=== PATIENT | male | born 1940 | race Caucasian/White ===

== ENCOUNTER → 2016-05-01 | Outpatient (CLI) | payer MEDICARE, OTHER ==
[~2016-05-01] MED LIST: AMIO200T33 PO; DORZ2SOL15 EACHEYE; FURO40TA4 PO; LATA0.0015 EACHEYE; MAGN400T23 PO; POTA12PO2 PO
== END | disposition home or self-care (01) ==
LOC: Rad HDHVI 09:07
PROVIDERS: ATTEND Internal Medicine Cardiovascular Disease
DX: M79.89 Other specified soft tissue disorders (principal)
CPT/HCPCS: 93971

== ENCOUNTER → 2016-06-14 | Outpatient (CLI) | payer MEDICARE, OTHER ==
[2016-06-14 12:12] LABS: Basophils # (auto) 0 uL; Basophils % (auto) 0.7 % (0.0-2.0); Eosinophils # (auto) 0.2 uL; Eosinophils % (auto) 3.7 % (0.0-7.0); Hematocrit 32.2 % (41.0-53.0); Hemoglobin 10.2 g/dL (13.5-17.5); Lymphocytes % (auto) 17.5 % (10.0-50.0); Mean Corpuscular Hemoglobin 27.1 pg (28.0-32.0); Mean Corpuscular Hgb Conc. 31.6 g/dL (32.0-36.0); Mean Platelet Volume 9.2 fL (7.4-10.4); Monocytes # (auto) 0.6 uL; Monocytes % (auto) 10.7 % (0.0-12.0); Neutrophils % (auto) 67.4 % (37.0-80.0); Platelet Count (auto) 371 10^3/uL (140-450); Red Cell Distribution Width 16.6 % (11.6-16.0); White Blood Cell 5.9 10^3/uL (4.4-10.8)
[2016-06-14 12:45] LABS: Urine Bilirubin Negative (Negative); Urine Blood Negative /uL (Negative); Urine Color Yellow (Yellow); Urine Glucose Normal (Normal); Urine Ketone Negative (Negative); Urine Nitrite Negative (Negative); Urine Urobilinogen Normal (Negative)
[2016-06-14 13:08] LABS: Albumin 3.9 g/dL (3.4-5.0); BUN/Creatinine Ratio 19.8; Bilirubin, Direct 0.1 mg/dL (0-0.2); Bilirubin, Total 0.4 mg/dL (0.2-1.0); Calcium 9.3 mg/dL (8.5-10.1); Magnesium 2.8 mg/dL (1.6-2.6); Potassium 3.9 mmol/L (3.5-5.1); Total Protein 7.8 g/dL (6.4-8.2)
== END | disposition home or self-care (01) ==
LOC: LAB 08:28
PROVIDERS: ATTEND Internal Medicine Cardiovascular Disease
DX: I10 Essential (primary) hypertension (principal); E61.1 Iron deficiency; E78.00 Pure hypercholesterolemia, unspecified; E03.9 Hypothyroidism, unspecified; E11.9 Type 2 diabetes mellitus without complications; E55.9 Vitamin D deficiency, unspecified; D64.9 Anemia, unspecified; K74.1 Hepatic sclerosis; N39.0 Urinary tract infection, site not specified; R53.81 Other malaise; R97.20 Elevated prostate specific antigen [PSA]
CPT/HCPCS: 36415; 80048; 80061; 80076; 81003; 82306; 82728; 83540; 83735; 84439; 84443; 85025

== ENCOUNTER 2016-10-13 20:35 | Inpatient (IN) | payer MEDICARE, OTHER ==
[~2016-10-13] VITALS: Ht 180.3 cm; Wt 95.7 kg
[2016-10-13] MEDS ORDERED: SODIUM CHLORIDE 0.9% 1,000 ML IVB ONE (21:02)
[2016-10-13 21:27] LABS: Basophils # (auto) 0 uL; CONDITION Y; DEFINITIVE SEE PRINTOUT; Eosinophils # (auto) 0 uL; Hematocrit 12.4 % (41.0-53.0); Lymphocytes # (auto) 1.1 uL; Lymphocytes % (auto) 5.7 % (10.0-50.0); Mean Corpuscular Hemoglobin 32.1 pg (28.0-32.0); Mean Corpuscular Hgb Conc. 34.7 g/dL (32.0-36.0); Mean Corpuscular Volume 92.5 fL (80.0-100.0); Monocytes # (auto) 1.1 uL; Monocytes % (auto) 5.8 % (0.0-12.0); Neutrophils # (auto) 17.2 uL; Neutrophils % (auto) 88.5 % (37.0-80.0); Platelet Count (auto) 176 10^3/uL (140-450); SUSPECT SEE PRINTOUT; White Blood Cell 19.5 10^3/uL (4.4-10.8)
[2016-10-13 21:35] LABS: Red Cell Distribution Width 23.9 % (11.6-16.0)
[2016-10-13 21:37] LABS: Hemoglobin 4.3 g/dL (13.5-17.5)
[2016-10-13 21:43] LABS: INR 1.19 (0.9-1.15); Partial Thromboplastin Time 28.2 sec (22.64-33.71)
[2016-10-13 21:57] LABS: Albumin 2.3 g/dL (3.4-5.0); Alkaline Phosphatase 31 U/L (45-117); Anion Gap 13 (5-15); Aspartate Aminotransferase 11 U/L (15-37); BUN/Creatinine Ratio 38.3; Bilirubin, Total 0.4 mg/dL (0.2-1.0); Blood Urea Nitrogen 59 mg/dL (7-18); Carbon Dioxide 13 mmol/L (21-32); Chloride 110 mmol/L (98-107); GFR African American 57 mL/min; GFR Non-African American 47 mL/min; Glucose 221 mg/dL (74-106); Magnesium 2.4 mg/dL (1.6-2.6); Potassium 3.6 mmol/L (3.5-5.1); Sodium 136 mmol/L (136-145); Total Protein 4.7 g/dL (6.4-8.2)
[2016-10-13 22:00] LABS: Burr Cells FEW; Ovalocytes FEW
[2016-10-13 22:01] LABS: Polychromasia Slight
[2016-10-13 22:02] LABS: Anisocytosis Moderate; Platelet Estimate Adequate
[2016-10-13 22:50] LABS: Temperature: 21.8 C (20.0-25.0)
[2016-10-13] MEDS ORDERED: PANTOPRAZOLE 40 MG/10 ML VIAL IV ONE (23:30)
[2016-10-13] MEDS ORDERED: PANTOPRAZOLE 80 MG in SODIUM CHL 0.9% 60 ML IV ONE (23:30)
[2016-10-13] MEDS ORDERED: ONDANSETRON HCL 4 MG/2 ML VIAL IV ONE (23:30)
[2016-10-14] VITALS (61 sets, daily range): BP systolic 92–148; BP diastolic 46–99
[2016-10-14 00:29] LABS: Urine Bilirubin Negative (Negative); Urine Blood Negative /uL (Negative); Urine Color Yellow (Yellow); Urine Glucose 1+ mg/dL (Normal); Urine Hyaline Cast MOD /lpf (0 - 2); Urine Ketone Negative (Negative); Urine Mucus FEW (None Seen); Urine Nitrite Negative (Negative); Urine RBC <1 /hpf (0 - 3); Urine Urobilinogen Normal (Negative)
[2016-10-14] MEDS ORDERED: PANTOPRAZOLE 40 MG/10 ML VIAL IV ONE (00:33)
[2016-10-14] MEDS ORDERED: LORazepam 2MG/ML-1ML VIAL ONE (01:39)
[2016-10-14] MEDS ORDERED: LORazepam 2MG/ML-1ML VIAL IV ONE (01:45)
[2016-10-14] MEDS ORDERED: OCTREOTIDE ACETATE 100 MCG in SODIUM CHL 0.9% 50 ML IV ONE (04:45)
[2016-10-14] MEDS ORDERED: NITROGLYCERIN 0.4 MG SL TAB SL PRN (04:45)
[2016-10-14] MEDS ORDERED: OCTREOTIDE ACETATE 500 MCG in SODIUM CHL 0.9% 99 ML IV SCH (04:45)
[2016-10-14] MEDS ORDERED: MORPHINE SULF INJ 2 MG/ML SYRINGE 1ML IV PRN ×2 (04:45→05:30)
[2016-10-14] MEDS ORDERED: ONDANSETRON HCL 4 MG/2 ML VIAL IV PRN (05:30)
[2016-10-14] MEDS ORDERED: ACETAMINOPHEN 500 MG TAB PO PRN (05:30)
[2016-10-14] MEDS ORDERED: HYDROcodone-ACET 5/325MG TAB PO PRN (05:30)
[2016-10-14] MEDS ORDERED: LEV50T PO (05:41)
[2016-10-14] MEDS ORDERED: APIX5TAB PO (05:41)
[2016-10-14] MEDS ORDERED: FERR325T PO (05:41)
[2016-10-14] MEDS ORDERED: MEGE40TA15 PO (05:41)
[2016-10-14] MEDS: LEVOTHYROXINE SODIUM 88 MCG TAB PO SCH ×2 (09:35→12:03)
[2016-10-14] MEDS: AMIODARONE HCL 200 MG TAB PO SCH ×2 (09:35→12:04)
[2016-10-14] MEDS ORDERED: PANTOPRAZOLE 40 MG/10 ML VIAL IV SCH (12:30)
[2016-10-14] MEDS ORDERED: GOLYTELY 4L KIT PO ONE (13:00)
[2016-10-14 16:23] LABS: Basophils # (auto) 0 uL; CONDITION Y; DEFINITIVE SEE PRINTOUT; Eosinophils # (auto) 0 uL; Eosinophils % (auto) 0.1 % (0.0-7.0); Hematocrit 27.5 % (41.0-53.0); Hemoglobin 9.3 g/dL (13.5-17.5); Lymphocytes # (auto) 1.3 uL; Lymphocytes % (auto) 7.3 % (10.0-50.0); Mean Corpuscular Hemoglobin 30.9 pg (28.0-32.0); Mean Corpuscular Hgb Conc. 33.8 g/dL (32.0-36.0); Mean Corpuscular Volume 91.4 fL (80.0-100.0); Monocytes # (auto) 1.8 uL; Monocytes % (auto) 9.6 % (0.0-12.0); Neutrophils # (auto) 15.2 uL; Platelet Count (auto) 160 10^3/uL (140-450); Red Cell Distribution Width 16.2 % (11.6-16.0); White Blood Cell 18.3 10^3/uL (4.4-10.8)
[2016-10-14 16:39] LABS: Albumin 2.6 g/dL (3.4-5.0); BUN/Creatinine Ratio 38.2; Calcium 7.1 mg/dL (8.5-10.1)
[2016-10-14 16:42] LABS: Bilirubin, Total 0.8 mg/dL (0.2-1.0); Total Protein 5.1 g/dL (6.4-8.2)
[2016-10-14 16:43] LABS: Lactic Acid w/Reflex 2.5 mmol/L (0.4-2.0)
[2016-10-14 17:08] LABS: REFLEX LACTIC ACID YES OR NO NO
[2016-10-14] MEDS: SODIUM CHLORIDE 0.9% 1,000 ML IV SCH (18:59)
[2016-10-15] VITALS (34 sets, daily range): BP systolic 85–137; BP diastolic 50–82
[2016-10-15 03:17] LABS: Basophils # (auto) 0 uL; Basophils % (auto) 0.1 % (0.0-2.0); CONDITION Y; Eosinophils # (auto) 0 uL; Eosinophils % (auto) 0.2 % (0.0-7.0); Hematocrit 25.7 % (41.0-53.0); Hemoglobin 8.7 g/dL (13.5-17.5); Lymphocytes # (auto) 1.2 uL; Lymphocytes % (auto) 7.8 % (10.0-50.0); Mean Corpuscular Hemoglobin 30.9 pg (28.0-32.0); Mean Corpuscular Hgb Conc. 33.7 g/dL (32.0-36.0); Mean Corpuscular Volume 91.5 fL (80.0-100.0); Mean Platelet Volume 8.9 fL (7.4-10.4); Monocytes # (auto) 1.5 uL; Monocytes % (auto) 9.6 % (0.0-12.0); Neutrophils # (auto) 12.6 uL; Neutrophils % (auto) 82.3 % (37.0-80.0); Platelet Count (auto) 155 10^3/uL (140-450); Red Cell Distribution Width 16.3 % (11.6-16.0); White Blood Cell 15.3 10^3/uL (4.4-10.8)
[2016-10-15 04:26] LABS: Potassium 2.9 mmol/L (3.5-5.1)
[2016-10-15] MEDS: LEVOTHYROXINE SODIUM 88 MCG TAB PO SCH (08:00)
[2016-10-15] MEDS ORDERED: SODIUM CHLORIDE LOCK 10 ML ONE (08:24)
[2016-10-15] MEDS ORDERED: BENZOCAINE (DENTAL) 20 % SPRAY 60ML MT ONE (08:24)
[2016-10-15] MEDS ORDERED: diphenhdrAMINE HCL 50 MG/1 ML VL ONE (08:26)
[2016-10-15] MEDS ORDERED: LIDOCAINE VISCOUS 2% 15ML UD ONE (08:26)
[2016-10-15] MEDS ORDERED: MIDAZOLAM HCL 5 MG/ML-1ML VIAL ONE (08:26)
[2016-10-15] MEDS ORDERED: EPINEPHrine HCL 1 MG/10 ML SYRG ONE (08:27)
[2016-10-15] MEDS ORDERED: fentaNYL CITRATE 100 MCG/2 ML VL ONE (08:27)
[2016-10-15] MEDS: POTASSIUM CHL 20MEQ/100ML 100 ML IV SCH ×2 (08:31→09:45)
[2016-10-15] MEDS: SODIUM CHLORIDE 0.9% 1,000 ML IV SCH (09:45)
[2016-10-15] MEDS: POTASSIUM CHLORIDE 20 MEQ, LIDOCAINE 1% (LOCAL ANESTH.) 2 ML in SODIUM CHL 0.9% 100 ML IV SCH ×3 (10:30→15:30)
[2016-10-15 12:31] LABS: Basophils # (auto) 0 uL; Basophils % (auto) 0.1 % (0.0-2.0); CONDITION Y; DEFINITIVE SEE PRINTOUT; Eosinophils # (auto) 0 uL; Eosinophils % (auto) 0.3 % (0.0-7.0); Hematocrit 23.8 % (41.0-53.0); Hemoglobin 8.3 g/dL (13.5-17.5); Lymphocytes # (auto) 0.9 uL; Lymphocytes % (auto) 7.9 % (10.0-50.0); Mean Corpuscular Hemoglobin 31.5 pg (28.0-32.0); Mean Corpuscular Hgb Conc. 34.8 g/dL (32.0-36.0); Mean Corpuscular Volume 90.4 fL (80.0-100.0); Mean Platelet Volume 8.6 fL (7.4-10.4); Monocytes # (auto) 1.1 uL; Monocytes % (auto) 10.2 % (0.0-12.0); Neutrophils % (auto) 81.5 % (37.0-80.0); Platelet Count (auto) 145 10^3/uL (140-450); Red Cell Distribution Width 16.6 % (11.6-16.0); White Blood Cell 11.1 10^3/uL (4.4-10.8)
[2016-10-15 12:56] LABS: INR 1.1 (0.9-1.15); Partial Thromboplastin Time 27.3 sec (22.64-33.71)
[2016-10-15 18:19] LABS: Albumin 2.4 g/dL (3.4-5.0); BUN/Creatinine Ratio 30.7; Potassium 3.6 mmol/L (3.5-5.1)
[2016-10-15 18:21] LABS: Bilirubin, Total 0.9 mg/dL (0.2-1.0); Total Protein 4.8 g/dL (6.4-8.2)
[2016-10-16] VITALS (54 sets, daily range): BP systolic 84–138; BP diastolic 47–90
[2016-10-16 03:43] LABS: Basophils # (auto) 0 uL; Basophils % (auto) 0.2 % (0.0-2.0); CONDITION Y; DEFINITIVE SEE PRINTOUT; Eosinophils # (auto) 0.1 uL; Eosinophils % (auto) 1.5 % (0.0-7.0); Hematocrit 20.5 % (41.0-53.0); Lymphocytes % (auto) 13.1 % (10.0-50.0); Mean Corpuscular Hemoglobin 31.1 pg (28.0-32.0); Mean Corpuscular Hgb Conc. 33.8 g/dL (32.0-36.0); Mean Corpuscular Volume 91.9 fL (80.0-100.0); Mean Platelet Volume 8.8 fL (7.4-10.4); Monocytes # (auto) 0.9 uL; Monocytes % (auto) 11.3 % (0.0-12.0); Neutrophils # (auto) 5.7 uL; Neutrophils % (auto) 73.9 % (37.0-80.0); Platelet Count (auto) 127 10^3/uL (140-450); White Blood Cell 7.7 10^3/uL (4.4-10.8)
[2016-10-16 04:09] LABS: Potassium 3.5 mmol/L (3.5-5.1)
[2016-10-16 04:12] LABS: Hemoglobin 6.9 g/dL (13.5-17.5)
[2016-10-16 04:13] LABS: BUN/Creatinine Ratio 27.6; Calcium 6.5 mg/dL (8.5-10.1)
[2016-10-16 04:16] LABS: Bilirubin, Total 0.5 mg/dL (0.2-1.0); Total Protein 4.1 g/dL (6.4-8.2)
[2016-10-16] MEDS: LEVOTHYROXINE SODIUM 88 MCG TAB PO SCH (06:34)
[2016-10-16] MEDS: AMIODARONE HCL 200 MG TAB PO SCH (10:05)
[2016-10-16] MEDS: PANTOPRAZOLE 40 MG TAB PO SCH (10:05)
[2016-10-16] MEDS: SODIUM CHLORIDE 0.9% 1,000 ML IV SCH (11:00)
[2016-10-16] MEDS ORDERED: POTASSIUM CHLORIDE 40 MEQ, LIDOCAINE 1% (LOCAL ANESTH.) 4 ML in SODIUM CHL 0.9% 250 ML IV ONE (11:45)
[2016-10-16] MEDS ORDERED: FUROSEMIDE 20 MG/2 ML VIAL IV ONE (11:45)
[2016-10-16] MEDS ORDERED: POTASSIUM CHL 20 Meq TABLET PO ONE (11:45)
[2016-10-16] MEDS ORDERED: FUROSEMIDE 20 MG/2 ML VIAL ONE ×2 (12:18→12:19)
[2016-10-16 13:04] LABS: Albumin 2.4 g/dL (3.4-5.0); BUN/Creatinine Ratio 23.2; Calcium 7.1 mg/dL (8.5-10.1)
[2016-10-16 16:51] LABS: Hematocrit 30.2 % (41.0-53.0); Hemoglobin 10.1 g/dL (13.5-17.5)
[2016-10-16 17:08] LABS: Calcium 7.3 mg/dL (8.5-10.1); Potassium 3.9 mmol/L (3.5-5.1)
[2016-10-16] MEDS: POTASSIUM CHL 20 Meq TABLET PO SCH (22:26)
[2016-10-17] VITALS (24 sets, daily range): BP systolic 103–145; BP diastolic 52–89
[2016-10-17 03:47] LABS: Hematocrit 31.4 % (41.0-53.0); Hemoglobin 10.5 g/dL (13.5-17.5)
[2016-10-17] MEDS: LEVOTHYROXINE SODIUM 88 MCG TAB PO SCH (06:49)
[2016-10-17 08:34] LABS: Basophils # (auto) 0 uL; Basophils % (auto) 0.1 % (0.0-2.0); CONDITION Y; Eosinophils # (auto) 0.2 uL; Eosinophils % (auto) 1.9 % (0.0-7.0); Hematocrit 31.4 % (41.0-53.0); Hemoglobin 10.7 g/dL (13.5-17.5); Lymphocytes # (auto) 0.8 uL; Lymphocytes % (auto) 7.6 % (10.0-50.0); Mean Corpuscular Hemoglobin 30.8 pg (28.0-32.0); Mean Corpuscular Volume 90.6 fL (80.0-100.0); Mean Platelet Volume 9.1 fL (7.4-10.4); Monocytes # (auto) 0.9 uL; Monocytes % (auto) 8.4 % (0.0-12.0); Neutrophils # (auto) 8.3 uL; Platelet Count (auto) 125 10^3/uL (140-450); Red Cell Distribution Width 15.9 % (11.6-16.0); SUSPECT SEE PRINTOUT; White Blood Cell 10.2 10^3/uL (4.4-10.8)
[2016-10-17] MEDS: POTASSIUM CHL 20 Meq TABLET PO SCH ×2 (10:00→21:48)
[2016-10-17 12:07] LABS: Hemoglobin 11.8 g/dL (13.5-17.5)
[2016-10-17] MEDS: SODIUM CHLORIDE 0.9% 1,000 ML IV SCH (14:42)
[2016-10-17] MEDS: PANTOPRAZOLE 40 MG TAB PO SCH (15:25)
[2016-10-17 15:56] LABS: Hematocrit 32.1 % (41.0-53.0); Hemoglobin 10.7 g/dL (13.5-17.5)
[2016-10-17 22:29] LABS: Hematocrit 31.4 % (41.0-53.0); Hemoglobin 10.3 g/dL (13.5-17.5)
[2016-10-18] MEDS: SODIUM CHLORIDE 0.9% 1,000 ML IV SCH (03:54)
[2016-10-18 05:36] VITALS: BP 115/77
[2016-10-18] MEDS: LEVOTHYROXINE SODIUM 88 MCG TAB PO SCH (06:14)
[2016-10-18 06:43] LABS: Basophils # (auto) 0 uL; CONDITION Y; SUSPECT SEE PRINTOUT
[2016-10-18 06:52] LABS: Basophils % (auto) 0.2 % (0.0-2.0); Eosinophils # (auto) 0.2 uL; Eosinophils % (auto) 2.3 % (0.0-7.0); Hematocrit 32.5 % (41.0-53.0); Hemoglobin 10.9 g/dL (13.5-17.5); Lymphocytes % (auto) 9.3 % (10.0-50.0); Mean Corpuscular Hemoglobin 30.5 pg (28.0-32.0); Mean Corpuscular Hgb Conc. 33.6 g/dL (32.0-36.0); Mean Corpuscular Volume 90.9 fL (80.0-100.0); Mean Platelet Volume 9.4 fL (7.4-10.4); Monocytes # (auto) 1.2 uL; Neutrophils # (auto) 7.9 uL; Neutrophils % (auto) 76.2 % (37.0-80.0); Platelet Count (auto) 130 10^3/uL (140-450); Red Cell Distribution Width 16.1 % (11.6-16.0); White Blood Cell 10.3 10^3/uL (4.4-10.8)
[2016-10-18 06:58] LABS: Calcium 7.4 mg/dL (8.5-10.1); Potassium 4.7 mmol/L (3.5-5.1)
[2016-10-18 07:01] LABS: Albumin 2.2 g/dL (3.4-5.0); Total Protein 4.8 g/dL (6.4-8.2)
[2016-10-18 09:49] VITALS: BP 133/76
[2016-10-18] MEDS: PANTOPRAZOLE 40 MG TAB PO SCH (10:17)
[2016-10-18] MEDS: POTASSIUM CHL 20 Meq TABLET PO SCH (10:18)
[2016-10-18] MEDS: AMIODARONE HCL 200 MG TAB PO SCH (10:18)
[2016-10-18 13:00] VITALS: BP 105/73
[2016-10-18 15:20] VITALS: BP 108/66
[2016-10-18 15:28] VITALS: BP_SYST 124; BP_SYST 132; BP_DIAS 66; BP_DIAS 70
[2016-10-18 15:35] VITALS: BP 124/66
== END 2016-10-18 16:15 | disposition home or self-care (01) | DRG 377 ==
LOC: ER 20:35 → EDUNIT# 20:35 → EDBD 20:35 → TELE 20:36 → ICU WEST 10-14 06:30 → TELE-CENTR 10-17 22:57
PROVIDERS: ADMIT Nurse Practitioner Family; ATTEND Internal Medicine Cardiovascular Disease
PROC: 30233N1 Transfusion of Nonautologous Red Blood Cells into Peripheral Vein, Percutaneous Approach (ICD-10-PCS; 2016-10-14)
PROC: 0DJD8ZZ Inspection of Lower Intestinal Tract, Via Natural or Artificial Opening Endoscopic (ICD-10-PCS; principal; 2016-10-15 14:30)
PROC: 0DJ08ZZ Inspection of Upper Intestinal Tract, Via Natural or Artificial Opening Endoscopic (ICD-10-PCS; 2016-10-15 14:30)
DX: K29.71 Gastritis, unspecified, with bleeding (principal); N17.0 Acute kidney failure with tubular necrosis; E44.0 Moderate protein-calorie malnutrition; I48.91 Unspecified atrial fibrillation; I50.9 Heart failure, unspecified; I11.0 Hypertensive heart disease with heart failure; J44.9 Chronic obstructive pulmonary disease, unspecified; E03.9 Hypothyroidism, unspecified; E29.1 Testicular hypofunction; E87.6 Hypokalemia; D64.9 Anemia, unspecified; D72.829 Elevated white blood cell count, unspecified; K64.4 Residual hemorrhoidal skin tags; K64.8 Other hemorrhoids; T45.515A Adverse effect of anticoagulants, initial encounter; Y92.89 Other specified places as the place of occurrence of the external cause; Z79.01 Long term (current) use of anticoagulants; Z86.718 Personal history of other venous thrombosis and embolism; Z86.73 Personal history of transient ischemic attack (TIA), and cerebral infarction without residual deficits; Z95.0 Presence of cardiac pacemaker; Z95.828 Presence of other vascular implants and grafts; Z88.0 Allergy status to penicillin; Z87.11 Personal history of peptic ulcer disease; Z68.29 Body mass index [BMI] 29.0-29.9, adult
CPT/HCPCS: 36415; 36430; 43235; 45378; 70450; 71010; 74176; 78278; 80048; 80053; 80307; 80320; 81001; 82962; 83605; 83735; 83880; 84443; 84484; 85014; 85018; 85025; 85610; 85730; 86850; 86900; 86901; 86920; 87040; 87081; 93005; 96361; 96365; 96375; 99291; A9560; C9113; J2001; J2250; J2405; J3480

== ENCOUNTER → 2016-10-30 | Outpatient (CLI) | payer MEDICARE, OTHER ==
[~2016-10-30] MED LIST changes: +APIX5TAB PO; +FERR325T PO; +LEV50T PO; +MEGE40TA15 PO
[2016-10-30 12:39] LABS: Urine Bilirubin Negative (Negative); Urine Blood Negative /uL (Negative); Urine Color Yellow (Yellow); Urine Glucose Normal (Normal); Urine Ketone Negative (Negative); Urine Nitrite Negative (Negative); Urine Urobilinogen Normal (Negative); Urine pH 5.5 (5.0-8.0)
[2016-10-30 12:54] LABS: Albumin 3.4 g/dL (3.4-5.0); BUN/Creatinine Ratio 17.7; Bilirubin, Direct 0.3 mg/dL (0-0.2); Bilirubin, Total 0.8 mg/dL (0.2-1.0); Calcium 9.1 mg/dL (8.5-10.1); Total Protein 7.5 g/dL (6.4-8.2)
[2016-10-30 13:16] LABS: Basophils # (auto) 0 uL; Basophils % (auto) 0.2 % (0.0-2.0); CONDITION Y; Eosinophils # (auto) 0.1 uL; Eosinophils % (auto) 0.7 % (0.0-7.0); Hematocrit 36.1 % (41.0-53.0); Hemoglobin 11.6 g/dL (13.5-17.5); Lymphocytes # (auto) 0.6 uL; Lymphocytes % (auto) 6.1 % (10.0-50.0); Mean Corpuscular Hemoglobin 30.1 pg (28.0-32.0); Mean Corpuscular Hgb Conc. 32.3 g/dL (32.0-36.0); Mean Corpuscular Volume 93.3 fL (80.0-100.0); Monocytes # (auto) 0.9 uL; Monocytes % (auto) 9.9 % (0.0-12.0); Neutrophils % (auto) 83.1 % (37.0-80.0); Platelet Count (auto) 252 10^3/uL (140-450); Red Cell Distribution Width 17.3 % (11.6-16.0); SUSPECT SEE PRINTOUT; White Blood Cell 9.6 10^3/uL (4.4-10.8)
[2016-10-30 13:25] LABS: Reticulocyte Count 2.46 % (0.5-1.5)
== END | disposition home or self-care (01) ==
LOC: Rad HDHVI 08:05
PROVIDERS: ATTEND Internal Medicine Cardiovascular Disease
DX: I82.509 Chronic embolism and thrombosis of unspecified deep veins of unspecified lower extremity (principal); D64.9 Anemia, unspecified; I10 Essential (primary) hypertension; E78.00 Pure hypercholesterolemia, unspecified; E03.9 Hypothyroidism, unspecified; E55.9 Vitamin D deficiency, unspecified; R53.81 Other malaise; R97.20 Elevated prostate specific antigen [PSA]; K74.1 Hepatic sclerosis; E11.9 Type 2 diabetes mellitus without complications; N39.0 Urinary tract infection, site not specified
CPT/HCPCS: 36415; 80048; 80061; 80076; 81003; 82306; 83036; 84153; 84403; 84443; 85025; 85045; 93970

== ENCOUNTER → 2016-11-04 | Outpatient (CLI) | payer MEDICARE, OTHER ==
[2016-11-04 16:27] LABS: Basophils # (auto) 0 uL; Basophils % (auto) 0.4 % (0.0-2.0); CONDITION Y; Eosinophils # (auto) 0.2 uL; Eosinophils % (auto) 2.4 % (0.0-7.0); Hemoglobin 11.2 g/dL (13.5-17.5); Lymphocytes % (auto) 13.3 % (10.0-50.0); Mean Corpuscular Hemoglobin 30.3 pg (28.0-32.0); Mean Corpuscular Volume 91.9 fL (80.0-100.0); Mean Platelet Volume 8.6 fL (7.4-10.4); Neutrophils # (auto) 5.5 uL; Neutrophils % (auto) 70.9 % (37.0-80.0); Platelet Count (auto) 442 10^3/uL (140-450); Red Cell Distribution Width 17.3 % (11.6-16.0); White Blood Cell 7.8 10^3/uL (4.4-10.8)
== END | disposition home or self-care (01) ==
LOC: LAB 14:54
PROVIDERS: ATTEND Internal Medicine Cardiovascular Disease
DX: D64.9 Anemia, unspecified (principal)
CPT/HCPCS: 36415; 85025

== ENCOUNTER → 2017-01-08 | Outpatient (CLI) | payer MEDICARE, OTHER ==
[~2017-01-08] MED LIST changes: -DORZ2SOL15 EACHEYE; +DORZ2SOL22 EACHEYE
[2017-01-08 12:58] LABS: Basophils # (auto) 0 uL; Basophils % (auto) 0.5 % (0.0-2.0); Eosinophils # (auto) 0.1 uL; Eosinophils % (auto) 1.9 % (0.0-7.0); Hematocrit 42.2 % (41.0-53.0); Hemoglobin 14.3 g/dL (13.5-17.5); Lymphocytes # (auto) 0.8 uL; Lymphocytes % (auto) 10.7 % (10.0-50.0); Mean Corpuscular Hemoglobin 32.5 pg (28.0-32.0); Mean Corpuscular Hgb Conc. 33.9 g/dL (32.0-36.0); Mean Corpuscular Volume 95.8 fL (80.0-100.0); Mean Platelet Volume 9.4 fL (6.9-10.8); Monocytes # (auto) 0.6 uL; Monocytes % (auto) 8.5 % (0.0-12.0); Neutrophils # (auto) 5.7 uL; Neutrophils % (auto) 78.4 % (37.0-80.0); Nucleated Red Blood Cells % 0.1 %; Platelet Count (auto) 218 10^3/uL (140-450); Red Cell Distribution Width 16.7 % (11.8-14.3); White Blood Cell 7.3 10^3/uL (4.4-10.8)
== END | disposition home or self-care (01) ==
LOC: LAB 10:54
PROVIDERS: ATTEND Internal Medicine Cardiovascular Disease
DX: D64.9 Anemia, unspecified (principal); J44.9 Chronic obstructive pulmonary disease, unspecified
CPT/HCPCS: 36415; 85025

== ENCOUNTER → 2017-02-26 | Outpatient (CLI) | payer MEDICARE, OTHER ==
[~2017-02-26] MED LIST changes: +APIX2.5T PO; +FERR-20 PO; -FERR325T PO; +FURO40TA PO; +IOHEXOL 350 MG/ML 100ML IJ ONE; +LEVO88TA36 PO; +MESA1.2T PO; +POTA20TA53 PO; +SOTA80TA PO
[2017-02-26 09:00] VITALS: BP 116/84
[2017-02-26 10:11] VITALS: BP 123/89
[2017-02-26 11:58] LABS: Basophils # (auto) 0 uL; Basophils % (auto) 0.7 % (0.0-2.0); Eosinophils # (auto) 0.2 uL; Hematocrit 43.4 % (41.0-53.0); Hemoglobin 14.8 g/dL (13.5-17.5); Lymphocytes # (auto) 1.1 uL; Lymphocytes % (auto) 17.2 % (10.0-50.0); Mean Corpuscular Hemoglobin 31.9 pg (28.0-32.0); Mean Corpuscular Volume 93.7 fL (80.0-100.0); Monocytes # (auto) 0.9 uL; Neutrophils # (auto) 3.9 uL; Neutrophils % (auto) 64.1 % (37.0-80.0); Nucleated Red Blood Cells % 0.1 %; Platelet Count (auto) 264 10^3/uL (140-450); Red Blood Cells 4.63 10^6/uL (4.5-5.90); Red Cell Distribution Width 14.4 % (11.8-14.3); White Blood Cell 6.2 10^3/uL (4.4-10.8)
[2017-02-26 12:08] LABS: Free T4 (Free Thyroxine) 2.28 ng/dL (0.89-1.76)
[2017-02-26 12:09] LABS: Folate (Folic Acid) 21.5 ng/mL (5.38-24)
== END | disposition home or self-care (01) ==
LOC: Rad HDHVI 08:54
PROVIDERS: ATTEND Internal Medicine Cardiovascular Disease
DX: I51.7 Cardiomegaly (principal); J81.1 Chronic pulmonary edema; K21.9 Gastro-esophageal reflux disease without esophagitis; I50.810 Right heart failure, unspecified; I48.0 Paroxysmal atrial fibrillation; I10 Essential (primary) hypertension; E78.00 Pure hypercholesterolemia, unspecified; I26.99 Other pulmonary embolism without acute cor pulmonale; I82.509 Chronic embolism and thrombosis of unspecified deep veins of unspecified lower extremity; D62 Acute posthemorrhagic anemia; K51.20 Ulcerative (chronic) proctitis without complications; R63.4 Abnormal weight loss; D64.9 Anemia, unspecified
CPT/HCPCS: 36415; 71275; 82565; 82607; 82746; 84439; 84443; 85025; 93005; 96374; G0463; Q9967

== ENCOUNTER → 2017-05-05 | Outpatient (CLI) | payer MEDICARE, OTHER ==
[2017-05-05 08:40] VITALS: BP 123/91
[2017-05-05 09:15] VITALS: BP 123/82
[2017-05-05 12:29] LABS: Basophils # (auto) 0 uL; Basophils % (auto) 0.7 % (0.0-2.0); Eosinophils # (auto) 0.4 uL; Eosinophils % (auto) 5.8 % (0.0-7.0); Hematocrit 38.7 % (41.0-53.0); Hemoglobin 12.5 g/dL (13.5-17.5); Lymphocytes # (auto) 1.1 uL; Lymphocytes % (auto) 17.4 % (10.0-50.0); Mean Corpuscular Hemoglobin 30.9 pg (28.0-32.0); Mean Corpuscular Hgb Conc. 32.3 g/dL (32.0-36.0); Mean Corpuscular Volume 95.6 fL (80.0-100.0); Monocytes # (auto) 0.8 uL; Monocytes % (auto) 12.9 % (0.0-12.0); Neutrophils # (auto) 4.1 uL; Neutrophils % (auto) 63.2 % (37.0-80.0); Nucleated Red Blood Cells % 0.2 %; Platelet Count (auto) 206 10^3/uL (140-450); Red Blood Cells 4.05 10^6/uL (4.5-5.90); Red Cell Distribution Width 15.5 % (11.8-14.3); White Blood Cell 6.6 10^3/uL (4.4-10.8)
== END | disposition home or self-care (01) ==
LOC: Rad HDHVI 08:04
PROVIDERS: ATTEND Internal Medicine Cardiovascular Disease
DX: I51.7 Cardiomegaly (principal); R07.9 Chest pain, unspecified; D64.9 Anemia, unspecified; I25.10 Atherosclerotic heart disease of native coronary artery without angina pectoris; J81.1 Chronic pulmonary edema
CPT/HCPCS: 36415; 71275; 82565; 85025; 93306; 96374; G0463; Q9967

== ENCOUNTER → 2017-05-12 | Outpatient (CLI) | payer MEDICARE, OTHER ==
[~2017-05-12] MED LIST changes: -IOHEXOL 350 MG/ML 100ML IJ ONE
[2017-05-12 11:30] VITALS: BP 122/79
[2017-05-12 12:00] VITALS: BP 102/71
[2017-05-12 16:17] LABS: Basophils # (auto) 0.1 uL; Eosinophils # (auto) 0.1 uL; Eosinophils % (auto) 2.2 % (0.0-7.0); Hematocrit 44.6 % (41.0-53.0); Hemoglobin 14.8 g/dL (13.5-17.5); Lymphocytes # (auto) 0.9 uL; Lymphocytes % (auto) 13.4 % (10.0-50.0); Mean Corpuscular Hemoglobin 31.4 pg (28.0-32.0); Mean Corpuscular Hgb Conc. 33.1 g/dL (32.0-36.0); Mean Corpuscular Volume 94.8 fL (80.0-100.0); Monocytes # (auto) 0.8 uL; Monocytes % (auto) 11.8 % (0.0-12.0); Neutrophils # (auto) 4.9 uL; Neutrophils % (auto) 71.6 % (37.0-80.0); Nucleated Red Blood Cells % 0.4 %; Platelet Count (auto) 227 10^3/uL (140-450); Red Cell Distribution Width 15.6 % (11.8-14.3); White Blood Cell 6.8 10^3/uL (4.4-10.8)
[2017-05-12 16:35] LABS: BUN/Creatinine Ratio 18.5; Calcium 8.8 mg/dL (8.5-10.1); Potassium 3.9 mmol/L (3.5-5.1)
[2017-05-12 16:41] LABS: INR 1.11 (0.9-1.15); Partial Thromboplastin Time 27.8 sec (22.64-33.71); Prothrombin Time 12.1 sec (9.37-12.3)
== END | disposition home or self-care (01) ==
LOC: CHF HDHVI 11:17
PROVIDERS: ATTEND Internal Medicine Cardiovascular Disease
DX: Z01.818 Encounter for other preprocedural examination (principal); I51.7 Cardiomegaly; I70.0 Atherosclerosis of aorta; I10 Essential (primary) hypertension; D64.9 Anemia, unspecified; R79.1 Abnormal coagulation profile
CPT/HCPCS: 36415; 71046; 80048; 85025; 85610; 85730; 93005; G0463

== ENCOUNTER 2017-05-15 08:20 | Day surgery (SDC) | payer MEDICARE, OTHER ==
[~2017-05-15] VITALS: Ht 180.3 cm; Wt 71.3 kg
[~2017-05-15 08:20] MED LIST changes: -AMIO200T33 PO; -APIX5TAB PO; -FERR-20 PO; -FURO40TA4 PO; -LEV50T PO; -POTA12PO2 PO
[2017-05-15] MEDS ORDERED: MIDAZOLAM HCL 1MG/1ML-2 ML VIAL ONE (09:05)
[2017-05-15] MEDS ORDERED: fentaNYL CITRATE 100 MCG/2 ML VL ONE (09:05)
[2017-05-15] MEDS ORDERED: ANGIOMAX 250 MG VIAL IV ONE (09:05)
[2017-05-15] MEDS ORDERED: SODIUM CHL 0.9% 0 ML ONE (09:06)
[2017-05-15] MEDS ORDERED: LIDOCAINE HCL 2 %PF INJ 10ML AMP IJ ONE ×2 (09:11→11:05)
[2017-05-15] MEDS ORDERED: IODIXANOL 320MG/ML 100ML BTL IV ONE (09:11)
== END 2017-05-15 13:45 | disposition home or self-care (01) ==
LOC: CATH 08:20
PROVIDERS: ATTEND Internal Medicine Cardiovascular Disease
DX: I48.91 Unspecified atrial fibrillation (principal); I34.0 Nonrheumatic mitral (valve) insufficiency; I82.409 Acute embolism and thrombosis of unspecified deep veins of unspecified lower extremity; I26.99 Other pulmonary embolism without acute cor pulmonale; I49.5 Sick sinus syndrome; I10 Essential (primary) hypertension; E78.5 Hyperlipidemia, unspecified; Z88.0 Allergy status to penicillin; E66.9 Obesity, unspecified; J44.9 Chronic obstructive pulmonary disease, unspecified; Z87.891 Personal history of nicotine dependence; G45.9 Transient cerebral ischemic attack, unspecified
CPT/HCPCS: 93460; C1894; J1644; J2250; J3010; Q9967; 99152

== ENCOUNTER 2017-05-23 18:35 | Emergency (ER) | payer MEDICARE, OTHER ==
[~2017-05-23] VITALS: Ht 180.3 cm; Wt 71.2 kg
[2017-05-23 18:50] VITALS: BP 112/82
[2017-05-23] MEDS ORDERED: ALUM & MAG HYDROX-SIMETH LIQ(MAALOX) 30 ML PO ONE (22:15)
[2017-05-23] MEDS ORDERED: LIDOCAINE VISCOUS 2% 15ML UD PO ONE (22:15)
== END 2017-05-23 22:57 | disposition home or self-care (01) ==
LOC: ER 18:36
DX: T18.108A Unspecified foreign body in esophagus causing other injury, initial encounter (principal); I48.91 Unspecified atrial fibrillation; J44.9 Chronic obstructive pulmonary disease, unspecified; Z86.73 Personal history of transient ischemic attack (TIA), and cerebral infarction without residual deficits; Z88.0 Allergy status to penicillin; Z95.0 Presence of cardiac pacemaker; X58.XXXA Exposure to other specified factors, initial encounter; Y93.89 Activity, other specified; Y92.89 Other specified places as the place of occurrence of the external cause; Y99.8 Other external cause status
CPT/HCPCS: 70360

== ENCOUNTER → 2017-07-07 | Outpatient (CLI) | payer MEDICARE, OTHER ==
[2017-07-07 16:09] LABS: Albumin 3.6 g/dL (3.4-5.0); BUN/Creatinine Ratio 19.4; Calcium 8.7 mg/dL (8.5-10.1); Potassium 4.3 mmol/L (3.5-5.1)
[2017-07-07 16:12] LABS: Bilirubin, Total 0.7 mg/dL (0.2-1.0); Total Protein 7.8 g/dL (6.4-8.2)
[2017-07-07 16:29] LABS: Basophils # (auto) 0 uL; Basophils % (auto) 0.6 % (0.0-2.0); Eosinophils # (auto) 0.1 uL; Eosinophils % (auto) 2.5 % (0.0-7.0); Hematocrit 41.7 % (41.0-53.0); Hemoglobin 13.7 g/dL (13.5-17.5); Lymphocytes # (auto) 1.2 uL; Lymphocytes % (auto) 21.5 % (10.0-50.0); Mean Corpuscular Hemoglobin 29.9 pg (28.0-32.0); Mean Corpuscular Hgb Conc. 32.7 g/dL (32.0-36.0); Mean Corpuscular Volume 91.3 fL (80.0-100.0); Monocytes # (auto) 0.9 uL; Monocytes % (auto) 15.6 % (0.0-12.0); Neutrophils # (auto) 3.4 uL; Neutrophils % (auto) 59.8 % (37.0-80.0); Nucleated Red Blood Cells % 0.1 %; Platelet Count (auto) 216 10^3/uL (140-450); Red Blood Cells 4.57 10^6/uL (4.5-5.90); Red Cell Distribution Width 14.9 % (11.8-14.3); White Blood Cell 5.8 10^3/uL (4.4-10.8)
== END | disposition home or self-care (01) ==
LOC: LAB 15:17
PROVIDERS: ATTEND Internal Medicine Cardiovascular Disease
DX: D64.9 Anemia, unspecified (principal); I10 Essential (primary) hypertension; E78.5 Hyperlipidemia, unspecified; J44.9 Chronic obstructive pulmonary disease, unspecified; K21.9 Gastro-esophageal reflux disease without esophagitis; E78.00 Pure hypercholesterolemia, unspecified; Z95.0 Presence of cardiac pacemaker; Z87.891 Personal history of nicotine dependence
CPT/HCPCS: 36415; 80053; 85025

== ENCOUNTER → 2017-07-15 | Outpatient (CLI) | payer MEDICARE, OTHER ==
[2017-07-15 09:30] VITALS: BP 110/69
[2017-07-15 10:02] VITALS: BP_SYST 110; BP_SYST 115; BP_DIAS 69; BP_DIAS 82
[2017-07-15 10:30] VITALS: BP 115/82
== END | disposition home or self-care (01) ==
LOC: CHF HDHVI 08:43
PROVIDERS: ATTEND Internal Medicine Cardiovascular Disease
DX: I25.118 Atherosclerotic heart disease of native coronary artery with other forms of angina pectoris (principal); I50.43 Acute on chronic combined systolic (congestive) and diastolic (congestive) heart failure; I63.9 Cerebral infarction, unspecified; I73.9 Peripheral vascular disease, unspecified; Z98.61 Coronary angioplasty status
CPT/HCPCS: 93005; G0166; G0463

== ENCOUNTER → 2017-07-16 | Outpatient (CLI) | payer MEDICARE, OTHER ==
[2017-07-16 09:07] VITALS: BP_SYST 110; BP_SYST 127; BP_DIAS 69; BP_DIAS 74
== END | disposition home or self-care (01) ==
LOC: CHF HDHVI 08:49
PROVIDERS: ATTEND Internal Medicine Cardiovascular Disease
DX: I25.118 Atherosclerotic heart disease of native coronary artery with other forms of angina pectoris (principal); I50.43 Acute on chronic combined systolic (congestive) and diastolic (congestive) heart failure; I63.9 Cerebral infarction, unspecified; I73.9 Peripheral vascular disease, unspecified; R06.02 Shortness of breath; Z98.61 Coronary angioplasty status
CPT/HCPCS: G0166

== ENCOUNTER → 2017-07-17 | Outpatient (CLI) | payer MEDICARE, OTHER ==
[2017-07-17 09:02] VITALS: BP_SYST 107; BP_SYST 114; BP_DIAS 67; BP_DIAS 77
== END | disposition home or self-care (01) ==
LOC: CHF HDHVI 08:43
PROVIDERS: ATTEND Internal Medicine Cardiovascular Disease
DX: I25.118 Atherosclerotic heart disease of native coronary artery with other forms of angina pectoris (principal); I11.0 Hypertensive heart disease with heart failure; I50.43 Acute on chronic combined systolic (congestive) and diastolic (congestive) heart failure; I63.9 Cerebral infarction, unspecified; I73.9 Peripheral vascular disease, unspecified; J44.9 Chronic obstructive pulmonary disease, unspecified; K21.9 Gastro-esophageal reflux disease without esophagitis; E78.5 Hyperlipidemia, unspecified; E78.00 Pure hypercholesterolemia, unspecified; Z98.61 Coronary angioplasty status; Z87.891 Personal history of nicotine dependence
CPT/HCPCS: G0166

== ENCOUNTER → 2017-07-18 | Outpatient (CLI) | payer MEDICARE, OTHER ==
[2017-07-18 09:19] VITALS: BP_SYST 119; BP_DIAS 85; BP_DIAS 88
== END | disposition home or self-care (01) ==
LOC: CHF HDHVI 08:42
PROVIDERS: ATTEND Internal Medicine Cardiovascular Disease
DX: I25.118 Atherosclerotic heart disease of native coronary artery with other forms of angina pectoris (principal); I11.0 Hypertensive heart disease with heart failure; I50.43 Acute on chronic combined systolic (congestive) and diastolic (congestive) heart failure; I63.9 Cerebral infarction, unspecified; I73.9 Peripheral vascular disease, unspecified; K21.9 Gastro-esophageal reflux disease without esophagitis; J44.9 Chronic obstructive pulmonary disease, unspecified; Z98.61 Coronary angioplasty status; Z87.891 Personal history of nicotine dependence
CPT/HCPCS: G0166

== ENCOUNTER → 2017-07-22 | Outpatient (CLI) | payer MEDICARE, OTHER ==
[2017-07-22 10:19] VITALS: BP_SYST 106; BP_SYST 114; BP_DIAS 72; BP_DIAS 74
== END | disposition home or self-care (01) ==
LOC: CHF HDHVI 09:43
PROVIDERS: ATTEND Internal Medicine Cardiovascular Disease
DX: I25.118 Atherosclerotic heart disease of native coronary artery with other forms of angina pectoris (principal); I50.43 Acute on chronic combined systolic (congestive) and diastolic (congestive) heart failure; R06.02 Shortness of breath; I63.9 Cerebral infarction, unspecified; I73.9 Peripheral vascular disease, unspecified
CPT/HCPCS: G0166

== ENCOUNTER → 2017-07-23 | Outpatient (CLI) | payer MEDICARE, OTHER ==
[2017-07-23 09:09] VITALS: BP_SYST 104; BP_SYST 117; BP_DIAS 75; BP_DIAS 84
== END | disposition home or self-care (01) ==
LOC: CHF HDHVI 08:50
PROVIDERS: ATTEND Internal Medicine Cardiovascular Disease
DX: I25.118 Atherosclerotic heart disease of native coronary artery with other forms of angina pectoris (principal); I11.0 Hypertensive heart disease with heart failure; I50.43 Acute on chronic combined systolic (congestive) and diastolic (congestive) heart failure; I63.9 Cerebral infarction, unspecified; I73.9 Peripheral vascular disease, unspecified; K21.9 Gastro-esophageal reflux disease without esophagitis; E78.5 Hyperlipidemia, unspecified; E78.00 Pure hypercholesterolemia, unspecified; J44.9 Chronic obstructive pulmonary disease, unspecified; Z98.61 Coronary angioplasty status
CPT/HCPCS: G0166

== ENCOUNTER → 2017-07-24 | Outpatient (CLI) | payer MEDICARE, OTHER ==
[2017-07-24 09:21] VITALS: BP_SYST 112; BP_SYST 121; BP_DIAS 70; BP_DIAS 84
== END | disposition home or self-care (01) ==
LOC: CHF HDHVI 09:05
PROVIDERS: ATTEND Internal Medicine Cardiovascular Disease
DX: I25.118 Atherosclerotic heart disease of native coronary artery with other forms of angina pectoris (principal); I11.0 Hypertensive heart disease with heart failure; I50.43 Acute on chronic combined systolic (congestive) and diastolic (congestive) heart failure; I63.9 Cerebral infarction, unspecified; I73.9 Peripheral vascular disease, unspecified; Z98.61 Coronary angioplasty status; J44.9 Chronic obstructive pulmonary disease, unspecified; K21.9 Gastro-esophageal reflux disease without esophagitis
CPT/HCPCS: G0166

== ENCOUNTER → 2017-07-25 | Outpatient (CLI) | payer MEDICARE, OTHER ==
[2017-07-25 09:06] VITALS: BP_SYST 111; BP_SYST 130; BP_DIAS 73; BP_DIAS 89
== END | disposition home or self-care (01) ==
LOC: CHF HDHVI 08:35
PROVIDERS: ATTEND Internal Medicine Cardiovascular Disease
DX: I25.118 Atherosclerotic heart disease of native coronary artery with other forms of angina pectoris (principal); J44.9 Chronic obstructive pulmonary disease, unspecified; E78.5 Hyperlipidemia, unspecified; E78.00 Pure hypercholesterolemia, unspecified; I11.0 Hypertensive heart disease with heart failure; I50.43 Acute on chronic combined systolic (congestive) and diastolic (congestive) heart failure; I63.9 Cerebral infarction, unspecified; I73.9 Peripheral vascular disease, unspecified; Z98.61 Coronary angioplasty status
CPT/HCPCS: G0166

== ENCOUNTER → 2017-07-28 | Outpatient (CLI) | payer MEDICARE, OTHER ==
[2017-07-28 09:20] VITALS: BP_SYST 107; BP_SYST 110; BP_DIAS 65; BP_DIAS 75
== END | disposition home or self-care (01) ==
LOC: CHF HDHVI 08:39
PROVIDERS: ATTEND Internal Medicine Cardiovascular Disease
DX: I25.118 Atherosclerotic heart disease of native coronary artery with other forms of angina pectoris (principal); I11.0 Hypertensive heart disease with heart failure; I50.43 Acute on chronic combined systolic (congestive) and diastolic (congestive) heart failure; R06.02 Shortness of breath; I63.9 Cerebral infarction, unspecified; I73.9 Peripheral vascular disease, unspecified; J44.9 Chronic obstructive pulmonary disease, unspecified; K21.9 Gastro-esophageal reflux disease without esophagitis; Z98.61 Coronary angioplasty status; Z87.891 Personal history of nicotine dependence
CPT/HCPCS: G0166

== ENCOUNTER → 2017-07-30 | Outpatient (CLI) | payer MEDICARE, OTHER ==
[2017-07-30 09:15] VITALS: BP_SYST 104; BP_SYST 105; BP_DIAS 71; BP_DIAS 74
== END | disposition home or self-care (01) ==
LOC: CHF HDHVI 08:47
PROVIDERS: ATTEND Internal Medicine Cardiovascular Disease
DX: I25.118 Atherosclerotic heart disease of native coronary artery with other forms of angina pectoris (principal); I11.0 Hypertensive heart disease with heart failure; I50.43 Acute on chronic combined systolic (congestive) and diastolic (congestive) heart failure; I63.9 Cerebral infarction, unspecified; I73.9 Peripheral vascular disease, unspecified; J44.9 Chronic obstructive pulmonary disease, unspecified; K21.9 Gastro-esophageal reflux disease without esophagitis; E78.5 Hyperlipidemia, unspecified
CPT/HCPCS: G0166

== ENCOUNTER → 2017-07-31 | Outpatient (CLI) | payer MEDICARE, OTHER ==
[2017-07-31 09:32] VITALS: BP_SYST 113; BP_SYST 114; BP_DIAS 75; BP_DIAS 79
== END | disposition home or self-care (01) ==
LOC: CHF HDHVI 08:49
PROVIDERS: ATTEND Internal Medicine Cardiovascular Disease
DX: I25.118 Atherosclerotic heart disease of native coronary artery with other forms of angina pectoris (principal); I50.43 Acute on chronic combined systolic (congestive) and diastolic (congestive) heart failure; R06.02 Shortness of breath; I63.9 Cerebral infarction, unspecified; I73.9 Peripheral vascular disease, unspecified
CPT/HCPCS: G0166

== ENCOUNTER → 2017-08-01 | Outpatient (CLI) | payer MEDICARE, OTHER ==
[2017-08-01 09:20] VITALS: BP_SYST 111; BP_SYST 116; BP_DIAS 71; BP_DIAS 75
== END | disposition home or self-care (01) ==
LOC: CHF HDHVI 08:41
PROVIDERS: ATTEND Internal Medicine Cardiovascular Disease
DX: I25.118 Atherosclerotic heart disease of native coronary artery with other forms of angina pectoris (principal); I11.0 Hypertensive heart disease with heart failure; I50.43 Acute on chronic combined systolic (congestive) and diastolic (congestive) heart failure; R06.02 Shortness of breath; I63.9 Cerebral infarction, unspecified; I73.9 Peripheral vascular disease, unspecified; Z98.61 Coronary angioplasty status
CPT/HCPCS: G0166

== ENCOUNTER → 2017-08-04 | Outpatient (CLI) | payer MEDICARE, OTHER ==
[2017-08-04 10:48] VITALS: BP_SYST 122; BP_SYST 123; BP_DIAS 64; BP_DIAS 76
== END | disposition home or self-care (01) ==
LOC: CHF HDHVI 08:50
PROVIDERS: ATTEND Internal Medicine Cardiovascular Disease
DX: I25.118 Atherosclerotic heart disease of native coronary artery with other forms of angina pectoris (principal); I50.43 Acute on chronic combined systolic (congestive) and diastolic (congestive) heart failure; R06.02 Shortness of breath; I63.9 Cerebral infarction, unspecified; I73.9 Peripheral vascular disease, unspecified; Z98.61 Coronary angioplasty status
CPT/HCPCS: G0166

== ENCOUNTER → 2017-08-05 | Outpatient (CLI) | payer MEDICARE, OTHER ==
[2017-08-05 09:30] VITALS: BP_SYST 111; BP_SYST 118; BP_DIAS 70; BP_DIAS 82
== END | disposition home or self-care (01) ==
LOC: CHF HDHVI 08:49
PROVIDERS: ATTEND Internal Medicine Cardiovascular Disease
DX: I25.118 Atherosclerotic heart disease of native coronary artery with other forms of angina pectoris (principal); I50.43 Acute on chronic combined systolic (congestive) and diastolic (congestive) heart failure; R06.02 Shortness of breath; I63.9 Cerebral infarction, unspecified; I73.9 Peripheral vascular disease, unspecified; Z98.61 Coronary angioplasty status
CPT/HCPCS: G0166

== ENCOUNTER → 2017-08-06 | Outpatient (CLI) | payer MEDICARE, OTHER ==
[2017-08-06 09:10] VITALS: BP_SYST 109; BP_SYST 112; BP_DIAS 70; BP_DIAS 77
== END | disposition home or self-care (01) ==
LOC: CHF HDHVI 08:37
PROVIDERS: ATTEND Internal Medicine Cardiovascular Disease
DX: I25.118 Atherosclerotic heart disease of native coronary artery with other forms of angina pectoris (principal); I50.43 Acute on chronic combined systolic (congestive) and diastolic (congestive) heart failure; R06.02 Shortness of breath; I63.9 Cerebral infarction, unspecified; I73.9 Peripheral vascular disease, unspecified; Z98.61 Coronary angioplasty status
CPT/HCPCS: G0166

== ENCOUNTER → 2017-08-07 | Outpatient (CLI) | payer MEDICARE, OTHER ==
[2017-08-07 08:56] VITALS: BP_SYST 114; BP_SYST 119; BP_DIAS 70; BP_DIAS 81
== END | disposition home or self-care (01) ==
LOC: CHF HDHVI 09:00
PROVIDERS: ATTEND Internal Medicine Cardiovascular Disease
DX: I25.118 Atherosclerotic heart disease of native coronary artery with other forms of angina pectoris (principal); I50.43 Acute on chronic combined systolic (congestive) and diastolic (congestive) heart failure; I73.9 Peripheral vascular disease, unspecified; I11.0 Hypertensive heart disease with heart failure; J44.9 Chronic obstructive pulmonary disease, unspecified; K21.9 Gastro-esophageal reflux disease without esophagitis; E78.5 Hyperlipidemia, unspecified; E78.00 Pure hypercholesterolemia, unspecified
CPT/HCPCS: G0166 ×2

== ENCOUNTER → 2017-08-08 | Outpatient (CLI) | payer MEDICARE, BC ==
[2017-08-08 09:07] VITALS: BP_SYST 101; BP_SYST 114; BP_DIAS 66; BP_DIAS 70
== END | disposition home or self-care (01) ==
LOC: CHF HDHVI 08:46
PROVIDERS: ATTEND Internal Medicine Cardiovascular Disease
DX: I25.118 Atherosclerotic heart disease of native coronary artery with other forms of angina pectoris (principal); I11.0 Hypertensive heart disease with heart failure; I50.43 Acute on chronic combined systolic (congestive) and diastolic (congestive) heart failure; I63.9 Cerebral infarction, unspecified; I73.9 Peripheral vascular disease, unspecified; J44.9 Chronic obstructive pulmonary disease, unspecified; E78.00 Pure hypercholesterolemia, unspecified; E78.5 Hyperlipidemia, unspecified
CPT/HCPCS: G0166

== ENCOUNTER → 2017-08-11 | Outpatient (CLI) | payer MEDICARE, BC ==
[2017-08-11 08:54] VITALS: BP_SYST 101; BP_SYST 118; BP_DIAS 70; BP_DIAS 71
== END | disposition home or self-care (01) ==
LOC: CHF HDHVI 08:40
PROVIDERS: ATTEND Internal Medicine Cardiovascular Disease
DX: I25.118 Atherosclerotic heart disease of native coronary artery with other forms of angina pectoris (principal); I11.0 Hypertensive heart disease with heart failure; I50.43 Acute on chronic combined systolic (congestive) and diastolic (congestive) heart failure; R06.02 Shortness of breath; I63.9 Cerebral infarction, unspecified; I73.9 Peripheral vascular disease, unspecified; Z98.61 Coronary angioplasty status
CPT/HCPCS: G0166

== ENCOUNTER → 2017-08-12 | Outpatient (CLI) | payer MEDICARE, BC ==
[2017-08-12 09:18] VITALS: BP_SYST 103; BP_SYST 111; BP_DIAS 71; BP_DIAS 74
== END | disposition home or self-care (01) ==
LOC: CHF HDHVI 08:47
PROVIDERS: ATTEND Internal Medicine Cardiovascular Disease
DX: I25.118 Atherosclerotic heart disease of native coronary artery with other forms of angina pectoris (principal); I50.43 Acute on chronic combined systolic (congestive) and diastolic (congestive) heart failure; I63.9 Cerebral infarction, unspecified; I73.9 Peripheral vascular disease, unspecified; E78.5 Hyperlipidemia, unspecified; I11.0 Hypertensive heart disease with heart failure; J44.9 Chronic obstructive pulmonary disease, unspecified; Z87.891 Personal history of nicotine dependence; Z98.61 Coronary angioplasty status
CPT/HCPCS: G0166

== ENCOUNTER → 2017-08-13 | Outpatient (CLI) | payer MEDICARE, BC ==
[2017-08-13 09:10] VITALS: BP_SYST 102; BP_SYST 110; BP_DIAS 68; BP_DIAS 81
== END | disposition home or self-care (01) ==
LOC: CHF HDHVI 08:37
PROVIDERS: ATTEND Internal Medicine Cardiovascular Disease
DX: I25.118 Atherosclerotic heart disease of native coronary artery with other forms of angina pectoris (principal); I11.0 Hypertensive heart disease with heart failure; I50.43 Acute on chronic combined systolic (congestive) and diastolic (congestive) heart failure; R06.02 Shortness of breath; I63.9 Cerebral infarction, unspecified; I73.9 Peripheral vascular disease, unspecified; E78.5 Hyperlipidemia, unspecified; K21.9 Gastro-esophageal reflux disease without esophagitis; Z98.61 Coronary angioplasty status
CPT/HCPCS: G0166

== ENCOUNTER → 2017-08-14 | Outpatient (CLI) | payer MEDICARE, BC ==
[2017-08-14 08:51] VITALS: BP_SYST 107; BP_SYST 115; BP_DIAS 69; BP_DIAS 77
== END | disposition home or self-care (01) ==
LOC: CHF HDHVI 08:36
PROVIDERS: ATTEND Internal Medicine Cardiovascular Disease
DX: I25.118 Atherosclerotic heart disease of native coronary artery with other forms of angina pectoris (principal); I50.43 Acute on chronic combined systolic (congestive) and diastolic (congestive) heart failure; R06.02 Shortness of breath; I63.9 Cerebral infarction, unspecified; I73.9 Peripheral vascular disease, unspecified; Z98.61 Coronary angioplasty status
CPT/HCPCS: G0166

== ENCOUNTER → 2017-08-15 | Outpatient (CLI) | payer MEDICARE, BC ==
[2017-08-15 08:53] VITALS: BP_SYST 116; BP_SYST 117; BP_DIAS 76; BP_DIAS 78
== END | disposition home or self-care (01) ==
LOC: CHF HDHVI 08:17
PROVIDERS: ATTEND Internal Medicine Cardiovascular Disease
DX: I25.118 Atherosclerotic heart disease of native coronary artery with other forms of angina pectoris (principal); I50.43 Acute on chronic combined systolic (congestive) and diastolic (congestive) heart failure; R06.02 Shortness of breath; I63.9 Cerebral infarction, unspecified; I73.9 Peripheral vascular disease, unspecified; K21.9 Gastro-esophageal reflux disease without esophagitis; Z98.61 Coronary angioplasty status
CPT/HCPCS: G0166

== ENCOUNTER → 2017-08-18 | Outpatient (CLI) | payer MEDICARE, BC ==
[2017-08-18 09:02] VITALS: BP_SYST 107; BP_SYST 113; BP_DIAS 70; BP_DIAS 83
== END | disposition home or self-care (01) ==
LOC: CHF HDHVI 08:47
PROVIDERS: ATTEND Internal Medicine Cardiovascular Disease
DX: I25.118 Atherosclerotic heart disease of native coronary artery with other forms of angina pectoris (principal); I50.43 Acute on chronic combined systolic (congestive) and diastolic (congestive) heart failure; I73.9 Peripheral vascular disease, unspecified; I63.9 Cerebral infarction, unspecified; J44.9 Chronic obstructive pulmonary disease, unspecified; E03.9 Hypothyroidism, unspecified; I11.0 Hypertensive heart disease with heart failure; E11.9 Type 2 diabetes mellitus without complications; E78.5 Hyperlipidemia, unspecified; E78.00 Pure hypercholesterolemia, unspecified; K21.9 Gastro-esophageal reflux disease without esophagitis
CPT/HCPCS: 70450; G0166

== ENCOUNTER → 2017-08-19 | Outpatient (CLI) | payer MEDICARE, BC ==
[2017-08-19 08:57] VITALS: BP_SYST 103; BP_SYST 107; BP_DIAS 70; BP_DIAS 75
== END | disposition home or self-care (01) ==
LOC: CHF HDHVI 08:37
PROVIDERS: ATTEND Internal Medicine Cardiovascular Disease
DX: I25.118 Atherosclerotic heart disease of native coronary artery with other forms of angina pectoris (principal); I50.43 Acute on chronic combined systolic (congestive) and diastolic (congestive) heart failure; I63.9 Cerebral infarction, unspecified; I73.9 Peripheral vascular disease, unspecified
CPT/HCPCS: G0166

== ENCOUNTER → 2017-08-20 | Outpatient (CLI) | payer MEDICARE, BC ==
[2017-08-20 08:49] VITALS: BP_SYST 112; BP_SYST 113; BP_DIAS 71; BP_DIAS 76
== END | disposition home or self-care (01) ==
LOC: CHF HDHVI 08:41
PROVIDERS: ATTEND Internal Medicine Cardiovascular Disease
DX: I25.118 Atherosclerotic heart disease of native coronary artery with other forms of angina pectoris (principal); I11.0 Hypertensive heart disease with heart failure; I50.43 Acute on chronic combined systolic (congestive) and diastolic (congestive) heart failure; I73.9 Peripheral vascular disease, unspecified; I63.9 Cerebral infarction, unspecified; K21.9 Gastro-esophageal reflux disease without esophagitis; J44.9 Chronic obstructive pulmonary disease, unspecified; E78.00 Pure hypercholesterolemia, unspecified; E03.9 Hypothyroidism, unspecified; E11.9 Type 2 diabetes mellitus without complications
CPT/HCPCS: G0166

== ENCOUNTER → 2017-10-29 | Outpatient (CLI) | payer MEDICARE, BC ==
[~2017-10-29] MED LIST changes: +DORZ2SOL18 EACHEYE; -DORZ2SOL22 EACHEYE
[2017-10-29 12:35] LABS: Basophils # (auto) 0.1 uL; Basophils % (auto) 0.9 % (0.0-2.0); Eosinophils # (auto) 0.1 uL; Hematocrit 42.7 % (41.0-53.0); Hemoglobin 14.1 g/dL (13.5-17.5); Lymphocytes # (auto) 0.7 uL; Lymphocytes % (auto) 9.8 % (10.0-50.0); Mean Corpuscular Hemoglobin 31.4 pg (28.0-32.0); Mean Corpuscular Hgb Conc. 33.2 g/dL (32.0-36.0); Mean Corpuscular Volume 94.6 fL (80.0-100.0); Monocytes # (auto) 0.7 uL; Monocytes % (auto) 9.7 % (0.0-12.0); Neutrophils # (auto) 5.9 uL; Neutrophils % (auto) 77.6 % (37.0-80.0); Nucleated Red Blood Cells % 0.1 %; Platelet Count (auto) 241 10^3/uL (140-450); Red Blood Cells 4.51 10^6/uL (4.5-5.90); White Blood Cell 7.6 10^3/uL (4.4-10.8)
[2017-10-29 12:41] LABS: Albumin 3.8 g/dL (3.4-5.0); BUN/Creatinine Ratio 14.2; Calcium 8.9 mg/dL (8.5-10.1); Potassium 3.6 mmol/L (3.5-5.1); Total Protein 8.1 g/dL (6.4-8.2)
== END | disposition home or self-care (01) ==
LOC: LAB 08:48
PROVIDERS: ATTEND Internal Medicine Cardiovascular Disease
DX: D64.9 Anemia, unspecified (principal); I10 Essential (primary) hypertension; J44.9 Chronic obstructive pulmonary disease, unspecified
CPT/HCPCS: 36415; 80053; 85025

== ENCOUNTER → 2018-03-24 | Outpatient (CLI) | payer MEDICARE, BC ==
[~2018-03-24] MED LIST changes: +READI-CAT 2 (BARIUM SULF)(VANILLA SMOOTHIE) 450ML ONE
== END | disposition home or self-care (01) ==
LOC: Rad HDHVI 08:13
PROVIDERS: ATTEND Internal Medicine Cardiovascular Disease
DX: N28.1 Cyst of kidney, acquired (principal); I51.7 Cardiomegaly
CPT/HCPCS: 74176

== ENCOUNTER → 2018-03-27 | Outpatient (CLI) | payer MEDICARE, BC ==
[~2018-03-27] MED LIST changes: -READI-CAT 2 (BARIUM SULF)(VANILLA SMOOTHIE) 450ML ONE
== END | disposition home or self-care (01) ==
LOC: Rad HDHVI 12:51
PROVIDERS: ATTEND Internal Medicine Cardiovascular Disease
DX: I34.0 Nonrheumatic mitral (valve) insufficiency (principal); I50.33 Acute on chronic diastolic (congestive) heart failure; R06.02 Shortness of breath
CPT/HCPCS: 93306

== ENCOUNTER → 2018-04-22 | Outpatient (CLI) | payer MEDICARE, OTHER ==
[~2018-04-22] MED LIST changes: +APIX5TAB OR
[2018-04-22 09:05] VITALS: BP 125/86
[2018-04-22 09:25] VITALS: BP 112/78
--- NOTE | 2018-04-22 09:25 | NUR ---
Pre-Op Discharge Summary: See e-MAR for any medications given for this visit. Pre-op orders received and carried out per MD of EKG, LABS and chest xrays. Patient given a copy of EKG with instructions to go to [facility] out patient for further follow up care.
[2018-04-22 12:16] LABS: Basophils # (auto) 0.1 uL; Basophils % (auto) 1.1 % (0.0-2.0); Eosinophils # (auto) 0.2 uL; Eosinophils % (auto) 3.3 % (0.0-7.0); Hematocrit 47.4 % (41.0-53.0); Hemoglobin 15.6 g/dL (13.5-17.5); Lymphocytes % (auto) 16.3 % (10.0-50.0); Mean Corpuscular Hgb Conc. 32.8 g/dL (32.0-36.0); Mean Corpuscular Volume 94.5 fL (80.0-100.0); Monocytes # (auto) 0.6 uL; Monocytes % (auto) 9.6 % (0.0-12.0); Neutrophils # (auto) 4.2 uL; Neutrophils % (auto) 69.7 % (37.0-80.0); Nucleated Red Blood Cells % 0.1 %; Platelet Count (auto) 246 10^3/uL (140-450); Red Blood Cells 5.02 10^6/uL (4.5-5.90); Red Cell Distribution Width 15.6 % (11.8-14.3)
[2018-04-22 12:29] LABS: Potassium 3.8 mmol/L (3.5-5.1)
[2018-04-22 12:34] LABS: BUN/Creatinine Ratio 16.4
[2018-04-22 12:44] LABS: INR 1.22 (0.9-1.15); Partial Thromboplastin Time 48.4 sec (23.78-33.04); Prothrombin Time 12.9 sec (9.27-12.13)
== END | disposition home or self-care (01) ==
LOC: Rad HDHVI 08:53
PROVIDERS: ATTEND Internal Medicine Cardiovascular Disease
DX: Z01.812 Encounter for preprocedural laboratory examination (principal); Z01.818 Encounter for other preprocedural examination; D64.9 Anemia, unspecified; R79.1 Abnormal coagulation profile; I10 Essential (primary) hypertension; I48.91 Unspecified atrial fibrillation; I63.9 Cerebral infarction, unspecified; I34.0 Nonrheumatic mitral (valve) insufficiency
CPT/HCPCS: 36415; 80048; 85025; 85610; 85730; 93005; G0463; 71046

== ENCOUNTER 2018-04-24 06:52 | Day surgery (SDC) | payer MEDICARE, OTHER ==
[~2018-04-24] VITALS: Ht 180.3 cm; Wt 70.3 kg
[~2018-04-24 06:52] MED LIST changes: -APIX2.5T PO
[2018-04-24] MEDS ORDERED: FLUMAZENIL 0.1 MG/ML INJ 10ML MDV IV ONE (07:30)
[2018-04-24] MEDS ORDERED: MIDAZOLAM HCL 1MG/1ML-2 ML VIAL IV ONE (07:30)
[2018-04-24] MEDS ORDERED: NALOXONE HCL 0.4 MG/ML VIAL IV ONE (07:30)
[2018-04-24] MEDS ORDERED: fentaNYL CITRATE 100 MCG/2 ML VL IV ONE (07:30)
== END 2018-04-24 10:35 | disposition home or self-care (01) ==
LOC: CATH 06:52
PROVIDERS: ATTEND Internal Medicine Cardiovascular Disease
DX: I05.8 Other rheumatic mitral valve diseases (principal); J44.9 Chronic obstructive pulmonary disease, unspecified; I48.91 Unspecified atrial fibrillation; I10 Essential (primary) hypertension; E07.9 Disorder of thyroid, unspecified; Z86.73 Personal history of transient ischemic attack (TIA), and cerebral infarction without residual deficits; Z88.0 Allergy status to penicillin; Z86.718 Personal history of other venous thrombosis and embolism; Z79.899 Other long term (current) drug therapy; Z98.890 Other specified postprocedural states; Z96.89 Presence of other specified functional implants
CPT/HCPCS: 93312; J2250; J7030; 99152

== ENCOUNTER → 2021-02-01 | Outpatient (CLI) | payer MEDICARE, OTHER ==
[~2021-02-01] MED LIST changes: +FURO1TAB31 PO; -FURO40TA PO; -LATA0.0015 EACHEYE; +LATA0.0019 EACHEYE; +LEVO88TA2 PO; -LEVO88TA36 PO; -MEGE40TA15 PO; +MEGE40TA4 PO; +POTA-220 PO; -POTA20TA53 PO
== END | disposition home or self-care (01) ==
LOC: Rad HDHVI 10:02
PROVIDERS: ATTEND Internal Medicine Cardiovascular Disease
DX: R00.2 Palpitations (principal); R42 Dizziness and giddiness
CPT/HCPCS: 93306

== ENCOUNTER → 2021-02-19 | Outpatient (CLI) | payer MEDICARE, OTHER ==
[2021-02-19 09:00] LABS: Urine Blood Negative /uL (Negative); Urine Specific Gravity 1.017 (1.001-1.035)
[2021-02-19 09:09] LABS: Albumin 3.4 g/dL (3.4-5.0); Calcium 9.2 mg/dL (8.5-10.1)
[2021-02-19 09:12] LABS: Basophils # (auto) 0.1 10 ^3/uL (0-0.2); Basophils % (auto) 1.7 % (0.0-2.0); Eosinophils # (auto) 0.3 10 ^3/uL (0-0.8); Eosinophils % (auto) 6.3 % (0.0-7.0); Hematocrit 43.5 % (41.0-53.0); Hemoglobin 14.4 g/dL (13.5-17.5); Lymphocytes % (auto) 17.9 % (10.0-50.0); Mean Corpuscular Hemoglobin 32.9 pg (28.0-32.0); Mean Corpuscular Volume 99.6 fL (80.0-100.0); Monocytes # (auto) 0.6 10 ^3/uL (0-1.3); Monocytes % (auto) 10.4 % (0.0-12.0); Neutrophils # (auto) 3.4 10 ^3/uL (1.6-8.6); Neutrophils % (auto) 63.7 % (37.0-80.0); Nucleated Red Blood Cells % 0.1 %; Red Blood Cells 4.36 10^6/uL (4.5-5.90); Red Cell Distribution Width 14.5 % (11.8-14.3); White Blood Cell 5.4 10^3/uL (4.4-10.8)
[2021-02-19 09:15] LABS: BUN/Creatinine Ratio 12.9; Bilirubin, Total 0.7 mg/dL (0.2-1.0); Total Protein 7.1 g/dL (6.4-8.2)
[2021-02-19 10:47] LABS: Free T4 (Free Thyroxine) 1.25 ng/dL (0.89-1.76)
[2021-02-19 10:49] LABS: Prostate Specific Antigen 0.77 ng/mL (0.0-4.0)
== END | disposition home or self-care (01) ==
LOC: LAB 08:07
PROVIDERS: ATTEND Internal Medicine Cardiovascular Disease
DX: C61 Malignant neoplasm of prostate (principal); D51.3 Other dietary vitamin B12 deficiency anemia; D64.9 Anemia, unspecified; E11.9 Type 2 diabetes mellitus without complications; E55.9 Vitamin D deficiency, unspecified; I10 Essential (primary) hypertension; R00.2 Palpitations; R53.1 Weakness; R30.0 Dysuria
CPT/HCPCS: 36415; 80053; 80061; 81003; 82306; 82607; 83036; 84153; 84403; 84439; 84443; 85025

== ENCOUNTER → 2021-07-16 | Outpatient (CLI) | payer MEDICARE, OTHER ==
[2021-07-16 11:27] LABS: Urine Blood Negative /uL (Negative); Urine Specific Gravity 1.009 (1.001-1.035)
[2021-07-16 11:37] LABS: Basophils # (auto) 0 10 ^3/uL (0-0.2); Eosinophils # (auto) 0.1 10 ^3/uL (0-0.8); Hematocrit 41.5 % (41.0-53.0); Lymphocytes # (auto) 0.8 10 ^3/uL (0.4-5.4); Lymphocytes % (auto) 18.4 % (10.0-50.0); Mean Corpuscular Hemoglobin 33.6 pg (28.0-32.0); Mean Corpuscular Hgb Conc. 33.7 g/dL (32.0-36.0); Mean Corpuscular Volume 99.6 fL (80.0-100.0); Monocytes # (auto) 0.6 10 ^3/uL (0-1.3); Monocytes % (auto) 12.7 % (0.0-12.0); Neutrophils % (auto) 64.9 % (37.0-80.0); Nucleated Red Blood Cells % 0.2 %; Red Blood Cells 4.16 10^6/uL (4.5-5.90); Red Cell Distribution Width 15.1 % (11.8-14.3); White Blood Cell 4.6 10^3/uL (4.4-10.8)
[2021-07-16 11:53] LABS: Potassium 3.9 mmol/L (3.5-5.1)
[2021-07-16 12:01] LABS: Free T4 (Free Thyroxine) 1.39 ng/dL (0.89-1.76); Prostate Specific Antigen 0.58 ng/mL (0.0-4.0)
[2021-07-16 12:02] LABS: Albumin 3.2 g/dL (3.4-5.0); BUN/Creatinine Ratio 15.5; Bilirubin, Total 1.1 mg/dL (0.2-1.0); Total Protein 7.1 g/dL (6.4-8.2)
== END | disposition home or self-care (01) ==
LOC: LAB 10:12
PROVIDERS: ATTEND Internal Medicine Cardiovascular Disease
DX: D51.3 Other dietary vitamin B12 deficiency anemia (principal); D64.9 Anemia, unspecified; E11.9 Type 2 diabetes mellitus without complications; E55.9 Vitamin D deficiency, unspecified; I10 Essential (primary) hypertension; R00.2 Palpitations; R53.1 Weakness; R30.0 Dysuria; C61 Malignant neoplasm of prostate
CPT/HCPCS: 36415; 80053; 80061; 81003; 82607; 83036; 84153; 84403; 84439; 84443; 85025

== ENCOUNTER → 2021-07-24 | Outpatient (CLI) | payer MEDICARE, OTHER | END | disposition home or self-care (01) | LOC: Rad HDHVI 11:02 | PROVIDERS: ATTEND Internal Medicine Cardiovascular Disease | DX: I08.1 Rheumatic disorders of both mitral and tricuspid valves (principal); R00.2 Palpitations; E78.5 Hyperlipidemia, unspecified | CPT/HCPCS: 93306 ==

== ENCOUNTER → 2021-07-30 | Outpatient (CLI) | payer MEDICARE, OTHER | END | disposition home or self-care (01) | LOC: Rad HDHVI 12:53 | PROVIDERS: ATTEND Internal Medicine Cardiovascular Disease | DX: R06.02 Shortness of breath (principal); R05.9 Cough, unspecified; R60.9 Edema, unspecified; Z95.0 Presence of cardiac pacemaker | CPT/HCPCS: 71046 ==

== ENCOUNTER → 2021-08-06 | Outpatient (CLI) | payer MEDICARE, OTHER ==
[~2021-08-06] VITALS: Ht 179.1 cm; Wt 65.8 kg
[~2021-08-06] MED LIST changes: +ADENOSINE 55 MG in GIVE UN-DILUTED 0 ML IV ONE; +ADENOSINE 90 MG/30 ML INJ IV ONE
== END | disposition home or self-care (01) ==
LOC: Rad HDHVI 08:37
PROVIDERS: ATTEND Internal Medicine Cardiovascular Disease
DX: J44.9 Chronic obstructive pulmonary disease, unspecified (principal); R06.02 Shortness of breath; E78.5 Hyperlipidemia, unspecified; I48.0 Paroxysmal atrial fibrillation; Z95.0 Presence of cardiac pacemaker
CPT/HCPCS: 78452; 93005; 96374; 96375; A9500; J0153

== ENCOUNTER → 2022-02-26 | Outpatient (CLI) | payer MEDICARE, OTHER ==
[~2022-02-26] MED LIST changes: -ADENOSINE 55 MG in GIVE UN-DILUTED 0 ML IV ONE; -ADENOSINE 90 MG/30 ML INJ IV ONE
[2022-02-26 12:53] LABS: Urine Blood Negative /uL (Negative); Urine Specific Gravity 1.008 (1.001-1.035)
[2022-02-26 13:07] LABS: Potassium 4.1 mmol/L (3.5-5.1)
[2022-02-26 13:10] LABS: Free T4 (Free Thyroxine) 1.49 ng/dL (0.89-1.76); Prostate Specific Antigen 0.75 ng/mL (0.0-4.0)
[2022-02-26 13:34] LABS: Albumin 4.1 g/dL (3.4-5.0); BUN/Creatinine Ratio 18.4; Bilirubin, Total 1.3 mg/dL (0.2-1.0); Calcium 8.8 mg/dL (8.5-10.1); Total Protein 7.7 g/dL (6.4-8.2)
[2022-02-26 16:05] LABS: Basophils # (auto) 0.1 10 ^3/uL (0-0.2); Mean Corpuscular Volume 83.2 fL (80.0-100.0); Monocytes # (auto) 0.7 10 ^3/uL (0-1.3); Monocytes % (auto) 14.2 % (0.0-12.0); Nucleated Red Blood Cells % 0.1 %; White Blood Cell 5.3 10^3/uL (4.4-10.8)
[2022-02-26 16:09] LABS: Basophils % (auto) 1.2 % (0.0-2.0); Eosinophils # (auto) 0.3 10 ^3/uL (0-0.8); Eosinophils % (auto) 5.2 % (0.0-7.0); Hematocrit 40.6 % (41.0-53.0); Hemoglobin 13.1 g/dL (13.5-17.5); Lymphocytes # (auto) 0.8 10 ^3/uL (0.4-5.4); Lymphocytes % (auto) 15.5 % (10.0-50.0); Mean Corpuscular Hemoglobin 26.8 pg (28.0-32.0); Mean Corpuscular Hgb Conc. 32.2 g/dL (32.0-36.0); Neutrophils # (auto) 3.4 10 ^3/uL (1.6-8.6); Neutrophils % (auto) 63.9 % (37.0-80.0); Red Blood Cells 4.88 10^6/uL (4.5-5.90)
== END | disposition home or self-care (01) ==
LOC: Rad HDHVI 08:56
PROVIDERS: ATTEND Internal Medicine Cardiovascular Disease
DX: R06.02 Shortness of breath (principal); I10 Essential (primary) hypertension; E55.9 Vitamin D deficiency, unspecified; D51.3 Other dietary vitamin B12 deficiency anemia; D64.9 Anemia, unspecified; E11.9 Type 2 diabetes mellitus without complications; R00.2 Palpitations; R53.1 Weakness; R30.0 Dysuria; C61 Malignant neoplasm of prostate
CPT/HCPCS: 36415; 71046; 80053; 80061; 81003; 82306; 82607; 83036; 84153; 84403; 84439; 84443; 85025

== ENCOUNTER → 2022-03-27 | Outpatient (CLI) | payer MEDICARE, OTHER ==
[2022-03-27 12:09] LABS: Mean Corpuscular Hemoglobin 26.2 pg (28.0-32.0); Mean Corpuscular Hgb Conc. 31.4 g/dL (32.0-36.0); White Blood Cell 5.5 10^3/uL (4.4-10.8)
[2022-03-27 12:12] LABS: Hematocrit 39.3 % (41.0-53.0); Hemoglobin 12.4 g/dL (13.5-17.5); Mean Corpuscular Volume 83.5 fL (80.0-100.0); Red Blood Cells 4.71 10^6/uL (4.5-5.90); Red Cell Distribution Width 18.4 % (11.8-14.3)
[2022-03-27 12:22] LABS: Band Neutrophils % (manual) 0; Basophils % (manual) 0 (0.0-2.0); Blast Cells 0; Metamyelocytes % 0; Myelocytes % 0; Promyelocytes % 0; Reactive Lymphocytes 0
[2022-03-27 12:25] LABS: Albumin 3.6 g/dL (3.4-5.0); Calcium 8.5 mg/dL (8.5-10.1)
[2022-03-27 12:34] LABS: BUN/Creatinine Ratio 20.8; Bilirubin, Direct 0.3 mg/dL (0-0.2); Total Protein 7.7 g/dL (6.4-8.2)
[2022-03-27 12:39] LABS: Eosinophils % (manual) 2 (0-7); Lymphocytes % (manual) 10 (10.0-50.0); Monocytes % (manual) 16 (0-12)
[2022-03-27 14:16] LABS: Potassium 5.7 mmol/L (3.5-5.1)
== END | disposition home or self-care (01) ==
LOC: LAB 10:43
PROVIDERS: ATTEND Internal Medicine Cardiovascular Disease
DX: E78.5 Hyperlipidemia, unspecified (principal)
CPT/HCPCS: 36415; 80048; 80061; 80076; 85007; 85027

== ENCOUNTER 2022-11-08 12:58 | Inpatient (IN) | payer MEDICARE, OTHER ==
[~2022-11-08] VITALS: Ht 180.3 cm; Wt 59.4 kg
[~2022-11-08 12:58] MED LIST changes: -LATA0.0019 EACHEYE; +LATA0.008 EACHEYE
[2022-11-08 13:29] LABS: Basophils # (auto) 0.1 10 ^3/uL (0-0.2); Basophils % (auto) 1.1 % (0.0-2.0); Eosinophils # (auto) 0.3 10 ^3/uL (0-0.8); Eosinophils % (auto) 6.1 % (0.0-7.0); Hematocrit 39.3 % (41.0-53.0); Hemoglobin 13.1 g/dL (13.5-17.5); Mean Corpuscular Hgb Conc. 33.4 g/dL (32.0-36.0); Mean Corpuscular Volume 83.8 fL (80.0-100.0); Monocytes # (auto) 0.7 10 ^3/uL (0-1.3); Monocytes % (auto) 13.7 % (0.0-12.0); Neutrophils # (auto) 3.2 10 ^3/uL (1.6-8.6); Neutrophils % (auto) 61.1 % (37.0-80.0); Nucleated Red Blood Cells % 0.1 %; Red Blood Cells 4.68 10^6/uL (4.5-5.90); White Blood Cell 5.3 10^3/uL (4.4-10.8)
[2022-11-08 13:52] LABS: Red Cell Distribution Width 20.1 % (11.8-14.3)
[2022-11-08 13:53] LABS: Alanine Aminotransferase 17 U/L (7-40); Albumin 3.9 g/dL (3.2-4.8); Alkaline Phosphatase 85 U/L (46-116); Anion Gap 8 (5-15); Aspartate Aminotransferase 30 U/L (13-40); BUN/Creatinine Ratio 24.5 (10.0-20.0); Bilirubin, Total 1.6 mg/dL (0.2-1.0); Blood Urea Nitrogen 23 mg/dL (9-23); Calcium 9.2 mg/dL (8.7-10.4); Carbon Dioxide 24 mmol/L (20-30); Chloride 105 mmol/L (98-107); Glucose 112 mg/dL (74-106); Lipase 41 U/L (12-53); Magnesium 2.2 mg/dL (1.6-2.6); Potassium 3.9 mmol/L (3.5-5.1); Sodium 137 mmol/L (136-145)
[2022-11-08 13:54] LABS: Total Protein 6.7 g/dL (5.7-8.2)
[2022-11-08 13:55] LABS: INR 1.35 (0.9-1.15); Partial Thromboplastin Time 34.5 SEC (24.5-34.5); Prothrombin Time 13.9 sec (9.3-11.8)
[2022-11-08 21:10] VITALS: PULSE 77; RESP 16; O2SAT 98
[2022-11-08] MEDS ORDERED: DOCUSATE SOD 100 MG CAP PO PRN (21:45)
[2022-11-08] MEDS ORDERED: ONDANSETRON HCL 4 MG/2 ML VIAL IV PRN (21:45)
[2022-11-08] MEDS ORDERED: HYDROcodone-ACET 5/325MG TAB PO PRN (21:45)
[2022-11-08] MEDS ORDERED: ACETAMINOPHEN 325 MG TAB PO PRN (21:45)
[2022-11-08] MEDS: SODIUM CHLOR 0.9% PF (SALINE LOCK) 10ML VIAL/SYR IV SCH (22:00)
[2022-11-08] MEDS: FAMOTIDINE (10MG/ML) 2ML VL IV SCH (22:38)
[2022-11-08] MEDS: APIXABAN 2.5 MG TAB PO SCH (22:38)
[2022-11-08] MEDS ORDERED: NITROGLYCERIN 0.4 MG SL TAB SL PRN (23:45)
[2022-11-08] MEDS ORDERED: MORPHINE SULFATE INJ 2 MG/ml SYRG IV PRN (23:45)
[2022-11-09] VITALS (7 sets, daily range): BP systolic 95–133; BP diastolic 66–86; PULSE 68–91; RESP 16–22; TEMP 97.2–98.1; O2SAT 95–100
[2022-11-09] MEDS: SODIUM CHLOR 0.9% PF (SALINE LOCK) 10ML VIAL/SYR IV SCH ×3 (05:38→21:57)
[2022-11-09 06:42] LABS: Basophils # (auto) 0.1 10 ^3/uL (0-0.2); Basophils % (auto) 1.4 % (0.0-2.0); Eosinophils # (auto) 0.3 10 ^3/uL (0-0.8); Eosinophils % (auto) 5.7 % (0.0-7.0); Hematocrit 40.6 % (41.0-53.0); Hemoglobin 13.5 g/dL (13.5-17.5); Lymphocytes # (auto) 1.2 10 ^3/uL (0.4-5.4); Lymphocytes % (auto) 20.8 % (10.0-50.0); Mean Corpuscular Hgb Conc. 33.3 g/dL (32.0-36.0); Monocytes # (auto) 0.8 10 ^3/uL (0-1.3); Monocytes % (auto) 13.5 % (0.0-12.0); Neutrophils # (auto) 3.4 10 ^3/uL (1.6-8.6); Neutrophils % (auto) 58.6 % (37.0-80.0); Red Blood Cells 4.83 10^6/uL (4.5-5.90); White Blood Cell 5.7 10^3/uL (4.4-10.8)
[2022-11-09 06:52] LABS: Red Cell Distribution Width 20.3 % (11.8-14.3)
[2022-11-09] MEDS ORDERED: LEVOTHYROXINE SODIUM 88 MCG TAB PO SCH (07:00)
[2022-11-09 07:09] LABS: Alanine Aminotransferase 15 U/L (7-40); Alkaline Phosphatase 81 U/L (46-116); BUN/Creatinine Ratio 22.3 (10.0-20.0); Blood Urea Nitrogen 21 mg/dL (9-23); Calcium 9.4 mg/dL (8.5-10.1); Chloride 102 mmol/L (98-107); Glucose 103 mg/dL (74-106); Potassium 3.1 mmol/L (3.5-5.1); Sodium 135 mmol/L (136-145)
[2022-11-09 07:10] LABS: Albumin 4.2 g/dL (3.2-4.8); Aspartate Aminotransferase 33 U/L (13-40); Total Protein 7.5 g/dL (5.7-8.2)
[2022-11-09 07:12] LABS: Anion Gap 11 (5-15); Carbon Dioxide 22 mmol/L (20-30)
[2022-11-09] MEDS ORDERED: FUROSEMIDE 20 MG/2 ML VIAL IV SCH (10:00)
[2022-11-09] MEDS: FAMOTIDINE (10MG/ML) 2ML VL IV SCH (10:41)
[2022-11-09] MEDS: APIXABAN 2.5 MG TAB PO SCH ×2 (10:41→21:58)
[2022-11-09] MEDS ORDERED: POTASSIUM EFFERVESENT TAB 25 MEQ PO ONE (12:45)
[2022-11-09] MEDS: dilTIAZem HCL 60 MG TAB PO SCH ×2 (16:40→21:58)
[2022-11-10] VITALS (7 sets, daily range): BP systolic 86–110; BP diastolic 55–75; PULSE 65–85; RESP 16–18; TEMP 97.5–97.8; O2SAT 94–99
[2022-11-10] MEDS: SODIUM CHLOR 0.9% PF (SALINE LOCK) 10ML VIAL/SYR IV SCH ×3 (06:00→21:33)
[2022-11-10 06:28] LABS: Chloride 103 mmol/L (98-107); Potassium 4.5 mmol/L (3.5-5.1); Sodium 137 mmol/L (136-145)
[2022-11-10 06:29] LABS: Anion Gap 7 (5-15); Calcium 9.3 mg/dL (8.7-10.4); Carbon Dioxide 27 mmol/L (20-30)
[2022-11-10] MEDS: LEVOTHYROXINE SODIUM 25 MCG TAB PO SCH (06:31)
[2022-11-10] MEDS: dilTIAZem HCL 60 MG TAB PO SCH (06:31)
[2022-11-10 06:34] LABS: BUN/Creatinine Ratio 19.3 (10.0-20.0); Blood Urea Nitrogen 22 mg/dL (9-23); Glucose 88 mg/dL (74-106)
[2022-11-10] MEDS: APIXABAN 2.5 MG TAB PO SCH ×2 (08:59→21:33)
[2022-11-10] MEDS: FAMOTIDINE 20 MG TAB PO SCH (09:00)
[2022-11-10] MEDS ORDERED: SOTALOL HCL 80 MG TAB PO SCH (10:00)
[2022-11-10 11:30] LABS: Magnesium 2.1 mg/dL (1.6-2.6)
[2022-11-10] MEDS: MAGNESIUM OXIDE 400 MG TAB PO SCH (12:19)
[2022-11-10 14:35] LABS: Erythrocyte Sedimentation Rate 13 mm/hr (0-20)
[2022-11-11] VITALS (7 sets, daily range): BP systolic 90–114; BP diastolic 62–73; PULSE 72–107; RESP 16–18; TEMP 97.5–98.7; O2SAT 92–99
[2022-11-11] MEDS: LEVOTHYROXINE SODIUM 25 MCG TAB PO SCH (05:51)
[2022-11-11] MEDS: SODIUM CHLOR 0.9% PF (SALINE LOCK) 10ML VIAL/SYR IV SCH ×3 (05:52→21:06)
[2022-11-11] MEDS: FAMOTIDINE 20 MG TAB PO SCH (12:47)
[2022-11-11] MEDS: MAGNESIUM OXIDE 400 MG TAB PO SCH (12:47)
[2022-11-11] MEDS: APIXABAN 2.5 MG TAB PO SCH ×2 (12:47→21:05)
[2022-11-12 05:00] VITALS: BP 97/66; PULSE 74; RESP 18; TEMP 98.1; O2SAT 94
[2022-11-12] MEDS: LEVOTHYROXINE SODIUM 25 MCG TAB PO SCH (06:24)
[2022-11-12] MEDS: SODIUM CHLOR 0.9% PF (SALINE LOCK) 10ML VIAL/SYR IV SCH (06:24)
[2022-11-12 08:00] VITALS: PULSE 68; PULSE 82; RESP 16; O2SAT 94
[2022-11-12 08:35] VITALS: BP 95/65; PULSE 104; RESP 16; TEMP 97.9; O2SAT 94
[2022-11-12] MEDS: MAGNESIUM OXIDE 400 MG TAB PO SCH (09:56)
[2022-11-12] MEDS: FAMOTIDINE 20 MG TAB PO SCH (09:56)
[2022-11-12] MEDS: APIXABAN 2.5 MG TAB PO SCH (09:56)
[2022-11-12] MEDS ORDERED: SOTALOL HCL 80 MG TAB PO SCH (10:00)
[2022-11-12 12:37] VITALS: BP 92/64; PULSE 75; RESP 17; TEMP 97.7; O2SAT 97
[2022-11-12 13:13] VITALS: BP 98/72; PULSE 75; RESP 16; TEMP 36.5
== END 2022-11-12 14:45 | DRG 310 ==
LOC: ER 12:58 → TELE 23:43 → TELE-EAST 11-09 01:44
PROVIDERS: ADMIT Nurse Practitioner Family; ATTEND Nurse Practitioner Acute Care
DX: I48.91 Unspecified atrial fibrillation (principal); E03.9 Hypothyroidism, unspecified; F03.90 Unspecified dementia, unspecified severity, without behavioral disturbance, psychotic disturbance, mood disturbance, and anxiety; F17.200 Nicotine dependence, unspecified, uncomplicated; I34.0 Nonrheumatic mitral (valve) insufficiency; I10 Essential (primary) hypertension; R26.81 Unsteadiness on feet; R79.89 Other specified abnormal findings of blood chemistry; J44.9 Chronic obstructive pulmonary disease, unspecified; Z86.73 Personal history of transient ischemic attack (TIA), and cerebral infarction without residual deficits; Z88.0 Allergy status to penicillin; Z95.0 Presence of cardiac pacemaker
CPT/HCPCS: 36415; 71045; 80048; 80053; 83690; 83735; 83880; 84443; 84484; 85025; 85610; 85652; 85730; 86141; 93005; 93306; G0378; J3490

== ENCOUNTER → 2022-11-27 | Outpatient (CLI) | payer MEDICARE, OTHER ==
[~2022-11-27] VITALS: Ht 180.3 cm; Wt 60.8 kg
[~2022-11-27] MED LIST changes: +ADENOSINE 51 MG in GIVE UN-DILUTED 0 ML IV ONE; +ADENOSINE 90 MG/30 ML INJ IV ONE
== END | disposition home or self-care (01) ==
LOC: Rad HDHVI 14:17
PROVIDERS: ATTEND Internal Medicine Cardiovascular Disease
DX: I49.5 Sick sinus syndrome (principal); R06.02 Shortness of breath; I48.0 Paroxysmal atrial fibrillation; Z95.0 Presence of cardiac pacemaker
CPT/HCPCS: 78452; 93005; 96374; 96375; A9500; J0153

== ENCOUNTER → 2023-05-12 | Outpatient (CLI) | payer MEDICARE, OTHER ==
[~2023-05-12] MED LIST changes: -ADENOSINE 51 MG in GIVE UN-DILUTED 0 ML IV ONE; -ADENOSINE 90 MG/30 ML INJ IV ONE
== END | disposition home or self-care (01) ==
LOC: Rad HDHVI 14:55
PROVIDERS: ATTEND Internal Medicine Cardiovascular Disease
DX: R05.9 Cough, unspecified (principal); I51.7 Cardiomegaly; R06.02 Shortness of breath
CPT/HCPCS: 71046

== ENCOUNTER → 2024-03-12 | Outpatient (CLI) | payer MEDICARE, OTHER ==
[~2024-03-12] MED LIST changes: +IOHEXOL 350 MG/ML 100ML IJ ONE; +READI-CAT 2 (BARIUM SULF)(VANILLA SMOOTHIE) 450ML ONE
[2024-03-12 10:14] VITALS: BP 103/69; PULSE 75; RESP 16; O2SAT 98
[2024-03-12 11:28] VITALS: BP 124/76; PULSE 72; RESP 16; O2SAT 98
--- NOTE | 2024-03-12 15:02 | DVH ---
Exam: CT CT ABD PELVIS W CON-ORAL IV History: PANCREATITIS/ ABD PAIN COMPARISON: None Technique: Multidetector spiral CT of the abdomen and pelvis was performed from lung bases to pubic symphysis. Intravenous contrast was administered during this examination. Portal venous imaging was obtained. Axial, coronal and sagittal multiplanar reformats were performed by the technologist on a separate workstation. Radiation Dose : Abdomen/Pelvis: CTDIvol 4 mGy, DLP 199 mGy*cm. CONTRAST: Type of contrast: Omni 300 Contrast injected: 100 mL Findings: Lung Bases: Atelectasis and scarring in the lung bases. Moderate to severe cardiomegaly. Liver: The liver is normal in size. No focal lesions. Normal hepatic vascular enhancement. Gallbladder and biliary Tree: Unremarkable Spleen: Calcified granuloma. Pancreas: The pancreas is normal in appearance without focal lesions or abnormal enhancement. Adrenal Glands: Unremarkable Kidneys: Bilateral renal cysts. No hydronephrosis. Bladder: Unremarkable Bowel: The stomach is grossly normal in appearance. Small bowel and colon are normal in caliber and d istribution. The appendix is not visualized; however, no secondary findings of acute appendicitis id entified. Ascites: Absent Lymphadenopathy: No mesenteric, retroperitoneal or periportal lymphadenopathy. Abdominal wall and Mesentery: Unremarkable. Vasculature: IVC filter in place. Calcified atherosclerotic disease. Pelvic Organs: Unremarkable Musculoskeletal: No aggressive focal bony lesions, acute fractures or dislocation. IMPRESSION: 1. No acute abdominal or pelvic finding. No evidence of acute pancreatitis. Moderate to severe cardi omegaly. Bilateral renal cysts. IVC filter in place. Radiation optimization: All CT scans at this facility use at least one of these dose optimization amos hniques: Automated exposure control mA and/or kV adjustment per patient size (includes targeted exams where dose is matched to clinical indication) or iterative reconstruction. HS:Y
== END | disposition home or self-care (01) ==
LOC: Rad HDHVI 10:01
PROVIDERS: ATTEND Internal Medicine Cardiovascular Disease
DX: N28.1 Cyst of kidney, acquired (principal); D73.89 Other diseases of spleen; J98.11 Atelectasis; J98.4 Other disorders of lung; I51.7 Cardiomegaly; I25.10 Atherosclerotic heart disease of native coronary artery without angina pectoris; R10.9 Unspecified abdominal pain; Z95.828 Presence of other vascular implants and grafts; K85.90 Acute pancreatitis without necrosis or infection, unspecified
CPT/HCPCS: 74177; G0463; Q9967

== ENCOUNTER 2024-04-02 13:43 | Inpatient (IN) | payer MEDICARE, BC ==
[~2024-04-02] VITALS: Ht 180.3 cm; Wt 63.1 kg
[~2024-04-02 13:43] MED LIST changes: -APIX5TAB OR; +APIX5TAB PO; +BRIM0.159 OP; +BRIN1SUS OP; +CALCTAB23 PO; +CHOL200043 PO; -IOHEXOL 350 MG/ML 100ML IJ ONE; +LEVO100T8 PO; +MIRT1TAB PO; +OMEP1CAP70 PO; -READI-CAT 2 (BARIUM SULF)(VANILLA SMOOTHIE) 450ML ONE
--- NOTE | 2024-04-02 14:01 | ED.PDOC ---
GI ASSESSMENT HPI Comments 83 year old male MERCEDES presents to the ED with chief complaint of abdominal pain. EMS reports patient is coming from [facility] with staff reporting that patient had RLQ abdominal pain 20 minutes prior to EMS arrival. EMS relays that the patient had 7/10 pain on scene, however, patient complains of no pain upon arrival to the ED. EMS states patient was at a paced rhythm from 75bpm to 120bpm and they had placed an IV for fluids. EMS notes patient has history fo A-Fib and is currently on Eliquis. Patient denies any SOB, chest pain, abdominal pain, N/V/D, dysuria, flank pain, or fever. Chief Complaint: Abdominal Pain Time Seen by MD: 13:59 Primary Care Provider: EDUAR Reviewed Notes: Nurses Notes, Pole Classifier Notes, Medications, Allergies Allergies: Coded Allergies: Penicillins (Verified Allergy, Severe, 04/22/18) Home Meds Reported Medications Apixaban Base (ELIQUIS) 5 Mg Tab, 5 MG OR BID, TAB 04/22/18 Sotalol Hcl (Sotalol Hcl) 80 Mg Tab, 1 TAB PO DAILY, #60 TAB 5 Refills 05/12/17 Levothyroxine Sodium (Synthroid) 88 Mcg Tab, 1 TAB PO DAILY, #30 TAB 5 Refills 05/12/17 Potassium Chloride (Klor-Con M20) 20 Meq Tab, 20 MEQ PO BID, TAB 05/12/17 Furosemide (Lasix) 40 Mg Tab, 40 MG PO DAILY, TAB 05/12/17 Mesalamine (Lialda) 1.2 Gm Tab, 2 TAB PO DAILY, #60 TAB 3 Refills 05/12/17 Megestrol Acetate (Megestrol Acetate) 40 Mg Tab, 40 MG PO BID 10/14/16 Magnesium Oxide (Mag-Oxide) 400 Mg Tab, 1 TAB PO DAILY, #60 TAB 5 Refills 10/31/14 Latanoprost (LATANOPROST) 0.005 % Elizabet, 1 DROP EACHEYE HS, #7.5 ML 3 Refills 10/31/14 Dorzolamide-Timolol (Dorzolamide Hcl/Timolol M) 1 Ml Elizabet, 1 DROP EACHEYE BID, #10 ML 6 Refills 10/31/14 Information Source: Patient, Emergency Med Personnel Mode of Arrival: EMS Timing: Minutes Duration: Since onset Prehospital treatment: None Quality: Aching Vomitus: None Stool: Normal Severity: Mild Recent: None Recent Hx of: None Pain Location: RLQ Modifying Factors: Nothing Associated sign and symptoms: Abdominal Pain Past Medical History PAST MEDICAL HISTORY: AFIB, Anemia, COPD, CVA, Thyroid, TIA Surgical History: Pacemaker Family History Family History: Reviewed,noncontributory to illness, Unobtainable Social History Smoker: Non-Smoker Alcohol: Occasionally Drugs: Denies Drug Use Lives In: [facility] Constitutional: denies: chills, diaphoresis, fatigue, fever, malaise, sweats, weakness, others EENTM: denies: blurred vision, double vision, ear bleeding, ear discharge, ear drainage, ear pain, ear ringing, eye pain, eye redness, hearing loss, mouth pain, mouth swelling, nasal discharge, nose bleeding, nose congestion, nose pain, photophobia, tearing, throat pain, throat swelling, voice changes, others Respiratory: denies: cough, hemoptysis, orthopnea, SOB at rest, shortness of breath, SOB with excertion, stridor, wheezing, others Cardiovascular: denies: chest pain, dizzy spells, diaphoresis, Dyspnea on exertion, edema, irregular heart beat, left arm pain, lightheadedness, palpitations, PND, syncope, others Gastrointestinal: reports: abdominal pain; denies: abdomen distended, blood streaked bowels, constipated, diarrhea, dysphagia, difficulty swallowing, hematemesis, melena, nausea, poor appetite, poor fluid intake, rectal bleeding, rectal pain, vomiting, others Genitourinary: denies: burning, dysuria, flank pain, frequency, hematuria, incontinence, penile discharge, penile sore, pain, testicle pain, testicle swelling, urgency, others Neurological: denies: dizziness, fainting, headache, left sided numbness, left sided weakness, numbness, paresthesia, pre-existing deficit, right sided numbness, right sided weakness, seizure, speech problems, tingling, tremors, weakness, others Musculoskeletal: denies: back pain, gout, joint pain, joint swelling, muscle pain, muscle stiffness, neck pain, others Integumetry: denies: bruises, change in color, change in hair/nails, dryness, laceration, lesions, lumps, rash, wounds, others Allergic/Immunocompromised: denies: Difficulty Healing, Frequent Infections, Hives, Itching, others Hematologic/Lymphatic: denies: anemia, blood clots, easy bleeding, easy bruising, swollen glands, others Endocrine: denies: excessive hunger, excessive sweating, excessive thirst, excessive urination, flushing, intolerance to cold, intolerance to heat, unexplained weight gain, unexplained weight loss, others Psychiatric: denies: anxiety, bipolar disorder, depression, hopeless, panic disorder, schizophrenia, sleepless, suicidal, others All Other Systems: Reviewed and Negative Physical Exam General Appearance: Moderate Distress HEENT: Normal ENT Inspection, Pharynx Normal, TMs Normal Neck: Full Range of Motion, Non-Tender, Normal, Normal Inspection Respiratory: Chest Non-Tender, Lungs Clear, No Accessory Muscle Use, No R espiratory Distress, Normal Breath Sounds Cardiovascular: No Edema, No JVD, No Murmur, No Gallop, Normal Peripheral Pulses, Regular Rate/Rhythm Breast Exam: Deferred Gastrointestinal: No Organomegaly, No Pulsatile Mass, Normal Bowel Sounds, RLQ, Soft, Tenderness Genitalia: Deferred Pelvic: Deferred Rectal: Deferred Extremities: No calf tenderness, Normal capillary refill, Normal inspection, Normal range of motion, Non-tender, No pedal edema Musculoskeletal : Apperance: Normal Neurologic: Alert, special shopper II-XII nml as Tested, Motor Weakness, Normal Affect, Normal Mood, No Sensory Deficits Cerebellar Function: Normal Reflexes: Normal Skin: Dry, Normal Color, Warm Lymphatic: No Adenopathy EKG EKG : Pulse Rate (adult): 75 Cardiac Rhythm: Paced Block: None Hypertrophy: None ST: Normal Was a procedure done? Was a procedure done?: No GI differential Dx Differential Diagnosis: Appendicitis, Diverticular disease, Gastritis/PUD, Gastroenteritis, Pancreatitis, UTI, Urolithiasis X-Ray, Labs, Meds, VS Vital Signs Date Time Temp Pulse Resp B/P (MAP) Pulse Ox O2 Delivery O2 Flow Rate FiO2 04/02/24 14:01 75 04/02/24 13:55 75 04/02/24 13:51 97.8 120 16 101/63 (76) 97 Lab Test 04/02/24 14:17 Range/Units White Blood Count 6.2 4.4-10.8 10^3/uL Red Blood Count 4.40 L 4.5-5.90 10^6/uL Hemoglobin 12.6 L 13.5-17.5 g/dL Hematocrit 38.2 L 41.0-53.0 % Mean Corpuscular Volume 86.6 80.0-100.0 fL Mean Corpuscular Hemoglobin 28.5 28.0-32.0 pg Mean Corpuscular Hemoglobin Concent 32.9 32.0-36.0 g/dL Red Cell Distribution Width 20.2 H 11.8-14.3 % Platelet Count 220 140-450 10^3/uL Mean Platelet Volume 8.5 6.9-10.8 fL Neutrophils (%) (Auto) 71.0 37.0-80.0 % Lymphocytes (%) (Auto) 12.8 10.0-50.0 % Monocytes (%) (Auto) 11.6 0.0-12.0 % Eosinophils (%) (Auto) 3.7 0.0-7.0 % Basophils (%) (Auto) 0.9 0.0-2.0 % Neutrophils # (Auto) 4.4 1.6-8.6 10 ^3/uL Lymphocytes # (Auto) 0.8 0.4-5.4 10 ^3/uL Monocytes # (Auto) 0.7 0-1.3 10 ^3/uL Eosinophils # (Auto) 0.2 0-0.8 10 ^3/uL Basophils # (Auto) 0.1 0-0.2 10 ^3/uL Nucleated Red Blood Cells 0.0 % Sodium Level 136 136-145 mmol/L Potassium Level 4.2 3.5-5.1 mmol/L Chloride Level 107 98-107 mmol/L Carbon Dioxide Level 22 20-31 mmol/L Anion Gap 7 5-15 Blood Urea Nitrogen 15 9-23 mg/dL Creatinine 0.81 0.700-1.30 mg/dL Glomerular Filtration Rate Calc 86 >90 mL/min BUN/Creatinine Ratio 18.5 10.0-20.0 Serum Glucose 98 74-106 mg/dL Calcium Level 9.6 8.7-10.4 mg/dL Total Bilirubin 2.4 H 0.2-1.0 mg/dL Aspartate Amino Transferase (AST) 44 H 13-40 U/L Alanine Aminotransferase (ALT) 18 7-40 U/L Alkaline Phosphatase 133 H 46-116 U/L Total Protein 6.9 5.7-8.2 g/dL Albumin 3.9 3.2-4.8 g/dL Lipase 75 H 12-53 U/L CT scan of the abdomen and pelvis shows: IMPRESSION: 1. Cardiomegaly 2. Bibasilar findings unchanged from 03/12/2024 3. 3-4 cm cortical cysts left kidney 4. Filter in the inferior vena cava unchanged from March 12 2024. The patient's CBC and chemistry panel are within normal limits The lipase is elevated at 75 The patient was being admitted to the hospitalist IV Hep-Lock was established Images Reviewed?: Images reviewed and evaluated by me Time of 1ST Reevaluation: 16:03 Reevaluation 1ST: Unchanged Patient Education/Counseling: Diagnosis, Treatment Family Education/Counseling: No Family Present Additional Information - I reviewed the following notes from patient's past medical encounters: 11/08/22 for chest pain - The following tests were ordered, and results were reviewed by me: (Labs, X- Ray, EKG): CBC, CMP, Lipase, UA, EKG, CT Abd/Pel - Additional information was gathered from interviewing the following independent Historian: (Family, Other Providers, EMT): EMS - I reviewed and agreed with the following test results read by other provider: (X-ray, CT, US): CT Abd/Pel - I discussed treatments and results with medical personnel. Departure 1 Departure Time of Disposition: 16:03 Impression: Primary Impression: Intractable abdominal pain Additional Impression: Abdominal pain of unknown etiology Disposition: ADMITTED INPATIENT Admit to: Med Surg Condition: Fair Critical Care Note Critical Care Time?: No Stability Stability form required: Yes Unstable for transfer: Telemetry monitoring (Telemetry monitoring required), ED Physician Assesment (Clinical assesment) Heart Score Heart Score: Heart Score Response (Comments) Value History N/A 0 EKG N/A 0 Age N/A 0 Risk Factors N/A 0 Troponin N/A 0 Total 0 I personally scribed for SANDRA PEREZ MD ([email or web address]) on 04/02/24 at 14:01. Electronically submitted by Brendon Hinojosa ([email or web address]). I personally scribed for SANDRA PEREZ MD ([email or web address]) on 04/02/24 at 14:02. Electronically submitted by Brendon Hinojosa ([email or web address]). SANDRA PEREZ MD Apr 02, 2024 14:01
[2024-04-02 14:36] LABS: Basophils # (auto) 0.1 10 ^3/uL (0-0.2); Basophils % (auto) 0.9 % (0.0-2.0); Eosinophils # (auto) 0.2 10 ^3/uL (0-0.8); Eosinophils % (auto) 3.7 % (0.0-7.0); Hematocrit 38.2 % (41.0-53.0); Hemoglobin 12.6 g/dL (13.5-17.5); Lymphocytes # (auto) 0.8 10 ^3/uL (0.4-5.4); Lymphocytes % (auto) 12.8 % (10.0-50.0); Mean Corpuscular Hemoglobin 28.5 pg (28.0-32.0); Mean Corpuscular Hgb Conc. 32.9 g/dL (32.0-36.0); Mean Corpuscular Volume 86.6 fL (80.0-100.0); Monocytes # (auto) 0.7 10 ^3/uL (0-1.3); Monocytes % (auto) 11.6 % (0.0-12.0); Neutrophils # (auto) 4.4 10 ^3/uL (1.6-8.6); Platelet Count (auto) 220 10^3/uL (140-450); Red Cell Distribution Width 20.2 % (11.8-14.3); White Blood Cell 6.2 10^3/uL (4.4-10.8)
[2024-04-02 14:47] LABS: Alanine Aminotransferase 18 U/L (7-40); Albumin 3.9 g/dL (3.2-4.8); Anion Gap 7 (5-15); BUN/Creatinine Ratio 18.5 (10.0-20.0); Blood Urea Nitrogen 15 mg/dL (9-23); Calcium 9.6 mg/dL (8.7-10.4); Carbon Dioxide 22 mmol/L (20-31); Glucose 98 mg/dL (74-106); Potassium 4.2 mmol/L (3.5-5.1); Total Protein 6.9 g/dL (5.7-8.2)
[2024-04-02 14:49] LABS: Alkaline Phosphatase 133 U/L (46-116); Aspartate Aminotransferase 44 U/L (13-40); Bilirubin, Total 2.4 mg/dL (0.2-1.0); Chloride 107 mmol/L (98-107); Lipase 75 U/L (12-53); Sodium 136 mmol/L (136-145)
--- NOTE | 2024-04-02 14:52 | ECG ---
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
--- NOTE | 2024-04-02 15:29 | DVH ---
Exam: CT CT AB PEL WO CON-NO ORAL OR IV History: abd pain Comparison Study: None available at time of dictation. TECHNIQUE: Multidetector CT of the abdomen was performed from lung bases to pubic symphysis. Imaging was performed without IV contrast. Axial, coronal and sagittal multiplanar reformats were obtained fr om the axial data set by the technologist. Radiation Dose Information: CT Dose: CTDI volume is 6.59 mGy. Dose-length product is 332.18 mGy*cm FINDINGS: Evaluation of solid organs is limited due to lack of intravenous contrast use. Findings: Lung Bases: Areas of scarring and linear atelectasis in both lung bases unchanged from 03/12/2024. C ardiomegaly. No pleural or pericardial effusion. Liver: The liver is normal in size. No focal lesions. Gallbladder and Biliary Tree: Unremarkable Spleen: Unremarkable Pancreas: The pancreas is grossly normal in appearance. Adrenal Glands: Unremarkable Kidneys: Kidneys are grossly normal without calculi or hydronephrosis. 3-4 cm cortical cysts left kid madiha Bladder: Grossly unremarkable for degree of distention. Bowel: The stomach is grossly normal in appearance. Small bowel and colon are normal in caliber and d istribution. The appendix is not visualized; however, no secondary findings of acute appendicitis id entified. Ascites: Absent Lymphadenopathy: No mesenteric, retroperitoneal or periportal lymphadenopathy. Abdominal Wall and Mesentery: Unremarkable. Vasculature: The visualized abdominal aorta is normal in size and caliber. Evaluation of abdominal a nd pelvic vessels is limited due to lack of intravenous contrast. Filter in the inferior vena cava. Pelvic Organs: Unremarkable Musculoskeletal: No aggressive focal bony lesions, acute fractures or dislocation. Soft tissues: Unremarkable IMPRESSION: 1. Cardiomegaly 2. Bibasilar findings unchanged from 03/12/2024 3. 3-4 cm cortical cysts left kidney 4. Filter in the inferior vena cava unchanged from March 12 2024. Radiation optimization: All CT scans at this facility use at least one of these dose optimization amos hniques: automated exposure control mA and/or kV adjustment per patient size (includes targeted exam s where dose is matched to clinical indication) or iterative reconstruction.
[2024-04-02 17:36] LABS: Urine Bacteria None Seen /hpf (None Seen)
[2024-04-02 18:14] LABS: Urine Blood Negative /uL (Negative); Urine Clarity Clear (Clear); Urine Color Dark-Yellow (Yellow); Urine Mucus FEW (None Seen); Urine Protein, UAD TRACE (Negative); Urine Specific Gravity 1.029 (1.001-1.035); Urine Squamous Epithelial Cell FEW /hpf (<5); Urine Urobilinogen 4 mg/dL (Negative); Urine WBC < 1 /HPF (0-3); Urine pH 5.5 (5.0-9.0)
[2024-04-02 21:16] VITALS: PULSE 60; RESP 24; O2SAT 98
[2024-04-02] MEDS: MORPHINE SULFATE 4 MG/ML SYR/VIAL IV ONE (21:20)
[2024-04-02] MEDS: ONDANSETRON HCL 4 MG/2 ML VIAL IV ONE (21:21)
[2024-04-02] MEDS ORDERED: ONDANSETRON HCL 4 MG/2 ML VIAL IV PRN (21:45)
[2024-04-02] MEDS: SODIUM CHLOR 0.9% PF (SALINE LOCK) 10ML VIAL/SYR IV SCH (22:02)
[2024-04-02] MEDS: APIXABAN 5 MG TAB PO SCH (22:06)
[2024-04-02] MEDS: CARVEDILOL 3.125 MG TAB PO SCH (22:07)
--- NOTE | 2024-04-02 23:35 | DVHHP2 ---
History of Present Illness Reason for Visit: Acute abdominal pain History of Present Illness The patient is a 83-year-old male with past medical history of AFib, anemia, COPD, CVA, thyroid disease, and TIA who presented to [facility] ED with complaint of abdominal pain. Patient reports symptoms progressively get w orse with diffuse right lower quadrant abdominal pain, rating 7/10 numeric scale, getting worse that prompted this visit. Patient was seen and evaluated in the ED, laboratory data shows WBC 6.2, platelets 220, sodium 136, potassium 4.2, BUN 15, creatinine 0.81, GFR 86, glucose 98, total bilirubin 2.4, AST 44, ALT 15, lipase 75, blood pressure 96/71, heart rate 60, temperature 97.7 F, O2 saturation 98% on room air. Abdomen/pelvis CT revealing cardiomegaly; 3-4 cm cortical cysts left kidney. Patient was given IV morphine sulfate 4 mg x 1, please see medication orders section in the computer. On my assessment, patient denied chest pain, headache, no dizziness, no abdominal pain at this moment, no diarrhea, no nausea, no vomiting, no fever, no chills. Patient was admitted for further evaluation and medical management. Past Medical History AFIB, Anemia, COPD, CVA, Thyroid, TIA Past Surgical History Pacemaker Family History Reviewed, noncontributory to the management of this case. Past Social History The patient lives at home, denies smoking, alcohol or illicit drugs abuse. Review of Systems Constitutional: Yes: Weakness; No: Fever, Chills, Sweats, Malaise, Other Eyes: No: Pain, Vision change, Conjunctivae inflammation, Eyelid inflammation, Other, Redness ENT: No: Ear pain, Ear discharge, Nose pain, Nose discharge, Nose congestion, Mouth pain, Mouth swelling, Throat pain, Throat swelling, Other Respiratory: No: Cough, Dry, Shortness of breath, SOB with excertion, Wheezing, Hemoptysis, Pleuritic Pain, Sputum, Wheezing, Other Cardiovascular: No: Chest Pain, Palpitations, Orthopnea, Paroxysmal Noc. Dyspnea, Edema, Lt Headedness, Other Gastrointestinal: Abdominal Pain; No: Nausea, Vomiting, Diarrhea, Constipation, Melena, Hematochezia, Other Genitourinary: No Dysuria, No Frequency, No Incontinence, No Hematuria, No Retention, No Other Musculoskeletal: No: other, neck pain, shoulder pain, arm pain, back pain, hand pain, leg pain, foot pain Skin: No: Rash, Lesions, Jaundice, Bruising, Other Neurological: No: Weakness, Numbness, Incoordination, Change in speech, Confus ion, Seizures, Other Allergies: Coded Allergies: Penicillins (Verified Allergy, Severe, 04/22/18) Medications Current Medications Medications Dose Ordered Sig/[place] Route Start Time Stop Time Status Last Admin Dose Admin Levothyroxine Sodium 88 mcg QAM@0600 PO 04/03/24 06:00 Apixaban 5 mg BID PO 04/02/24 22:00 04/02/24 22:06 5 MG Sodium Chloride 10 ml Q8HR IV 04/02/24 22:00 04/02/24 22:02 10 ML Acetaminophen/ Hydrocodone Bitart 1 tab Q4HP PRN PO 04/02/24 21:45 Ondansetron HCl 4 mg Q4HP PRN IV 04/02/24 21:45 Docusate Sodium 100 mg BIDPRN PRN PO 04/02/24 21:45 Acetaminophen 650 mg Q6HP PRN PO 04/02/24 21:45 Carvedilol 3.125 mg Q12HR PO 04/02/24 22:00 04/02/24 22:07 3.125 MG Exam Vital Signs Vital Signs Date Time Temp Pulse Resp B/P (MAP) Pulse Ox O2 Delivery O2 Flow Rate FiO2 04/02/24 22:07 112 96/71 04/02/24 21:46 17 04/02/24 21:16 97.5 98 97.5 04/02/24 21:16 Room Air* 0 21 General Appearance: Alert, Oriented X3, Cooperative, No acute distress HEENT: Atraumatic, PERRLA, EOMI, Mucous membr. moist/pink Respiratory: Clear to auscultation, Normal air movement Cardiovascular: Regular rate, Normal S1, Normal S2, No murmurs Abdominal: Normal bowel sounds, Soft, No tenderness, No hepatospenomegaly, No masses Extremities: No clubbing, No cyanosis, No edema, Normal pulses, No tenderness/swelling Skin: No breakdown, No significant lesion Neuro: Normal speech, Normal tone, Sensation intact, Cranial nerves 3-12 NL, Reflexes 2+, Other (Generalized weakness) Psych/Mental Status: Mental status NL, Mood NL Labs/Xrays Labs Test 04/02/24 17:36 04/02/24 14:17 Range/Units Urine Color Dark-yellow Yellow Urine Clarity Clear Clear Urine pH 5.5 5.0-9.0 Urine Specific [place] 1.029 1.001-1.035 Urine Protein Trace H Negative Urine Ketones Negative Negative Urine Blood Negative Negative /uL Urine Nitrite Negative Negative Urine Bilirubin Negative Negative Urine Urobilinogen 4 H Negative mg/dL Urine Leukocyte Esterase Negative Negative /uL Urine RBC 4 0 - 3 /hpf Urine Microscopic WBC < 1 0-3 /HPF Urine Squamous Epithelial Cells Few <5 /hpf Urine Calcium Oxalate Crystals Few None Seen Urine Bacteria None seen None Seen /hpf Urine Mucus Few None Seen Urine Glucose Normal Normal mg/dL White Blood Count 6.2 4.4-10.8 10^3/uL Red Blood Count 4.40 L 4.5-5.90 10^6/uL Hemoglobin 12.6 L 13.5-17.5 g/dL Hematocrit 38.2 L 41.0-53.0 % Mean Corpuscular Volume 86.6 80.0-100.0 fL Mean Corpuscular Hemoglobin 28.5 28.0-32.0 pg Mean Corpuscular Hemoglobin Concent 32.9 32.0-36.0 g/dL Red Cell Distribution Width 20.2 H 11.8-14.3 % Platelet Count 220 140-450 10^3/uL Mean Platelet Volume 8.5 6.9-10.8 fL Neutrophils (%) (Auto) 71.0 37.0-80.0 % Lymphocytes (%) (Auto) 12.8 10.0-50.0 % Monocytes (%) (Auto) 11.6 0.0-12.0 % Eosinophils (%) (Auto) 3.7 0.0-7.0 % Basophils (%) (Auto) 0.9 0.0-2.0 % Neutrophils # (Auto) 4.4 1.6-8.6 10 ^3/uL Lymphocytes # (Auto) 0.8 0.4-5.4 10 ^3/uL Monocytes # (Auto) 0.7 0-1.3 10 ^3/uL Eosinophils # (Auto) 0.2 0-0.8 10 ^3/uL Basophils # (Auto) 0.1 0-0.2 10 ^3/uL Nucleated Red Blood Cells 0.0 % Sodium Level 136 136-145 mmol/L Potassium Level 4.2 3.5-5.1 mmol/L Chloride Level 107 98-107 mmol/L Carbon Dioxide Level 22 20-31 mmol/L Anion Gap 7 5-15 Blood Urea Nitrogen 15 9-23 mg/dL Creatinine 0.81 0.700-1.30 mg/dL Glomerular Filtration Rate Calc 86 >90 mL/min BUN/Creatinine Ratio 18.5 10.0-20.0 Serum Glucose 98 74-106 mg/dL Calcium Level 9.6 8.7-10.4 mg/dL Total Bilirubin 2.4 H 0.2-1.0 mg/dL Aspartate Amino Transferase (AST) 44 H 13-40 U/L Alanine Aminotransferase (ALT) 18 7-40 U/L Alkaline Phosphatase 133 H 46-116 U/L Total Protein 6.9 5.7-8.2 g/dL Albumin 3.9 3.2-4.8 g/dL Lipase 75 H 12-53 U/L Thyroid Stimulating Hormone (TSH) 0.47 L 0.55-4.78 uIU/mL PATIENT: CAMILLE CRAIN ACCT: [id number] UNIT: [id number] : 1940 LOC: ER ROOM / BED: / AGE / SEX: 83 / M ADM STATUS: REG ER SERVICE 1358 ORDERING PHYSICIAN: SANDRA PEREZ MD PROCEDURE(s): ABPL - CT AB PEL WO CON-NO ORAL OR IV REASON: abd pain ORDER NUMBER(s): [id number], ACCESSION NUMBER(s): [id number] Exam: CT CT AB PEL WO CON-NO ORAL OR IV History: abd pain Comparison Study: None available at time of dictation. TECHNIQUE: Multidetector CT of the abdomen was performed from lung bases to pubic symphysis. Imaging was performed without IV contrast. Axial, coronal and sagittal multiplanar reformats were obtained from the axial data set by the technologist. Radiation Dose Information: CT Dose: CTDI volume is 6.59 mGy. Dose-length product is 332.18 mGy*cm FINDINGS: Evaluation of solid organs is limited due to lack of intravenous contrast use. Findings: Lung Bases: Areas of scarring and linear atelectasis in both lung bases unchanged from 03/12/2024. Cardiomegaly. No pleural or pericardial effusion. Liver: The liver is normal in size. No focal lesions. Gallbladder and Biliary Tree: Unremarkable Spleen: Unremarkable Pancreas: The pancreas is grossly normal in appearance. Adrenal Glands: Unremarkable Kidneys: Kidneys are grossly normal without calculi or hydronephrosis. 3-4 cm cortical cysts left kidney Bladder: Grossly unremarkable for degree of distention. Bowel: The stomach is grossly normal in appearance. Small bowel and colon are normal in caliber and distribution. The appendix is not visualized; however, no secondary findings of acute appendicitis identified. Ascites: Absent Lymphadenopathy: No mesenteric, retroperitoneal or periportal lymphadenopathy. Abdominal Wall and Mesentery: Unremarkable. Vasculature: The visualized abdominal aorta is normal in size and caliber. Evaluation of abdominal and pelvic vessels is limited due to lack of intravenous contrast. Filter in the inferior vena cava. Pelvic Organs: Unremarkable Musculoskeletal: No aggressive focal bony lesions, acute fractures or dislocation. Soft tissues: Unremarkable IMPRESSION: 1. Cardiomegaly 2. Bibasilar findings unchanged from 03/12/2024 3. 3-4 cm cortical cysts left kidney 4. Filter in the inferior vena cava unchanged from March 12 2024. Assessment/Plan Assessment/Plan Intractable abdominal pain Elevated lipase Abdominal pain of unknown etiology Generalized weakness Plan 1. Admit to med surge unit 2. Breathing treatment 3. Pain control management 4. Management of fluids and electrolytes 5. Consultation for hospitalist 6. Diagnostic tests abdomen/pelvis CT 7. DVT prophylaxis-on Eliquis 8. Repeat labs CBC, CMP in a.m. 9. Continue with current medical management 10. Treatment plan discussed with patient and RN. Patient verbalized understanding. Plan discussed with: Patient, Other (RN) My Orders Orders - ELENI ACEVEDO DNP Procedure Category Date Status Time Levothyroxine Tablet PHA 04/03/24 In Process (Synthroid Tablet) 06:00 Apixaban (Eliquis) PHA 04/02/24 In Process 22:00 Allergies CONNOR 04/02/24 In Process 21:33 Code Status CODE 04/02/24 Transmitted 21:33 Sodium Chloride Lock PHA 04/02/24 In Process (Saline Lock Ns) 22:00 Oxygen Per Hour RT 04/02/24 Transmitted 21:33 Hydrocodone-Acet PHA 04/02/24 In Process 5/325mg Tab ([place] 21:45 Ondansetron Hcl PHA 04/02/24 In Process (Zofran) 21:45 Docusate Sodium PHA 04/02/24 In Process Capsule (Colace 21:45 Fall Risk Precautions CONNOR 04/02/[address] 21:33 Complete Blood Count LAB 04/03/24 Verified 04:00 Comprehensive LAB 04/03/24 Verified Metabolic Panel 04:00 Condition: Serious CONNOR 04/02/24 In Process 21:33 Acetaminophen Tablet PHA 04/02/24 In Process (Tylenol Tablet) 21:45 Sequential CONNOR 04/02/24 In Process Compression Device Carvedilol Tablet PHA 04/02/24 In Process (Coreg Tablet) 22:00 Clear Liq Diet DIET 04/03/24 Transmitted Breakfast Problem List: (1) Intractable abdominal pain (2) Elevated lipase (3) Abdominal pain of unknown etiology (4) Generalized weakness Date of Service: Apr 02, 2024 Billing Provider: ELENI ACEVEDO DNP Common Visit Codes: [id number] INP/OBS CARE (HIGH) ELENI ACEVEDO DNP Apr 02, 2024 23:35
[2024-04-02] MEDS ORDERED: NITROGLYCERIN 0.4 MG SL TAB SL PRN (23:45)
[2024-04-02] MEDS ORDERED: MORPHINE SULFATE INJ 2 MG/ml SYRG IV PRN (23:45)
[2024-04-03] VITALS (7 sets, daily range): BP systolic 105–132; BP diastolic 65–86; PULSE 77–113; RESP 16–18; TEMP 97.4–98.2; O2SAT 94–98
[2024-04-03] MEDS: LEVOTHYROXINE SODIUM 88 MCG TAB PO SCH (05:37)
[2024-04-03 06:52] LABS: Basophils # (auto) 0 10 ^3/uL (0-0.2); Basophils % (auto) 0.5 % (0.0-2.0); Eosinophils # (auto) 0 10 ^3/uL (0-0.8); Eosinophils % (auto) 0.6 % (0.0-7.0); Hemoglobin 12.1 g/dL (13.5-17.5); Lymphocytes # (auto) 0.5 10 ^3/uL (0.4-5.4); Lymphocytes % (auto) 10.1 % (10.0-50.0); Mean Corpuscular Hemoglobin 28.3 pg (28.0-32.0); Mean Corpuscular Hgb Conc. 32.7 g/dL (32.0-36.0); Mean Corpuscular Volume 86.5 fL (80.0-100.0); Monocytes # (auto) 0.6 10 ^3/uL (0-1.3); Neutrophils # (auto) 4.1 10 ^3/uL (1.6-8.6); Neutrophils % (auto) 76.8 % (37.0-80.0); Nucleated Red Blood Cells % 0.1 %; Platelet Count (auto) 203 10^3/uL (140-450); Red Blood Cells 4.27 10^6/uL (4.5-5.90); Red Cell Distribution Width 20.2 % (11.8-14.3); White Blood Cell 5.4 10^3/uL (4.4-10.8)
[2024-04-03 07:12] LABS: Anion Gap 11 (5-15); BUN/Creatinine Ratio 20.7 (10.0-20.0); Calcium 9.7 mg/dL (8.7-10.4); Carbon Dioxide 20 mmol/L (20-31); Chloride 103 mmol/L (98-107)
[2024-04-03 07:13] LABS: Total Protein 6.9 g/dL (5.7-8.2)
[2024-04-03 07:17] LABS: Alanine Aminotransferase 87 U/L (7-40); Alkaline Phosphatase 220 U/L (46-116); Aspartate Aminotransferase 217 U/L (13-40); Bilirubin, Total 4.2 mg/dL (0.2-1.0); Blood Urea Nitrogen 24 mg/dL (9-23); Glucose 113 mg/dL (74-106); Potassium 5.3 mmol/L (3.5-5.1); Sodium 134 mmol/L (136-145)
[2024-04-03] MEDS: PANTOPRAZOLE 40 MG/10 ML VIAL INJ IV SCH (09:41)
--- NOTE | 2024-04-03 13:32 | DVHPN2 ---
Reviewed: Care Plan, H&P, Labs, Medications, Previous Orders, Radiology Changes from previous H/P or p: No Changes Eyes: No Pain, No Vision change, No Conjunctivae inflammation, No Eyelid inflammation, No Other, No Redness ENT: No Ear pain, No Ear discharge, No Nose pain, No Nose discharge, No Nose congestion, No Mouth pain, No Mouth swelling, No Throat pain, No Throat swelling, No Other Cardiovascular: No Chest Pain, No Palpitations, No Orthopnea, No Paroxysmal Noc. Dyspnea, No Edema, No Lt Headedness, No Other Respiratory: No Cough, No Dry, No Shortness of breath, No SOB with excertion, No Wheezing, No Hemoptysis, No Pleuritic Pain, No Sputum, No Other Gastrointestinal: No Nausea, No Vomiting; Abdominal Pain; No Diarrhea, No Constipation, No Melena, No Hematochezia, No Other Genitourinary: No Dysuria, No Frequency, No Incontinence, No Hematuria, No Retention, No Other Musculoskeletal: No other, No neck pain, No shoulder pain, No arm pain, No back pain, No hand pain, No leg pain, No foot pain Skin: No Rash, No Lesions, No Jaundice, No Bruising, No Other Objective Vitals Vital Signs Date Time Temp Pulse Resp B/P (MAP) Pulse Ox O2 Delivery O2 Flow Rate FiO2 04/03/24 09:43 113 110/81 04/03/24 09:00 97.4 18 98 97.4 04/03/24 08:15 Room Air* 0 21 Intake/Output Intake and Output 04/03/24 07:00 Intake Total 240 ml Output Total 0 ml Balance 240 ml Intake Oral 240 ml Output Urine Total 0 ml Medications Current Medications Medications Dose Ordered Sig/[place] Route Start Time Stop Time Status Last Admin Dose Admin Levothyroxine Sodium 88 mcg QAM@0600 PO 04/03/24 06:00 04/03/24 05:37 88 MCG Apixaban 5 mg BID PO 04/02/24 22:00 04/03/24 09:41 5 MG Sodium Chloride 10 ml Q8HR IV 04/02/24 22:00 04/03/24 13:18 10 ML Acetaminophen/ Hydrocodone Bitart 1 tab Q4HP PRN PO 04/02/24 21:45 Ondansetron HCl 4 mg Q4HP PRN IV 04/02/24 21:45 Docusate Sodium 100 mg BIDPRN PRN PO 04/02/24 21:45 Acetaminophen 650 mg Q6HP PRN PO 04/02/24 21:45 Carvedilol 3.125 mg Q12HR PO 04/02/24 22:00 04/03/24 09:43 3.125 MG Nitroglycerin 0.4 mg Q5MINP PRN SL 04/02/24 23:45 Morphine Sulfate 2 mg Q30M PRN IV 04/02/24 23:45 Pantoprazole Sodium 40 mg DAILY IV 04/03/24 10:00 04/03/24 09:41 40 MG Laboratory Results Laboratory Tests 04/03/24 05:24 Chemistry Test 04/02/24 14:17 04/03/24 05:24 Albumin 3.9 g/dL (3.2-4.8) 4.0 g/dL (3.2-4.8) Calcium Level 9.6 mg/dL (8.7-10.4) 9.7 mg/dL (8.7-10.4) Total Protein 6.9 g/dL (5.7-8.2) 6.9 g/dL (5.7-8.2) Lipid panel Test 04/02/24 14:17 Lipase 75 U/L (12-53) H LFT Test 04/02/24 14:17 04/03/24 05:24 Alanine Aminotransferase (ALT) 18 U/L (7-40) 87 U/L (7-40) H Alkaline Phosphatase 133 U/L (46-116) H 220 U/L (46-116) H Aspartate Amino Transferase (AST) 44 U/L (13-40) H 217 U/L (13-40) H Total Bilirubin 2.4 mg/dL (0.2-1.0) H 4.2 mg/dL (0.2-1.0) H HgA1c, TSH Test 04/02/24 14:17 Thyroid Stimulating Hormone (TSH) 0.47 uIU/mL (0.55-4.78) L Urinalysis Test 04/02/24 17:36 Urine Color Dark-yellow (Yellow) Urine Clarity Clear (Clear) Urine pH 5.5 (5.0-9.0) Urine Specific [place] 1.029 (1.001-1.035) Urine Protein Trace (Negative) H Urine Ketones Negative (Negative) Urine Blood Negative /uL (Negative) Urine Nitrite Negative (Negative) Urine Bilirubin Negative (Negative) Urine Urobilinogen 4 mg/dL (Negative) H Urine Leukocyte Esterase Negative /uL (Negative) Urine RBC 4 /hpf (0 - 3) Urine Microscopic WBC < 1 /HPF (0-3) Urine Squamous Epithelial Cells Few /hpf (<5) Urine Calcium Oxalate Crystals Few (None Seen) Urine Bacteria None seen /hpf (None Seen) Urine Mucus Few (None Seen) Urine Glucose Normal mg/dL (Normal) Labs and/or images reviewed: Labs reviewed by me, Image(s) reviewed by me Assessment/Plan Assessment/Plan Intractable abdominal pain Acute pancreatitis lipase 75: Pantoprazole AFib Eliquis Anemia COPD History of CVA Hypothyroidism TIA History of pacemaker History of IVC filter Time spent 65 minutes Patient is full code Advanced care planning time 20 minutes Plan discussed with: Patient Date of Service: Apr 03, 2024 Billing Provider: WILLIE DURHAM MD Common Visit Codes: [id number] CARE 30-74 MIN WILLIE DURHAM MD Apr 03, 2024 13:32
[2024-04-03] MEDS ORDERED: CALC-337 OR (14:35)
[2024-04-03] MEDS ORDERED: MIRT1TAB38 PO (14:36)
--- NOTE | 2024-04-03 14:51 | DVH ---
INDICATION: ELEVATED LIVER TESTS TECHNIQUE: Multiple real-time sonographic images of the abdomen were obtained. COMPARISON: None FINDINGS: Hepatic parenchyma appears echogenic suggesting steatosis. The liver measures 13.3 cm. No intrahepatic biliary ductal dilatation is noted. The gallbladder wall measures 0.34 cm and is unremarkable. No gallstones or sludge is seen. The co mmon duct is not visible. The right kidney measures 9.8 cm. No hydronephrosis. The pancreas is not well visualized due to obscuration from bowel gas. IMPRESSION: 1. Pancreas measures 13.3 cm in length with findings suggesting steatosis. 2. Right kidney measures 9.8 cm. 3. No cholelithiasis. Gallbladder wall measures 3.4 mm. Normal is 3 mm.
--- NOTE | 2024-04-03 15:26 | DVHCONRES ---
Date Seen: Apr 03, 2024 Resident Creating Document: JONATAN HENRIQUEZ RESIDENT History of Present Illness 83-year-old male with past medical history of dementia, AFib, anemia, COPD, CVA, thyroid disease, and TIA who presented to [facility] ED with complaint of abdominal pain. Patient reports symptoms progressively get worse with diffuse right lower quadrant abdominal pain, rating 7/10 numeric scale, getting worse that prompted this visit. GI consulted for abdominal pain and transaminitis Patient seen and examined at bedside. Patient's family at bedside reports that the patient has dementia, used to drink in the past. No lives at [place]. Family History: FH: esophageal cancer Pacemaker Allergies: Coded Allergies: Penicillins (Verified Allergy, Severe, 04/22/18) Home Meds Reported Medications Mirtazapine (Mirtazapine Oral Disintegrating Tablet) 15 Mg Tab, 1 TAB PO QPM, #30 TAB 1 Refill 04/03/24 Calcium Citrate-Vitamin D (CITRACAL + D3 MAXIMUM) Maximum Tab, 1 OR, TAB 04/03/24 Brimonidine Tartrate (Brimonidine Tartrate) 0.15 % Elizabet, 1 DROP OP TID, DROP 04/03/24 Apixaban Base (ELIQUIS) 5 Mg Tab, 5 MG OR BID, TAB 04/22/18 Sotalol Hcl (Sotalol Hcl) 80 Mg Tab, 1 TAB PO DAILY, #60 TAB 5 Refills 05/12/17 Levothyroxine Sodium (Synthroid) 88 Mcg Tab, 1 TAB PO DAILY, #30 TAB 5 Refills 05/12/17 Furosemide (Lasix) 40 Mg Tab, 40 MG PO DAILY, TAB 05/12/17 Latanoprost (LATANOPROST) 0.005 % Elizabet, 1 DROP EACHEYE HS, #7.5 ML 3 Refills 10/31/14 Dorzolamide-Timolol (Dorzolamide Hcl/Timolol M) 1 Ml Elizabet, 1 DROP EACHEYE BID, #10 ML 6 Refills 10/31/14 Discontinued Reported Medications Potassium Chloride (Klor-Con M20) 20 Meq Tab, 20 MEQ PO BID, TAB 05/12/17 Mesalamine (Lialda) 1.2 Gm Tab, 2 TAB PO DAILY, #60 TAB 3 Refills 05/12/17 Megestrol Acetate (Megestrol Acetate) 40 Mg Tab, 40 MG PO BID 10/14/16 Magnesium Oxide (Mag-Oxide) 400 Mg Tab, 1 TAB PO DAILY, #60 TAB 5 Refills 10/31/14 Current Medications Current Medications Medications (Trade) Dose Ordered Sig/[place] Route PRN Reason Start Time Stop Time Status Last Admin Levothyroxine Sodium (Synthroid Tablet) 88 mcg QAM@0600 PO 04/03/24 06:00 04/03/24 05:37 Apixaban (Eliquis) 5 mg BID PO 04/02/24 22:00 04/03/24 09:41 Sodium Chloride (Saline Lock Ns) 10 ml Q8HR IV 04/02/24 22:00 04/03/24 13:18 Acetaminophen/ Hydrocodone Bitart ([place] 5/325MG Tab) 1 tab Q4HP PRN PO MODERATE PAIN (4-6 PAIN SCALE) 04/02/24 21:45 Ondansetron HCl (Zofran) 4 mg Q4HP PRN IV NAUSEA / VOMITING 04/02/24 21:45 Docusate Sodium (Colace Capsule) 100 mg BIDPRN PRN PO FOR CONSTIPATION 04/02/24 21:45 Acetaminophen (Tylenol Tablet) 650 mg Q6HP PRN PO PAIN SCALE 1-3 OR TEMP>100.4 04/02/24 21:45 Carvedilol (Coreg Tablet) 3.125 mg Q12HR PO 04/02/24 22:00 04/03/24 09:43 Nitroglycerin (Ntrostat Sublingual) 0.4 mg Q5MINP PRN SL FOR CHEST PAIN 04/02/24 23:45 Morphine Sulfate 2 mg Q30M PRN IV FOR CHEST PAIN 04/02/24 23:45 Pantoprazole Sodium (Protonix) 40 mg DAILY IV 04/03/24 10:00 04/03/24 09:41 Vital Signs Vital Signs Date Time Temp Pulse Resp B/P (MAP) Pulse Ox O2 Delivery O2 Flow Rate FiO2 04/03/24 09:43 113 110/81 04/03/24 09:00 97.4 18 98 97.4 04/03/24 08:15 Room Air* 0 21 Physical Exam Patient lying in bed, in no acute distress General: Well-built, afebrile, palor, mucosae are moist Cardiovascular: Regular S1 and S2. No murmurs, gallops or rubs. No JVD elevation. No pedal edema Respiratory: Normal B/L air entry on room air. Clear lung sounds on auscultation Abdomen: Soft, nontender, nondistended, normoactive bowel sounds, no rebound tenderness, no organomegaly, no masses Genitourinary: Deferred MSK/skin: Mobilizes 4 limbs. Skin is dry and warm Neurological: No motor, no sensitive deficits, normal speech. Pupils are isocoric and reactive. Psych/Mental Status: A/Ox3 Labs/Diagnostic Data Labs Test 04/03/24 05:24 04/02/24 17:36 04/02/24 14:17 Range/Units White Blood Count 5.4 4.4-10.8 10^3/uL Red Blood Count 4.27 L 4.5-5.90 10^6/uL Hemoglobin 12.1 L 13.5-17.5 g/dL Hematocrit 37.0 L 41.0-53.0 % Mean Corpuscular Volume 86.5 80.0-100.0 fL Mean Corpuscular Hemoglobin 28.3 28.0-32.0 pg Mean Corpuscular Hemoglobin Concent 32.7 32.0-36.0 g/dL Red Cell Distribution Width 20.2 H 11.8-14.3 % Platelet Count 203 140-450 10^3/uL Mean Platelet Volume 8.8 6.9-10.8 fL Neutrophils (%) (Auto) 76.8 37.0-80.0 % Lymphocytes (%) (Auto) 10.1 10.0-50.0 % Monocytes (%) (Auto) 12.0 0.0-12.0 % Eosinophils (%) (Auto) 0.6 0.0-7.0 % Basophils (%) (Auto) 0.5 0.0-2.0 % Neutrophils # (Auto) 4.1 1.6-8.6 10 ^3/uL Lymphocytes # (Auto) 0.5 0.4-5.4 10 ^3/uL Monocytes # (Auto) 0.6 0-1.3 10 ^3/uL Eosinophils # (Auto) 0 0-0.8 10 ^3/uL Basophils # (Auto) 0 0-0.2 10 ^3/uL Nucleated Red Blood Cells 0.1 % Sodium Level 134 L 136-145 mmol/L Potassium Level 5.3 H 3.5-5.1 mmol/L Chloride Level 103 98-107 mmol/L Carbon Dioxide Level 20 20-31 mmol/L Anion Gap 11 5-15 Blood Urea Nitrogen 24 H 9-23 mg/dL Creatinine 1.16 0.700-1.30 mg/dL Glomerular Filtration Rate Calc 62 >90 mL/min BUN/Creatinine Ratio 20.7 H 10.0-20.0 Serum Glucose 113 H 74-106 mg/dL Calcium Level 9.7 8.7-10.4 mg/dL Total Bilirubin 4.2 H 0.2-1.0 mg/dL Aspartate Amino Transferase (AST) 217 H 13-40 U/L Alanine Aminotransferase (ALT) 87 H 7-40 U/L Alkaline Phosphatase 220 H 46-116 U/L Total Protein 6.9 5.7-8.2 g/dL Albumin 4.0 3.2-4.8 g/dL Urine Color Dark-yellow Yellow Urine Clarity Clear Clear Urine pH 5.5 5.0-9.0 Urine Specific [place] 1.029 1.001-1.035 Urine Protein Trace H Negative Urine Ketones Negative Negative Urine Blood Negative Negative /uL Urine Nitrite Negative Negative Urine Bilirubin Negative Negative Urine Urobilinogen 4 H Negative mg/dL Urine Leukocyte Esterase Negative Negative /uL Urine RBC 4 0 - 3 /hpf Urine Microscopic WBC < 1 0-3 /HPF Urine Squamous Epithelial Cells Few <5 /hpf Urine Calcium Oxalate Crystals Few None Seen Urine Bacteria None seen None Seen /hpf Urine Mucus Few None Seen Urine Glucose Normal Normal mg/dL Lipase 75 H 12-53 U/L Thyroid Stimulating Hormone (TSH) 0.47 L 0.55-4.78 uIU/mL Assessment Hyperbilirubinemia Transaminitis AST 3x, ALT secondary to steatosis versus alcohol-induced Anemia, likely normocytic Hyperkalemia Left kidney cyst Dementia Liver ultrasound completed, shows no cholelithiasis. Gallbladder measures 3.[address] unremarkable for acute abdomen pathology Plan: Given the unremarkable ultrasound and CT abdomen, negative clinical findings, we will monitor and trend LFTs at this time. Follow up with hepatitis panel, started soft mechanical diet. Follow up with coagulation panel, blood alcohol level and UDS Plan discussed with family in which all questions have been answered Case discussed with Dr. Luz Plan discussed with: Patient, Spouse JONATAN HENRIQUEZ RESIDENT Apr 03, 2024 15:26
[2024-04-04] VITALS (8 sets, daily range): BP systolic 97–126; BP diastolic 64–84; PULSE 65–93; RESP 16–17; TEMP 97.9–98.4; O2SAT 93–98
[2024-04-04 07:17] LABS: Basophils # (auto) 0.1 10 ^3/uL (0-0.2); Basophils % (auto) 0.9 % (0.0-2.0); Eosinophils # (auto) 0.2 10 ^3/uL (0-0.8); Eosinophils % (auto) 3.2 % (0.0-7.0); Hemoglobin 11.8 g/dL (13.5-17.5); Lymphocytes # (auto) 0.9 10 ^3/uL (0.4-5.4); Lymphocytes % (auto) 14.6 % (10.0-50.0); Mean Corpuscular Hemoglobin 28.6 pg (28.0-32.0); Mean Corpuscular Hgb Conc. 32.9 g/dL (32.0-36.0); Mean Corpuscular Volume 87.1 fL (80.0-100.0); Monocytes # (auto) 0.8 10 ^3/uL (0-1.3); Monocytes % (auto) 13.1 % (0.0-12.0); Neutrophils # (auto) 4.2 10 ^3/uL (1.6-8.6); Neutrophils % (auto) 68.2 % (37.0-80.0); Nucleated Red Blood Cells % 0.1 %; Platelet Count (auto) 207 10^3/uL (140-450); Red Blood Cells 4.13 10^6/uL (4.5-5.90); Red Cell Distribution Width 19.9 % (11.8-14.3); White Blood Cell 6.1 10^3/uL (4.4-10.8)
[2024-04-04 07:36] LABS: Albumin 4.1 g/dL (3.2-4.8); Anion Gap 10 (5-15); BUN/Creatinine Ratio 19.2 (10.0-20.0); Blood Urea Nitrogen 20 mg/dL (9-23); Calcium 9.7 mg/dL (8.7-10.4); Carbon Dioxide 21 mmol/L (20-31); Chloride 103 mmol/L (98-107); Glucose 93 mg/dL (74-106); Magnesium 2.2 mg/dL (1.6-2.6); Potassium 4.8 mmol/L (3.5-5.1)
[2024-04-04 07:38] LABS: Alanine Aminotransferase 69 U/L (7-40); Alkaline Phosphatase 217 U/L (46-116); Aspartate Aminotransferase 137 U/L (13-40); Bilirubin, Total 3.8 mg/dL (0.2-1.0); Blood Alcohol < 3.0 mg/dL (<10); Sodium 134 mmol/L (136-145)
[2024-04-04] MEDS: HYDROcodone-ACET 5/325MG TAB PO PRN (10:12)
--- NOTE | 2024-04-04 10:26 | DVHPN2 ---
Reviewed: Care Plan, H&P, Labs, Medications, Previous Orders, Radiology Changes from previous H/P or p: No Changes Eyes: No Pain, No Vision change, No Conjunctivae inflammation, No Eyelid inflammation, No Other, No Redness ENT: No Ear pain, No Ear discharge, No Nose pain, No Nose discharge, No Nose congestion, No Mouth pain, No Mouth swelling, No Throat pain, No Throat swelling, No Other Cardiovascular: No Chest Pain, No Palpitations, No Orthopnea, No Paroxysmal Noc. Dyspnea, No Edema, No Lt Headedness, No Other Respiratory: No Cough, No Dry, No Shortness of breath, No SOB with excertion, No Wheezing, No Hemoptysis, No Pleuritic Pain, No Sputum, No Other Gastrointestinal: No Nausea, No Vomiting; Abdominal Pain; No Diarrhea, No Constipation, No Melena, No Hematochezia, No Other Genitourinary: No Dysuria, No Frequency, No Incontinence, No Hematuria, No Retention, No Other Musculoskeletal: No other, No neck pain, No shoulder pain, No arm pain, No back pain, No hand pain, No leg pain, No foot pain Skin: No Rash, No Lesions, No Jaundice, No Bruising, No Other Objective Vitals Vital Signs Date Time Temp Pulse Resp B/P (MAP) Pulse Ox O2 Delivery O2 Flow Rate FiO2 04/04/24 10:13 72 110/80 04/04/24 09:03 97.9 17 96 97.9 04/04/24 08:10 Room Air* 0 21 Intake/Output Intake and Output 04/04/24 07:00 Intake Total 1000 ml Balance 1000 ml Intake Oral 1000 ml # Voids 7 # Bowel Movements 1 Medications Current Medications Medications Dose Ordered Sig/[place] Route Start Time Stop Time Status Last Admin Dose Admin Levothyroxine Sodium 88 mcg QAM@0600 PO 04/03/24 06:00 04/04/24 05:45 88 MCG Apixaban 5 mg BID PO 04/02/24 22:00 04/04/24 10:12 5 MG Sodium Chloride 10 ml Q8HR IV 04/02/24 22:00 04/04/24 05:45 10 ML Acetaminophen/ Hydrocodone Bitart 1 tab Q4HP PRN PO 04/02/24 21:45 04/04/24 10:12 1 TAB Ondansetron HCl 4 mg Q4HP PRN IV 04/02/24 21:45 Docusate Sodium 100 mg BIDPRN PRN PO 04/02/24 21:45 Acetaminophen 650 mg Q6HP PRN PO 04/02/24 21:45 Carvedilol 3.125 mg Q12HR PO 04/02/24 22:00 04/04/24 10:13 3.125 MG Nitroglycerin 0.4 mg Q5MINP PRN SL 04/02/24 23:45 Morphine Sulfate 2 mg Q30M PRN IV 04/02/24 23:45 Pantoprazole Sodium 40 mg DAILY IV 04/03/24 10:00 04/04/24 10:14 40 MG Laboratory Results Laboratory Tests 04/04/24 06:44 Chemistry Test 04/04/24 06:44 Albumin 4.1 g/dL (3.2-4.8) Calcium Level 9.7 mg/dL (8.7-10.4) Magnesium Level 2.2 mg/dL (1.6-2.6) Total Protein 7.0 g/dL (5.7-8.2) LFT Test 04/04/24 06:44 Alanine Aminotransferase (ALT) 69 U/L (7-40) H Alkaline Phosphatase 217 U/L (46-116) H Aspartate Amino Transferase (AST) 137 U/L (13-40) H Total Bilirubin 3.8 mg/dL (0.2-1.0) H Urinalysis Test 04/02/24 17:36 Urine Color Dark-yellow (Yellow) Urine Clarity Clear (Clear) Urine pH 5.5 (5.0-9.0) Urine Specific [place] 1.029 (1.001-1.035) Urine Protein Trace (Negative) H Urine Ketones Negative (Negative) Urine Blood Negative /uL (Negative) Urine Nitrite Negative (Negative) Urine Bilirubin Negative (Negative) Urine Urobilinogen 4 mg/dL (Negative) H Urine Leukocyte Esterase Negative /uL (Negative) Urine RBC 4 /hpf (0 - 3) Urine Microscopic WBC < 1 /HPF (0-3) Urine Squamous Epithelial Cells Few /hpf (<5) Urine Calcium Oxalate Crystals Few (None Seen) Urine Bacteria None seen /hpf (None Seen) Urine Mucus Few (None Seen) Urine Glucose Normal mg/dL (Normal) Microbiology Microbiology Date/Time Source Procedure Growth Status 04/03/24 08:12 Nose MRSA Screen - Final Complete Labs and/or images reviewed: Labs reviewed by me, Image(s) reviewed by me Assessment/Plan Assessment/Plan Intractable abdominal pain Acute pancreatitis lipase 75: Pantoprazole , liver ultrasound negative, GI consult appreciated AFib Eliquis, sotalol Acute CHF exacerbation: Lasix Anemia COPD History of CVA Hypothyroidism : Synthroid TIA History of pacemaker History of IVC filter Time spent 55 minutes Patient is full code Advanced care planning time [address] Jim will take over the care tomorrow Plan discussed with: Patient My Orders Orders - WILLIE DURHAM MD Procedure Category Date Status Time * [facility]per CONS 04/03/24 Transmitted 13:33 Transfer Service ORDERS 04/04/24 Transmitted 08:03 Furosemide Tablet PHA 04/05/24 Transmitted (Lasix Tablet) 10:00 Date of Service: Apr 04, 2024 Billing Provider: WILLIE DURHAM MD Common Visit Codes: [id number] INP/OBS CARE(HIGH) WILLIE DURHAM MD Apr 04, 2024 10:26
--- NOTE | 2024-04-04 19:11 | DVHPN2 ---
Progress Note - Dictate Date Seen: Apr 04, 2024 Medical Necessity Reason Pt with a Central, PICC or Fol: No Subjective No new complaints Tolerating diet Liver enzymes trending down vital signs Vital Sign Date Time Temp Pulse Resp B/P (MAP) Pulse Ox O2 Delivery O2 Flow Rate FiO2 04/04/24 16:48 98.0 93 17 126/84 (98) 97 98.0 04/04/24 08:10 Room Air* 0 21 Total Intake and Output 04/03/24 04/03/24 04/04/24 14:59 22:59 06:59 Intake Total 600 ml 400 ml Balance 600 ml 400 ml medications Current Medications Medications Dose Ordered Sig/[place] Route Start Time Stop Time Status Last Admin Dose Admin Levothyroxine Sodium 88 mcg QAM@0600 PO 04/03/24 06:00 04/04/24 05:45 88 MCG Apixaban 5 mg BID PO 04/02/24 22:00 04/04/24 10:12 5 MG Sodium Chloride 10 ml Q8HR IV 04/02/24 22:00 04/04/24 14:00 10 ML Acetaminophen/ Hydrocodone Bitart 1 tab Q4HP PRN PO 04/02/24 21:45 04/04/24 10:12 1 TAB Ondansetron HCl 4 mg Q4HP PRN IV 04/02/24 21:45 Docusate Sodium 100 mg BIDPRN PRN PO 04/02/24 21:45 Acetaminophen 650 mg Q6HP PRN PO 04/02/24 21:45 Carvedilol 3.125 mg Q12HR PO 04/02/24 22:00 04/04/24 10:13 3.125 MG Nitroglycerin 0.4 mg Q5MINP PRN SL 04/02/24 23:45 Morphine Sulfate 2 mg Q30M PRN IV 04/02/24 23:45 Pantoprazole Sodium 40 mg DAILY IV 04/03/24 10:00 04/04/24 10:14 40 MG Furosemide 40 mg DAILY PO 04/05/24 10:00 Mirtazapine 15 mg HS PO 04/04/24 22:00 objective Patient lying in bed, in no acute distress General: Well-built, afebrile, palor, mucosae are moist Cardiovascular: Regular S1 and S2. No pedal edema Respiratory: Clear lung sounds on auscultation Abdomen: Soft, nontender, nondistended, normoactive bowel sounds, no rebound tenderness, no organomegaly, no masses MSK/skin: Mobilizes 4 limbs. Skin is dry and warm Neurological: No motor, no sensitive deficits, normal speech. Pupils are isocoric and reactive. Psych/Mental Status: A/Ox3 laboratory and microbiology Laboratory Tests 04/04/24 06:44 Test 04/04/24 06:44 Range/Units Serum Glucose 93 74-106 mg/dL Problems(with codes): (1) Elevated lipase (2) Generalized weakness (3) Intractable abdominal pain (4) Abdominal pain of unknown etiology (5) Elevated brain natriuretic peptide (BNP) level Prognosis Assessment plan Unclear etiology of elevated liver enzymes; hepatitis profile is pending or sphincter of Oddi dysfunction due to ampullary spasm There was possibility of a passage of sludge or tiny stone leading to mild pancreatitis Differential diagnosis of mild acute pancreatitis that could have led to elevation in liver enzymes Check MRCP rule out any CBD stone although the ultrasound and CT were negative Monitor liver enzymes and lipase Plan discussed with: Patient, Other GT LEONARD MD Apr 04, 2024 19:11
[2024-04-04] MEDS: MIRTAZAPINE 30 MG TAB PO SCH (22:24)
[2024-04-05] VITALS (7 sets, daily range): BP systolic 97–115; BP diastolic 67–80; PULSE 74–101; RESP 16–18; TEMP 97.4–98.7; O2SAT 94–98
[2024-04-05 07:50] LABS: Albumin 3.5 g/dL (3.2-4.8)
[2024-04-05 07:51] LABS: Bilirubin, Direct 1.3 mg/dL (<0.3); Bilirubin, Total 2.3 mg/dL (0.2-1.0); Total Protein 5.8 g/dL (5.7-8.2)
[2024-04-05] MEDS: FUROSEMIDE 20 MG TAB PO SCH (09:49)
[2024-04-05] MEDS: DOCUSATE SOD 100 MG CAP PO PRN (12:43)
[2024-04-05 13:03] LABS: Hepatitis A Ab IgM Negative; Hepatitis A Total Antibody Positive (Negative); Hepatitis B Core Total AB Negative (Negative); Hepatitis B Surface Antibody Negative (Negative); Hepatitis B Surface Antigen Negative (Negative); Hepatitis C Antibody Negative (Negative)
[2024-04-05 13:04] LABS: Hepatitis B Core IgM Negative (Negative)
--- NOTE | 2024-04-05 13:21 | DVHPN2 ---
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 CYST NO EVIDENCE OF PANCREATIC/ HEPATIC DUCT DILATATION vital signs Vital Sign Date Time Temp Pulse Resp B/P (MAP) Pulse Ox O2 Delivery O2 Flow Rate FiO2 04/05/24 10:48 80 122/70 04/05/24 09:29 97.7 18 97 97.7 04/05/24 08:00 Room Air* 0 21 Total Intake and Output 04/04/24 04/04/24 04/05/24 15:00 23:00 07:00 Intake Total 600 ml 440 ml Balance 600 ml 440 ml medications Current Medications Medications Dose Ordered Sig/[place] Route Start Time Stop Time Status Last Admin Dose Admin Levothyroxine Sodium 88 mcg QAM@0600 PO 04/03/24 06:00 04/05/24 05:34 88 MCG Apixaban 5 mg BID PO 04/02/24 22:00 04/05/24 09:50 5 MG Sodium Chloride 10 ml Q8HR IV 04/02/24 22:00 04/05/24 05:34 10 ML Acetaminophen/ Hydrocodone Bitart 1 tab Q4HP PRN PO 04/02/24 21:45 04/04/24 10:12 1 TAB Ondansetron HCl 4 mg Q4HP PRN IV 04/02/24 21:45 Docusate Sodium 100 mg BIDPRN PRN PO 04/02/24 21:45 04/05/24 12:43 100 MG Acetaminophen 650 mg Q6HP PRN PO 04/02/24 21:45 Carvedilol 3.125 mg Q12HR PO 04/02/24 22:00 04/05/24 09:48 3.125 MG Nitroglycerin 0.4 mg Q5MINP PRN SL 04/02/24 23:45 Morphine Sulfate 2 mg Q30M PRN IV 04/02/24 23:45 Pantoprazole Sodium 40 mg DAILY IV 04/03/24 10:00 04/05/24 09:47 40 MG Furosemide 40 mg DAILY PO 04/05/24 10:00 04/05/24 09:49 40 MG Mirtazapine 15 mg HS PO 04/04/24 22:00 04/04/24 22:24 15 MG laboratory and microbiology Laboratory Tests 04/04/24 06:44 Test 04/04/24 06:44 Range/Units Serum Glucose 93 74-106 mg/dL Problem List HX OF OBS AFIB HYPERCOAGULABLE STATE CVA REACTIVE AIRWAY DISEASE ANEMIA NOW WITH DIFFUSE ABD PAIN CT ABD 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
--- NOTE | 2024-04-05 13:22 | DVHPN2 ---
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 CYST NO EVIDENCE OF PANCREATIC/ HEPATIC DUCT DILATATION vital signs Vital Sign Date Time Temp Pulse Resp B/P (MAP) Pulse Ox O2 Delivery O2 Flow Rate FiO2 04/05/24 10:48 80 122/70 04/05/24 09:29 97.7 18 97 97.7 04/05/24 08:00 Room Air* 0 21 Total Intake and Output 04/04/24 04/04/24 04/05/24 15:00 23:00 07:00 Intake Total 600 ml 440 ml Balance 600 ml 440 ml medications Current Medications Medications Dose Ordered Sig/[place] Route Start Time Stop Time Status Last Admin Dose Admin Levothyroxine Sodium 88 mcg QAM@0600 PO 04/03/24 06:00 04/05/24 05:34 88 MCG Apixaban 5 mg BID PO 04/02/24 22:00 04/05/24 09:50 5 MG Sodium Chloride 10 ml Q8HR IV 04/02/24 22:00 04/05/24 05:34 10 ML Acetaminophen/ Hydrocodone Bitart 1 tab Q4HP PRN PO 04/02/24 21:45 04/04/24 10:12 1 TAB Ondansetron HCl 4 mg Q4HP PRN IV 04/02/24 21:45 Docusate Sodium 100 mg BIDPRN PRN PO 04/02/24 21:45 04/05/24 12:43 100 MG Acetaminophen 650 mg Q6HP PRN PO 04/02/24 21:45 Carvedilol 3.125 mg Q12HR PO 04/02/24 22:00 04/05/24 09:48 3.125 MG Nitroglycerin 0.4 mg Q5MINP PRN SL 04/02/24 23:45 Morphine Sulfate 2 mg Q30M PRN IV 04/02/24 23:45 Pantoprazole Sodium 40 mg DAILY IV 04/03/24 10:00 04/05/24 09:47 40 MG Furosemide 40 mg DAILY PO 04/05/24 10:00 04/05/24 09:49 40 MG Mirtazapine 15 mg HS PO 04/04/24 22:00 04/04/24 22:24 15 MG laboratory and microbiology Laboratory Tests 04/04/24 06:44 Test 04/04/24 06:44 Range/Units Serum Glucose 93 74-106 mg/dL Problem List HX OF OBS AFIB HYPERCOAGULABLE STATE CVA REACTIVE AIRWAY DISEASE ANEMIA NOW WITH DIFFUSE ABD PAIN CT ABD 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
[2024-04-05] MEDS: HYDROmorphone HCL 2 MG/ML VL/or syr IV ONE (16:45)
[2024-04-05] MEDS ORDERED: HYDROMORPHONE HCL 1 MG/ML INJ IV PRN (16:45)
--- NOTE | 2024-04-05 19:55 | DVHPN2 ---
Progress Note - Dictate Date Seen: Apr 05, 2024 Medical Necessity Reason Pt with a Central, PICC or Fol: No Subjective No new complaints Tolerating diet Liver enzymes trending down vital signs Vital Sign Date Time Temp Pulse Resp B/P (MAP) Pulse Ox O2 Delivery O2 Flow Rate FiO2 04/05/24 13:00 97.4 74 18 115/80 (92) 98 97.4 04/05/24 08:00 Room Air* 0 21 Total Intake and Output 04/04/24 04/04/24 04/05/24 15:00 23:00 07:00 Intake Total 600 ml 440 ml Balance 600 ml 440 ml medications Current Medications Medications Dose Ordered Sig/[place] Route Start Time Stop Time Status Last Admin Dose Admin Levothyroxine Sodium 88 mcg QAM@0600 PO 04/03/24 06:00 04/05/24 05:34 88 MCG Apixaban 5 mg BID PO 04/02/24 22:00 04/05/24 09:50 5 MG Sodium Chloride 10 ml Q8HR IV 04/02/24 22:00 04/05/24 14:00 10 ML Ondansetron HCl 4 mg Q4HP PRN IV 04/02/24 21:45 Docusate Sodium 100 mg BIDPRN PRN PO 04/02/24 21:45 04/05/24 12:43 100 MG Acetaminophen 650 mg Q6HP PRN PO 04/02/24 21:45 Carvedilol 3.125 mg Q12HR PO 04/02/24 22:00 04/05/24 09:48 3.125 MG Nitroglycerin 0.4 mg Q5MINP PRN SL 04/02/24 23:45 Morphine Sulfate 2 mg Q30M PRN IV 04/02/24 23:45 Pantoprazole Sodium 40 mg DAILY IV 04/03/24 10:00 04/05/24 09:47 40 MG Furosemide 40 mg DAILY PO 04/05/24 10:00 04/05/24 09:49 40 MG Mirtazapine 15 mg HS PO 04/04/24 22:00 04/04/24 22:24 15 MG Hydromorphone HCl 0.5 mg Q4HPRN PRN IV 04/05/24 16:45 objective Patient lying in bed, in no acute distress General: Well-built, afebrile, palor, mucosae are moist Cardiovascular: Regular S1 and S2. No pedal edema Respiratory: Clear lung sounds on auscultation Abdomen: Soft, nontender, nondistended, normoactive bowel sounds, no rebound tenderness, no organomegaly, no masses MSK/skin: Mobilizes 4 limbs. Skin is dry and warm Neurological: No motor, no sensitive deficits, normal speech. Pupils are isocoric and reactive. Psych/Mental Status: A/Ox3 laboratory and microbiology Laboratory Tests 04/04/24 06:44 Test 04/04/24 06:44 Range/Units Serum Glucose 93 74-106 mg/dL Problems(with codes): (1) Elevated brain natriuretic peptide (BNP) level (2) Elevated lipase (3) Generalized weakness (4) Abdominal pain of unknown etiology (5) Atrial fibrillation (6) Chest pain (7) Acute congestive heart failure (8) Weakness Prognosis PLAN Patient unable to do MRCP due to pacemaker Liver enzymes are trending down and I agreed seems the patient may have passed small sludge or stone Continue to manage conservatively because of his overall debilitated state and age Monitor labs Advance diet as tolerated Discharge planning as per hospitalist when patient is stabilized Plan discussed with: Patient, Other GT LEONARD MD Apr 05, 2024 19:55
[2024-04-06] VITALS (9 sets, daily range): BP systolic 94–128; BP diastolic 57–84; PULSE 68–106; RESP 16–19; TEMP 97.5–98.3; O2SAT 97–99
--- NOTE | 2024-04-06 12:27 | DVHPN2 ---
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 CYST NO EVIDENCE OF PANCREATIC/ HEPATIC DUCT DILATATION vital signs Vital Sign Date Time Temp Pulse Resp B/P (MAP) Pulse Ox O2 Delivery O2 Flow Rate FiO2 04/06/24 09:00 98.3 70 17 97/63 (74) 97 98.3 04/06/24 08:00 Room Air* 0 21 Total Intake and Output 04/05/24 04/05/24 04/06/24 15:00 23:00 07:00 Intake Total 600 ml 420 ml 400 ml Output Total 400 ml 750 ml Balance 200 ml -330 ml 400 ml medications Current Medications Medications Dose Ordered Sig/[place] Route Start Time Stop Time Status Last Admin Dose Admin Levothyroxine Sodium 88 mcg QAM@0600 PO 04/03/24 06:00 04/05/24 05:34 88 MCG Apixaban 5 mg BID PO 04/02/24 22:00 04/05/24 22:47 5 MG Sodium Chloride 10 ml Q8HR IV 04/02/24 22:00 04/06/24 10:06 10 ML Ondansetron HCl 4 mg Q4HP PRN IV 04/02/24 21:45 Docusate Sodium 100 mg BIDPRN PRN PO 04/02/24 21:45 04/05/24 12:43 100 MG Acetaminophen 650 mg Q6HP PRN PO 04/02/24 21:45 Carvedilol 3.125 mg Q12HR PO 04/02/24 22:00 04/05/24 22:48 3.125 MG Nitroglycerin 0.4 mg Q5MINP PRN SL 04/02/24 23:45 Morphine Sulfate 2 mg Q30M PRN IV 04/02/24 23:45 Pantoprazole Sodium 40 mg DAILY IV 04/03/24 10:00 04/06/24 10:06 40 MG Furosemide 40 mg DAILY PO 04/05/24 10:00 04/05/24 09:49 40 MG Mirtazapine 15 mg HS PO 04/04/24 22:00 04/05/24 22:48 15 MG Hydromorphone HCl 0.5 mg Q4HPRN PRN IV 04/05/24 16:45 laboratory and microbiology Laboratory Tests 04/04/24 06:44 Test 04/04/24 06:44 Range/Units Serum Glucose 93 74-106 mg/dL Problem List HX OF OBS AFIB HYPERCOAGULABLE STATE CVA REACTIVE AIRWAY DISEASE ANEMIA NOW WITH DIFFUSE ABD PAIN CT ABD 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
[2024-04-06] MEDS: GASTROGRAFIN 30 ML SOL ONE (12:34)
--- NOTE | 2024-04-06 13:10 | DVH ---
EXAM: NM NM HIDA SCAN History: cholecystitis Comparison Study: None TECHNIQUE: Following intravenous administration of 4.2 mCi of Tc-99m mebrofenin (Choletec), dynamic sequential images of the right upper abdomen were acquired for 60 minutes. An additional 4 hour delay ed planar image in the lateral right upper quadrant was also obtained. FINDINGS: The liver demonstrates prompt radiotracer uptake with clearance from blood pool. No focal perfusion d efects were noted. There was prompt excretion of the radiotracer into the biliary tree, without evide nce of biliary dilatation or obstruction. Following the 4 hour delay, there was mpt filling of the gallbladder. IMPRESSION: 1. No evidence for acute cholecystitis.
[2024-04-06] MEDS: IOHEXOL 300 MG/ML 100ML BOTTLE IJ ONE (15:25)
--- NOTE | 2024-04-06 16:21 | DVH ---
Exam: CT CT ABD PELVIS W CON-ORAL IV History: ELEVATED LFT AND CA 19-9 Comparison Study: None TECHNIQUE: A digital mac operator image was obtained. During the uneventful, intravenous and oral administra tion of contrast material, multislice data acquisition was obtained through the abdomen and pelvis. T he data set was subsequently reconstructed into axial images. Images reviewed on a wrist examination is an examination of axial and multiplanar reformations using a variety of window levels and settings . RADIATION DOSE: DLP 293.1 mGy.cm; CTDI vol 5.21 mGy. Findings: Lungs: The lung bases are clear. Heart: Cardiomegaly. No pericardial effusion. Liver: Unremarkable. Gallbladder: Distended, but otherwise unremarkable. Spleen: Unremarkable Pancreas: Unremarkable Adrenals: Unremarkable Kidneys: Bilateral renal cysts. GI tract: Mild thickening of the ascending colon haustra. : Unremarkable. Vasculature: Mild aortoiliac atherosclerosis. IVC filter. Lymphadenopathy: Absent Peritoneum: No ascites Musculoskeletal: Mild multilevel degenerative changes of the thoracolumbar spine. Soft tissues: Unremarkable Impression: 1. No acute abdominopelvic abnormalities. 2. Mild thickening of the ascending colon haustra. Correlate with colonscopy. 3. Cardiomegaly. 4. Other non-acute, ancillary findings as described above.
--- NOTE | 2024-04-06 21:16 | DVHPN2 ---
Progress Note - Dictate Date Seen: Apr 06, 2024 Medical Necessity Reason Pt with a Central, PICC or Fol: No Subjective No new complaints Tolerating diet Liver enzymes trending down Patient denies any nausea vomiting abdominal pain He has no diarrhea and had one formed bowel movement today vital signs Vital Sign Date Time Temp Pulse Resp B/P (MAP) Pulse Ox O2 Delivery O2 Flow Rate FiO2 04/06/24 20:50 74 105/71 04/06/24 20:47 97.7 17 98 97.7 04/06/24 19:50 Nasal Cannula* 2 28 Total Intake and Output 04/05/24 04/05/24 04/06/24 15:00 23:00 07:00 Intake Total 600 ml 420 ml 400 ml Output Total 400 ml 750 ml Balance 200 ml -330 ml 400 ml medications Current Medications Medications Dose Ordered Sig/[place] Route Start Time Stop Time Status Last Admin Dose Admin Levothyroxine Sodium 88 mcg QAM@0600 PO 04/03/24 06:00 04/05/24 05:34 88 MCG Apixaban 5 mg BID PO 04/02/24 22:00 04/06/24 20:50 5 MG Sodium Chloride 10 ml Q8HR IV 04/02/24 22:00 04/06/24 20:50 10 ML Ondansetron HCl 4 mg Q4HP PRN IV 04/02/24 21:45 Docusate Sodium 100 mg BIDPRN PRN PO 04/02/24 21:45 04/05/24 12:43 100 MG Acetaminophen 650 mg Q6HP PRN PO 04/02/24 21:45 Carvedilol 3.125 mg Q12HR PO 04/02/24 22:00 04/06/24 20:50 3.125 MG Nitroglycerin 0.4 mg Q5MINP PRN SL 04/02/24 23:45 Morphine Sulfate 2 mg Q30M PRN IV 04/02/24 23:45 Pantoprazole Sodium 40 mg DAILY IV 04/03/24 10:00 04/06/24 10:06 40 MG Furosemide 40 mg DAILY PO 04/05/24 10:00 04/05/24 09:49 40 MG Mirtazapine 15 mg HS PO 04/04/24 22:00 04/06/24 20:49 15 MG Hydromorphone HCl 0.5 mg Q4HPRN PRN IV 04/05/24 16:45 objective Patient lying in bed, in no acute distress General: Well-built, afebrile, palor, mucosae are moist Cardiovascular: Regular S1 and S2. No pedal edema Respiratory: Clear lung sounds on auscultation Abdomen: Soft, nontender, nondistended, normoactive bowel sounds, no rebound tenderness, no organomegaly, no masses MSK/skin: Mobilizes 4 limbs. Skin is dry and warm Neurological: No motor, no sensitive deficits, normal speech. Pupils are isocoric and reactive. Psych/Mental Status: A/Ox3 laboratory and microbiology Laboratory Tests 04/04/24 06:44 Test 04/04/24 06:44 Range/Units Serum Glucose 93 74-106 mg/dL Problems(with codes): (1) Elevated CA 19-9 level (2) Elevated LFTs (3) Chest pain (4) Weakness (5) Atrial fibrillation (6) Acute congestive heart failure (7) Elevated brain natriuretic peptide (BNP) level (8) Generalized weakness Prognosis PLAN Finding on CT is not clinically significant Minimal elevation in CA 19-9 to 38, low level; repeat labs in three months Track and trend as an outpatient Continue supportive care Plan discussed with: Patient GT LEONARD MD Apr 06, 2024 21:16
[2024-04-07] VITALS (10 sets, daily range): BP systolic 90–144; BP diastolic 61–80; PULSE 61–88; RESP 16–18; TEMP 97.3–98.6; O2SAT 94–98
--- NOTE | 2024-04-07 13:51 | DVHPN2 ---
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 CYST NO EVIDENCE OF PANCREATIC/ HEPATIC DUCT DILATATION vital signs Vital Sign Date Time Temp Pulse Resp B/P (MAP) Pulse Ox O2 Delivery O2 Flow Rate FiO2 04/07/24 09:00 97.6 74 18 114/80 (91) 96 97.6 04/07/24 08:00 Room Air* 0 21 Total Intake and Output 04/06/24 04/06/24 04/07/24 15:00 23:00 07:00 Intake Total 500 ml 600 ml Balance 500 ml 600 ml medications Current Medications Medications Dose Ordered Sig/[place] Route Start Time Stop Time Status Last Admin Dose Admin Levothyroxine Sodium 88 mcg QAM@0600 PO 04/03/24 06:00 04/07/24 04:53 88 MCG Apixaban 5 mg BID PO 04/02/24 22:00 04/07/24 08:57 5 MG Sodium Chloride 10 ml Q8HR IV 04/02/24 22:00 04/07/24 09:00 10 ML Ondansetron HCl 4 mg Q4HP PRN IV 04/02/24 21:45 Docusate Sodium 100 mg BIDPRN PRN PO 04/02/24 21:45 04/05/24 12:43 100 MG Acetaminophen 650 mg Q6HP PRN PO 04/02/24 21:45 Carvedilol 3.125 mg Q12HR PO 04/02/24 22:00 04/07/24 08:57 3.125 MG Nitroglycerin 0.4 mg Q5MINP PRN SL 04/02/24 23:45 Morphine Sulfate 2 mg Q30M PRN IV 04/02/24 23:45 Pantoprazole Sodium 40 mg DAILY IV 04/03/24 10:00 04/07/24 08:58 40 MG Furosemide 40 mg DAILY PO 04/05/24 10:00 04/07/24 08:58 40 MG Mirtazapine 15 mg HS PO 04/04/24 22:00 04/06/24 20:49 15 MG Hydromorphone HCl 0.5 mg Q4HPRN PRN IV 04/05/24 16:45 laboratory and microbiology Laboratory Tests 04/04/24 06:44 Test 04/04/24 06:44 Range/Units Serum Glucose 93 74-106 mg/dL Problem List HX OF OBS AFIB HYPERCOAGULABLE STATE CVA REACTIVE AIRWAY DISEASE ANEMIA NOW WITH DIFFUSE ABD PAIN CT ABD 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 CONSIDER ABX CONSIDER COLONOSCOPY Plan discussed with: Patient EDUAR TEIXEIRA MD Apr 07, 2024 13:51
[2024-04-07] MEDS: ACETAMINOPHEN 325 MG TAB PO PRN (23:55)
[2024-04-08 01:00] VITALS: BP 101/60; PULSE 69; RESP 16; TEMP 97.2; O2SAT 95
[2024-04-08 05:00] VITALS: BP 108/75; PULSE 97; RESP 12; TEMP 98; O2SAT 99
[2024-04-08 08:00] VITALS: PULSE 95; RESP 16
[2024-04-08 09:26] VITALS: BP 116/70; PULSE 83; RESP 18; TEMP 97.4; O2SAT 97
--- NOTE | 2024-04-08 10:30 | DVHPN2 ---
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 CYST NO EVIDENCE OF PANCREATIC/ HEPATIC DUCT DILATATION vital signs Vital Sign Date Time Temp Pulse Resp B/P (MAP) Pulse Ox O2 Delivery O2 Flow Rate FiO2 04/08/24 09:26 97.4 83 18 116/70 (85) 97 97.4 04/08/24 08:00 Room Air* 0 21 Total Intake and Output 04/07/24 04/07/24 04/08/24 15:00 23:00 07:00 Intake Total 250 ml 0 ml Balance 250 ml 0 ml medications Current Medications Medications Dose Ordered Sig/[place] Route Start Time Stop Time Status Last Admin Dose Admin Levothyroxine Sodium 88 mcg QAM@0600 PO 04/03/24 06:00 04/08/24 05:30 88 MCG Apixaban 5 mg BID PO 04/02/24 22:00 04/08/24 07:48 5 MG Sodium Chloride 10 ml Q8HR IV 04/02/24 22:00 04/08/24 07:53 10 ML Ondansetron HCl 4 mg Q4HP PRN IV 04/02/24 21:45 Docusate Sodium 100 mg BIDPRN PRN PO 04/02/24 21:45 04/05/24 12:43 100 MG Acetaminophen 650 mg Q6HP PRN PO 04/02/24 21:45 04/07/24 23:55 650 MG Carvedilol 3.125 mg Q12HR PO 04/02/24 22:00 04/08/24 07:49 3.125 MG Nitroglycerin 0.4 mg Q5MINP PRN SL 04/02/24 23:45 Morphine Sulfate 2 mg Q30M PRN IV 04/02/24 23:45 Pantoprazole Sodium 40 mg DAILY IV 04/03/24 10:00 04/08/24 07:49 40 MG Furosemide 40 mg DAILY PO 04/05/24 10:00 04/08/24 07:48 40 MG Mirtazapine 15 mg HS PO 04/04/24 22:00 04/07/24 20:42 15 MG Hydromorphone HCl 0.5 mg Q4HPRN PRN IV 04/05/24 16:45 laboratory and microbiology Laboratory Tests 04/04/24 06:44 Test 04/04/24 06:44 Range/Units Serum Glucose 93 74-106 mg/dL Problem List HX OF OBS AFIB HYPERCOAGULABLE STATE CVA REACTIVE AIRWAY DISEASE ANEMIA NOW WITH DIFFUSE ABD PAIN CT ABD 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 CONSIDER ABX CONSIDER COLONOSCOPY dc home on abx and steroids Dietary Evaluation Review Comments: Encoruage and monitor PO intake to meet at least 75% of his nees. offer Ensure High protein supplement if pt accepts. Expected Outcomes/Goals: gradual wt gain, improved nutrition status. Plan discussed with: Patient EDUAR TEIXEIRA MD Apr 08, 2024 10:30
--- NOTE | 2024-04-08 10:38 | DVHDS2 ---
Discharge Summary Date of Admission Apr 02, 2024 at 23:33 Date of Discharge: Apr 08, 2024 Admitting Diagnosis RUQ PAIN Labs/Diagnostic Data: Laboratory Results Test 04/05/24 06:48 04/04/24 06:44 04/03/24 05:24 04/02/24 17:36 Total Bilirubin 2.3 mg/dL (0.2-1.0) Direct Bilirubin 1.3 mg/dL (<0.3) Aspartate Amino Transferase (AST) 80 U/L (13-40) Alanine Aminotransferase (ALT) 46 U/L (7-40) Alkaline Phosphatase 167 U/L (46-116) Total Protein 5.8 g/dL (5.7-8.2) Albumin 3.5 g/dL (3.2-4.8) Amylase Level 30 U/L (30-118) Lipase 33 U/L (12-53) White Blood Count 6.1 10^3/uL (4.4-10.8) Red Blood Count 4.13 10^6/uL (4.5-5.90) Hemoglobin 11.8 g/dL (13.5-17.5) Hematocrit 36.0 % (41.0-53.0) Mean Corpuscular Volume 87.1 fL (80.0-100.0) Mean Corpuscular Hemoglobin 28.6 pg (28.0-32.0) Mean Corpuscular Hemoglobin Concent 32.9 g/dL (32.0-36.0) Red Cell Distribution Width 19.9 % (11.8-14.3) Platelet Count 207 10^3/uL (140-450) Mean Platelet Volume 8.5 fL (6.9-10.8) Neutrophils (%) (Auto) 68.2 % (37.0-80.0) Lymphocytes (%) (Auto) 14.6 % (10.0-50.0) Monocytes (%) (Auto) 13.1 % (0.0-12.0) Eosinophils (%) (Auto) 3.2 % (0.0-7.0) Basophils (%) (Auto) 0.9 % (0.0-2.0) Neutrophils # (Auto) 4.2 10 ^3/uL (1.6-8.6) Lymphocytes # (Auto) 0.9 10 ^3/uL (0.4-5.4) Monocytes # (Auto) 0.8 10 ^3/uL (0-1.3) Eosinophils # (Auto) 0.2 10 ^3/uL (0-0.8) Basophils # (Auto) 0.1 10 ^3/uL (0-0.2) Nucleated Red Blood Cells 0.1 % Sodium Level 134 mmol/L (136-145) Potassium Level 4.8 mmol/L (3.5-5.1) Chloride Level 103 mmol/L (98-107) Carbon Dioxide Level 21 mmol/L (20-31) Anion Gap 10 (5-15) Blood Urea Nitrogen 20 mg/dL (9-23) Creatinine 1.04 mg/dL (0.700-1.30) Glomerular Filtration Rate Calc 70 mL/min (>90) BUN/Creatinine Ratio 19.2 (10.0-20.0) Serum Glucose 93 mg/dL (74-106) Calcium Level 9.7 mg/dL (8.7-10.4) Magnesium Level 2.2 mg/dL (1.6-2.6) CA 19-9 Antigen 38 U/mL (0-35) Plasma/Serum Blood Alcohol < 3.0 mg/dL (<10) Hepatitis A IgM Antibody Negative Hepatitis A Antibody Total Positive (Negative) Hepatitis B Surface Antigen Negative (Negative) Hepatitis B Surface Antibody Negative (Negative) Hepatitis B Core Total Antibody Negative (Negative) Hepatitis B Core IgM Antibody Negative (Negative) Hepatitis C Antibody Negative (Negative) Urine Color Dark-yellow (Yellow) Urine Clarity Clear (Clear) Urine pH 5.5 (5.0-9.0) Urine Specific [place] 1.029 (1.001-1.035) Urine Protein Trace (Negative) Urine Ketones Negative (Negative) Urine Blood Negative /uL (Negative) Urine Nitrite Negative (Negative) Urine Bilirubin Negative (Negative) Urine Urobilinogen 4 mg/dL (Negative) Urine Leukocyte Esterase Negative /uL (Negative) Urine RBC 4 /hpf (0 - 3) Urine Microscopic WBC < 1 /HPF (0-3) Urine Squamous Epithelial Cells Few /hpf (<5) Urine Calcium Oxalate Crystals Few (None Seen) Urine Bacteria None seen /hpf (None Seen) Urine Mucus Few (None Seen) Urine Glucose Normal mg/dL (Normal) Test 04/02/24 14:17 Thyroid Stimulating Hormone (TSH) 0.47 uIU/mL (0.55-4.78) Other Laboratory Tests 04/04/24 06:44 Brief Hx & Hospital Course: HX OF OBS AFIB HYPERCOAGULABLE STATE CVA REACTIVE AIRWAY DISEASE ANEMIA NOW WITH DIFFUSE ABD PAIN CT ABD 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 Patient was counseled about treatment plan, medications, possible side effects, patientverbalized understanding. All questions were answered to the best of my ability. This discharge took greater then 30 minutes in planning, reviewing documentation, counseling the patient, and discussing with other team members." ASSESSMENT ASSESSMENT Assessment COLITIS EDUAR TEIXEIRA MD Apr 08, 2024 10:38
[2024-04-08 11:23] LABS: Anion Gap 8 (5-15); Calcium 9.5 mg/dL (8.7-10.4); Carbon Dioxide 26 mmol/L (20-31); Chloride 103 mmol/L (98-107); Potassium 4.4 mmol/L (3.5-5.1); Sodium 137 mmol/L (136-145)
[2024-04-08 11:24] LABS: BUN/Creatinine Ratio 16.3 (10.0-20.0); Blood Urea Nitrogen 15 mg/dL (9-23)
[2024-04-08 11:26] LABS: Albumin 3.7 g/dL (3.2-4.8); Total Protein 6.3 g/dL (5.7-8.2)
[2024-04-08 11:27] LABS: Alanine Aminotransferase 50 U/L (7-40); Alkaline Phosphatase 273 U/L (46-116); Aspartate Aminotransferase 66 U/L (13-40); Glucose 112 mg/dL (74-106)
[2024-04-08 13:07] VITALS: BP 111/68; PULSE 77; RESP 19; TEMP 97.8; O2SAT 99
--- NOTE | 2024-04-08 19:23 | DVHPN2 ---
Progress Note - Dictate Date Seen: Apr 08, 2024 (Late entry patient seen at 10:00 a.m.) Medical Necessity Reason Pt with a Central, PICC or Fol: No Subjective No new complaints Tolerating diet Liver enzymes trending down Hb stable 11.8 Patient denies any nausea vomiting abdominal pain He has no diarrhea and had one formed bowel movement today vital signs Vital Sign Date Time Temp Pulse Resp B/P (MAP) Pulse Ox O2 Delivery O2 Flow Rate FiO2 04/08/24 13:24 72 111/68 04/08/24 13:07 97.8 19 99 04/08/24 08:00 Room Air* 0 21 Total Intake and Output 04/07/24 04/07/24 04/08/24 15:00 23:00 07:00 Intake Total 250 ml 0 ml Balance 250 ml 0 ml objective Patient lying in bed, in no acute distress General: Well-built, afebrile, palor, mucosae are moist Cardiovascular: Regular S1 and S2. No pedal edema Respiratory: Clear lung sounds on auscultation Abdomen: Soft, nontender, nondistended, normoactive bowel sounds, no rebound tenderness, no organomegaly, no masses MSK/skin: Mobilizes 4 limbs. Skin is dry and warm Neurological: No motor, no sensitive deficits, normal speech. Pupils are isocoric and reactive. Psych/Mental Status: A/Ox3 laboratory and microbiology Laboratory Tests 04/08/24 10:05 04/04/24 06:44 Test 04/08/24 10:05 Range/Units Serum Glucose 112 H 74-106 mg/dL Problems(with codes): (1) Elevated CA 19-9 level (2) Elevated LFTs (3) Weakness (4) Atrial fibrillation (5) Acute congestive heart failure (6) Elevated lipase (7) Generalized weakness Prognosis Plan Discharge planning is in progress I can follow up with the this patient as an outpatient to continue to monitor his CA 19-9 Discuss elective colonoscopy if the patient is willing Repeat CT pancreas or MRI pancreas in 6-8 weeks DC alcohol Dietary Evaluation Review Comments: Encoruage and monitor PO intake to meet at least 75% of his nees. offer Ensure High protein supplement if pt accepts. Expected Outcomes/Goals: gradual wt gain, improved nutrition status. Plan discussed with: Patient GT LEONARD MD Apr 08, 2024 19:23
== END 2024-04-08 13:44 | disposition home or self-care (01) | DRG 391 ==
LOC: EDBD 13:43 → ER 13:43 → OVERFLOW 23:33 → CENTRAL 04-03 03:02
PROVIDERS: ADMIT Nurse Practitioner Family; ATTEND Internal Medicine Cardiovascular Disease
DX: K52.9 Noninfective gastroenteritis and colitis, unspecified (principal); K85.90 Acute pancreatitis without necrosis or infection, unspecified; D68.59 Other primary thrombophilia; R74.8 Abnormal levels of other serum enzymes; I48.91 Unspecified atrial fibrillation; D64.9 Anemia, unspecified; E03.9 Hypothyroidism, unspecified; I50.9 Heart failure, unspecified; J44.89 Other specified chronic obstructive pulmonary disease; E80.6 Other disorders of bilirubin metabolism; E87.5 Hyperkalemia; F03.90 Unspecified dementia, unspecified severity, without behavioral disturbance, psychotic disturbance, mood disturbance, and anxiety; N28.1 Cyst of kidney, acquired; R74.01 Elevation of levels of liver transaminase levels; Z95.0 Presence of cardiac pacemaker; Z88.0 Allergy status to penicillin; Z86.73 Personal history of transient ischemic attack (TIA), and cerebral infarction without residual deficits; Z95.828 Presence of other vascular implants and grafts
CPT/HCPCS: 36415; 74176; 74177; 76705; 78226; 80053; 80074; 80076; 80320; 81001; 82150; 83690; 83735; 84443; 85025; 86301; 86704; 86706; 86708; 86803; 87081; 87340; 93005; 96374; 96375; G0378; J2405; J2470

== ENCOUNTER 2024-04-10 06:56 | Inpatient (IN) | payer MEDICARE, BC ==
[~2024-04-10] VITALS: Ht 177.8 cm; Wt 58.0 kg
[2024-04-10] VITALS (9 sets, daily range): BP systolic 104–114; BP diastolic 67–85; PULSE 64–96; RESP 16–22; TEMP 97.9–98.4; O2SAT 95–100
[~2024-04-10 06:56] MED LIST changes: +CALC-337 OR; +MIRT1TAB38 PO
[2024-04-10] MEDS: SODIUM CHLORIDE 0.9% 250 ML IV ONE (07:47)
--- NOTE | 2024-04-10 07:49 | ED.PDOC ---
SOB-HPI HPI Comments 83M MARIANAA from [facility] assisted living w/ prior Hx of CHF, COPD and AFIB which all may be associated to the c/c of SOB. EMS report that the nurses at the nursing facility informed them that the pt called them multiple times today for SOB but when EMS arrived on scene he was not complaining ab his SOB. Pt on scene had expiratory wheezing w/ a SAt of 97% RA. Pt was given a breathing Trx en rout to the ED. En route the pt's pace rhythm was going off at 120-130 but at beena it would be 80BPM. EMS notes that the pt was here at [facility] 2 days ago for a follow up for his Gallstones and was discharged on 04/08/24. PMHx of Dementia, Alzheimer, Anemia, Thyroid and CVA-unknown deficits. Denies chills, fever, N/V/D, CP or other associated symptom's, modifiers, or recent injuries or sick contact at this time. Chief Complaint: Shortness of Breath Time Seen by MD: 07:30 Primary Care Provider: EDUAR Carrasquillo notes: Nurses Notes, Digital Manager Notes, Medications, Allergies Information Source: Emergency Med Personnel Mode of Arrival: EMS Severity: Moderate Timing: Hours Duration: Since onset, Hours Context: At Rest PE Risk Factors: None History of: COPD, CHF Prehospital treatment: Breathing Tx Associated Signs and Symptoms: Wheeze If cough with SOB: Non-Productive Past Medical History PAST MEDICAL HISTORY: AFIB, Alzheimer, Anemia, COPD, CVA, Dementia, Thyroid, TIA Surgical History: Pacemaker Family History Family History: Reviewed,noncontributory to illness, Unknown Social History Smoker: Non-Smoker Alcohol: Denies ETOH Use Drugs: Denies Drug Use Lives In: [facility] Constitutional: denies: chills, diaphoresis, fatigue, fever, malaise, sweats, weakness, others EENTM: denies: blurred vision, double vision, ear bleeding, ear discharge, ear drainage, ear pain, ear ringing, eye pain, eye redness, hearing loss, mouth pain, mouth swelling, nasal discharge, nose bleeding, nose congestion, nose pain, photophobia, tearing, throat pain, throat swelling, voice changes, others Respiratory: reports: shortness of breath, wheezing; denies: cough, hemoptysis, orthopnea, SOB at rest, SOB with excertion, stridor, others Cardiovascular: denies: chest pain, dizzy spells, diaphoresis, Dyspnea on exertion, edema, irregular heart beat, left arm pain, lightheadedness, palpitations, PND, syncope, others Gastrointestinal: denies: abdomen distended, abdominal pain, blood streaked bowels, constipated, diarrhea, dysphagia, difficulty swallowing, hematemesis, melena, nausea, poor appetite, poor fluid intake, rectal bleeding, rectal pain, vomiting, others Genitourinary: denies: burning, dysuria, flank pain, frequency, hematuria, incontinence, penile discharge, penile sore, pain, testicle pain, testicle swelling, urgency, others Neurological: denies: dizziness, fainting, headache, left sided numbness, left sided weakness, numbness, paresthesia, pre-existing deficit, right sided numbness, right sided weakness, seizure, speech problems, tingling, tremors, weakness, others Musculoskeletal: denies: back pain, gout, joint pain, joint swelling, muscle pain, muscle stiffness, neck pain, others Integumetry: denies: bruises, change in color, change in hair/nails, dryness, laceration, lesions, lumps, rash, wounds, others Allergic/Immunocompromised: denies: Difficulty Healing, Frequent Infections, Hives, Itching, others Hematologic/Lymphatic: denies: anemia, blood clots, easy bleeding, easy bruising, swollen glands, others Endocrine: denies: excessive hunger, excessive sweating, excessive thirst, excessive urination, flushing, intolerance to cold, intolerance to heat, unexplained weight gain, unexplained weight loss, others Psychiatric: denies: anxiety, bipolar disorder, depression, hopeless, panic disorder, schizophrenia, sleepless, suicidal, others All Other Systems: Reviewed and Negative Physical Exam General Appearance: No Apparent Distress, Normal HEENT: Normal ENT Inspection, PERRL/EOMI, Pharynx Normal, TMs Normal Neck: Full Range of Motion, Non-Tender, Normal, Normal Inspection Respiratory: Chest Non-Tender, Lungs Clear, No Accessory Muscle Use, No Respiratory Distress, Normal Breath Sounds, Other (Per basin tender the patient at home was short of breath and wheezing and received a med neb now he is clear) Cardiovascular: No Edema, No JVD, No Murmur, No Gallop, Normal Peripheral Pulses, Regular Rate/Rhythm Breast Exam: Deferred Gastrointestinal: No Organomegaly, Non Tender, No Pulsatile Mass, Normal Bowel Sounds, Soft Genitalia: Deferred Pelvic: Deferred Rectal: Deferred Extremities: No calf tenderness, Normal capillary refill, Normal inspection, Normal range of motion, Non-tender, No pedal edema Musculoskeletal : Apperance: Normal Neurologic: Alert, car dumper operator II-XII nml as Tested, Depressed Affect, No Motor Deficits, No Sensory Deficits, Other (Patient is Alzheimer's) Cerebellar Function: Normal Reflexes: Normal Skin: Dry, Normal Color, Warm Peripheral Pulses: 1+ carotid (R), 1+ carotid (L) Lymphatic: No Adenopathy Was a procedure done? Was a procedure done?: No Differential Dx Differential Diagnosis: Bronchitis, COPD, Hypertension, Hyponatremia, Pneumonia, URI X-Ray, Labs, Meds, VS Vital Signs Date Time Temp Pulse Resp B/P (MAP) Pulse Ox O2 Delivery O2 Flow Rate FiO2 04/10/24 12:00 77 16 112/75 (87) 96 04/10/24 12:00 75 04/10/24 10:46 98.0 75 20 102/70 (81) 95 98.0 04/10/24 10:15 112 04/10/24 10:13 95 16 102/70 (81) 98 04/10/24 07:45 75 16 96 Room Air* 0 21 04/10/24 07:45 97.7 78 16 103/68 (80) 96 97.7 04/10/24 07:00 97.9 87 15 125/79 (94) 98 04/10/24 06:59 75 Lab Test 04/10/24 09:17 04/10/24 07:51 Range/Units Urine Color Light-yellow Yellow Urine Clarity Clear Clear Urine pH 7.0 5.0-9.0 Urine Specific [place] 1.006 1.001-1.035 Urine Protein Negative Negative Urine Ketones Negative Negative Urine Blood Negative Negative /uL Urine Nitrite Negative Negative Urine Bilirubin Negative Negative Urine Urobilinogen Normal Negative mg/dL Urine Leukocyte Esterase Negative Negative /uL Urine RBC <1 0 - 3 /hpf Urine Microscopic WBC < 1 0-3 /HPF Urine Squamous Epithelial Cells None seen <5 /hpf Urine Bacteria None seen None Seen /hpf Urine Glucose Normal Normal mg/dL White Blood Count 6.4 4.4-10.8 10^3/uL Red Blood Count 4.29 L 4.5-5.90 10^6/uL Hemoglobin 12.1 L 13.5-17.5 g/dL Hematocrit 37.6 L 41.0-53.0 % Mean Corpuscular Volume 87.7 80.0-100.0 fL Mean Corpuscular Hemoglobin 28.3 28.0-32.0 pg Mean Corpuscular Hemoglobin Concent 32.3 32.0-36.0 g/dL Red Cell Distribution Width 20.9 H 11.8-14.3 % Platelet Count 197 140-450 10^3/uL Mean Platelet Volume 8.6 6.9-10.8 fL Neutrophils (%) (Auto) 70.9 37.0-80.0 % Lymphocytes (%) (Auto) 9.1 L 10.0-50.0 % Monocytes (%) (Auto) 15.8 H 0.0-12.0 % Eosinophils (%) (Auto) 3.1 0.0-7.0 % Basophils (%) (Auto) 1.1 0.0-2.0 % Neutrophils # (Auto) 4.5 1.6-8.6 10 ^3/uL Lymphocytes # (Auto) 0.6 0.4-5.4 10 ^3/uL Monocytes # (Auto) 1.0 0-1.3 10 ^3/uL Eosinophils # (Auto) 0.2 0-0.8 10 ^3/uL Basophils # (Auto) 0.1 0-0.2 10 ^3/uL Nucleated Red Blood Cells 0.1 % Prothrombin Time 13.2 H 9.3-11.8 sec Prothrombin Time INR 1.28 H 0.9-1.15 Activated Partial Thromboplast Time 35.1 H 24.5-34.5 SEC Sodium Level 138 136-145 mmol/L Potassium Level 3.6 3.5-5.1 mmol/L Chloride Level 104 98-107 mmol/L Carbon Dioxide Level 23 20-31 mmol/L Anion Gap 11 5-15 Blood Urea Nitrogen 14 9-23 mg/dL Creatinine 0.99 0.700-1.30 mg/dL Glomerular Filtration Rate Calc 75 >90 mL/min BUN/Creatinine Ratio 14.1 10.0-20.0 Serum Glucose 93 74-106 mg/dL Calcium Level 9.6 8.7-10.4 mg/dL Magnesium Level 2.1 1.6-2.6 mg/dL Troponin I High Sensitivity 16 </=54 ng/L Thyroid Stimulating Hormone (TSH) 1.08 0.55-4.78 uIU/mL Current Medications Medications (Trade) Dose Ordered Sig/[place] Route Start Time Stop Time Status Last Admin Sodium Chloride 250 ml @ 250 mls/hr Q1H ONCE IV 04/10/24 07:45 04/10/24 08:44 DC 04/10/24 07:47 X-Ray, Labs, Meds, VS Comment Course in the emergency department eventful patient came in complaining of shortness of breath cough and wheezing He was there two days ago for gallbladder issues He is from [place] in Patient with a history of hypertension TSH CVA glaucoma CHF COPD and dementia Patient has a pacemaker Chest x-ray shows pulmonary vascular congestion EKG shows flutter 2-4 and paste CBC 6400 with 70.9% neutrophils H&H 12 and 37 INR 1.28 BNP negative Troponin 16 Magnesium 2.1 TSH 1.08 Patient will be admitted for further care Time of 1ST Reevaluation: 08:00 Reevaluation 1ST: Unchanged Time of 2ND Reevaluation: 12:33 Reevaluation 2ND: Improved Patient Education/Counseling: Diagnosis, Treatment, Prognosis Family Education/Counseling: Diagnosis, Treatment, Prognosis, No Family Present Departure 1 Departure Time of Disposition: 12:35 Impression: Primary Impression: Acute congestive heart failure Qualified Codes: I50.41 - Acute combined systolic (congestive) and diastolic (congestive) heart failure Additional Impressions: Atrial fibrillation Qualified Codes: I48.19 - Other persistent atrial fibrillation Generalized weakness Cardiac pacemaker in situ Dementia Disposition: 09 ADMITTED INPATIENT Condition: Fair Critical Care Note Critical Care Time?: No Stability Stability form required: Yes Unstable for transfer: Telemetry monitoring (Telemetry monitoring required), Requires medication (Requires Med for stabilization) Heart Score Heart Score: Heart Score Response (Comments) Value History Slightly Suspicious 0 EKG Repolarization Disturb 1 Age >65 2 Risk Factors >3 or Hx ASHD 2 Troponin Normal limit 0 Total 5 I personally scribed for BRY GARCIA MD ([email or web address]) on 04/10/24 at 07:49. Electronically submitted by Darrell Elias ([email or web address]). BRY GARCIA MD Apr 10, 2024 07:49
[2024-04-10] MEDS: SODIUM CHLORIDE 0.9% 1,000 ML IV ONE (08:03)
--- NOTE | 2024-04-10 08:12 | DVH ---
EXAM: XR Chest, 2 Views CLINICAL INDICATION: sob TECHNIQUE: Frontal and lateral views of the chest. COMPARISON: XY CHEST TWO VIEWS ROUTINE on DOS: 05/12/23, CXR2 on DOS: 02/26/22, CHEST TWO VIEWS ROUTIN E on DOS: 02/26/22, CXR2 on DOS: 07/30/21, CHEST TWO VIEWS ROUTINE on DOS: 07/30/21 FINDINGS: LUNGS AND PLEURAL SPACES: Mild congestive heart failure. No consolidation. No pneumothorax. HEART: Unremarkable. No cardiomegaly. MEDIASTINUM: Unremarkable. Normal mediastinal contour. BONES/JOINTS: Unremarkable. No acute fracture. TUBES, LINES AND DEVICES: Left-sided cardiac pacemaker. OTHER FINDINGS: . None. . .. IMPRESSION: Mild congestive heart failure.
[2024-04-10 08:13] LABS: Basophils # (auto) 0.1 10 ^3/uL (0-0.2); Basophils % (auto) 1.1 % (0.0-2.0); Eosinophils # (auto) 0.2 10 ^3/uL (0-0.8); Eosinophils % (auto) 3.1 % (0.0-7.0); Hematocrit 37.6 % (41.0-53.0); Hemoglobin 12.1 g/dL (13.5-17.5); Lymphocytes # (auto) 0.6 10 ^3/uL (0.4-5.4); Lymphocytes % (auto) 9.1 % (10.0-50.0); Mean Corpuscular Hemoglobin 28.3 pg (28.0-32.0); Mean Corpuscular Hgb Conc. 32.3 g/dL (32.0-36.0); Mean Corpuscular Volume 87.7 fL (80.0-100.0); Monocytes % (auto) 15.8 % (0.0-12.0); Neutrophils # (auto) 4.5 10 ^3/uL (1.6-8.6); Neutrophils % (auto) 70.9 % (37.0-80.0); Nucleated Red Blood Cells % 0.1 %; Platelet Count (auto) 197 10^3/uL (140-450); Red Blood Cells 4.29 10^6/uL (4.5-5.90); Red Cell Distribution Width 20.9 % (11.8-14.3); White Blood Cell 6.4 10^3/uL (4.4-10.8)
[2024-04-10 08:16] LABS: Chloride 104 mmol/L (98-107); Potassium 3.6 mmol/L (3.5-5.1); Sodium 138 mmol/L (136-145)
[2024-04-10 08:17] LABS: Anion Gap 11 (5-15); Calcium 9.6 mg/dL (8.7-10.4); Carbon Dioxide 23 mmol/L (20-31)
[2024-04-10 08:22] LABS: BUN/Creatinine Ratio 14.1 (10.0-20.0); Blood Urea Nitrogen 14 mg/dL (9-23); Glucose 93 mg/dL (74-106)
[2024-04-10 08:23] LABS: Magnesium 2.1 mg/dL (1.6-2.6)
[2024-04-10 08:36] LABS: INR 1.28 (0.9-1.15); Partial Thromboplastin Time 35.1 SEC (24.5-34.5); Prothrombin Time 13.2 sec (9.3-11.8)
[2024-04-10 09:19] LABS: Urine Bacteria None Seen /hpf (None Seen)
[2024-04-10 09:38] LABS: Urine Blood Negative /uL (Negative); Urine Clarity Clear (Clear); Urine Color Light-Yellow (Yellow); Urine Protein, UAD Negative (Negative); Urine Specific Gravity 1.006 (1.001-1.035); Urine Squamous Epithelial Cell None Seen /hpf (<5); Urine Urobilinogen Normal (Negative); Urine WBC < 1 /HPF (0-3)
[2024-04-10] MEDS: FUROSEMIDE 20 MG/2 ML VIAL IV ONE (13:26)
[2024-04-10] MEDS: SPIRONOLACTONE 25 MG TAB PO ONE (13:27)
[2024-04-10] MEDS ORDERED: ACETAMINOPHEN 325 MG TAB PO PRN (14:30)
[2024-04-10] MEDS ORDERED: ONDANSETRON HCL 4 MG/2 ML VIAL IV PRN (14:30)
--- NOTE | 2024-04-10 15:31 | DVHHP2 ---
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 Patient is currently A&O x3 person place and time. Patient is currently from an assisted living facility ([facility]). Patient states that he does not do illicit drugs, quit smoking, and drinks rarely. Patient denies chest pain, abdominal pain, nausea, vomiting, diarrhea, fever, chills, lightheadedness, weakness, and dizziness. 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, and TIA) Heme/Onc: Anemia NOS Endocrine: Hypothyroidism Past Medical History Alzheimer's Past Surgical History: Other (Pacemaker and STEFAN) Family History: None Smoke: Quit ALCOHOL: rare Drugs: None Lives: Other Domestic Violence: Neg Review of Systems Constitutional: No: Fever, Chills, Sweats, Weakness, Malaise, Other Eyes: No: Pain, Vision change, Conjunctivae inflammation, Eyelid inflammation, Other, Redness ENT: No: Ear pain, Ear discharge, Nose pain, Nose discharge, Nose congestion, Mouth pain, Mouth swelling, Throat pain, Throat swelling, Other Respiratory: Shortness of breath, Other (Crackles bilateral); No: Cough, Dry, SOB with excertion, Wheezing, Hemoptysis, Pleuritic Pain, Sputum, Wheezing Cardiovascular: No: Chest Pain, Palpitations, Orthopnea, Paroxysmal Noc. Dyspnea, Edema, Lt Headedness, Other Gastrointestinal: No: Nausea, Vomiting, Abdominal Pain, Diarrhea, Constipation, Melena, Hematochezia, Other Genitourinary: No Dysuria, No Frequency, No Incontinence, No Hematuria, No Retention, No Other Musculoskeletal: No: other, neck pain, shoulder pain, arm pain, back pain, hand pain, leg pain, foot pain Skin: No: Rash, Lesions, Jaundice, Bruising, Other Neurological: No: Weakness, Numbness, Incoordination, Change in speech, Confusion, Seizures, Other Allergies: Coded Allergies: Penicillins (Verified Allergy, Severe, 04/22/18) Medications Current Medications Medications Dose Ordered Sig/[place] Route Start Time Stop Time Status Last Admin Dose Admin Furosemide 40 mg BIDD IV 04/10/24 18:00 UNV Albuterol 2.5 mg Q6HWA NEB 04/10/24 18:00 UNV Albuterol 2.5 mg Q2HPRN PRN NEB 04/10/24 14:30 UNV Ipratropium [place] 0.5 mg Q6HWA NEB 04/10/24 18:00 UNV Ipratropium [place] 0.5 mg Q2HPRN PRN NEB 04/10/24 14:30 UNV Ondansetron HCl 4 mg Q4HP PRN IV 04/10/24 14:30 UNV Acetaminophen 650 mg Q6HP PRN PO 04/10/24 14:30 UNV Exam Vital Signs Vital Signs Date Time Temp Pulse Resp B/P (MAP) Pulse Ox O2 Delivery O2 Flow Rate FiO2 04/10/24 14:00 103 17 104/85 (91) 96 04/10/24 10:46 98.0 98.0 04/10/24 07:45 Room Air* 0 21 General Appearance: Alert, Oriented X3, Cooperative, No acute distress HEENT: Atraumatic, PERRLA, EOMI, Mucous membr. moist/pink Respiratory: Normal air movement Cardiovascular: Normal S1, Normal S2, No murmurs Abdominal: Normal bowel sounds, Soft, No tenderness, No hepatospenomegaly, No masses Extremities: No clubbing, No cyanosis, No edema, Normal pulses, No tendern ess/swelling Skin: No rashes, No breakdown, No significant lesion Neuro: Normal speech, Strength at 5/5 X4 ext, Normal tone, Sensation intact Psych/Mental Status: Mental status NL, Mood NL Labs/Xrays Labs Test 04/10/24 09:17 04/10/24 07:51 Range/Units Urine Color Light-yellow Yellow Urine Clarity Clear Clear Urine pH 7.0 5.0-9.0 Urine Specific [place] 1.006 1.001-1.035 Urine Protein Negative Negative Urine Ketones Negative Negative Urine Blood Negative Negative /uL Urine Nitrite Negative Negative Urine Bilirubin Negative Negative Urine Urobilinogen Normal Negative mg/dL Urine Leukocyte Esterase Negative Negative /uL Urine RBC <1 0 - 3 /hpf Urine Microscopic WBC < 1 0-3 /HPF Urine Squamous Epithelial Cells None seen <5 /hpf Urine Bacteria None seen None Seen /hpf Urine Glucose Normal Normal mg/dL White Blood Count 6.4 4.4-10.8 10^3/uL Red Blood Count 4.29 L 4.5-5.90 10^6/uL Hemoglobin 12.1 L 13.5-17.5 g/dL Hematocrit 37.6 L 41.0-53.0 % Mean Corpuscular Volume 87.7 80.0-100.0 fL Mean Corpuscular Hemoglobin 28.3 28.0-32.0 pg Mean Corpuscular Hemoglobin Concent 32.3 32.0-36.0 g/dL Red Cell Distribution Width 20.9 H 11.8-14.3 % Platelet Count 197 140-450 10^3/uL Mean Platelet Volume 8.6 6.9-10.8 fL Neutrophils (%) (Auto) 70.9 37.0-80.0 % Lymphocytes (%) (Auto) 9.1 L 10.0-50.0 % Monocytes (%) (Auto) 15.8 H 0.0-12.0 % Eosinophils (%) (Auto) 3.1 0.0-7.0 % Basophils (%) (Auto) 1.1 0.0-2.0 % Neutrophils # (Auto) 4.5 1.6-8.6 10 ^3/uL Lymphocytes # (Auto) 0.6 0.4-5.4 10 ^3/uL Monocytes # (Auto) 1.0 0-1.3 10 ^3/uL Eosinophils # (Auto) 0.2 0-0.8 10 ^3/uL Basophils # (Auto) 0.1 0-0.2 10 ^3/uL Nucleated Red Blood Cells 0.1 % Prothrombin Time 13.2 H 9.3-11.8 sec Prothrombin Time INR 1.28 H 0.9-1.15 Activated Partial Thromboplast Time 35.1 H 24.5-34.5 SEC Sodium Level 138 136-145 mmol/L Potassium Level 3.6 3.5-5.1 mmol/L Chloride Level 104 98-107 mmol/L Carbon Dioxide Level 23 20-31 mmol/L Anion Gap 11 5-15 Blood Urea Nitrogen 14 9-23 mg/dL Creatinine 0.99 0.700-1.30 mg/dL Glomerular Filtration Rate Calc 75 >90 mL/min BUN/Creatinine Ratio 14.1 10.0-20.0 Serum Glucose 93 74-106 mg/dL Calcium Level 9.6 8.7-10.4 mg/dL Magnesium Level 2.1 1.6-2.6 mg/dL Troponin I High Sensitivity 16 </=54 ng/L B-Type Natriuretic Peptide 658.95 0-100 pg/mL Thyroid Stimulating Hormone (TSH) 1.08 0.55-4.78 uIU/mL EXAM: XR Chest, 2 Views CLINICAL INDICATION: sob TECHNIQUE: Frontal and lateral views of the chest. COMPARISON: XY CHEST TWO VIEWS ROUTINE on DOS: 05/12/23, CXR2 on DOS: 02/26/22, CHEST TWO VIEWS ROUTINE on DOS: 02/26/22, CXR2 on DOS: 07/30/21, CHEST TWO VIEWS ROUTINE on DOS: 07/30/21 FINDINGS: LUNGS AND PLEURAL SPACES: Mild congestive heart failure. No consolidation. No pneumothorax. HEART: Unremarkable. No cardiomegaly. MEDIASTINUM: Unremarkable. Normal mediastinal contour. BONES/JOINTS: Unremarkable. No acute fracture. TUBES, LINES AND DEVICES: Left-sided cardiac pacemaker. OTHER FINDINGS: . None. . .. IMPRESSION: Mild congestive heart failure. Assessment/Plan Assessment/Plan Assessment/Plan: Acute on chronic CHF exacerbation Labs UA Diuretics NS 1.25 L given ED TSH EKG Mag level Chest x-ray PT/PTT Troponin negative BNP Respiratory treatments A.m. labs Chronic COPD P.r.n. 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 Procedure Category Date Status Time Furosemide Injection PHA 04/10/24 Logged (Lasix Injection) 18:00 Albuterol Medneb PHA 04/10/24 Logged (Ventolin Medneb) 18:00 Albuterol Medneb PHA 04/10/24 Logged (Ventolin Medneb) 14:30 Ipratropium Medneb PHA 04/10/24 Logged (Atrovent Medneb) 18:00 Ipratropium Medneb PHA 04/10/24 Logged (Atrovent Medneb) 14:30 Admit ADMIT 04/10/24 Transmitted 14:17 Allergies CONNOR 04/10/24 In Process 14:17 Code Status CODE 04/10/24 Transmitted 14:17 Ondansetron Hcl PHA 04/10/24 Logged (Zofran) 14:30 Complete Blood Count LAB 04/11/24 Verified 04:00 Comprehensive LAB 04/11/24 Verified Metabolic Panel 04:00 Cardiac DIET 04/10/24 Transmitted Diet-2gna,Lofat,Lochol Dinner Acetaminophen Tablet PHA 04/10/24 Logged (Tylenol Tablet) 14:30 Date of Service: Apr 10, 2024 Billing Provider: DREA AMEZQUITA Common Visit Codes: [id number] INP/OBS CARE (HIGH) DREA AMEZQUITA Apr 10, 2024 15:31
[2024-04-10] MEDS: FUROSEMIDE 40 MG/4 ML VIAL IV SCH (18:16)
[2024-04-10] MEDS: IPRATROPIUM BROM 0.5 MG/2.5ML INH SOL NEB SCH ×2 (19:09→22:05)
[2024-04-10] MEDS: ALBUTEROL SULF 2.5 MG/0.5ML(0.5%) NEB SOLN NEB SCH ×2 (19:10→22:05)
[2024-04-10] MEDS: IPRATROPIUM BROM 0.5 MG/2.5ML INH SOL NEB PRN (21:44)
[2024-04-10] MEDS: ALBUTEROL SULF 2.5 MG/0.5ML(0.5%) NEB SOLN NEB PRN (21:45)
[2024-04-11] VITALS (24 sets, daily range): BP systolic 87–123; BP diastolic 62–87; PULSE 53–151; RESP 15–22; TEMP 97.2–98.1; O2SAT 90–100
[2024-04-11 06:30] LABS: Basophils # (auto) 0 10 ^3/uL (0-0.2); Basophils % (auto) 0.6 % (0.0-2.0); Eosinophils # (auto) 0.2 10 ^3/uL (0-0.8); Eosinophils % (auto) 3.9 % (0.0-7.0); Hematocrit 34.7 % (41.0-53.0); Hemoglobin 11.2 g/dL (13.5-17.5); Lymphocytes # (auto) 0.5 10 ^3/uL (0.4-5.4); Lymphocytes % (auto) 8.6 % (10.0-50.0); Mean Corpuscular Hemoglobin 27.9 pg (28.0-32.0); Mean Corpuscular Hgb Conc. 32.3 g/dL (32.0-36.0); Mean Corpuscular Volume 86.4 fL (80.0-100.0); Monocytes # (auto) 0.9 10 ^3/uL (0-1.3); Monocytes % (auto) 15.5 % (0.0-12.0); Neutrophils # (auto) 4.3 10 ^3/uL (1.6-8.6); Neutrophils % (auto) 71.4 % (37.0-80.0); Nucleated Red Blood Cells % 0.1 %; Platelet Count (auto) 174 10^3/uL (140-450); Red Blood Cells 4.02 10^6/uL (4.5-5.90)
[2024-04-11 06:40] LABS: Alanine Aminotransferase 30 U/L (7-40); Albumin 3.6 g/dL (3.2-4.8); Anion Gap 10 (5-15); Aspartate Aminotransferase 20 U/L (13-40); BUN/Creatinine Ratio 17.8 (10.0-20.0); Blood Urea Nitrogen 16 mg/dL (9-23); Calcium 8.8 mg/dL (8.7-10.4); Carbon Dioxide 26 mmol/L (20-31); Chloride 101 mmol/L (98-107); Glucose 85 mg/dL (74-106); Sodium 137 mmol/L (136-145); Total Protein 6.1 g/dL (5.7-8.2)
[2024-04-11 06:49] LABS: Red Cell Distribution Width 20.5 % (11.8-14.3)
[2024-04-11 06:50] LABS: Alkaline Phosphatase 208 U/L (46-116); Bilirubin, Total 2.4 mg/dL (0.2-1.0); Potassium 3.3 mmol/L (3.5-5.1)
[2024-04-11] MEDS: POTASSIUM CHL 20 Meq TABLET PO ONE (14:25)
[2024-04-11] MEDS: methylPREDNISolone SOD SUCC 125 MG/2 ML VL IV SCH (14:29)
[2024-04-11] MEDS: SOTALOL HCL 80 MG TAB PO SCH (17:21)
[2024-04-11] MEDS ORDERED: SOTALOL HCL 80 MG TAB PO ONE (17:45)
--- NOTE | 2024-04-11 19:42 | ECG ---
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
--- NOTE | 2024-04-11 21:41 | DVHPN2 ---
Reviewed: Care Plan, H&P, Labs, Medications, Previous Orders Changes from previous H/P or p: No Changes General: Per HPI Eyes: No Pain, No Vision change, No Conjunctivae inflammation, No Eyelid inflammation, No Other, No Redness ENT: No Ear pain, No Ear discharge, No Nose pain, No Nose discharge, No Nose congestion, No Mouth pain, No Mouth swelling, No Throat pain, No Throat swelling, No Other Cardiovascular: No Chest Pain, No Palpitations, No Orthopnea, No Paroxysmal Noc. Dyspnea, No Edema, No Lt Headedness, No Other Respiratory: No Cough, No Dry; Shortness of breath; No SOB with excertion, No Wheezing, No Hemoptysis, No Pleuritic Pain, No Sputum; Other (Crackles bilateral) Gastrointestinal: No Nausea, No Vomiting, No Abdominal Pain, No Diarrhea, No Constipation, No Melena, No Hematochezia, No Other Genitourinary: No Dysuria, No Frequency, No Incontinence, No Hematuria, No Retention, No Other Musculoskeletal: No other, No neck pain, No shoulder pain, No arm pain, No back pain, No hand pain, No leg pain, No foot pain Skin: No Rash, No Lesions, No Jaundice, No Bruising, No Other Objective Vitals Vital Signs Date Time Temp Pulse Resp B/P (MAP) Pulse Ox O2 Delivery O2 Flow Rate FiO2 04/11/24 20:28 98 Nasal Cannula* 3 32 04/11/24 20:00 18 04/11/24 18:45 123/101 04/11/24 18:21 128 04/11/24 17:00 98.1 98.1 Intake/Output Intake and Output 04/11/24 07:00 Intake Total 900 ml Balance 900 ml Intake Oral 900 ml # Voids 4 General Appearance: Alert, Oriented X3, Cooperative, No acute distress Cardiovascular: Regular rate, Normal S1, Normal S2 Abdomen: Normal bowel sounds, Soft, No tenderness Extremities: No cyanosis Medications Current Medications Medications Dose Ordered Sig/[place] Route Start Time Stop Time Status Last Admin Dose Admin Furosemide 40 mg BIDD IV 04/10/24 18:00 04/11/24 18:45 40 MG Albuterol 2.5 mg Q2HPRN PRN NEB 04/10/24 14:30 04/10/24 21:45 2.5 MG Ipratropium [place] 0.5 mg Q2HPRN PRN NEB 04/10/24 14:30 04/10/24 21:44 0.5 MG Ondansetron HCl 4 mg Q4HP PRN IV 04/10/24 14:30 Acetaminophen 650 mg Q6HP PRN PO 04/10/24 14:30 Albuterol 2.5 mg Q4HR NEB 04/10/24 22:00 04/11/24 18:20 2.5 MG Ipratropium [place] 0.5 mg Q4HR NEB 04/10/24 22:00 04/11/24 18:20 0.5 MG Methylprednisolone Sodium Succinate 60 mg Q8HR IV 04/11/24 14:00 04/11/24 14:29 60 MG Levothyroxine Sodium 100 mcg QAM@0600 PO 04/12/24 06:00 Apixaban 5 mg BID PO 04/11/24 22:00 Dorzolamide HCl 1 drop TID EACHEYE 04/11/24 22:00 Sotalol HCl 80 mg BID PO 04/12/24 10:00 Laboratory Results Laboratory Tests 04/11/24 05:25 Chemistry Test 04/11/24 05:25 Albumin 3.6 g/dL (3.2-4.8) Calcium Level 8.8 mg/dL (8.7-10.4) Total Protein 6.1 g/dL (5.7-8.2) LFT Test 04/11/24 05:25 Alanine Aminotransferase (ALT) 30 U/L (7-40) Alkaline Phosphatase 208 U/L (46-116) H Aspartate Amino Transferase (AST) 20 U/L (13-40) Total Bilirubin 2.4 mg/dL (0.2-1.0) H Urinalysis Test 04/10/24 09:17 Urine Color Light-yellow (Yellow) Urine Clarity Clear (Clear) Urine pH 7.0 (5.0-9.0) Urine Specific [place] 1.006 (1.001-1.035) Urine Protein Negative (Negative) Urine Ketones Negative (Negative) Urine Blood Negative /uL (Negative) Urine Nitrite Negative (Negative) Urine Bilirubin Negative (Negative) Urine Urobilinogen Normal mg/dL (Negative) Urine Leukocyte Esterase Negative /uL (Negative) Urine RBC <1 /hpf (0 - 3) Urine Microscopic WBC < 1 /HPF (0-3) Urine Squamous Epithelial Cells None seen /hpf (<5) Urine Bacteria None seen /hpf (None Seen) Urine Glucose Normal mg/dL (Normal) Labs and/or images reviewed: Labs reviewed by me, Image(s) reviewed by me Assessment/Plan Assessment/Plan Jose Antonio Vargas is an 83-year-old male with past medical history of dementia, Alzheimer's, anemia, 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 Patient is currently A&O x3 person place and time. Patient is currently from an assisted living facility ([facility] [facility]). Patient states that he does not do illicit drugs, quit smoking, and drinks rarely. Patient denies chest pain, abdominal pain, nausea, vomiting, diarrhea, fever, chills, lightheadedness, weakness, and dizziness. Acute on chronic CHF exacerbation Chronic COPD History of AFib History of anemia History of CVA History of TIA History of thyroid disease History of pacemaker History of dementia History of Alzheimer's 04/11/2024: continue with diuresis, goal is net negative daily Plan discussed with: Patient My Orders Orders - SAQIB GUTIERERZ DO Procedure Category Date Status Time Transfer Orders XFER 04/11/24 Transmitted 13:05 Methylprednisolone PHA 04/11/24 In Process Sod Succ (Solu Medrol 14:00 Levothyroxine Tablet PHA 04/12/24 In Process (Synthroid Tablet) 06:00 Apixaban (Eliquis) PHA 04/11/24 In Process 22:00 Dorzolamide 2% PHA 04/11/24 In Process Opthalmic (Trusopt 2% 22:00 Sotalol Hcl ([place]ap[place]) PHA 04/12/24 In Process 10:00 Date of Service: Apr 11, 2024 Billing Provider: SAQIB GUTIERREZ DO Common Visit Codes: [id number] INP/OBS CARE(HIGH) SAQIB GUTIERREZ DO Apr 11, 2024 21:41
[2024-04-11] MEDS: DORZOLAMIDE HCL 2% OPTH(EYE) SOL 10ML EACHEYE SCH (22:00)
[2024-04-11] MEDS: APIXABAN 5 MG TAB PO SCH (23:32)
[2024-04-11] MEDS: FUROSEMIDE 40 MG/4 ML VIAL IV SCH (23:42)
[2024-04-12] VITALS (20 sets, daily range): BP systolic 91–113; BP diastolic 64–68; PULSE 54–105; RESP 14–20; TEMP 97.3–97.8; O2SAT 93–100
[2024-04-12] MEDS: LEVOTHYROXINE SODIUM 100 MCG TAB PO SCH (06:18)
[2024-04-12] MEDS: SOTALOL HCL 80 MG TAB PO SCH (09:40)
--- NOTE | 2024-04-12 12:05 | DVHPN2 ---
Progress Note Date Seen: Apr 12, 2024 Medical Necessity Reason Pt with a Central, PICC or Fol: No Subjective Patient reports: No new complaints Review of Systems: HEENT:Normal, CVS:Normal, RESPIRATORY:Normal, GI:Normal, :Normal, MSK:Normal, NEURO:Normal Objective vital signs Vital Sign Date Time Temp Pulse Resp B/P (MAP) Pulse Ox O2 Delivery O2 Flow Rate FiO2 04/12/24 10:32 97 16 99 04/12/24 10:24 Nasal Cannula 2.0 04/12/24 10:24 28 04/12/24 09:40 102/66 04/12/24 08:30 97.3 97.3 Total Intake and Output 04/11/24 04/11/24 04/12/24 15:00 23:00 07:00 Intake Total 800 ml 500 ml Output Total 420 ml Balance 800 ml 80 ml medications Current Medications Medications Dose Ordered Sig/[place] Route Start Time Stop Time Status Last Admin Dose Admin Albuterol 2.5 mg Q2HPRN PRN NEB 04/10/24 14:30 04/10/24 21:45 2.5 MG Ipratropium [place] 0.5 mg Q2HPRN PRN NEB 04/10/24 14:30 04/10/24 21:44 0.5 MG Ondansetron HCl 4 mg Q4HP PRN IV 04/10/24 14:30 Acetaminophen 650 mg Q6HP PRN PO 04/10/24 14:30 Albuterol 2.5 mg Q4HR NEB 04/10/24 22:00 04/12/24 10:24 2.5 MG Ipratropium [place] 0.5 mg Q4HR NEB 04/10/24 22:00 04/12/24 10:25 0.5 MG Methylprednisolone Sodium Succinate 60 mg Q8HR IV 04/11/24 14:00 04/12/24 06:17 60 MG Levothyroxine Sodium 100 mcg QAM@0600 PO 04/12/24 06:00 04/12/24 06:18 100 MCG Apixaban 5 mg BID PO 04/11/24 22:00 04/12/24 09:39 5 MG Dorzolamide HCl 1 drop TID EACHEYE 04/11/24 22:00 Sotalol HCl 80 mg BID PO 04/12/24 10:00 04/12/24 09:40 80 MG Furosemide 60 mg BIDD IV 04/11/24 21:45 04/12/24 06:15 60 MG Examination: GENERAL:Normal, HEENT:Normal, NECK:Normal, LUNGS:Normal, LUNGS:Abnormal (rales), CVS:Normal, ABDOMEN:Normal, MSK:Normal, SKIN:Normal, NEURO:Normal, :Normal laboratory and microbiology Laboratory Tests 04/11/24 05:25 Test 04/11/24 05:25 Range/Units Serum Glucose 85 74-106 mg/dL Problem List/Assessment/Plan Problem List/Assessment/Plan #1 acute systolic/diastolic heart failure: lasix iv #2 s/p pacer #3 copd #4 dementia #5 a fib with secondary hypercoagulable state: cont meds #6 hypothyroidism: cont meds advance care planning- full code- time spent 21 mins Plan discussed with: Patient My Orders My Orders Orders - ANTHONY PINEDA MD Procedure Category Date Status Time Furosemide Injection PHA 04/13/24 Verified (Lasix Injection) 10:00 * Cardiology Consult CONS 04/12/24 Verified 11:57 Pt Request For Service PT 04/12/24 Verified 11:57 Basic Metabolic Panel LAB 04/13/24 Verified 06:00 Magnesium LAB 04/13/24 Verified 05:00 Chest Portable XY 04/13/24 Verified 06:00 Date of Service: Apr 12, 2024 Billing Provider: ANTHONY PINEDA MD Common Visit Codes: [id number] INP/OBS CARE(HIGH) Secondary Visit Codes: [id number] CARE PLAN 30 MINUTES ANTHONY PINEDA MD Apr 12, 2024 12:05
--- NOTE | 2024-04-12 16:20 | DVHPN2 ---
Progress Note - Dictate Date Seen: Apr 12, 2024 Medical Necessity Reason Pt with a Central, PICC or Fol: No Subjective PT WITH PROGRESSIVE SX OF SOB EF 55% SEVERE TR SEVERE MR CXR MILD SX OF CEPHALIZATION PMH HX OF OBS AFIB HYPERCOAGULABLE STATE CVA REACTIVE AIRWAY DISEASE ANEMIA NOW WITH DIFFUSE ABD PAIN CT ABD PELVIS STEATOSIS NO [place]ALL[place]ONES RENAL CYST NO EVIDENCE OF PANCREATIC/ HEPATIC DUCT DILATATION vital signs Vital Sign Date Time Temp Pulse Resp B/P (MAP) Pulse Ox O2 Delivery O2 Flow Rate FiO2 04/12/24 13:48 79 16 99 04/12/24 13:42 Nasal Cannula 2.0 04/12/24 13:42 28 04/12/24 12:35 97.3 91/64 (73) 97.3 Total Intake and Output 04/11/24 04/11/24 04/12/24 15:00 23:00 07:00 Intake Total 800 ml 500 ml Output Total 420 ml Balance 800 ml 80 ml medications Current Medications Medications Dose Ordered Sig/[place] Route Start Time Stop Time Status Last Admin Dose Admin Albuterol 2.5 mg Q2HPRN PRN NEB 04/10/24 14:30 04/10/24 21:45 2.5 MG Ondansetron HCl 4 mg Q4HP PRN IV 04/10/24 14:30 Acetaminophen 650 mg Q6HP PRN PO 04/10/24 14:30 Ipratropium [place] 0.5 mg Q4HR NEB 04/10/24 22:00 04/12/24 13:42 0.5 MG Levothyroxine Sodium 100 mcg QAM@0600 PO 04/12/24 06:00 04/12/24 06:18 100 MCG Apixaban 5 mg BID PO 04/11/24 22:00 04/12/24 09:39 5 MG Dorzolamide HCl 1 drop TID EACHEYE 04/11/24 22:00 Sotalol HCl 80 mg BID PO 04/12/24 10:00 04/12/24 09:40 80 MG Furosemide 60 mg DAILY IV 04/13/24 10:00 laboratory and microbiology Laboratory Tests 04/11/24 05:25 Test 04/11/24 05:25 Range/Units Serum Glucose 85 74-106 mg/dL Problem List PROGRESSIVE SX OF SOB EF 55% SEVERE TR SEVERE MR CXR MILD SX OF CEPHALIZATION PMH HX OF OBS AFIB HYPERCOAGULABLE STATE CVA REACTIVE AIRWAY DISEASE ANEMIA STEATOSIS RENAL CYST Assessment/Plan ANEMIA HYPOKALEMIA REPEAT ECHO CORRECT K Critical Care Time(min): 35 EDUAR TEIXEIRA MD Apr 12, 2024 16:20
[2024-04-13] VITALS (10 sets, daily range): BP systolic 91–103; BP diastolic 60–71; PULSE 64–103; RESP 16–20; TEMP 97.8–98.5; O2SAT 96–98
[2024-04-13 07:04] LABS: Chloride 100 mmol/L (98-107); Potassium 3.9 mmol/L (3.5-5.1)
[2024-04-13 07:05] LABS: Anion Gap 11 (5-15); Calcium 9.8 mg/dL (8.7-10.4); Carbon Dioxide 21 mmol/L (20-31)
[2024-04-13 07:11] LABS: Blood Urea Nitrogen 24 mg/dL (9-23); Glucose 109 mg/dL (74-106); Magnesium 2.4 mg/dL (1.6-2.6); Sodium 132 mmol/L (136-145)
--- NOTE | 2024-04-13 07:21 | DVH ---
EXAM: XR Chest, 1 View CLINICAL INDICATION: chf TECHNIQUE: Frontal view of the chest. COMPARISON: XY CHEST PORTABLE on DOS: 11/08/22 FINDINGS: LUNGS AND PLEURAL SPACES: See below. HEART: Cardiomegaly with mild congestion. MEDIASTINUM: Unremarkable. Normal mediastinal contour. BONES/JOINTS: Unremarkable. No acute fracture. TUBES, LINES AND DEVICES: Left-sided cardiac pacemaker. OTHER FINDINGS: . None. . IMPRESSION: Cardiomegaly with mild congestion.
[2024-04-13] MEDS: FUROSEMIDE 40 MG/4 ML VIAL IV SCH (08:46)
--- NOTE | 2024-04-13 10:52 | DVHDS2 ---
Discharge Summary Date of Admission Apr 10, 2024 at 14:17 Date of Discharge: Apr 13, 2024 Labs/Diagnostic Data: Laboratory Results Test 04/13/24 06:16 04/11/24 05:25 04/10/24 09:17 04/10/24 07:51 Sodium Level 132 mmol/L (136-145) Potassium Level 3.9 mmol/L (3.5-5.1) Chloride Level 100 mmol/L (98-107) Carbon Dioxide Level 21 mmol/L (20-31) Anion Gap 11 (5-15) Blood Urea Nitrogen 24 mg/dL (9-23) Creatinine 0.89 mg/dL (0.700-1.30) Glomerular Filtration Rate Calc 84 mL/min (>90) BUN/Creatinine Ratio 27.0 (10.0-20.0) Serum Glucose 109 mg/dL (74-106) Calcium Level 9.8 mg/dL (8.7-10.4) Magnesium Level 2.4 mg/dL (1.6-2.6) White Blood Count 6.0 10^3/uL (4.4-10.8) Red Blood Count 4.02 10^6/uL (4.5-5.90) Hemoglobin 11.2 g/dL (13.5-17.5) Hematocrit 34.7 % (41.0-53.0) Mean Corpuscular Volume 86.4 fL (80.0-100.0) Mean Corpuscular Hemoglobin 27.9 pg (28.0-32.0) Mean Corpuscular Hemoglobin Concent 32.3 g/dL (32.0-36.0) Red Cell Distribution Width 20.5 % (11.8-14.3) Platelet Count 174 10^3/uL (140-450) Mean Platelet Volume 8.7 fL (6.9-10.8) Neutrophils (%) (Auto) 71.4 % (37.0-80.0) Lymphocytes (%) (Auto) 8.6 % (10.0-50.0) Monocytes (%) (Auto) 15.5 % (0.0-12.0) Eosinophils (%) (Auto) 3.9 % (0.0-7.0) Basophils (%) (Auto) 0.6 % (0.0-2.0) Neutrophils # (Auto) 4.3 10 ^3/uL (1.6-8.6) Lymphocytes # (Auto) 0.5 10 ^3/uL (0.4-5.4) Monocytes # (Auto) 0.9 10 ^3/uL (0-1.3) Eosinophils # (Auto) 0.2 10 ^3/uL (0-0.8) Basophils # (Auto) 0 10 ^3/uL (0-0.2) Nucleated Red Blood Cells 0.1 % Total Bilirubin 2.4 mg/dL (0.2-1.0) Aspartate Amino Transferase (AST) 20 U/L (13-40) Alanine Aminotransferase (ALT) 30 U/L (7-40) Alkaline Phosphatase 208 U/L (46-116) Total Protein 6.1 g/dL (5.7-8.2) Albumin 3.6 g/dL (3.2-4.8) Urine Color Light-yellow (Yellow) Urine Clarity Clear (Clear) Urine pH 7.0 (5.0-9.0) Urine Specific [place] 1.006 (1.001-1.035) Urine Protein Negative (Negative) Urine Ketones Negative (Negative) Urine Blood Negative /uL (Negative) Urine Nitrite Negative (Negative) Urine Bilirubin Negative (Negative) Urine Urobilinogen Normal mg/dL (Negative) Urine Leukocyte Esterase Negative /uL (Negative) Urine RBC <1 /hpf (0 - 3) Urine Microscopic WBC < 1 /HPF (0-3) Urine Squamous Epithelial Cells None seen /hpf (<5) Urine Bacteria None seen /hpf (None Seen) Urine Glucose Normal mg/dL (Normal) Prothrombin Time 13.2 sec (9.3-11.8) Prothrombin Time INR 1.28 (0.9-1.15) Activated Partial Thromboplast Time 35.1 SEC (24.5-34.5) Troponin I High Sensitivity 16 ng/L (</=54) B-Type Natriuretic Peptide 658.95 pg/mL (0-100) Thyroid Stimulating Hormone (TSH) 1.08 uIU/mL (0.55-4.78) Other Laboratory Tests 04/13/24 06:16 04/11/24 05:25 Brief Hx & Hospital Course: see dictated note Condition at Discharge: Fair Final Diagnosis/Problems List chf Discharge Disposition: [facility] Discharge Instruct/Medications Diet: Cardiac 2g Na,low cholest Activity: No Restrictions, As Tolerated Follow Up/Referral: fu with dr Jim Medications: resume home meds Discharge Statement: "Patient was advised to return to the ER or call 911 if any headaches, dizziness, shortness of breath, chest pain, abdominal pain, bleeding, fevers, or worsening of medical condition. Patient was counseled about treatment plan, medications, possible side effects, patientverbalized understanding. All questions were answered to the best of my ability. This discharge took greater then 30 minutes in planning, reviewing documentation, counseling the patient, and discussing with other team members." ASSESSMENT ASSESSMENT Assessment chf Date of Service: Apr 13, 2024 Billing Provider: ANTHONY PINEDA MD Common Visit Codes: [id number] DISCH DAY >30min ANTHONY PINEDA MD Apr 13, 2024 10:52
[2024-04-13] MEDS ORDERED: FURO1TAB33 PO ×2 (10:53)
--- NOTE | 2024-04-13 11:08 | DVHDS ---
DATE OF DISCHARGE: 04/13/2024 HISTORY OF PRESENT ILLNESS: The patient is an 83-year-old gentleman who was admitted with a history of increasing shortness of breath for 2 days prior to admission. He has a history of congestive heart failure, atrial fibrillation, pacemaker, dementia and COPD. HOSPITAL COURSE: The patient had a chest x-ray that showed evidence of pulmonary venous congestion. He was seen in Cardiology consult by Dr. Hernán Reid. His BNP was elevated to 658. The patient is now improving the symptoms and will be discharged to [facility] to resume his home medications as well as to be on Lasix 20 mg daily. He will follow up with Dr. Hernán Reid in one week. FINAL DIAGNOSES: Therefore, * Acute systolic/diastolic heart failure. * History of pacemaker. * Chronic obstructive pulmonary disease. * Dementia. * Atrial fibrillation with secondary hypercoagulable state. * Hypothyroidism. Time spent in discharge planning and review of plan with the patient and health care consultant was 37 minutes. MD AYSE Patel/RENUKA TID: [id number] RECEIPT: [id number]
--- NOTE | 2024-04-13 14:05 | DVHPN2 ---
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 CYST NO EVIDENCE OF PANCREATIC/ HEPATIC DUCT DILATATION vital signs Vital Sign Date Time Temp Pulse Resp B/P (MAP) Pulse Ox O2 Delivery O2 Flow Rate FiO2 04/13/24 13:00 97.9 103 18 103/71 (82) 98 97.9 04/13/24 10:06 Room Air* 0 21 Total Intake and Output 04/12/24 04/12/24 04/13/24 15:00 23:00 07:00 Intake Total 140 ml Balance 140 ml medications Current Medications Medications Dose Ordered Sig/[place] Route Start Time Stop Time Status Last Admin Dose Admin Albuterol 2.5 mg Q2HPRN PRN NEB 04/10/24 14:30 04/10/24 21:45 2.5 MG Ondansetron HCl 4 mg Q4HP PRN IV 04/10/24 14:30 Acetaminophen 650 mg Q6HP PRN PO 04/10/24 14:30 Ipratropium [place] 0.5 mg Q4HR NEB 04/10/24 22:00 04/12/24 22:08 0.5 MG Levothyroxine Sodium 100 mcg QAM@0600 PO 04/12/24 06:00 04/13/24 05:50 100 MCG Apixaban 5 mg BID PO 04/11/24 22:00 04/13/24 08:46 5 MG Dorzolamide HCl 1 drop TID EACHEYE 04/11/24 22:00 Sotalol HCl 80 mg BID PO 04/12/24 10:00 04/13/24 08:46 80 MG Furosemide 60 mg DAILY IV 04/13/24 10:00 04/13/24 08:46 60 MG laboratory and microbiology Laboratory Tests 04/13/24 06:16 04/11/24 05:25 Test 04/13/24 06:16 Range/Units Serum Glucose 109 H 74-106 mg/dL Problem List PROGRESSIVE SX OF SOB EF 55% SEVERE TR SEVERE MR CXR MILD SX OF CEPHALIZATION PMH HX OF OBS AFIB HYPERCOAGULABLE STATE CVA REACTIVE AIRWAY DISEASE ANEMIA STEATOSIS RENAL CYST Assessment/Plan ANEMIA LASIX K+ Plan discussed with: Patient EDUAR TEIXEIRA MD Apr 13, 2024 14:05
--- NOTE | 2024-04-13 14:05 | DVHPN2 ---
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 NO EVIDENCE OF PANCREATIC/ HEPATIC DUCT DILATATION vital signs Vital Sign Date Time Temp Pulse Resp B/P (MAP) Pulse Ox O2 Delivery O2 Flow Rate FiO2 04/13/24 13:00 97.9 103 18 103/71 (82) 98 97.9 04/13/24 10:06 Room Air* 0 21 Total Intake and Output 04/12/24 04/12/24 04/13/24 15:00 23:00 07:00 Intake Total 140 ml Balance 140 ml medications Current Medications Medications Dose Ordered Sig/[place] Route Start Time Stop Time Status Last Admin Dose Admin Albuterol 2.5 mg Q2HPRN PRN NEB 04/10/24 14:30 04/10/24 21:45 2.5 MG Ondansetron HCl 4 mg Q4HP PRN IV 04/10/24 14:30 Acetaminophen 650 mg Q6HP PRN PO 04/10/24 14:30 Ipratropium [place] 0.5 mg Q4HR NEB 04/10/24 22:00 04/12/24 22:08 0.5 MG Levothyroxine Sodium 100 mcg QAM@0600 PO 04/12/24 06:00 04/13/24 05:50 100 MCG Apixaban 5 mg BID PO 04/11/24 22:00 04/13/24 08:46 5 MG Dorzolamide HCl 1 drop TID EACHEYE 04/11/24 22:00 Sotalol HCl 80 mg BID PO 04/12/24 10:00 04/13/24 08:46 80 MG Furosemide 60 mg DAILY IV 04/13/24 10:00 04/13/24 08:46 60 MG laboratory and microbiology Laboratory Tests 04/13/24 06:16 04/11/24 05:25 Test 04/13/24 06:16 Range/Units Serum Glucose 109 H 74-106 mg/dL Problem List PROGRESSIVE SX OF SOB EF 55% SEVERE TR SEVERE MR CXR MILD SX OF CEPHALIZATION PMH HX OF OBS AFIB HYPERCOAGULABLE STATE CVA REACTIVE AIRWAY DISEASE ANEMIA STEATOSIS RENAL CYST Assessment/Plan ANEMIA HYPOKALEMIA REPEAT ECHO CORRECT K DC HOME ON LASIX AND K Plan discussed with: Patient EDUAR TEIXEIRA MD Apr 13, 2024 14:05
== END 2024-04-13 16:04 | disposition home or self-care (01) | DRG 291 ==
LOC: ER 06:56 → EDBD 06:56 → OVERFLOW 14:17 → EAST 17:52 → TELE-EAST 04-11 13:07
PROVIDERS: ADMIT Internal Medicine; ATTEND Internal Medicine
DX: I11.0 Hypertensive heart disease with heart failure (principal); I50.43 Acute on chronic combined systolic (congestive) and diastolic (congestive) heart failure; D68.69 Other thrombophilia; E87.6 Hypokalemia; I48.91 Unspecified atrial fibrillation; F02.80 Dementia in other diseases classified elsewhere, unspecified severity, without behavioral disturbance, psychotic disturbance, mood disturbance, and anxiety; G30.9 Alzheimer's disease, unspecified; J44.89 Other specified chronic obstructive pulmonary disease; E03.9 Hypothyroidism, unspecified; D64.9 Anemia, unspecified; Z95.0 Presence of cardiac pacemaker; Z86.73 Personal history of transient ischemic attack (TIA), and cerebral infarction without residual deficits; Z88.0 Allergy status to penicillin; Z79.899 Other long term (current) drug therapy
CPT/HCPCS: 36415; 71045; 71046; 80048; 80053; 81001; 83735; 83880; 84443; 84484; 85025; 85610; 85730; 93005; 93306; 94640; 96361; 96374; 97162; G0378

== ENCOUNTER 2024-04-14 07:43 | Inpatient (IN) | payer MEDICARE, OTHER ==
[~2024-04-14] VITALS: Ht 175.3 cm; Wt 63.7 kg
[~2024-04-14 07:43] MED LIST changes: -CALC-337 OR; +FURO1TAB33 PO; -LEVO88TA2 PO; -MAGN400T23 PO; -MEGE40TA4 PO; -MESA1.2T PO; -MIRT1TAB38 PO; -POTA-220 PO
--- NOTE | 2024-04-14 08:00 | ED.PDOC ---
Altered Mental Status HPI Comments 83-year-old male with PMHx Dementia and Alzheimer's Disease brought in by EMS presents with a chief complaint ALOC x onset this morning. Per EMS, patient is coming from [facility] and staff noticed that patient was more altered than his baseline. EMS reports that patient is A&Ox4 at baseline. P atient is alert and able to state that he is not in any pain at this time. Per EMS, staff noticed patient was altered at around 0530 this morning, last seen normal last night. Chief Complaint: ALOC Time Seen by MD: 07:45 Primary Care Provider: EDUAR Reviewed Notes: Medications, Allergies Allergies: Coded Allergies: Penicillins (Verified Allergy, Severe, 04/22/18) Home Meds Active Scripts Furosemide (Lasix) 20 Mg Tb, 1 TAB PO QAM for 30 Days, #30 TAB 3 Refills Prov:ANTHONY PINEDA MD 04/13/24 Reported Medications Brinzolamide (Azopt) 1 % [place], 1 % OP UD for 30 Days, #10 04/05/24 Cholecalciferol (D3 SUPER STRENGTH) 2,000 Unit Cap, 1 CAP PO DAILY for 28 Days, #28 04/05/24 Omeprazole (Omeprazole Dr) 20 Mg Cap, 1 CAP PO DAILY for 28 Days, #28 04/05/24 Calcium Citrate-Vitamin D ([place] Calcium/Vitamin D) Vit D Tab, 1 TAB PO DAILY for 28 Days, #28 04/05/24 Mirtazapine (Mirtazapine Oral Disintegrating Tablet) 7.5 Mg Tab, 1 TAB PO DAILY for 28 Days, #28 04/05/24 Levothyroxine Sodium (Levothyroxine Sodium) 100 Mcg Tab, 1 TAB PO DAILY for 28 Days, #28 04/05/24 Brimonidine Tartrate (Brimonidine Tartrate) 0.15 % [place]iz[place]et, 1 DROP OP TID for 30 Days, #10 04/03/24 Apixaban Base (ELIQUIS) 5 Mg Tab, 1 TAB PO BID for 28 Days, #56 04/22/18 Sotalol Hcl (Sotalol Hcl) 80 Mg Tab, 1 TAB PO DAILY, #60 TAB 5 Refills 05/12/17 Furosemide (Lasix) 40 Mg Tab, 0.5 TAB PO DAILY for 30 Days, #15 05/12/17 Latanoprost (LATANOPROST) 0.005 % [place]iz[place]et, 1 DROP EACHEYE HS, #7.5 ML 3 Refills 10/31/14 Dorzolamide-Timolol (Dorzolamide Hcl/Timolol M) 1 Ml [place]izabet, 1 DROP EACHEYE BID, #10 ML 6 Refills 10/31/14 Information Source: Patient Mode of Arrival: Ambulatory Severity: Moderate Timing: Hours Duration: Since onset Prehospital treatment: None Quality: Change in Behavior, Confusion History of: None Past Medical History PAST MEDICAL HISTORY: AFIB, Alzheimer, Anemia, COPD, CVA, Dementia, Thyroid, TIA Surgical History: Pacemaker Family History Family History: Reviewed,noncontributory to illness, Unknown Social History Smoker: Non-Smoker Alcohol: Denies ETOH Use Drugs: Denies Drug Use Lives In: Group Home Constitutional: denies: chills, diaphoresis, fatigue, fever, malaise, sweats, weakness, others EENTM: denies: blurred vision, double vision, ear bleeding, ear discharge, ear drainage, ear pain, ear ringing, eye pain, eye redness, hearing loss, mouth pain, mouth swelling, nasal discharge, nose bleeding, nose congestion, nose pain, photophobia, tearing, throat pain, throat swelling, voice changes, others Respiratory: denies: cough, hemoptysis, orthopnea, SOB at rest, shortness of breath, SOB with excertion, stridor, wheezing, others Cardiovascular: denies: chest pain, dizzy spells, diaphoresis, Dyspnea on exertion, edema, irregular heart beat, left arm pain, lightheadedness, palpitations, PND, syncope, others Gastrointestinal: denies: abdomen distended, abdominal pain, blood streaked bowels, constipated, diarrhea, dysphagia, difficulty swallowing, hematemesis, melena, nausea, poor appetite, poor fluid intake, rectal bleeding, rectal pain, vomiting, others Genitourinary: denies: burning, dysuria, flank pain, frequency, hematuria, incontinence, penile discharge, penile sore, pain, testicle pain, testicle swel ling, urgency, others Neurological: denies: dizziness, fainting, headache, left sided numbness, left sided weakness, numbness, paresthesia, pre-existing deficit, right sided numbness, right sided weakness, seizure, speech problems, tingling, tremors, weakness, others Musculoskeletal: denies: back pain, gout, joint pain, joint swelling, muscle pain, muscle stiffness, neck pain, others Integumetry: denies: bruises, change in color, change in hair/nails, dryness, laceration, lesions, lumps, rash, wounds, others Allergic/Immunocompromised: denies: Difficulty Healing, Frequent Infections, Hives, Itching, others Hematologic/Lymphatic: denies: anemia, blood clots, easy bleeding, easy bruising, swollen glands, others Endocrine: denies: excessive hunger, excessive sweating, excessive thirst, excessive urination, flushing, intolerance to cold, intolerance to heat, unexplained weight gain, unexplained weight loss, others Psychiatric: denies: anxiety, bipolar disorder, depression, hopeless, panic disorder, schizophrenia, sleepless, suicidal, others Unable to Obtain due to: Altered Mental Status All Other Systems: Reviewed and Negative Physical Exam General Appearance: Moderate Distress, Normal HEENT: Normal ENT Inspection, Pharynx Normal, TMs Normal Neck: Full Range of Motion, Non-Tender, Normal, Normal Inspection Respiratory: Chest Non-Tender, Lungs Clear, No Accessory Muscle Use, No Respiratory Distress, Normal Breath Sounds Cardiovascular: No Edema, No JVD, No Murmur, No Gallop, Normal Peripheral Pulses, Regular Rate/Rhythm Breast Exam: Deferred Gastrointestinal: No Organomegaly, Non Tender, No Pulsatile Mass, Normal Bowel Sounds, Soft Genitalia: Deferred Pelvic: Deferred Rectal: Deferred Extremities: No calf tenderness, Normal capillary refill, Normal inspection, Normal range of motion, Non-tender, No pedal edema Musculoskeletal : Apperance: Normal Neurologic: Disoriented, No Motor Deficits, Normal Affect, Normal Mood, No Sensory Deficits Cerebellar Function: NOT DONE Reflexes: NOT DONE Skin: Dry, Normal Color, Warm Peripheral Pulses: 3+ Radial (R), 3+ Radial (L) Lymphatic: No Adenopathy Was a procedure done? Was a procedure done?: No Differential Diagnosis (ALOC) Differential Diagnosis: Dehydration, Hypoglycemia X-Ray, Labs, Meds, VS Vital Signs Date Time Temp Pulse Resp B/P (MAP) Pulse Ox O2 Delivery O2 Flow Rate FiO2 04/14/24 08:30 18 98 Room Air* 0 21 2/19/25 07:58 98.5 75 18 99/68 (78) 96 04/14/24 07:52 75 Lab Test 04/14/24 08:13 Range/Units White Blood Count 11.2 #H 4.4-10.8 10^3/uL Red Blood Count 4.33 L 4.5-5.90 10^6/uL Hemoglobin 12.0 L 13.5-17.5 g/dL Hematocrit 38.1 L 41.0-53.0 % Mean Corpuscular Volume 88.0 80.0-100.0 fL Mean Corpuscular Hemoglobin 27.6 L 28.0-32.0 pg Mean Corpuscular Hemoglobin Concent 31.4 L 32.0-36.0 g/dL Red Cell Distribution Width 21.0 H 11.8-14.3 % Platelet Count 203 140-450 10^3/uL Mean Platelet Volume 9.0 6.9-10.8 fL Neutrophils (%) (Auto) 83.1 H 37.0-80.0 % Lymphocytes (%) (Auto) 6.8 L 10.0-50.0 % Monocytes (%) (Auto) 9.8 0.0-12.0 % Eosinophils (%) (Auto) 0.1 0.0-7.0 % Basophils (%) (Auto) 0.2 0.0-2.0 % Neutrophils # (Auto) 9.3 H 1.6-8.6 10 ^3/uL Lymphocytes # (Auto) 0.8 0.4-5.4 10 ^3/uL Monocytes # (Auto) 1.1 0-1.3 10 ^3/uL Eosinophils # (Auto) 0 0-0.8 10 ^3/uL Basophils # (Auto) 0 0-0.2 10 ^3/uL Nucleated Red Blood Cells 0.1 % Sodium Level 134 L 136-145 mmol/L Potassium Level 4.1 3.5-5.1 mmol/L Chloride Level 100 98-107 mmol/L Carbon Dioxide Level 25 20-31 mmol/L Anion Gap 9 5-15 Blood Urea Nitrogen 33 H 9-23 mg/dL Creatinine 1.07 0.700-1.30 mg/dL Glomerular Filtration Rate Calc 68 >90 mL/min BUN/Creatinine Ratio 30.8 H 10.0-20.0 Serum Glucose 85 74-106 mg/dL Calcium Level 9.4 8.7-10.4 mg/dL Troponin I High Sensitivity 17 </=54 ng/L Current Medications Medications (Trade) Dose Ordered Sig/[place] Route Start Time Stop Time Status Last Admin Sodium Chloride 1,000 ml @ 150 mls/hr Q6H40M ONCE IV 04/14/24 08:15 04/14/24 14:54 04/14/24 08:53 Patient slightly disoriented. Has a pacemaker. Blood pressure in the low side. Saturation pristine on room air. EKG does not show any acute changes. Unknown why he is confused. Establish intravenous access. Was given fluids. Reviewed his previous visit. Continue cardiac monitoring. CT scan of the head reviewed does not show any acute changes. WBC elevated. Possible sepsis from urine. Time of 1ST Reevaluation: 08:15 Reevaluation 1ST: Unchanged Patient Education/Counseling: Diagnosis, Treatment, Prognosis Family Education/Counseling: Diagnosis, Treatment, Prognosis Departure 1 Departure Time of Disposition: 08:12 Impression: Primary Impression: Metabolic encephalopathy Additional Impressions: Leukocytosis Qualified Codes: D72.829 - Elevated white blood cell count, unspecified Sepsis, unspecified organism Qualified Codes: A41.9 - Sepsis, unspecified organism Disposition: ADMITTED INPATIENT Admit to: Med Surg Condition: Guarded Critical Care Note Critical Care Time?: No Stability Stability form required: No Heart Score Heart Score: Heart Score Response (Comments) Value History Slightly Suspicious 0 EKG Normal 0 Age >65 2 Risk Factors >3 or Hx ASHD 2 Troponin Normal limit 0 Total 4 I personally scribed for ODALIS CHAVES MD ([email or web address]) on 04/14/24 at 08:00. Electronically submitted by Evan Mendoza [email or web address]). I personally scribed for ODALIS CHAVES MD ([email or web address]) on 04/14/24 at 08:03. Electronically submitted by Evan Mendoza ([email or web address]). ODALIS CHAVES MD Apr 14, 2024 08:00
[2024-04-14 08:30] VITALS: RESP 18; O2SAT 98
[2024-04-14 08:33] LABS: Basophils # (auto) 0 10 ^3/uL (0-0.2); Basophils % (auto) 0.2 % (0.0-2.0); Eosinophils # (auto) 0 10 ^3/uL (0-0.8); Eosinophils % (auto) 0.1 % (0.0-7.0); Hematocrit 38.1 % (41.0-53.0); Lymphocytes # (auto) 0.8 10 ^3/uL (0.4-5.4); Lymphocytes % (auto) 6.8 % (10.0-50.0); Mean Corpuscular Hemoglobin 27.6 pg (28.0-32.0); Mean Corpuscular Hgb Conc. 31.4 g/dL (32.0-36.0); Monocytes # (auto) 1.1 10 ^3/uL (0-1.3); Monocytes % (auto) 9.8 % (0.0-12.0); Neutrophils # (auto) 9.3 10 ^3/uL (1.6-8.6); Neutrophils % (auto) 83.1 % (37.0-80.0); Nucleated Red Blood Cells % 0.1 %; Platelet Count (auto) 203 10^3/uL (140-450); Red Blood Cells 4.33 10^6/uL (4.5-5.90); White Blood Cell 11.2 10^3/uL (4.4-10.8)
[2024-04-14 08:41] LABS: Chloride 100 mmol/L (98-107); Potassium 4.1 mmol/L (3.5-5.1)
[2024-04-14 08:42] LABS: Anion Gap 9 (5-15); Carbon Dioxide 25 mmol/L (20-31)
[2024-04-14 08:43] LABS: Calcium 9.4 mg/dL (8.7-10.4)
[2024-04-14 08:47] LABS: BUN/Creatinine Ratio 30.8 (10.0-20.0); Glucose 85 mg/dL (74-106)
--- NOTE | 2024-04-14 08:49 | DVH ---
EXAM: CT HEAD WITHOUT CONTRAST INDICATION: altered TECHNIQUE: CT of the head without intravenous contrast. Radiation Dose : 1. Head: CT Dose: CTDI volume is 53.94 mGy. Dose-length product is 1063.02 mGy*cm The dose indicators for CT are the volume Computed Tomography (CT) Dose Index (CTDIvol) and the Dose Length Product (DLP), and are measured in units of mGy and mGy-cm, respectively. These indicators are not patient dose, but values generated from the CT scanner acquisition factors. The report includes radiation exposure data for exposures received during this examination. COMPARISON: None FINDINGS: There is no evidence of acute intracranial hemorrhage, extra-axial collection, mass effect, midline s hift, herniation or hydrocephalus. The ventricles, sulci and cisterns are age appropriate. The tomlinson-white differentiation is intact. Patchy periventricular and subcortical white matter hypoattenuation is nonspecific but may be related to small vessel ischemic disease. The visualized paranasal sinuses and mastoid air cells are clear. The surrounding soft tissues and osseous structures are unremarkable. IMPRESSION: No acute intracranial abnormality. Radiation optimization: All CT scans at this facility use at least one of these dose optimization amos hniques: automated exposure control mA and/or kV adjustment per patient size (includes targeted exam s where dose is matched to clinical indication) or iterative reconstruction.
[2024-04-14] MEDS: SODIUM CHLORIDE 0.9% 1,000 ML IV ONE ×2 (08:53→11:14)
[2024-04-14 09:00] LABS: Blood Urea Nitrogen 33 mg/dL (9-23); Sodium 134 mmol/L (136-145)
--- NOTE | 2024-04-14 10:02 | DVH ---
CHEST RADIOGRAPH Indication: cough Technique: Single frontal view of the chest was obtained COMPARISON: XY CHEST PORTABLE on DOS: 04/13/24, XY CHEST PORTABLE on DOS: 11/08/22 FINDINGS: Lines and Tubes: Left chest wall pacemaker Lungs: Congestion Pleura: No effusion. No pneumothorax. Cardiomediastinal contours: Cardiomegaly Bones: Unremarkable IMPRESSION: Pulmonary vascular congestion
[2024-04-14 10:42] LABS: Urine Bacteria None Seen /hpf (None Seen)
[2024-04-14 10:54] LABS: Urine Blood Negative /uL (Negative); Urine Clarity Clear (Clear); Urine Color Yellow (Yellow); Urine Hyaline Cast FEW /lpf (0 - 2); Urine Mucus FEW (None Seen); Urine Protein, UAD Negative (Negative); Urine Specific Gravity 1.022 (1.001-1.035); Urine Squamous Epithelial Cell FEW /hpf (<5); Urine Urobilinogen Normal (Negative); Urine WBC < 1 /HPF (0-3)
[2024-04-14 11:35] LABS: Lactic Acid w/Reflex 2.1 mmol/L (0.4-2.0)
[2024-04-14] MEDS: SULFAMETH-TRIMETH 80/16MG-ML 10 ML in D5W 5% 250 ML IV ONE (12:20)
[2024-04-14] MEDS ORDERED: ACETAMINOPHEN 325 MG TAB PO PRN (18:30)
[2024-04-14] MEDS ORDERED: ALBUTEROL SULF 2.5 MG/0.5ML(0.5%) NEB SOLN NEB PRN (18:30)
[2024-04-14] MEDS ORDERED: ONDANSETRON HCL 4 MG/2 ML VIAL IV PRN (18:30)
--- NOTE | 2024-04-14 19:06 | ECG ---
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
[2024-04-14 19:43] VITALS: BP 115/82; PULSE 90; RESP 20; O2SAT 95
[2024-04-14 20:00] VITALS: PULSE 76; RESP 19; O2SAT 94
[2024-04-14] MEDS: FUROSEMIDE 20 MG/2 ML VIAL IV ONE (21:47)
[2024-04-14] MEDS: APIXABAN 5 MG TAB PO SCH (23:16)
[2024-04-14] MEDS: CIPROFLOXACIN 400MG/200ML 200 ML IV SCH (23:17)
[2024-04-15] VITALS (8 sets, daily range): BP systolic 105–120; BP diastolic 65–75; PULSE 75–118; RESP 16–20; TEMP 97.4–98.9; O2SAT 96–99
--- NOTE | 2024-04-15 04:36 | DVHHP2 ---
History of Present Illness Reason for Visit: Generalized weakness History of Present Illness 83-year-old male presents for evaluation of generalized weakness. Patient was sent for evaluation from [facility] nursing facility for worsening generalized weakness and lethargy. Patient is currently alert and oriented x3. Reports feeling occasional chills. Denies abdominal pain, nausea or vomiting. No chest pain or shortness for breath. No unilateral weakness or slurred speech. Past Medical History Dementia, COPD, CVA, thyroid, AFib Past Surgical History Pacemaker Family History Noncontributory Smoke: No ALCOHOL: none Drugs: None Lives: with Family Review of Systems Review of Systems Review of systems are currently negative otherwise addressed in HPI. Allergies: Coded Allergies: Penicillins (Verified Allergy, Severe, 04/22/18) Medications Current Medications Medications Dose Ordered Sig/[place] Route Start Time Stop Time Status Last Admin Dose Admin Albuterol 2.5 mg Q6HPRN PRN NEB 04/14/24 18:30 Apixaban 5 mg BID PO 04/14/24 22:00 04/14/24 23:16 5 MG Furosemide 20 mg DAILY IV 04/15/24 10:00 Levothyroxine Sodium 100 mcg QAM@0600 PO 04/15/24 06:00 Sotalol HCl 80 mg DAILY PO 04/15/24 10:00 Ciprofloxacin 200 ml @ 200 mls/hr Q12HR IV 04/14/24 22:00 04/14/24 23:17 200 MLS/HR Ondansetron HCl 4 mg Q4HP PRN IV 04/14/24 18:30 Acetaminophen 650 mg Q6HP PRN PO 04/14/24 18:30 Exam Vital Signs Vital Signs Date Time Temp Pulse Resp B/P (MAP) Pulse Ox O2 Delivery O2 Flow Rate FiO2 04/15/24 03:00 72 16 112/80 (91) 96 04/14/24 19:43 0.0 21 04/14/24 10:15 97.6 97.6 04/14/24 08:30 Room Air* Exam Gen: 83-year-old male in mild distress Skin: Warm, dry, normal color and texture, no rash. HEENT: Normocephalic atraumatic, mucous membranes moist and pink. Neck: Cervical and supraclavicular nodes normal without enlargement, trachea is midline, thyroid gland is normal without masses. Pulmonary: Clear to auscultation and percussion bilaterally. Cardiac: Regular rate and rhythm. No murmur Abdomen: Soft, nontender, nondistended, bowel sounds present all 4 quadrants, no guarding, no rigidity, no organomegaly. Extremities: No cyanosis, clubbing, no edema Neuro: Cranial nerves II through XII grossly intact, normal affect and speech, no focal motor deficits. Labs/Xrays ORDERING PHYSICIAN: ODALIS CHAVES MD PROCEDURE(s): HWOCT - HEAD WITHOUT CONTRAST REASON: altered ORDER NUMBER(s): [id number], ACCESSION NUMBER(s): [id number] EXAM: CT HEAD WITHOUT CONTRAST INDICATION: altered TECHNIQUE: CT of the head without intravenous contrast. Radiation Dose : 1. Head: CT Dose: CTDI volume is 53.94 mGy. Dose-length product is 1063.02 mGy*cm The dose indicators for CT are the volume Computed Tomography (CT) Dose Index (CTDIvol) and the Dose Length Product (DLP), and are measured in units of mGy and mGy-cm, respectively. These indicators are not patient dose, but values generated from the CT scanner acquisition factors. The report includes radiation exposure data for exposures received during this examination. COMPARISON: None FINDINGS: There is no evidence of acute intracranial hemorrhage, extra-axial collection, mass effect, midline shift, herniation or hydrocephalus. The ventricles, sulci and cisterns are age appropriate. The tomlinson-white differentiation is intact. Patchy periventricular and subcortical white matter hypoattenuation is nonspecific but may be related to small vessel ischemic disease. The visualized paranasal sinuses and mastoid air cells are clear. The surrounding soft tissues and osseous structures are unremarkable. IMPRESSION: No acute intracranial abnormality. Radiation optimization: All CT scans at this facility use at least one of these dose optimization techniques: automated exposure control mA and/or kV adjustment per patient size (includes targeted exams where dose is matched to clinical indication) or iterative reconstruction. RING PHYSICIAN: ODALIS CHAVES MD PROCEDURE(s): CXRP - CHEST PORTABLE REASON: cough ORDER NUMBER(s): [id number], ACCESSION NUMBER(s): [id number] CHEST RADIOGRAPH Indication: cough Technique: Single frontal view of the chest was obtained COMPARISON: XY CHEST PORTABLE on DOS: 04/13/24, XY CHEST PORTABLE on DOS: 11/08/22 FINDINGS: Lines and Tubes: Left chest wall pacemaker Lungs: Congestion Pleura: No effusion. No pneumothorax. Cardiomediastinal contours: Cardiomegaly Bones: Unremarkable IMPRESSION: Pulmonary vascular congestion Labs Test 04/14/24 12:18 04/14/24 10:20 04/14/24 08:13 Range/Units Lactic Acid Level 2.6 *H 0.4-2.0 mmol/L Urine Color Yellow Yellow Urine Clarity Clear Clear Urine pH 5.0 5.0-9.0 Urine Specific [place] 1.022 1.001-1.035 Urine Protein Negative Negative Urine Ketones Negative Negative Urine Blood Negative Negative /uL Urine Nitrite Negative Negative Urine Bilirubin Negative Negative Urine Urobilinogen Normal Negative mg/dL Urine Leukocyte Esterase Negative Negative /uL Urine RBC <1 0 - 3 /hpf Urine Microscopic WBC < 1 0-3 /HPF Urine Squamous Epithelial Cells Few <5 /hpf Urine Bacteria None seen None Seen /hpf Urine Hyaline Casts Few 0 - 2 /lpf Urine Mucus Few None Seen Urine Glucose Normal Normal mg/dL White Blood Count 11.2 #H 4.4-10.8 10^3/uL Red Blood Count 4.33 L 4.5-5.90 10^6/uL Hemoglobin 12.0 L 13.5-17.5 g/dL Hematocrit 38.1 L 41.0-53.0 % Mean Corpuscular Volume 88.0 80.0-100.0 fL Mean Corpuscular Hemoglobin 27.6 L 28.0-32.0 pg Mean Corpuscular Hemoglobin Concent 31.4 L 32.0-36.0 g/dL Red Cell Distribution Width 21.0 H 11.8-14.3 % Platelet Count 203 140-450 10^3/uL Mean Platelet Volume 9.0 6.9-10.8 fL Neutrophils (%) (Auto) 83.1 H 37.0-80.0 % Lymphocytes (%) (Auto) 6.8 L 10.0-50.0 % Monocytes (%) (Auto) 9.8 0.0-12.0 % Eosinophils (%) (Auto) 0.1 0.0-7.0 % Basophils (%) (Auto) 0.2 0.0-2.0 % Neutrophils # (Auto) 9.3 H 1.6-8.6 10 ^3/uL Lymphocytes # (Auto) 0.8 0.4-5.4 10 ^3/uL Monocytes # (Auto) 1.1 0-1.3 10 ^3/uL Eosinophils # (Auto) 0 0-0.8 10 ^3/uL Basophils # (Auto) 0 0-0.2 10 ^3/uL Nucleated Red Blood Cells 0.1 % Sodium Level 134 L 136-145 mmol/L Potassium Level 4.1 3.5-5.1 mmol/L Chloride Level 100 98-107 mmol/L Carbon Dioxide Level 25 20-31 mmol/L Anion Gap 9 5-15 Blood Urea Nitrogen 33 H 9-23 mg/dL Creatinine 1.07 0.700-1.30 mg/dL Glomerular Filtration Rate Calc 68 >90 mL/min BUN/Creatinine Ratio 30.8 H 10.0-20.0 Serum Glucose 85 74-106 mg/dL Calcium Level 9.4 8.7-10.4 mg/dL Troponin I High Sensitivity 17 </=54 ng/L B-Type Natriuretic Peptide 534.04 0-100 pg/mL Assessment/Plan Assessment/Plan Assessment Metabolic encephalopathy Dementia Lactic acidosis Secondary coagulopathy Possible early sepsis COPD Plan Admit the patient to [facility] [place] to the hospitalist Laya Blood cultures pending Resume home medications Continue treatment per orders. Plan discussed with: Patient My Orders Orders - ANTHONY CASE AGACNP Procedure Category Date Status Time Albuterol Medneb PHA 04/14/24 In Process (Ventolin Medneb) 18:30 Apixaban (Eliquis) PHA 04/14/24 In Process 22:00 Furosemide Injection PHA 04/15/24 In Process (Lasix Injection) 10:00 Levothyroxine Tablet PHA 04/15/24 In Process (Synthroid Tablet) 06:00 Sotalol Hcl (Betapace) PHA 04/15/24 In Process 10:00 Basic Metabolic Panel LAB 04/15/24 Logged 04:00 Ciprofloxacin PHA 04/14/24 In Process 400mg/200ml (Cipro Iv) 22:00 Admit ADMIT 04/14/24 Transmitted 18:25 Ondansetron Hcl PHA 04/14/24 In Process (Zofran) 18:30 Complete Blood Count LAB 04/15/24 Logged 04:00 Cardiac DIET 04/14/24 Transmitted Diet-2gna,Lofat,Lochol Dinner Echo 2d Mode Cardiac US 04/14/24 Logged DOP 18:25 Condition: Stable CONNOR 04/14/24 In Process 18:25 Acetaminophen Tablet PHA 04/14/24 In Process (Tylenol Tablet) 18:30 Bedrest With Bathroom CONNOR 04/14/24 In Process Privileg 18:25 Date of Service: Apr 14, 2024 Billing Provider: ANTHONY CASE Common Visit Codes: [id number] INP/OBS CARE (HIGH) ANTHONY CASE Apr 15, 2024 04:36
[2024-04-15 06:39] LABS: Basophils # (auto) 0 10 ^3/uL (0-0.2); Basophils % (auto) 0.1 % (0.0-2.0); Eosinophils # (auto) 0 10 ^3/uL (0-0.8); Eosinophils % (auto) 0.2 % (0.0-7.0); Hematocrit 39.8 % (41.0-53.0); Hemoglobin 12.6 g/dL (13.5-17.5); Lymphocytes # (auto) 0.6 10 ^3/uL (0.4-5.4); Lymphocytes % (auto) 7.1 % (10.0-50.0); Mean Corpuscular Hemoglobin 27.9 pg (28.0-32.0); Mean Corpuscular Hgb Conc. 31.7 g/dL (32.0-36.0); Mean Corpuscular Volume 88.1 fL (80.0-100.0); Monocytes # (auto) 0.9 10 ^3/uL (0-1.3); Monocytes % (auto) 10.8 % (0.0-12.0); Neutrophils # (auto) 6.9 10 ^3/uL (1.6-8.6); Neutrophils % (auto) 81.8 % (37.0-80.0); Nucleated Red Blood Cells % 0.1 %; Platelet Count (auto) 193 10^3/uL (140-450); Red Blood Cells 4.52 10^6/uL (4.5-5.90); Red Cell Distribution Width 21.2 % (11.8-14.3); White Blood Cell 8.4 10^3/uL (4.4-10.8)
[2024-04-15 06:46] LABS: Anion Gap 11 (5-15); Carbon Dioxide 24 mmol/L (20-31); Chloride 104 mmol/L (98-107); Sodium 139 mmol/L (136-145)
[2024-04-15 06:47] LABS: Calcium 8.8 mg/dL (8.7-10.4)
[2024-04-15 06:52] LABS: BUN/Creatinine Ratio 28.4 (10.0-20.0); Glucose 84 mg/dL (74-106)
[2024-04-15 06:53] LABS: Blood Urea Nitrogen 27 mg/dL (9-23); Potassium 3.3 mmol/L (3.5-5.1)
[2024-04-15] MEDS: LEVOTHYROXINE SODIUM 100 MCG TAB PO SCH (07:56)
[2024-04-15] MEDS: FUROSEMIDE 40 MG/4 ML VIAL IV SCH (10:34)
[2024-04-15] MEDS: SOTALOL HCL 80 MG TAB PO SCH (10:35)
--- NOTE | 2024-04-15 12:28 | DVHPN2 ---
Progress Note - Dictate Date Seen: Apr 15, 2024 Medical Necessity Reason Pt with a Central, PICC or Fol: No Subjective LETHARGY/ FATIGUE PROGRESSIVE SX OF SOB EF 55% SEVERE TR SEVERE MR CXR MILD SX OF CEPHALIZATION PMH HX OF OBS AFIB HYPERCOAGULABLE STATE CVA REACTIVE AIRWAY DISEASE ANEMIA STEATOSIS RENAL CYST ANEMIA HYPOKALEMIA vital signs Vital Sign Date Time Temp Pulse Resp B/P (MAP) Pulse Ox O2 Delivery O2 Flow Rate FiO2 04/15/24 10:35 118 113/65 04/15/24 09:38 97.4 20 97 97.4 04/15/24 08:10 Room Air 04/15/24 08:10 0 21 Total Intake and Output 04/14/24 04/14/24 04/15/24 15:00 23:00 07:00 Intake Total 1000 ml 200 ml Balance 1000 ml 200 ml medications Current Medications Medications Dose Ordered Sig/Geneva Route Start Time Stop Time Status Last Admin Dose Admin Albuterol 2.5 mg Q6HPRN PRN NEB 04/14/24 18:30 Apixaban 5 mg BID PO 04/14/24 22:00 04/15/24 10:34 5 MG Furosemide 20 mg DAILY IV 04/15/24 10:00 04/15/24 10:34 20 MG Levothyroxine Sodium 100 mcg QAM@0600 PO 04/15/24 06:00 04/15/24 07:56 100 MCG Sotalol HCl 80 mg DAILY PO 04/15/24 10:00 04/15/24 10:35 80 MG Ciprofloxacin 200 ml @ 200 mls/hr Q12HR IV 04/14/24 22:00 04/15/24 10:34 200 MLS/HR Ondansetron HCl 4 mg Q4HP PRN IV 04/14/24 18:30 Acetaminophen 650 mg Q6HP PRN PO 04/14/24 18:30 laboratory and microbiology Laboratory Tests 04/15/24 06:20 Test 04/15/24 06:20 Range/Units Serum Glucose 84 74-106 mg/dL Problem List LETHARGY/ FATIGUE PROGRESSIVE SX OF SOB EF 55% SEVERE TR SEVERE MR CXR MILD SX OF CEPHALIZATION PMH HX OF OBS AFIB HYPERCOAGULABLE STATE CVA REACTIVE AIRWAY DISEASE ANEMIA STEATOSIS RENAL CYST ANEMIA HYPOKALEMIA Assessment/Plan LHC CORRECT K ELEVATED BNP EF NL Plan discussed with: Patient Critical Care Time(min): 35 EDUAR TEIXEIRA MD Apr 15, 2024 12:28
[2024-04-15] MEDS ORDERED: POTASSIUM CHL 20MEQ/100ML 100 ML IV SCH (12:30)
--- NOTE | 2024-04-15 15:24 | DVHPN2 ---
Progress Note Date Seen: Apr 15, 2024 Medical Necessity Reason Pt with a Central, PICC or Fol: No Subjective Patient reports: No new complaints Review of Systems: HEENT:Normal, CVS:Normal, RESPIRATORY:Normal, GI:Normal, :Normal, MSK:Normal, NEURO:Normal Objective vital signs Vital Sign Date Time Temp Pulse Resp B/P (MAP) Pulse Ox O2 Delivery O2 Flow Rate FiO2 04/15/24 13:00 98.9 75 20 120/75 (90) 97 98.9 04/15/24 09:16 Room Air* 0 21 Total Intake and Output 04/14/24 04/14/24 04/15/24 15:00 23:00 07:00 Intake Total 1000 ml 200 ml Balance 1000 ml 200 ml medications Current Medications Medications Dose Ordered Sig/Geneva Route Start Time Stop Time Status Last Admin Dose Admin Albuterol 2.5 mg Q6HPRN PRN NEB 04/14/24 18:30 Apixaban 5 mg BID PO 04/14/24 22:00 04/15/24 10:34 5 MG Furosemide 20 mg DAILY IV 04/15/24 10:00 04/15/24 10:34 20 MG Levothyroxine Sodium 100 mcg QAM@0600 PO 04/15/24 06:00 04/15/24 07:56 100 MCG Sotalol HCl 80 mg DAILY PO 04/15/24 10:00 04/15/24 10:35 80 MG Ciprofloxacin 200 ml @ 200 mls/hr Q12HR IV 04/14/24 22:00 04/15/24 10:34 200 MLS/HR Ondansetron HCl 4 mg Q4HP PRN IV 04/14/24 18:30 Acetaminophen 650 mg Q6HP PRN PO 04/14/24 18:30 Examination: GENERAL:Normal, HEENT:Normal, NECK:Normal, LUNGS:Normal, LUNGS:Abnormal (rales), CVS:Normal, ABDOMEN:Normal, MSK:Normal, SKIN:Normal, NEURO:Normal, :Normal laboratory and microbiology Laboratory Tests 04/15/24 06:20 Test 04/15/24 06:20 Range/Units Serum Glucose 84 74-106 mg/dL Microbiology Date/Time Source Procedure Growth Status 04/14/24 10:45 Blood Blood Culture - Preliminary NO GROWTH AFTER 24 HOURS OF INCUBATION. Resulted 04/14/24 10:20 Voided Urine Urine Culture - Preliminary Resulted Problem List/Assessment/Plan Problem List/Assessment/Plan * Acute systolic/diastolic heart failure: c angio in am * History of pacemaker. * Chronic obstructive pulmonary disease. * Dementia. * Atrial fibrillation with secondary hypercoagulable state. * Hypothyroidism. advance care planning- full code- time spent 19 mins Plan discussed with: Patient My Orders My Orders Orders - ANTHONY PINEDA MD Procedure Category Date Status Time Complete Blood Count LAB 04/16/24 Verified 06:00 Comprehensive LAB 04/16/24 Verified Metabolic Panel 06:00 Pt Request For Service PT 04/15/24 Transmitted 15:21 Date of Service: Apr 15, 2024 Billing Provider: ANTHONY PINEDA MD Common Visit Codes: [id number] INP/OBS CARE(HIGH) Secondary Visit Codes: [id number] CARE PLAN 30 MINUTES ANTHONY PINEDA MD Apr 15, 2024 15:24
[2024-04-15] MEDS: POTASSIUM CHLORIDE 60 MEQ, LIDOCAINE 1% (LOCAL ANESTH.) 6 ML in SODIUM CHL 0.9% 500 ML IV ONE (17:04)
[2024-04-16] VITALS (14 sets, daily range): BP systolic 91–117; BP diastolic 66–79; PULSE 55–97; RESP 14–20; TEMP 96.5–98.1; O2SAT 91–100
[2024-04-16 05:54] LABS: Basophils # (auto) 0 10 ^3/uL (0-0.2); Basophils % (auto) 0.1 % (0.0-2.0); Eosinophils # (auto) 0.2 10 ^3/uL (0-0.8); Eosinophils % (auto) 2.1 % (0.0-7.0); Hematocrit 37.1 % (41.0-53.0); Lymphocytes # (auto) 0.6 10 ^3/uL (0.4-5.4); Lymphocytes % (auto) 8.5 % (10.0-50.0); Mean Corpuscular Hgb Conc. 32.3 g/dL (32.0-36.0); Mean Corpuscular Volume 86.7 fL (80.0-100.0); Monocytes # (auto) 0.8 10 ^3/uL (0-1.3); Monocytes % (auto) 10.8 % (0.0-12.0); Neutrophils # (auto) 5.8 10 ^3/uL (1.6-8.6); Neutrophils % (auto) 78.5 % (37.0-80.0); Nucleated Red Blood Cells % 0.1 %; Platelet Count (auto) 188 10^3/uL (140-450); Red Blood Cells 4.28 10^6/uL (4.5-5.90); Red Cell Distribution Width 19.9 % (11.8-14.3); White Blood Cell 7.3 10^3/uL (4.4-10.8)
[2024-04-16 06:07] LABS: Alanine Aminotransferase 20 U/L (7-40); Albumin 3.4 g/dL (3.2-4.8); Anion Gap 7 (5-15); Aspartate Aminotransferase 30 U/L (13-40); BUN/Creatinine Ratio 30.4 (10.0-20.0); Calcium 8.7 mg/dL (8.7-10.4); Carbon Dioxide 24 mmol/L (20-31); Chloride 106 mmol/L (98-107); Glucose 86 mg/dL (74-106); Potassium 4.3 mmol/L (3.5-5.1); Sodium 137 mmol/L (136-145); Total Protein 5.8 g/dL (5.7-8.2)
[2024-04-16 06:12] LABS: Alkaline Phosphatase 154 U/L (46-116); Bilirubin, Total 1.9 mg/dL (0.2-1.0); Blood Urea Nitrogen 24 mg/dL (9-23)
[2024-04-16] MEDS: LIDOCAINE 2%HCL (LOCAL ANESTH.) INJ 20ML MDV ONE (13:48)
[2024-04-16] MEDS: MIDAZOLAM HCL 2MG/2ML 2ml VIAL (1mg/ml) ONE (13:48)
[2024-04-16] MEDS: fentaNYL CITRATE 100 MCG/2 ML VL ONE (13:48)
[2024-04-16] MEDS: SODIUM CHL 0.9% 0 ML ONE (13:48)
[2024-04-16] MEDS: ANGIOMAX 250 MG VIAL IV ONE (13:48)
--- NOTE | 2024-04-16 14:42 | DVHPN2 ---
Progress Note - Dictate Date Seen: Apr 16, 2024 Medical Necessity Reason Pt with a Central, PICC or Fol: No Subjective LETHARGY/ FATIGUE PROGRESSIVE SX OF SOB EF 55% SEVERE TR SEVERE MR CXR MILD SX OF CEPHALIZATION PMH HX OF OBS AFIB HYPERCOAGULABLE STATE CVA REACTIVE AIRWAY DISEASE ANEMIA STEATOSIS RENAL CYST ANEMIA HYPOKALEMIA vital signs Vital Sign Date Time Temp Pulse Resp B/P (MAP) Pulse Ox O2 Delivery O2 Flow Rate FiO2 04/16/24 13:00 98.1 76 18 111/74 (86) 99 98.1 04/16/24 08:00 Nasal Cannula* 2 28 Total Intake and Output 04/15/24 04/15/24 04/16/24 15:00 23:00 07:00 Intake Total 780 ml 900 ml Output Total 1875 ml 200 ml Balance -1095 ml 700 ml medications Current Medications Medications Dose Ordered Sig/Geneva Route Start Time Stop Time Status Last Admin Dose Admin Albuterol 2.5 mg Q6HPRN PRN NEB 04/14/24 18:30 Apixaban 5 mg BID PO 04/14/24 22:00 04/15/24 22:11 5 MG Furosemide 20 mg DAILY IV 04/15/24 10:00 04/15/24 10:34 20 MG Levothyroxine Sodium 100 mcg QAM@0600 PO 04/15/24 06:00 04/16/24 05:54 100 MCG Sotalol HCl 80 mg DAILY PO 04/15/24 10:00 04/15/24 10:35 80 MG Ondansetron HCl 4 mg Q4HP PRN IV 04/14/24 18:30 Acetaminophen 650 mg Q6HP PRN PO 04/14/24 18:30 laboratory and microbiology Laboratory Tests 04/16/24 05:22 Test 04/16/24 05:22 Range/Units Serum Glucose 86 74-106 mg/dL Problem List LETHARGY/ FATIGUE PROGRESSIVE SX OF SOB EF 55% SEVERE TR SEVERE MR CXR MILD SX OF CEPHALIZATION PMH HX OF OBS AFIB HYPERCOAGULABLE STATE CVA REACTIVE AIRWAY DISEASE ANEMIA STEATOSIS RENAL CYST ANEMIA HYPOKALEMIA Assessment/Plan LHC CORRECT K ELEVATED BNP EF NL LHC NORMAL CORONARIES EF55% LVEDP 8 mmHg LVSP 90mmHg NO GRADIENT ACREOSS AV IVF FILTER SEEN Dietary Evaluation Review Comments: 1. Timely resumption of cardiac diet order 2. Continue to encourage good oral intake >50% of meals 3. Appreciate weekly weights to trend Expected Outcomes/Goals: Weight maintenance, adequate nutrition Plan discussed with: Patient EDUAR TEIXEIRA MD Apr 16, 2024 14:42
--- NOTE | 2024-04-16 14:49 | DVHOP ---
DATE OF SURGERY: 04/16/2024 INDICATIONS: The patient with congestive heart failure symptoms. Now to undergo left heart catheterization. The patient's ejection fraction is within normal limits; therefore, it is not clear as to why the patient is going into CHF, even though EF is normal by echocardiography. His strokes were negative, but his BNP is 500; therefore, we need to determine whether the patient has diastolic dysfunction. Even if it is diastolic dysfunction, his blood pressure is low, should not be going into CHF. PROCEDURES PERFORMED: * Selective left and right coronary angiography. * Ventriculogram. * Conscious sedation given. DESCRIPTION OF PROCEDURE: The patient was prepped and draped in a sterile condition. 1% Xylocaine was used to anesthetize the right groin. Using Cook needle, right femoral artery was engaged with Seldinger technique, a 6-Andorran sheath in the right femoral artery. Using 6-Andorran JL4 catheter and 6-Andorran JR4 catheter, selective left and right coronary angiographies were performed. Using 6-Andorran pigtail catheter, ventriculogram was done. Total contrast used was 50 mL Optiray. Total fluoro time was 2 minutes. RESULTS: * Left main, patent. * Left anterior descending artery without any flow restrictive lesion. * Circumflex without any flow restrictive lesion. * Right coronary artery, mild intimal irregularity in the proximal to midportion; however, no flow restrictive lesion. * Left ventricular function was preserved with an estimated EF around 55% with an LVEDP of 8 mmHg with left ventricular systolic pressure of 90 with no gradient across the aortic valve. Thus, the patient's coronary anatomy is within normal limits. There is no evidence for systolic or diastolic dysfunction at this time. The patient on echo does not have any pericardial effusion or pericardial thickening. Therefore, it is more than likely just volume overload and it could also be secondary to high output failure, but the patient's blood pressure is marginal. It is difficult to treat at this point other than using low doses of diuretic. Digoxin may be another option. At this time, Corlanor is another option for the patient. Since he has a permanent pacemaker, do not have to worry about excessive bradycardia. We will continue to follow the patient. Hernán Reid MD SA/JUDY/HÉCTOR TID: [id number] RECEIPT: [id number]
--- NOTE | 2024-04-16 20:23 | DVHPN2 ---
Subjective in bed resting Changes from previous H/P or p: No Changes Objective Vitals Vital Signs Date Time Temp Pulse Resp B/P (MAP) Pulse Ox O2 Delivery O2 Flow Rate FiO2 04/16/24 18:45 92 Nasal Cannula* 4 36 04/16/24 16:43 97.3 74 16 104/76 (85) 97.3 Intake/Output Intake and Output 04/16/24 07:00 Intake Total 1680 ml Output Total 2075 ml Balance -395 ml Intake Oral 1680 ml Output Urine Total 2075 ml General Appearance: Alert Lungs: Clear to auscultation Cardiovascular: Regular rate Medications Current Medications Medications Dose Ordered Sig/[place] Route Start Time Stop Time Status Last Admin Dose Admin Albuterol 2.5 mg Q6HPRN PRN NEB 04/14/24 18:30 Apixaban 5 mg BID PO 04/14/24 22:00 04/15/24 22:11 5 MG Furosemide 20 mg DAILY IV 04/15/24 10:00 04/15/24 10:34 20 MG Levothyroxine Sodium 100 mcg QAM@0600 PO 04/15/24 06:00 04/16/24 05:54 100 MCG Sotalol HCl 80 mg DAILY PO 04/15/24 10:00 04/15/24 10:35 80 MG Ondansetron HCl 4 mg Q4HP PRN IV 04/14/24 18:30 Acetaminophen 650 mg Q6HP PRN PO 04/14/24 18:30 Laboratory Results Laboratory Tests 04/16/24 05:22 Chemistry Test 04/16/24 05:22 Albumin 3.4 g/dL (3.2-4.8) Calcium Level 8.7 mg/dL (8.7-10.4) Total Protein 5.8 g/dL (5.7-8.2) LFT Test 04/16/24 05:22 Alanine Aminotransferase (ALT) 20 U/L (7-40) Alkaline Phosphatase 154 U/L (46-116) H Aspartate Amino Transferase (AST) 30 U/L (13-40) Total Bilirubin 1.9 mg/dL (0.2-1.0) H Urinalysis Test 04/14/24 10:20 Urine Color Yellow (Yellow) Urine Clarity Clear (Clear) Urine pH 5.0 (5.0-9.0) Urine Specific [place] 1.022 (1.001-1.035) Urine Protein Negative (Negative) Urine Ketones Negative (Negative) Urine Blood Negative /uL (Negative) Urine Nitrite Negative (Negative) Urine Bilirubin Negative (Negative) Urine Urobilinogen Normal mg/dL (Negative) Urine Leukocyte Esterase Negative /uL (Negative) Urine RBC <1 /hpf (0 - 3) Urine Microscopic WBC < 1 /HPF (0-3) Urine Squamous Epithelial Cells Few /hpf (<5) Urine Bacteria None seen /hpf (None Seen) Urine Hyaline Casts Few /lpf (0 - 2) Urine Mucus Few (None Seen) Urine Glucose Normal mg/dL (Normal) Microbiology Microbiology Date/Time Source Procedure Growth Status 04/15/24 09:16 Nose MRSA Screen - Final Complete 04/14/24 10:45 Blood Blood Culture - Preliminary NO GROWTH AFTER 48 HOURS OF INCUBATION. Resulted 04/14/24 10:20 Voided Urine Urine Culture - Final Complete Assessment/Plan Assessment/Plan * Acute systolic/diastolic heart failure: c angio in am * History of pacemaker. * Chronic obstructive pulmonary disease. * Dementia. * Atrial fibrillation with secondary hypercoagulable state. * Hypothyroidism. Plan discussed with: Patient Date of Service: Apr 16, 2024 Billing Provider: MIGUEL ANGEL CARNES MD Common Visit Codes: [id number] INP/OBS CARE(HIGH) MIGUEL ANGEL CARNES MD Apr 16, 2024 20:23
[2024-04-17] VITALS (7 sets, daily range): BP systolic 94–107; BP diastolic 63–73; PULSE 67–90; RESP 16–18; TEMP 36.4; O2SAT 95–99
== END 2024-04-17 16:16 | disposition home or self-care (01) | DRG 286 ==
LOC: ER 07:43 → EDBD 07:43 → OVERFLOW 18:25 → WEST WING 04-15 09:02 → TELE-WESTW 04-15 15:22
PROVIDERS: ADMIT Hospitalist; ATTEND Hospitalist
PROC: 4A023N7 Measurement of Cardiac Sampling and Pressure, Left Heart, Percutaneous Approach (ICD-10-PCS; principal; 2024-04-16)
PROC: B211YZZ Fluoroscopy of Multiple Coronary Arteries using Other Contrast (ICD-10-PCS; 2024-04-16)
PROC: B215YZZ Fluoroscopy of Left Heart using Other Contrast (ICD-10-PCS; 2024-04-16)
DX: I50.41 Acute combined systolic (congestive) and diastolic (congestive) heart failure (principal); G93.41 Metabolic encephalopathy; J96.01 Acute respiratory failure with hypoxia; D68.69 Other thrombophilia; E87.20 Acidosis, unspecified; F02.80 Dementia in other diseases classified elsewhere, unspecified severity, without behavioral disturbance, psychotic disturbance, mood disturbance, and anxiety; J44.89 Other specified chronic obstructive pulmonary disease; I48.91 Unspecified atrial fibrillation; E03.9 Hypothyroidism, unspecified; Z88.0 Allergy status to penicillin; G30.9 Alzheimer's disease, unspecified; Z86.73 Personal history of transient ischemic attack (TIA), and cerebral infarction without residual deficits; Z95.0 Presence of cardiac pacemaker
CPT/HCPCS: 36415; 70450; 71045; 80048; 80053; 81001; 82962; 83605; 83880; 84484; 85025; 87040; 87081; 87086; 93005; 93458; 97110; 97116; 97163; 99152; 99291; G0378; J2003; J2250; J3490; J7060

== ENCOUNTER → 2024-04-23 | Outpatient (CLI) | payer MEDICARE, OTHER ==
--- NOTE | 2024-04-23 12:54 | DVH ---
EXAM: XY CHEST TWO VIEWS ROUTINE CLINICAL HISTORY: SOB COMPARISON: XY CHEST TWO VIEWS ROUTINE on DOS: 04/10/24, XY CHEST TWO VIEWS ROUTINE on DOS: 05/12/23 TECHNIQUE: Frontal and lateral view of the chest was obtained FINDINGS: Lines and Tubes: There is a dual lead pacer in the left chest wall. Lungs: No focal consolidation. Pleura: No effusion. No pneumothorax. Cardiomediastinal contours:Cardiomegaly. Pulmonary vasculature: Prominent central pulmonary vascular. Bones: No acute osseous abnormality. IMPRESSION: 1. Cardiomegaly with pulmonary vascular congestion. HS:Y
== END | disposition home or self-care (01) ==
LOC: Rad HDHVI 12:24
PROVIDERS: ATTEND Internal Medicine Cardiovascular Disease
DX: J98.4 Other disorders of lung (principal); I51.7 Cardiomegaly; R06.02 Shortness of breath
CPT/HCPCS: 71046

== ENCOUNTER 2024-04-29 08:30 | Inpatient (IN) | payer MEDICARE, OTHER ==
[~2024-04-29] VITALS: Ht 177.8 cm; Wt 68.5 kg
[2024-04-29 08:40] VITALS: PULSE 100; RESP 21; O2SAT 98
--- NOTE | 2024-04-29 08:52 | ED.PDOC ---
HPI Comments 83 y/o M, BIBA with PMHX of AFib, Alzheimer, Dementia, Anemia, COPD, CVA, and TIA presents to the ED for CC of chest pain. Per EMS, patient is coming from an in care facility where emergency medical personal was contacted due to patient exhibiting shortness of breath with associated palpitations. EMS states, patient was answering questions appropriately prior to arrival to ED. Patient is confused upon baseline. Patient unable to answer questions at this time. No other symptoms or PMHX obtainable due to patients condition. Chief Complaint: Palpitations Time Seen by MD: 08:30 Primary Care Provider: UNKNOWN Reviewed Notes: Nurses Notes, Poultry Tender Notes, Medications, Allergies Allergies: Coded Allergies: Penicillins (Verified Allergy, Severe, 04/22/18) Home Meds Active Scripts Furosemide (Lasix) 20 Mg Tb, 1 TAB PO QAM for 30 Days, #30 TAB 3 Refills Prov:ANTHONY PINEDA MD 04/13/24 Reported Medications Brinzolamide (Azopt) 1 % Ju[place], 1 % OP UD for 30 Days, #10 04/05/24 Cholecalciferol (D3 SUPER STRENGTH) 2,000 Unit Cap, 1 CAP PO DAILY for 28 Days, #28 04/05/24 Omeprazole (Omeprazole Dr) 20 Mg Cap, 1 CAP PO DAILY for 28 Days, #28 04/05/24 Calcium Citrate-Vitamin D (Comal Calcium/Vitamin D) Vit D Tab, 1 TAB PO DAILY for 28 Days, #28 04/05/24 Mirtazapine (Mirtazapine Oral Disintegrating Tablet) 7.5 Mg Tab, 1 TAB PO DAILY for 28 Days, #28 04/05/24 Levothyroxine Sodium (Levothyroxine Sodium) 100 Mcg Tab, 1 TAB PO DAILY for 28 Days, #28 04/05/24 Brimonidine Tartrate (Brimonidine Tartrate) 0.15 % Elizabet, 1 DROP OP TID for 30 Days, #10 04/03/24 Apixaban Base (ELIQUIS) 5 Mg Tab, 1 TAB PO BID for 28 Days, #56 04/22/18 Sotalol Hcl (Sotalol Hcl) 80 Mg Tab, 1 TAB PO DAILY, #60 TAB 5 Refills 05/12/17 Furosemide (Lasix) 40 Mg Tab, 0.5 TAB PO DAILY for 30 Days, #15 05/12/17 Latanoprost (LATANOPROST) 0.005 % Elizabet, 1 DROP EACHEYE HS, #7.5 ML 3 Refills 10/31/14 Dorzolamide-Timolol (Dorzolamide Hcl/Timolol M) 1 Ml Elizabet, 1 DROP EACHEYE BID, #10 ML 6 Refills 10/31/14 Past Medical History PAST MEDICAL HISTORY: AFIB, Alzheimer, Anemia, COPD, CVA, Dementia, Thyroid, TIA Surgical History: Pacemaker Family History Family History: Reviewed,noncontributory to illness, Unknown Social History Smoker: Non-Smoker Alcohol: Denies ETOH Use Drugs: Denies Drug Use Lives In: [facility] Constitutional: denies: chills, diaphoresis, fatigue, fever, malaise, sweats, weakness, others EENTM: denies: blurred vision, double vision, ear bleeding, ear discharge, ear drainage, ear pain, ear ringing, eye pain, eye redness, hearing loss, mouth pain, mouth swelling, nasal discharge, nose bleeding, nose congestion, nose pain, photophobia, tearing, throat pain, throat swelling, voice changes, others Respiratory: reports: shortness of breath; denies: cough, hemoptysis, orthopnea, SOB at rest, SOB with excertion, stridor, wheezing, others Cardiovascular: reports: palpitations; denies: chest pain, dizzy spells, diaphoresis, Dyspnea on exertion, edema, irregular heart beat, left arm pain, lightheadedness, PND, syncope, others Gastrointestinal: denies: abdomen distended, abdominal pain, blood streaked bowels, constipated, diarrhea, dysphagia, difficulty swallowing, hematemesis, melena, nausea, poor appetite, poor fluid intake, rectal bleeding, rectal pain, vomiting, others Genitourinary: denies: burning, dysuria, flank pain, frequency, hematuria, incontinence, penile discharge, penile sore, pain, testicle pain, testicle swelling, urgency, others Neurological: denies: dizziness, fainting, headache, left sided numbness, left sided weakness, numbness, paresthesia, pre-existing deficit, right sided numbness, right sided weakness, seizure, speech problems, tingling, tremors, weakness, others Musculoskeletal: denies: back pain, gout, joint pain, joint swelling, muscle pain, muscle stiffness, neck pain, others Integumetry: denies: bruises, change in color, change in hair/nails, dryness, laceration, lesions, lumps, rash, wounds, others Allergic/Immunocompromised: denies: Difficulty Healing, Frequent Infections, Hives, Itching, others Hematologic/Lymphatic: denies: anemia, blood clots, easy bleeding, easy bruising, swollen glands, others Endocrine: denies: excessive hunger, excessive sweating, excessive thirst, excessive urination, flushing, intolerance to cold, intolerance to heat, unexplained weight gain, unexplained weight loss, others Psychiatric: denies: anxiety, bipolar disorder, depression, hopeless, panic disorder, schizophrenia, sleepless, suicidal, others All Other Systems: Reviewed and Negative Physical Exam General Appearance: Moderate Distress HEENT: Normal ENT Inspection, Pharynx Normal, TMs Normal Neck: Full Range of Motion, Non-Tender, Normal, Normal Inspection Respiratory: Chest Non-Tender, Lungs Clear, No Accessory Muscle Use, No Respiratory Distress, Normal Breath Sounds Cardiovascular: Irregular Breast Exam: Deferred Gastrointestinal: No Organomegaly, Non Tender, No Pulsatile Mass, Normal Bowel Sounds, Soft Genitalia: Deferred Pelvic: Deferred Rectal: Deferred Extremities: No pedal edema Musculoskeletal : Apperance: Normal Neurologic: Disoriented, No Motor Deficits, No Sensory Deficits Cerebellar Function: NOT DONE Reflexes: NOT DONE Skin: Normal Color Peripheral Pulses: 3+ Radial (R), 3+ Radial (L) Lymphatic: No Adenopathy Was a procedure done? Was a procedure done?: No CP Differential Dx Differential Diagnosis: A-fib, A-Flutter, Angina, Anxiety / Panic Attack, Atrial Dysrhythmia, Electrolyte Disorder Differential Diagnosis: HTN Essential, HTN Accelerated Differential Diagnosis: Angina, Chest Wall Pain, Costochondritis, Pneumonia X-Ray, Labs, Meds, VS Vital Signs Date Time Temp Pulse Resp B/P (MAP) Pulse Ox O2 Delivery O2 Flow Rate FiO2 04/29/24 08:40 100 21 113/87 (96) 98 04/29/24 08:40 100 21 98 Nasal Cannula* 2 28 04/29/24 08:34 121 04/29/24 08:31 97.7 120 20 137/83 (101) 96 Lab Test 04/29/24 08:54 Range/Units White Blood Count 5.1 4.4-10.8 10^3/uL Red Blood Count 4.11 L 4.5-5.90 10^6/uL Hemoglobin 11.8 L 13.5-17.5 g/dL Hematocrit 36.0 L 41.0-53.0 % Mean Corpuscular Volume 87.7 80.0-100.0 fL Mean Corpuscular Hemoglobin 28.7 28.0-32.0 pg Mean Corpuscular Hemoglobin Concent 32.7 32.0-36.0 g/dL Red Cell Distribution Width 21.0 H 11.8-14.3 % Platelet Count 215 140-450 10^3/uL Mean Platelet Volume 8.2 6.9-10.8 fL Neutrophils (%) (Auto) 72.2 37.0-80.0 % Lymphocytes (%) (Auto) 11.7 10.0-50.0 % Monocytes (%) (Auto) 12.1 H 0.0-12.0 % Eosinophils (%) (Auto) 2.6 0.0-7.0 % Basophils (%) (Auto) 1.4 0.0-2.0 % Neutrophils # (Auto) 3.7 1.6-8.6 10 ^3/uL Lymphocytes # (Auto) 0.6 0.4-5.4 10 ^3/uL Monocytes # (Auto) 0.6 0-1.3 10 ^3/uL Eosinophils # (Auto) 0.1 0-0.8 10 ^3/uL Basophils # (Auto) 0.1 0-0.2 10 ^3/uL Nucleated Red Blood Cells 0.0 % Sodium Level 139 136-145 mmol/L Potassium Level 3.5 3.5-5.1 mmol/L Chloride Level 108 H 98-107 mmol/L Carbon Dioxide Level 22 20-31 mmol/L Anion Gap 9 5-15 Blood Urea Nitrogen 15 9-23 mg/dL Creatinine 0.91 0.700-1.30 mg/dL Glomerular Filtration Rate Calc 83 >90 mL/min BUN/Creatinine Ratio 16.5 10.0-20.0 Serum Glucose 89 74-106 mg/dL Calcium Level 9.2 8.7-10.4 mg/dL Troponin I High Sensitivity 14 </=54 ng/L [facility] [address] [facility] [address] Ph: [phone] DIAGNOSTIC IMAGING Diagnostic Imaging Report : [id number] Signed PATIENT: CAMILLE CRAIN ACCT: [id number] UNIT: [id number] : 1940 LOC: ER ROOM / BED: / AGE / SEX: 83 / M ADM STATUS: REG ER SERVICE 8 ORDERING PHYSICIAN: ODALIS CHAVES MD PROCEDURE(s): CXRP - CHEST PORTABLE REASON: sob ORDER NUMBER(s): [id number], ACCESSION NUMBER(s): [id number] XY CHEST PORTABLE, HISTORY: sob COMPARISON: XY CHEST PORTABLE on DOS: 04/14/24, XY CHEST PORTABLE on DOS: , XY CHEST PORTABLE on DOS: 11/08/22 XY CHEST PORTABLE on DOS: 04/14/24, XY CHEST PORTABLE on DOS: 04/13/24, XY CHEST PORTABLE on DOS: 11/08/22 TECHNICAL DATA: 1 view of the chest was obtained. FINDINGS: Lines and tubes: A cardiac pacer is seen Cardiomediastinal silhouette: Enlarged Pulmonary vasculature: normal Lung expansion: normal Lung airspace: Patchy bibasilar opacities. Lung interstitium: Prominent Pleura: normal Pneumothorax: no Bones: Unremarkable Other: no IMPRESSION: Cardiomegaly with patchy bibasilar opacities. ATED BY: JOAQUÍN ZENDEJAS MD DICTATED DATE/TIME: 04/29/24909 SIGNED BY: JOAQUÍN ZENDEJAS MD SIGNED DATE/TIME: 04/29/24909 CC: Patient disoriented. Tachycardia. Irregular. Saturation pristine on room air. Unable to get history from the patient. EKG reviewed does show irregular rhythm. Possible LVH. No family at bedside. Continue cardiac monitoring. Time of 1ST Reevaluation: 09:00 Reevaluation 1ST: Unchanged Patient Education/Counseling: Diagnosis, Treatment Family Education/Counseling: No Family Present Departure 1 Departure Time of Disposition: 08:58 Impression: Primary Impression: Metabolic encephalopathy Additional Impression: Atrial fibrillation Qualified Codes: I48.0 - Paroxysmal atrial fibrillation Disposition: ADMITTED INPATIENT Admit to: Med Surg Condition: Guarded Critical Care Note Critical Care Time?: Yes (90 min-critical care time only) Critical care comment: Altered atrial fibrillation Stability Stability form required: No Heart Score Heart Score: Heart Score Response (Comments) Value History Slightly Suspicious 0 EKG Normal 0 Age >65 2 Risk Factors >3 or Hx ASHD 2 Troponin Normal limit 0 Total 4 I personally scribed for ODALIS CHAVES MD ([email or web address]) on 04/29/24 at 08:52. Electronically submitted by Anuja Limon ([email or web address]). I personally scribed for ODALIS CHAVES MD ([email or web address]) on 04/29/24 at 09:38. Electronically submitted by Anuja Limon ([email or web address]). ODALIS CHAVES MD Apr 29, 2024 08:52
--- NOTE | 2024-04-29 09:12 | DVH ---
XY CHEST PORTABLE, HISTORY: sob COMPARISON: XY CHEST PORTABLE on DOS: 04/14/24, XY CHEST PORTABLE on DOS: 04/13/24, XY CHEST PORTABLE o n DOS: 11/08/22 XY CHEST PORTABLE on DOS: 04/14/24, XY CHEST PORTABLE on DOS: 04/13/24, XY CHEST PORTABLE on DOS: TECHNICAL DATA: 1 view of the chest was obtained. FINDINGS: Lines and tubes: A cardiac pacer is seen Cardiomediastinal silhouette: Enlarged Pulmonary vasculature: normal Lung expansion: normal Lung airspace: Patchy bibasilar opacities. Lung interstitium: Prominent Pleura: normal Pneumothorax: no Bones: Unremarkable Other: no IMPRESSION: Cardiomegaly with patchy bibasilar opacities.
[2024-04-29 09:15] LABS: Potassium 3.5 mmol/L (3.5-5.1); Sodium 139 mmol/L (136-145)
[2024-04-29 09:16] LABS: Anion Gap 9 (5-15); Calcium 9.2 mg/dL (8.7-10.4); Carbon Dioxide 22 mmol/L (20-31)
[2024-04-29 09:18] LABS: Chloride 108 mmol/L (98-107)
[2024-04-29 09:19] LABS: Basophils # (auto) 0.1 10 ^3/uL (0-0.2); Basophils % (auto) 1.4 % (0.0-2.0); Eosinophils # (auto) 0.1 10 ^3/uL (0-0.8); Eosinophils % (auto) 2.6 % (0.0-7.0); Hemoglobin 11.8 g/dL (13.5-17.5); Lymphocytes # (auto) 0.6 10 ^3/uL (0.4-5.4); Lymphocytes % (auto) 11.7 % (10.0-50.0); Mean Corpuscular Hemoglobin 28.7 pg (28.0-32.0); Mean Corpuscular Hgb Conc. 32.7 g/dL (32.0-36.0); Mean Corpuscular Volume 87.7 fL (80.0-100.0); Monocytes # (auto) 0.6 10 ^3/uL (0-1.3); Monocytes % (auto) 12.1 % (0.0-12.0); Neutrophils # (auto) 3.7 10 ^3/uL (1.6-8.6); Neutrophils % (auto) 72.2 % (37.0-80.0); Platelet Count (auto) 215 10^3/uL (140-450); Red Blood Cells 4.11 10^6/uL (4.5-5.90); White Blood Cell 5.1 10^3/uL (4.4-10.8)
[2024-04-29 09:21] LABS: BUN/Creatinine Ratio 16.5 (10.0-20.0); Blood Urea Nitrogen 15 mg/dL (9-23); Glucose 89 mg/dL (74-106)
--- NOTE | 2024-04-29 12:27 | DVHHP2 ---
History of Present Illness Reason for Visit: Palpitations History of Present Illness Jose Antonio Vargas is an 83-year-old male with past medical history of COPD, AFib, CVA, thyroid disease, Alzheimer's, dementia, TIA, EGD, and pacemaker who presents to the ED with palpitations, shortness of breath, and chest pain x1 day. Patient reports that he uses oxygen on and off at the assisted living facility that he is at [facility]. Patient also reports that he walks with a front wheel walker. He reports that he is unsure if he takes medications. Upon examination patient currently denies chest pain or shortness of breath or palpitations. Patient also denies any nausea, vomiting, diarrhea, fever or chills. Pulmonary: COPD DIRECTOR OF HEALTH EDUCATION: Other (CVA, dementia, Alzheimer's, and TIA) Endocrine: Hypothyroidism Past Surgical History: Other (Pacemaker and EGD) Family History: None Smoke: No ALCOHOL: none Drugs: None Lives: Other Domestic Violence: Neg Review of Systems Respiratory: Shortness of breath Cardiovascular: Chest Pain, Palpitations Allergies: Coded Allergies: Penicillins (Verified Allergy, Severe, 04/22/18) Medications Current Medications Medications Dose Ordered Sig/Geneva Route Start Time Stop Time Status Last Admin Dose Admin Aspirin 81 mg DAILY PO 04/30/24 10:00 UNV Atorvastatin Calcium 40 mg HS PO 04/29/24 22:00 UNV Morphine Sulfate 2 mg Q30MP PRN IV 04/29/24 12:30 UNV Acetaminophen 650 mg Q6HP PRN PO 04/29/24 12:30 UNV Nitroglycerin 0.4 mg Q5MINP PRN SL 04/29/24 12:30 UNV Ondansetron HCl 4 mg Q4HP PRN IV 04/29/24 12:30 UNV Nitroglycerin 0.4 mg Q5MINP PRN SL 04/29/24 12:30 UNV Morphine Sulfate 2 mg Q30M PRN IV 04/29/24 12:30 UNV Ceftriaxone Sodium 50 ml @ 100 mls/hr DAILY@09 IV 04/30/24 09:00 UNV Azithromycin 250 ml @ 125 mls/hr DAILY IV 04/30/24 10:00 UNV Exam Vital Signs Vital Signs Date Time Temp Pulse Resp B/P (MAP) Pulse Ox O2 Delivery O2 Flow Rate FiO2 04/29/24 12:00 114 20 97/70 (79) 97 04/29/24 10:00 97.7 97.7 04/29/24 08:40 Nasal Cannula* 2 28 General Appearance: Alert, Oriented X3, Cooperative, No acute distress HEENT: Atraumatic, PERRLA, EOMI, Mucous membr. moist/pink Respiratory: Normal air movement Cardiovascular: Normal S1, Normal S2, No murmurs Abdominal: Normal bowel sounds, Soft, No tenderness, No hepatospenomegaly, No masses Extremities: No cyanosis Neuro: Normal speech, Normal tone, Sensation intact Psych/Mental Status: Mental status NL, Mood NL Labs/Xrays Labs Test 04/29/24 09:59 04/29/24 08:54 Range/Units Troponin I High Sensitivity 13 </=54 ng/L White Blood Count 5.1 4.4-10.8 10^3/uL Red Blood Count 4.11 L 4.5-5.90 10^6/uL Hemoglobin 11.8 L 13.5-17.5 g/dL Hematocrit 36.0 L 41.0-53.0 % Mean Corpuscular Volume 87.7 80.0-100.0 fL Mean Corpuscular Hemoglobin 28.7 28.0-32.0 pg Mean Corpuscular Hemoglobin Concent 32.7 32.0-36.0 g/dL Red Cell Distribution Width 21.0 H 11.8-14.3 % Platelet Count 215 140-450 10^3/uL Mean Platelet Volume 8.2 6.9-10.8 fL Neutrophils (%) (Auto) 72.2 37.0-80.0 % Lymphocytes (%) (Auto) 11.7 10.0-50.0 % Monocytes (%) (Auto) 12.1 H 0.0-12.0 % Eosinophils (%) (Auto) 2.6 0.0-7.0 % Basophils (%) (Auto) 1.4 0.0-2.0 % Neutrophils # (Auto) 3.7 1.6-8.6 10 ^3/uL Lymphocytes # (Auto) 0.6 0.4-5.4 10 ^3/uL Monocytes # (Auto) 0.6 0-1.3 10 ^3/uL Eosinophils # (Auto) 0.1 0-0.8 10 ^3/uL Basophils # (Auto) 0.1 0-0.2 10 ^3/uL Nucleated Red Blood Cells 0.0 % Sodium Level 139 136-145 mmol/L Potassium Level 3.5 3.5-5.1 mmol/L Chloride Level 108 H 98-107 mmol/L Carbon Dioxide Level 22 20-31 mmol/L Anion Gap 9 5-15 Blood Urea Nitrogen 15 9-23 mg/dL Creatinine 0.91 0.700-1.30 mg/dL Glomerular Filtration Rate Calc 83 >90 mL/min BUN/Creatinine Ratio 16.5 10.0-20.0 Serum Glucose 89 74-106 mg/dL Calcium Level 9.2 8.7-10.4 mg/dL XY CHEST PORTABLE, HISTORY: sob COMPARISON: XY CHEST PORTABLE on DOS: 04/14/24, XY CHEST PORTABLE on DOS: 04/13/24, XY CHEST PORTABLE on DOS: 11/08/22 XY CHEST PORTABLE on DOS: 04/14/24, XY CHEST PORTABLE on DOS: 04/13/24, XY CHEST PORTABLE on DOS: 11/08/22 TECHNICAL DATA: 1 view of the chest was obtained. FINDINGS: Lines and tubes: A cardiac pacer is seen Cardiomediastinal silhouette: Enlarged Pulmonary vasculature: normal Lung expansion: normal Lung airspace: Patchy bibasilar opacities. Lung interstitium: Prominent Pleura: normal Pneumothorax: no Bones: Unremarkable Other: no IMPRESSION: Cardiomegaly with patchy bibasilar opacities. Assessment/Plan Assessment/Plan Assessment Palpitations Anemia Sinus tach likely due to pneumonia Acute respiratory failure Oxygen dependence ? Dehydration History of COPD History of AFib History of CVA History of thyroid disease History of Alzheimer's History of dementia History of TIA History of EGD History of pacemaker Plan Admit to tele Cardiac consult P.r.n. respiratory treatments Last EF on 11/09/2022 EF 50% EKG noted Chest x-ray noted Troponin negative x2 UA ACS workup ACS protocol A1c IV antibiotics-ceftriaxone + azithromycin Chest x-ray in a.m. Diet IV fluids for tachycardia possibly dehydration Supplementary oxygen Resume home medications Patient on Eliquis-resumed Plan discussed with: Patient My Orders Orders - DREA AMEZQUITA Procedure Category Date Status Time * Cardiology Consult CONS 04/29/24 Transmitted 12:18 Admit ADMIT 04/29/24 Transmitted 12:18 Code Status CODE 04/29/24 Transmitted 12:18 Vital Signs CONNOR 04/29/24 In Process 12:18 Care Team Coordinator Scheduler CONNOR 04/29/24 In Process 12:18 Cardiac DIET 04/29/24 Transmitted Diet-2gna,Lofat,Lochol Lunch Aspirin Tablet PHA 04/30/24 Logged 10:00 Atorvastatin (Lipitor) PHA 04/29/24 Logged 22:00 Morphine Sulfate PHA 04/29/24 Logged Injection 12:30 Acetaminophen Tablet PHA 04/29/24 Logged (Tylenol Tablet) 12:30 Complete Blood Count LAB 04/30/24 Verified 04:00 Basic Metabolic Panel LAB 04/30/24 Verified 04:00 Magnesium LAB 04/30/24 Verified 04:00 Echo 2d Mode Cardiac US 04/29/24 Logged DOP 12:18 Nitroglycerin PHA 04/29/24 Logged Sublingual (Ntrostat 12:30 Ondansetron Hcl PHA 04/29/24 Logged (Zofran) 12:30 Electrocardigram EKG 04/30/24 Logged 04:00 Troponin-I Hs LAB 04/29/24 Logged 12:18 Cardiac CONNOR 04/29/24 In Process Rehabilitation - Outpa Nitroglycerin [facility] 04/29/24 Logged Sublingual (Ntrostat 12:30 Morphine Sulfate PHA 04/29/24 Logged Injection 12:30 Stat Ekg For Chest [facility] 04/29/24 In Process Pain 12:18 Notify Of Changes [facility] 04/29/24 In Process From Base 12:18 Knowledge Analyst For [facility] 04/29/24 In Process 24 Hours 12:18 Emergency Dysrhythmia [facility] 04/29/24 In Process Protocol 12:18 Rhythm Strips Once [facility] 04/29/24 In Process Every Shift 12:18 Oxygen By Nasal RT 04/29/24 Transmitted Cannula 12:18 Thyroid Stimulating LAB 04/29/24 Logged Hormone 12:18 Chest Xray 1 View XY 04/30/24 Logged 04:00 Ceftriaxone 1gm/50ml PHA 04/30/24 Logged D5w (Rocephin) 09:00 Ceftriaxone 1gm/50ml PHA 04/29/24 Logged D5w (Rocephin) 12:30 Azithromycin 500mg/ PHA 04/30/24 Logged 250ml (Zithromax 50 10:00 Azithromycin 500mg/ PHA 04/29/24 Logged 250ml (Zithromax 50 12:30 Lipid Panel LAB 04/29/24 Logged 12:21 Hemoglobin A1c LAB 04/29/24 Transmitted 12:23 Magnesium LAB 04/29/24 Verified 12:23 Magnesium Guy PHA 04/29/24 Verified 12:30 Date of Service: Apr 29, 2024 Billing Provider: DREA AMEZQUITA Common Visit Codes: [id number] INP/OBS CARE (HIGH) DREA AMEZQUITA Apr 29, 2024 12:26
[2024-04-29] MEDS ORDERED: NITROGLYCERIN 0.4 MG SL TAB SL PRN ×2 (12:30)
[2024-04-29] MEDS ORDERED: MAGNESIUM SULFATE 1GM/100ML 100 ML IV ONE (12:30)
[2024-04-29] MEDS ORDERED: cefTRIAXone 1GM/50ML D5W 50 ML IV ONE (12:30)
[2024-04-29] MEDS ORDERED: MORPHINE SULFATE INJ 2 MG/ml SYRG IV PRN (12:30)
[2024-04-29] MEDS: AZITHROMYCIN 500MG/ 250ML 250 ML IV ONE (12:39)
[2024-04-29 12:56] LABS: Triglycerides 85 mg/dL (< 150)
[2024-04-29 12:57] LABS: LDL Cholesterol 73 mg/dL (< 100)
[2024-04-29 12:58] LABS: Cholesterol 123 mg/dL (< 200)
[2024-04-29 13:01] LABS: HDL Cholesterol 38 mg/dL (40-59)
[2024-04-29] MEDS ORDERED: BRINZOLAMIDE 1% OP SCH (14:00)
[2024-04-29 14:24] VITALS: PULSE 98; RESP 18; O2SAT 99
[2024-04-29] MEDS: cefTRIAXone 1GM/50ML D5W 50 ML IV ONE (14:28)
[2024-04-29] MEDS: SODIUM CHLORIDE 0.9% 1,000 ML IV SCH (14:59)
[2024-04-29] MEDS: MAGNESIUM SULFATE 1GM/100ML 100 ML IV ONE (15:13)
[2024-04-29] MEDS: BRIMONIDINE 0.2% OPTH Soln 5ml EACHEYE SCH (15:23)
[2024-04-29 18:12] VITALS: O2SAT 96
--- NOTE | 2024-04-29 19:41 | ECG ---
[facility] Test Date: 2024-04-29 Test Time: 09:36:10 Pat Name: CAMILLE CRAIN Department: er Room: 0250T Gender: M [place] Operator: rhianna : 1940 Requested By: ODALIS CHAVES Order Number: [id number] Reading MD: Jean Pierre Calero Measurements Intervals Harris Rate: 105 P: 0 [place]: 0 QRS: 75 QRSD: 104 T: 91 QT: 407 QTc: 539 Interpretive Statements Afib/flut and V-paced complexes No further rhythm analysis attempted due to paced rhythm Nonspecific repol abnormality, diffuse leads Electronically Signed On 05-01-2024 17:59:01 PST by Jean Pierre Calero Please click the below link to view image of tracing.
[2024-04-29 19:50] VITALS: PULSE 111; RESP 18; O2SAT 98
[2024-04-29] MEDS: DORZOLAM-TIMOLOL(2/0.5%) OPTH(EYE) SOLN 10ML EACHEYE SCH (22:00)
[2024-04-29] MEDS: LATANOPROST 0.005 % OPTH(EYE) SOL 2.5ML EACHEYE SCH (22:00)
[2024-04-29] MEDS: ATORVASTATIN 20 MG TAB PO SCH (22:29)
[2024-04-29] MEDS: APIXABAN 5 MG TAB PO SCH (22:29)
[2024-04-29 23:35] VITALS: BP 139/58; PULSE 73; TEMP 98.1; O2SAT 98
[2024-04-29 23:43] VITALS: PULSE 100; RESP 18; O2SAT 95
[2024-04-30] VITALS (10 sets, daily range): BP systolic 97–139; BP diastolic 6–79; PULSE 68–115; RESP 18–22; TEMP 97.4–98.1; O2SAT 94–100
[2024-04-30 03:58] LABS: Urine Bacteria None Seen /hpf (None Seen)
[2024-04-30 04:06] LABS: Urine Blood Negative /uL (Negative); Urine Clarity Clear (Clear); Urine Color Yellow (Yellow); Urine Protein, UAD TRACE (Negative); Urine Specific Gravity 1.024 (1.001-1.035); Urine Squamous Epithelial Cell FEW /hpf (<5); Urine Urobilinogen Normal (Negative); Urine WBC 2 /HPF (0-3); Urine pH 5.5 (5.0-9.0)
[2024-04-30] MEDS: METOPROLOL TARTRATE 25 MG TAB PO SCH (04:51)
--- NOTE | 2024-04-30 05:38 | DVH ---
EXAM: XR Chest, 1 View CLINICAL INDICATION: pna TECHNIQUE: Frontal view of the chest. COMPARISON: XY CHEST PORTABLE on DOS: 04/29/24, XY CHEST PORTABLE on DOS: 04/14/24, XY CHEST PORTABLE on DOS: 04/13/24, XY CHEST PORTABLE on DOS: 11/08/22 FINDINGS: LUNGS AND PLEURAL SPACES: Moderate congestive heart failure. No consolidation. No pneumothorax. HEART: Unremarkable. No cardiomegaly. MEDIASTINUM: Unremarkable. Normal mediastinal contour. BONES/JOINTS: Unremarkable. No acute fracture. TUBES, LINES AND DEVICES: Left-sided cardiac pacemaker. OTHER FINDINGS: . IMPRESSION: Moderate congestive heart failure.
[2024-04-30] MEDS: PANTOPRAZOLE 40 MG TAB PO SCH (06:14)
[2024-04-30] MEDS: LEVOTHYROXINE SODIUM 100 MCG TAB PO SCH (06:14)
[2024-04-30 06:50] LABS: Potassium 4.2 mmol/L (3.5-5.1); Sodium 138 mmol/L (136-145)
[2024-04-30 06:51] LABS: Anion Gap 8 (5-15); Calcium 8.9 mg/dL (8.7-10.4); Carbon Dioxide 21 mmol/L (20-31)
[2024-04-30 06:56] LABS: BUN/Creatinine Ratio 17.9 (10.0-20.0); Blood Urea Nitrogen 15 mg/dL (9-23); Glucose 81 mg/dL (74-106); Magnesium 2.3 mg/dL (1.6-2.6)
[2024-04-30 07:05] LABS: Chloride 109 mmol/L (98-107)
[2024-04-30 07:07] LABS: Basophils # (auto) 0.1 10 ^3/uL (0-0.2); Basophils % (auto) 1.3 % (0.0-2.0); Eosinophils # (auto) 0.1 10 ^3/uL (0-0.8); Eosinophils % (auto) 2.1 % (0.0-7.0); Hematocrit 33.7 % (41.0-53.0); Hemoglobin 11.4 g/dL (13.5-17.5); Lymphocytes # (auto) 0.7 10 ^3/uL (0.4-5.4); Lymphocytes % (auto) 11.9 % (10.0-50.0); Mean Corpuscular Hemoglobin 29.9 pg (28.0-32.0); Mean Corpuscular Hgb Conc. 33.8 g/dL (32.0-36.0); Mean Corpuscular Volume 88.3 fL (80.0-100.0); Monocytes # (auto) 0.6 10 ^3/uL (0-1.3); Monocytes % (auto) 10.4 % (0.0-12.0); Neutrophils # (auto) 4.1 10 ^3/uL (1.6-8.6); Neutrophils % (auto) 74.3 % (37.0-80.0); Platelet Count (auto) 185 10^3/uL (140-450); Red Blood Cells 3.81 10^6/uL (4.5-5.90); Red Cell Distribution Width 20.6 % (11.8-14.3); White Blood Cell 5.6 10^3/uL (4.4-10.8)
--- NOTE | 2024-04-30 07:10 | ECG ---
[facility] Test Date: 2024-04-29 Test Time: 08:34:12 Pat Name: CAMILLE CRAIN Department: er Room: [facility] Gender: M Panel Assembler: rhianna : 1940 Requested By: ODALIS CHAVES Order Number: [id number] Reading MD: Jean Pierre Calero Measurements Intervals [place] Rate: 121 P: 0 [place]: 0 QRS: 63 QRSD: 130 T: 112 QT: 350 QTc: 497 Interpretive Statements Atrial fibrillation LVH with secondary repolarization abnormality ST elevation, consider lateral injury Borderline prolonged QT interval Electronically Signed On 05-01-2024 17:58:38 PST by Jean Pierre Calero Please click the below link to view image of tracing.
--- NOTE | 2024-04-30 09:19 | DVHPN2 ---
Progress Note - Dictate Date Seen: Apr 29, 2024 Medical Necessity Reason Pt with a Central, PICC or Fol: No Subjective THIS IS THE 3rd ADMISSION FOR CHEST PAIN AND SOB PTs CORONARIES ARE CLEAN AND EF IS NORMAL CONSIDER HOSPICE PROGRESSIVE SX OF SOB EF 55% SEVERE TR SEVERE MR CXR MILD SX OF CEPHALIZATION PMH HX OF OBS AFIB HYPERCOAGULABLE STATE CVA REACTIVE AIRWAY DISEASE ANEMIA STEATOSIS RENAL CYST ANEMIA HYPOKALEMIA LHC NORMAL CORONARIES EF55% LVEDP 8 mmHg LVSP 90mmHg NO GRADIENT ACREOSS AV IVF FILTER HIS CHF SECONDARY TO MR AND TR vital signs Vital Sign Date Time Temp Pulse Resp B/P (MAP) Pulse Ox O2 Delivery O2 Flow Rate FiO2 04/30/24 05:51 115 107/70 04/30/24 05:00 97.7 18 98 97.7 04/29/24 23:43 Nasal Cannula* 2 28 Total Intake and Output 04/29/24 04/29/24 04/30/24 15:00 23:00 07:00 Intake Total 250 ml 550 ml 240 ml Balance 250 ml 550 ml 240 ml medications Current Medications Medications Dose Ordered Sig/[place] Route Start Time Stop Time Status Last Admin Dose Admin Aspirin 81 mg DAILY PO 04/30/24 10:00 Atorvastatin Calcium 40 mg HS PO 04/29/24 22:00 04/29/24 22:29 40 MG Morphine Sulfate 2 mg Q30MP PRN IV 04/29/24 12:30 Acetaminophen 650 mg Q6HP PRN PO 04/29/24 12:30 Nitroglycerin 0.4 mg Q5MINP PRN SL 04/29/24 12:30 Ondansetron HCl 4 mg Q4HP PRN IV 04/29/24 12:30 Nitroglycerin 0.4 mg Q5MINP PRN SL 04/29/24 12:30 UNV Morphine Sulfate 2 mg Q30M PRN IV 04/29/24 12:30 UNV Ceftriaxone Sodium 50 ml @ 100 mls/hr DAILY@09 IV 04/30/24 09:00 Azithromycin 250 ml @ 125 mls/hr DAILY IV 04/30/24 10:00 Apixaban 5 mg BID PO 04/29/24 22:00 04/29/24 22:29 5 MG Furosemide 20 mg DAILY PO 04/30/24 10:00 Latanoprost 1 drop HS EACHEYE 04/29/24 22:00 04/29/24 22:00 1 DROP Levothyroxine Sodium 100 mcg DAILY@0700 PO 04/30/24 07:00 04/30/24 06:14 100 MCG Sotalol HCl 80 mg DAILY PO 04/30/24 10:00 Brimonidine Tartrate 1 drop TID EACHEYE 04/29/24 14:00 04/30/24 06:14 1 DROP Patient Own Medication 1 tab DAILY PO 04/30/24 10:00 Future Hold Cholecalciferol 2,000 unit DAILY PO 04/30/24 10:00 Dorzolamide/ Timolol 1 drop BID EACHEYE 04/29/24 22:00 Patient Own Medication 1 tab DAILY PO 04/30/24 10:00 Pantoprazole Sodium 40 mg DAILY@0700 PO 04/30/24 07:00 04/30/24 06:14 40 MG Albuterol 2.5 mg Q4HPRN PRN NEB 04/29/24 14:00 Ipratropium [place] 0.5 mg Q4HPRN PRN NEB 04/29/24 14:00 Sodium Chloride 1,000 ml @ 100 mls/hr Q10H IV 04/29/24 14:00 04/29/24 14:59 100 MLS/HR Metoprolol Tartrate 25 mg BID PO 04/30/24 04:30 04/30/24 04:51 25 MG laboratory and microbiology Laboratory Tests 04/30/24 05:57 Test 04/30/24 05:57 Range/Units Serum Glucose 81 74-106 mg/dL Problem List THE 3rd ADMISSION FOR CHEST PAIN AND SOB PTs CORONARIES ARE CLEAN AND EF IS NORMAL CONSIDER HOSPICE PROGRESSIVE SX OF SOB EF 55% SEVERE TR SEVERE MR CXR MILD SX OF CEPHALIZATION PMH HX OF OBS AFIB HYPERCOAGULABLE STATE CVA REACTIVE AIRWAY DISEASE ANEMIA STEATOSIS RENAL CYST ANEMIA HYPOKALEMIA LHC NORMAL CORONARIES EF55% LVEDP 8 mmHg LVSP 90mmHg NO GRADIENT ACREOSS AV IVF FILTER HIS CHF SECONDARY TO MR AND TR Assessment/Plan CONTROL HR DIG AFTERLOAD REDUCTION Plan discussed with: Patient Critical Care Time(min): 35 EDUAR TEIXEIRA MD Apr 30, 2024 09:19
[2024-04-30] MEDS: cefTRIAXone 1GM/50ML D5W 50 ML IV SCH (09:55)
[2024-04-30] MEDS ORDERED: CALCIUM CITRATE PO SCH (10:00)
[2024-04-30] MEDS: MIRTAZAPINE PO SCH (10:00)
[2024-04-30] MEDS: AZITHROMYCIN 500MG/ 250ML 250 ML IV SCH (10:00)
[2024-04-30] MEDS: SOTALOL HCL 80 MG TAB PO SCH (10:00)
[2024-04-30] MEDS ORDERED: [UNRECOGNIZED DRUG - OTHER] PO SCH (10:00)
[2024-04-30] MEDS: CHOLECALCIFEROL (VITD3) 1,000UNIT=25mCg TAB PO SCH (10:02)
[2024-04-30] MEDS: FUROSEMIDE 40 MG TAB PO SCH (10:03)
[2024-04-30] MEDS: ASPirin 81 mg TAB PO SCH (10:04)
--- NOTE | 2024-04-30 12:54 | DVHPN2 ---
Reviewed: Care Plan, H&P, Labs, Medications, Previous Orders, Radiology Changes from previous H/P or p: No Changes Cardiovascular: Chest Pain, Palpitations Respiratory: Shortness of breath Objective Vitals Vital Signs Date Time Temp Pulse Resp B/P (MAP) Pulse Ox O2 Delivery O2 Flow Rate FiO2 04/30/24 10:03 99/72 04/30/24 10:00 108 04/30/24 09:00 97.4 20 98 97.4 04/29/24 23:43 Nasal Cannula* 2 28 Intake/Output Intake and Output 04/30/24 07:00 Intake Total 1040 ml Balance 1040 ml Intake Oral 240 ml IV Total 800 ml # Voids 1 Medications Current Medications Medications Dose Ordered Sig/[place]eva Route Start Time Stop Time Status Last Admin Dose Admin Aspirin 81 mg DAILY PO 04/30/24 10:00 04/30/24 10:04 81 MG Atorvastatin Calcium 40 mg HS PO 04/29/24 22:00 04/29/24 22:29 40 MG Morphine Sulfate 2 mg Q30MP PRN IV 04/29/24 12:30 Acetaminophen 650 mg Q6HP PRN PO 04/29/24 12:30 Nitroglycerin 0.4 mg Q5MINP PRN SL 04/29/24 12:30 Ondansetron HCl 4 mg Q4HP PRN IV 04/29/24 12:30 Nitroglycerin 0.4 mg Q5MINP PRN SL 04/29/24 12:30 UNV Morphine Sulfate 2 mg Q30M PRN IV 04/29/24 12:30 UNV Ceftriaxone Sodium 50 ml @ 100 mls/hr DAILY@09 IV 04/30/24 09:00 04/30/24 09:55 100 MLS/HR Azithromycin 250 ml @ 125 mls/hr DAILY IV 04/30/24 10:00 04/30/24 10:00 125 MLS/HR Apixaban 5 mg BID PO 04/29/24 22:00 04/30/24 10:03 5 MG Furosemide 20 mg DAILY PO 04/30/24 10:00 04/30/24 10:03 20 MG Latanoprost 1 drop HS EACHEYE 04/29/24 22:00 04/29/24 22:00 1 DROP Levothyroxine Sodium 100 mcg DAILY@0700 PO 04/30/24 07:00 04/30/24 06:14 100 MCG Sotalol HCl 80 mg DAILY PO 04/30/24 10:00 Brimonidine Tartrate 1 drop TID EACHEYE 04/29/24 14:00 04/30/24 06:14 1 DROP Patient Own Medication 1 tab DAILY PO 04/30/24 10:00 Hold Cholecalciferol 2,000 unit DAILY PO 04/30/24 10:00 04/30/24 10:02 2,000 UNIT Dorzolamide/ Timolol 1 drop BID EACHEYE 04/29/24 22:00 04/30/24 10:00 1 DROP Patient Own Medication 1 tab DAILY PO 04/30/24 10:00 Pantoprazole Sodium 40 mg DAILY@0700 PO 04/30/24 07:00 04/30/24 06:14 40 MG Albuterol 2.5 mg Q4HPRN PRN NEB 04/29/24 14:00 Ipratropium [place] 0.5 mg Q4HPRN PRN NEB 04/29/24 14:00 Sodium Chloride 1,000 ml @ 100 mls/hr Q10H IV 04/29/24 14:00 04/30/24 10:10 100 MLS/HR Metoprolol Tartrate 25 mg BID PO 04/30/24 04:30 04/30/24 04:51 25 MG Laboratory Results Laboratory Tests 04/30/24 05:57 Chemistry Test 04/30/24 05:57 Calcium Level 8.9 mg/dL (8.7-10.4) Magnesium Level 2.3 mg/dL (1.6-2.6) Urinalysis Test 04/30/24 03:32 Urine Color Yellow (Yellow) Urine Clarity Clear (Clear) Urine pH 5.5 (5.0-9.0) Urine Specific [place] 1.024 (1.001-1.035) Urine Protein Trace (Negative) H Urine Ketones Negative (Negative) Urine Blood Negative /uL (Negative) Urine Nitrite Negative (Negative) Urine Bilirubin Negative (Negative) Urine Urobilinogen Normal mg/dL (Negative) Urine Leukocyte Esterase Negative /uL (Negative) Urine RBC 1 /hpf (0 - 3) Urine Microscopic WBC 2 /HPF (0-3) Urine Squamous Epithelial Cells Few /hpf (<5) Urine Bacteria None seen /hpf (None Seen) Urine Glucose Normal mg/dL (Normal) Labs and/or images reviewed: Labs reviewed by me, Image(s) reviewed by me Assessment/Plan Assessment/Plan Chest pain and shortness of breath echo 55 percent ejection fraction coronaries normal, cardiology consult by Dr. Jim appreciated Bilateral community-acquired pneumonia: Rocephin azithromycin Anemia Sinus tach likely due to pneumonia Acute respiratory failure Home O2 use Acute COPD exacerbation AFib History of CVA Hypothyroidism Alzheimer dementia History of pacemaker Frequent admissions Time spent 65 minutes Patient is full code Advanced care planning time 20 minutes Patient lives in [facility] Plan discussed with: Patient Date of Service: Apr 30, 2024 Billing Provider: WILLIE DURHAM MD Common Visit Codes: [id number] CARE 30-74 MIN WILLIE DURHAM MD Apr 30, 2024 12:54
--- NOTE | 2024-04-30 13:49 | DVHPN2 ---
Progress Note - Dictate Date Seen: Apr 30, 2024 Medical Necessity Reason Pt with a Central, PICC or Fol: No Subjective THIS IS THE 3rd ADMISSION FOR CHEST PAIN AND SOB PTs CORONARIES ARE CLEAN AND EF IS NORMAL CONSIDER HOSPICE PROGRESSIVE SX OF SOB EF 55% SEVERE TR SEVERE MR CXR MILD SX OF CEPHALIZATION PMH HX OF OBS AFIB HYPERCOAGULABLE STATE CVA REACTIVE AIRWAY DISEASE ANEMIA STEATOSIS RENAL CYST ANEMIA HYPOKALEMIA LHC NORMAL CORONARIES EF55% LVEDP 8 mmHg LVSP 90mmHg NO GRADIENT ACREOSS AV IVF FILTER HIS CHF SECONDARY TO MR AND TR vital signs Vital Sign Date Time Temp Pulse Resp B/P (MAP) Pulse Ox O2 Delivery O2 Flow Rate FiO2 04/30/24 10:03 99/72 04/30/24 10:00 108 04/30/24 09:00 97.4 20 98 97.4 04/29/24 23:43 Nasal Cannula* 2 28 Total Intake and Output 04/29/24 04/29/24 04/30/24 15:00 23:00 07:00 Intake Total 250 ml 550 ml 240 ml Balance 250 ml 550 ml 240 ml medications Current Medications Medications Dose Ordered Sig/[place] Route Start Time Stop Time Status Last Admin Dose Admin Aspirin 81 mg DAILY PO 04/30/24 10:00 04/30/24 10:04 81 MG Atorvastatin Calcium 40 mg HS PO 04/29/24 22:00 04/29/24 22:29 40 MG Morphine Sulfate 2 mg Q30MP PRN IV 04/29/24 12:30 Acetaminophen 650 mg Q6HP PRN PO 04/29/24 12:30 Nitroglycerin 0.4 mg Q5MINP PRN SL 04/29/24 12:30 Ondansetron HCl 4 mg Q4HP PRN IV 04/29/24 12:30 Nitroglycerin 0.4 mg Q5MINP PRN SL 04/29/24 12:30 UNV Morphine Sulfate 2 mg Q30M PRN IV 04/29/24 12:30 UNV Ceftriaxone Sodium 50 ml @ 100 mls/hr DAILY@09 IV 04/30/24 09:00 04/30/24 09:55 100 MLS/HR Azithromycin 250 ml @ 125 mls/hr DAILY IV 04/30/24 10:00 04/30/24 10:00 125 MLS/HR Apixaban 5 mg BID PO 04/29/24 22:00 04/30/24 10:03 5 MG Furosemide 20 mg DAILY PO 04/30/24 10:00 04/30/24 10:03 20 MG Latanoprost 1 drop HS EACHEYE 04/29/24 22:00 04/29/24 22:00 1 DROP Levothyroxine Sodium 100 mcg DAILY@0700 PO 04/30/24 07:00 04/30/24 06:14 100 MCG Sotalol HCl 80 mg DAILY PO 04/30/24 10:00 Brimonidine Tartrate 1 drop TID EACHEYE 04/29/24 14:00 04/30/24 06:14 1 DROP Patient Own Medication 1 tab DAILY PO 04/30/24 10:00 Hold Cholecalciferol 2,000 unit DAILY PO 04/30/24 10:00 04/30/24 10:02 2,000 UNIT Dorzolamide/ Timolol 1 drop BID EACHEYE 04/29/24 22:00 04/30/24 10:00 1 DROP Patient Own Medication 1 tab DAILY PO 04/30/24 10:00 Pantoprazole Sodium 40 mg DAILY@0700 PO 04/30/24 07:00 04/30/24 06:14 40 MG Albuterol 2.5 mg Q4HPRN PRN NEB 04/29/24 14:00 Ipratropium [place] 0.5 mg Q4HPRN PRN NEB 04/29/24 14:00 Sodium Chloride 1,000 ml @ 100 mls/hr Q10H IV 04/29/24 14:00 04/30/24 10:10 100 MLS/HR Metoprolol Tartrate 25 mg BID PO 04/30/24 04:30 04/30/24 04:51 25 MG laboratory and microbiology Laboratory Tests 04/30/24 05:57 Test 04/30/24 05:57 Range/Units Serum Glucose 81 74-106 mg/dL Problem List THE 3rd ADMISSION FOR CHEST PAIN AND SOB PTs CORONARIES ARE CLEAN AND EF IS NORMAL CONSIDER HOSPICE PROGRESSIVE SX OF SOB EF 55% SEVERE TR SEVERE MR CXR MILD SX OF CEPHALIZATION PMH HX OF OBS AFIB HYPERCOAGULABLE STATE CVA REACTIVE AIRWAY DISEASE ANEMIA STEATOSIS RENAL CYST ANEMIA HYPOKALEMIA LHC NORMAL CORONARIES EF55% LVEDP 8 mmHg LVSP 90mmHg NO GRADIENT ACREOSS AV IVF FILTER HIS CHF SECONDARY TO MR AND TR Assessment/Plan CONTROL HR DIG AFTERLOAD REDUCTION Plan discussed with: Patient, Daughter EDUAR TEIXEIRA MD Apr 30, 2024 13:49
[2024-04-30] MEDS: ACETAMINOPHEN 325 MG TAB PO PRN (19:09)
[2024-05-01] VITALS (14 sets, daily range): BP systolic 92–110; BP diastolic 62–81; PULSE 74–131; RESP 16–20; TEMP 97.1–97.6; O2SAT 95–100
--- NOTE | 2024-05-01 10:04 | DVHPN2 ---
Reviewed: Care Plan, H&P, Labs, Medications, Previous Orders, Radiology Changes from previous H/P or p: No Changes Cardiovascular: Chest Pain, Palpitations Respiratory: Shortness of breath Objective Vitals Vital Signs Date Time Temp Pulse Resp B/P (MAP) Pulse Ox O2 Delivery O2 Flow Rate FiO2 05/01/24 08:00 Nasal Cannula* 3 32 05/01/24 05:00 97.6 131 17 106/76 (86) 99 97.6 Intake/Output Intake and Output 05/01/24 07:00 Intake Total 1450 ml Output Total 350 ml Balance 1100 ml Intake Oral 1150 ml IV Total 300 ml Output Urine Total 350 ml # Voids 2 # Bowel Movements 1 Medications Current Medications Medications Dose Ordered Sig/[place] Route Start Time Stop Time Status Last Admin Dose Admin Aspirin 81 mg DAILY PO 04/30/24 10:00 04/30/24 10:04 81 MG Atorvastatin Calcium 40 mg HS PO 04/29/24 22:00 04/30/24 21:24 40 MG Morphine Sulfate 2 mg Q30MP PRN IV 04/29/24 12:30 Acetaminophen 650 mg Q6HP PRN PO 04/29/24 12:30 05/01/24 02:09 650 MG Nitroglycerin 0.4 mg Q5MINP PRN SL 04/29/24 12:30 Ondansetron HCl 4 mg Q4HP PRN IV 04/29/24 12:30 Nitroglycerin 0.4 mg Q5MINP PRN SL 04/29/24 12:30 UNV Morphine Sulfate 2 mg Q30M PRN IV 04/29/24 12:30 UNV Ceftriaxone Sodium 50 ml @ 100 mls/hr DAILY@09 IV 04/30/24 09:00 05/01/24 09:11 100 MLS/HR Azithromycin 250 ml @ 125 mls/hr DAILY IV 04/30/24 10:00 04/30/24 10:00 125 MLS/HR Apixaban 5 mg BID PO 04/29/24 22:00 04/30/24 21:25 5 MG Furosemide 20 mg DAILY PO 04/30/24 10:00 04/30/24 10:03 20 MG Latanoprost 1 drop HS EACHEYE 04/29/24 22:00 04/30/24 21:22 1 DROP Levothyroxine Sodium 100 mcg DAILY@0700 PO 04/30/24 07:00 05/01/24 05:55 100 MCG Sotalol HCl 80 mg DAILY PO 04/30/24 10:00 Brimonidine Tartrate 1 drop TID EACHEYE 04/29/24 14:00 05/01/24 05:55 1 DROP Patient Own Medication 1 tab DAILY PO 04/30/24 10:00 Hold Cholecalciferol 2,000 unit DAILY PO 04/30/24 10:00 04/30/24 10:02 2,000 UNIT Dorzolamide/ Timolol 1 drop BID EACHEYE 04/29/24 22:00 04/30/24 21:23 1 DROP Patient Own Medication 1 tab DAILY PO 04/30/24 10:00 Pantoprazole Sodium 40 mg DAILY@0700 PO 04/30/24 07:00 05/01/24 05:55 40 MG Albuterol 2.5 mg Q4HPRN PRN NEB 04/29/24 14:00 Ipratropium [place] 0.5 mg Q4HPRN PRN NEB 04/29/24 14:00 Sodium Chloride 1,000 ml @ 100 mls/hr Q10H IV 04/29/24 14:00 04/30/24 20:00 100 MLS/HR Metoprolol Tartrate 25 mg BID PO 04/30/24 04:30 04/30/24 21:25 25 MG Laboratory Results Laboratory Tests 04/30/24 05:57 Urinalysis Test 04/30/24 03:32 Urine Color Yellow (Yellow) Urine Clarity Clear (Clear) Urine pH 5.5 (5.0-9.0) Urine Specific [place] 1.024 (1.001-1.035) Urine Protein Trace (Negative) H Urine Ketones Negative (Negative) Urine Blood Negative /uL (Negative) Urine Nitrite Negative (Negative) Urine Bilirubin Negative (Negative) Urine Urobilinogen Normal mg/dL (Negative) Urine Leukocyte Esterase Negative /uL (Negative) Urine RBC 1 /hpf (0 - 3) Urine Microscopic WBC 2 /HPF (0-3) Urine Squamous Epithelial Cells Few /hpf (<5) Urine Bacteria None seen /hpf (None Seen) Urine Glucose Normal mg/dL (Normal) Microbiology Microbiology Date/Time Source Procedure Growth Status 04/30/24 06:15 Nose MRSA Screen - Final Complete Labs and/or images reviewed: Labs reviewed by me, Image(s) reviewed by me Assessment/Plan Assessment/Plan Chest pain and shortness of breath echo 55 percent ejection fraction coronaries normal, cardiology consult by Dr. 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
[2024-05-01] MEDS ORDERED: LORazepam 2MG/ML-1ML VIAL IM ONE (12:45)
[2024-05-01] MEDS: ALBUTEROL SULF 2.5 MG/0.5ML(0.5%) NEB SOLN NEB PRN (12:51)
[2024-05-01] MEDS: IPRATROPIUM BROM 0.5 MG/2.5ML INH SOL NEB PRN (12:53)
[2024-05-01] MEDS: MORPHINE SULFATE 4 MG/ML SYR/VIAL IV PRN (15:06)
[2024-05-01 18:29] LABS: Base Excess -5.4 mmol/L (-2.0-3.0)
[2024-05-01] MEDS: ONDANSETRON HCL 4 MG/2 ML VIAL IV PRN (22:00)
[2024-05-02] VITALS (15 sets, daily range): BP systolic 92–150; BP diastolic 46–86; PULSE 64–119; RESP 17–22; TEMP 97.2–98.3; O2SAT 93–100
--- NOTE | 2024-05-02 11:14 | DVHPN2 ---
Reviewed: Care Plan, H&P, Labs, Medications, Previous Orders, Radiology Changes from previous H/P or p: No Changes Cardiovascular: Chest Pain, Palpitations Respiratory: Shortness of breath Objective Vitals Vital Signs Date Time Temp Pulse Resp B/P (MAP) Pulse Ox O2 Delivery O2 Flow Rate FiO2 05/02/24 10:27 110 18 99 05/02/24 10:21 Nasal Cannula 4.0 05/02/24 10:21 36 05/02/24 09:30 100/61 05/02/24 09:00 97.2 97.2 Intake/Output Intake and Output 05/02/24 07:00 Intake Total 1150 ml Output Total 150 ml Balance 1000 ml Intake Oral 850 ml IV Total 300 ml Output Urine Total 150 ml # Voids 2 Medications Current Medications Medications Dose Ordered Sig/[place] Route Start Time Stop Time Status Last Admin Dose Admin Aspirin 81 mg DAILY PO 04/30/24 10:00 05/02/24 09:17 81 MG Atorvastatin Calcium 40 mg HS PO 04/29/24 22:00 05/01/24 21:22 40 MG Morphine Sulfate 2 mg Q30MP PRN IV 04/29/24 12:30 05/01/24 15:06 2 MG Acetaminophen 650 mg Q6HP PRN PO 04/29/24 12:30 05/02/24 01:06 650 MG Nitroglycerin 0.4 mg Q5MINP PRN SL 04/29/24 12:30 Ondansetron HCl 4 mg Q4HP PRN IV 04/29/24 12:30 05/01/24 22:00 4 MG Nitroglycerin 0.4 mg Q5MINP PRN SL 04/29/24 12:30 UNV Morphine Sulfate 2 mg Q30M PRN IV 04/29/24 12:30 UNV Ceftriaxone Sodium 50 ml @ 100 mls/hr DAILY@09 IV 04/30/24 09:00 05/02/24 09:16 100 MLS/HR Azithromycin 250 ml @ 125 mls/hr DAILY IV 04/30/24 10:00 05/02/24 11:02 125 MLS/HR Apixaban 5 mg BID PO 04/29/24 22:00 05/02/24 09:17 5 MG Furosemide 20 mg DAILY PO 04/30/24 10:00 05/02/24 09:17 20 MG Latanoprost 1 drop HS EACHEYE 04/29/24 22:00 05/01/24 21:26 1 DROP Levothyroxine Sodium 100 mcg DAILY@0700 PO 04/30/24 07:00 05/02/24 05:26 100 MCG Sotalol HCl 80 mg DAILY PO 04/30/24 10:00 05/02/24 09:17 80 MG Brimonidine Tartrate 1 drop TID EACHEYE 04/29/24 14:00 05/02/24 05:26 1 DROP Patient Own Medication 1 tab DAILY PO 04/30/24 10:00 Hold Cholecalciferol 2,000 unit DAILY PO 04/30/24 10:00 05/02/24 09:17 2,000 UNIT Dorzolamide/ Timolol 1 drop BID EACHEYE 04/29/24 22:00 05/02/24 09:34 1 DROP Patient Own Medication 1 tab DAILY PO 04/30/24 10:00 Pantoprazole Sodium 40 mg DAILY@0700 PO 04/30/24 07:00 05/02/24 05:26 40 MG Albuterol 2.5 mg Q4HPRN PRN NEB 04/29/24 14:00 05/02/24 10:21 2.5 MG Ipratropium [place] 0.5 mg Q4HPRN PRN NEB 04/29/24 14:00 05/02/24 10:21 0.5 MG Metoprolol Tartrate 25 mg BID PO 04/30/24 04:30 05/01/24 21:23 25 MG Laboratory Results Laboratory Tests 04/30/24 05:57 Cardiac Markers Test 05/01/24 14:50 B-Type Natriuretic Peptide 1037.65 pg/mL (0-100) Urinalysis Test 04/30/24 03:32 Urine Color Yellow (Yellow) Urine Clarity Clear (Clear) Urine pH 5.5 (5.0-9.0) Urine Specific [place] 1.024 (1.001-1.035) Urine Protein Trace (Negative) H Urine Ketones Negative (Negative) Urine Blood Negative /uL (Negative) Urine Nitrite Negative (Negative) Urine Bilirubin Negative (Negative) Urine Urobilinogen Normal mg/dL (Negative) Urine Leukocyte Esterase Negative /uL (Negative) Urine RBC 1 /hpf (0 - 3) Urine Microscopic WBC 2 /HPF (0-3) Urine Squamous Epithelial Cells Few /hpf (<5) Urine Bacteria None seen /hpf (None Seen) Urine Glucose Normal mg/dL (Normal) Blood Gas Results Test 05/01/24 12:48 Arterial Blood pH 7.529 (7.350-7.450) FiO2 % 32.0 Microbiology Microbiology Date/Time Source Procedure Growth Status 04/30/24 06:15 Nose MRSA Screen - Final Complete Labs and/or images reviewed: Labs reviewed by me, Image(s) reviewed by me Assessment/Plan Assessment/Plan Chest pain and shortness of breath echo 55 percent ejection fraction coronaries normal, cardiology consult by Dr. Jim appreciated Bilateral community-acquired pneumonia: Rocephin azithromycin, consult placed for Dr. 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 Continue current management Plan discussed with: Patient My Orders Orders - WILLIE DURHAM MD Procedure Category Date Status Time Abg W/ Co-Ox RT 05/01/24 Logged 12:40 Date of Service: May 02, 2024 Billing Provider: WILLIE DURHAM MD Common Visit Codes: [id number] INP/OBS CARE(HIGH) WILLIE DURHAM MD May 02, 2024 11:14
--- NOTE | 2024-05-02 13:08 | DVHINCON2 ---
Date of service: May 02, [address] Gus Kilgore Reason for Consultation Dyspnea History of Present Illness An 83-year-old man with past medical history of COPD, atrial fibrillation, CVA, thyroid disease, Alzheimer's, dementia, and TIA who presented to ED on 04/29/24 with c/o palpitations, shortness of breath, and chest pain x1 day. Patient reported he uses oxygen on and off at his assisted living facility ([facility]). He walks with a front wheel walker. Patient unsure if he takes medications. Upon evaluation in ED, he denied chest pain, shortness of breath or palpitations. Denied fever, chills, N/V/D or other acute complaints. Patient was admitted for further care, and pulmonary consultation is requested for evaluation and management of acute hypoxic respiratory failure, COPD exacerb ation, pneumonia and pulmonary hypertension. Review of Systems: 14-point review of systems negative unless otherwise noted above. Past Medical History: COPD, AFib, CVA, hypothyroidism, Alzheimer's, dementia and TIA Past Surgical History: EGD and pacemaker. Medications: Reviewed. Allergies: Penicillins. Family History: Esophageal cancer Pacemaker placement. Arthritis Social History: Nonsmoker. No alcohol or illicit drug use. Family History: Arthritis FH: esophageal cancer Pacemaker Allergies: Coded Allergies: Penicillins (Verified Allergy, Severe, 04/22/18) Home Meds Active Scripts Furosemide (Lasix) 20 Mg Tb, 1 TAB PO QAM for 30 Days, #30 TAB 3 Refills Prov:ANTHONY PINEDA MD 04/13/24 Reported Medications Brinzolamide (Azopt) 1 % [place], 1 % OP UD for 30 Days, #10 04/05/24 Cholecalciferol (D3 SUPER STRENGTH) 2,000 Unit Cap, 1 CAP PO DAILY for 28 Days, #28 04/05/24 Omeprazole (Omeprazole Dr) 20 Mg Cap, 1 CAP PO DAILY for 28 Days, #04/05/24 Calcium Citrate-Vitamin D (Bunn Calcium/Vitamin D) Vit D Tab, 1 TAB PO DAILY for 28 Days, #04/05/24 Mirtazapine (Mirtazapine Oral Disintegrating Tablet) 7.5 Mg Tab, 1 TAB PO DAILY for 28 Days, #04/05/24 Levothyroxine Sodium (Levothyroxine Sodium) 100 Mcg Tab, 1 TAB PO DAILY for 28 Days, #28 04/05/24 Brimonidine Tartrate (Brimonidine Tartrate) 0.15 % Elizabet, 1 DROP OP TID for 30 Days, #10 04/03/24 Apixaban Base (ELIQUIS) 5 Mg Tab, 1 TAB PO BID for 28 Days, #56 04/22/18 Sotalol Hcl (Sotalol Hcl) 80 Mg Tab, 1 TAB PO DAILY, #60 TAB 5 Refills 05/12/17 Furosemide (Lasix) 40 Mg Tab, 0.5 TAB PO DAILY for 30 Days, #15 05/12/17 Latanoprost (LATANOPROST) 0.005 % Elizabet, 1 DROP EACHEYE HS, #7.5 ML 3 Refills 10/31/14 Dorzolamide-Timolol (Dorzolamide Hcl/Timolol M) 1 Ml Elizabet, 1 DROP EACHEYE BID, #10 ML 6 Refills 10/31/14 Vital Signs Vital Signs Date Time Temp Pulse Resp B/P (MAP) Pulse Ox O2 Delivery O2 Flow Rate FiO2 05/02/24 10:27 110 18 99 05/02/24 10:21 Nasal Cannula 4.0 05/02/24 10:21 36 05/02/24 09:30 100/61 05/02/24 09:00 97.2 97.2 Physical Exam Gen.: Patient lying in bed in no apparent distress. On supplemental oxygen. Head: Normocephalic, atraumatic. Eyes: EOMI/PERRLA. Ears: Normal hearing. Normal anatomy. Neck/trachea: Trachea midline, supple. Nose: Normal external anatomy. Mouth: Moist mucous membranes. Chest: Decreased air entry bilaterally. No wheezing or rhonchi. Cardiovascular: Positive S1, positive S2. Regular rate and rhythm. Abdomen: Positive bowel sounds in all 4 quadrants. Soft, non-tender, non- distended. : Deferred. Rectal: Deferred. Skin: Warm, dry. Intact. Extremities: 2+ radial pulses bilaterally. No lower extremity edema. Neuro: Awake, alert, oriented x3. No gross motor or sensory deficits. Cranial nerves II through XII intact. Gait not assessed. Labs/Diagnostic Data Labs Test 05/01/24 14:50 05/01/24 12:48 04/30/24 05:57 04/30/24 03:32 Range/Units B-Type Natriuretic Peptide 1037.65 0-100 pg/mL Blood Gas Specimen Type Arterial Blood Gas Sample Site Right radial Blood Gas Patient Temperature 37.0 Arterial Blood Date Drawn [id number] Arterial Blood pH 7.529 H 7.350-7.450 Arterial Blood Partial Pressure CO2 18.3 *L 35.0-48.0 mmHg Arterial Blood Partial Pressure O2 94.8 83.0-108.0 mmHg Arterial Blood HCO3 14.9 L 21.0-28.0 mmol/L Arterial Blood Oxygen Saturation 97.4 94.0-98.0 % Arterial Blood Base Excess -5.4 L -2.0-3.0 mmol/L Arterial Blood Oxyhemoglobin 97.0 94.0-98.0 % Arterial Blood Carboxyhemoglobin 0.2 L 0.5-1.5 % Arterial Blood Methemoglobin 0.2 0.0-1.5 % Chuy Test Modified Blood Gas Total Hemoglobin 12.60 L 13.5-17.5 g/dL Blood Gas Liter Flow 3.00 Blood Gas Modality Nasal cannula FiO2 % 32.0 Blood Gas Critical Value Read Back Yes Blood Gas Notified Whom Demario kilgore md Blood Gas Notified Time [id number] Blood Gas Notified By Sanjana tee rrt White Blood Count 5.6 4.4-10.8 10^3/uL Red Blood Count 3.81 L 4.5-5.90 10^6/uL Hemoglobin 11.4 L 13.5-17.5 g/dL Hematocrit 33.7 L 41.0-53.0 % Mean Corpuscular Volume 88.3 80.0-100.0 fL Mean Corpuscular Hemoglobin 29.9 28.0-32.0 pg Mean Corpuscular Hemoglobin Concent 33.8 32.0-36.0 g/dL Red Cell Distribution Width 20.6 H 11.8-14.3 % Platelet Count 185 140-450 10^3/uL Mean Platelet Volume 8.3 6.9-10.8 fL Neutrophils (%) (Auto) 74.3 37.0-80.0 % Lymphocytes (%) (Auto) 11.9 10.0-50.0 % Monocytes (%) (Auto) 10.4 0.0-12.0 % Eosinophils (%) (Auto) 2.1 0.0-7.0 % Basophils (%) (Auto) 1.3 0.0-2.0 % Neutrophils # (Auto) 4.1 1.6-8.6 10 ^3/uL Lymphocytes # (Auto) 0.7 0.4-5.4 10 ^3/uL Monocytes # (Auto) 0.6 0-1.3 10 ^3/uL Eosinophils # (Auto) 0.1 0-0.8 10 ^3/uL Basophils # (Auto) 0.1 0-0.2 10 ^3/uL Nucleated Red Blood Cells 0.0 % Sodium Level 138 136-145 mmol/L Potassium Level 4.2 3.5-5.1 mmol/L Chloride Level 109 H 98-107 mmol/L Carbon Dioxide Level 21 20-31 mmol/L Anion Gap 8 5-15 Blood Urea Nitrogen 15 9-23 mg/dL Creatinine 0.84 0.700-1.30 mg/dL Glomerular Filtration Rate Calc 85 >90 mL/min BUN/Creatinine Ratio 17.9 10.0-20.0 Serum Glucose 81 74-106 mg/dL Calcium Level 8.9 8.7-10.4 mg/dL Magnesium Level 2.3 1.6-2.6 mg/dL Urine Color Yellow Yellow Urine Clarity Clear Clear Urine pH 5.5 5.0-9.0 Urine Specific [place] 1.024 1.001-1.035 Urine Protein Trace H Negative Urine Ketones Negative Negative Urine Blood Negative Negative /uL Urine Nitrite Negative Negative Urine Bilirubin Negative Negative Urine Urobilinogen Normal Negative mg/dL Urine Leukocyte Esterase Negative Negative /uL Urine RBC 1 0 - 3 /hpf Urine Microscopic WBC 2 0-3 /HPF Urine Squamous Epithelial Cells Few <5 /hpf Urine Bacteria None seen None Seen /hpf Urine Glucose Normal Normal mg/dL Test 04/29/24 12:37 04/29/24 08:54 Range/Units Troponin I High Sensitivity 15 </=54 ng/L Hemoglobin A1c 5.2 <5.7 % A1C Triglycerides Level 85 < 150 mg/dL Cholesterol Level 123 < 200 mg/dL LDL Cholesterol 73 < 100 mg/dL HDL Cholesterol 38 L 40-59 mg/dL Thyroid Stimulating Hormone (TSH) 1.68 0.55-4.78 uIU/mL Microbiology Date/Time Source Procedure Growth Status 04/30/24 06:15 Nose MRSA Screen - Final Complete Assessment Impression: Acute on chronic hypoxic respiratory failure secondary to pneumonia Pneumonia, likely Gram-negative Acute exacerbation of COPD Alzheimer's dementia Status post pacemaker placement Atrial fibrillation Dependence on supplemental oxygen CHF exacerbation Pulmonary hypertension, WHO class two, right ventricular systolic pressure is 40 mmHg Plan: Chest x-ray imaging report reviewed. Moderate pulmonary vascular congestion. Supplemental oxygen Keep O2 saturation above 92%. Continue bronchodilators Continue antibiotics Continue steroids Diurese Monitor ins and outs Monitor renal function Monitor electrolytes. Supplement as necessary. Continue Eliquis, aspirin, beta-yolie, statin, sotalol as per Cardiology DVT prophylaxis Prognosis: Guarded given multiple comorbidities. Rest of plan per hospitalist and other consultants. Thank you Dr. Gus Kilgore for allowing me to participate in this patient's care. Further recommendations will depend on patient's clinical course. Please do not hesitate to contact me if you have any questions or concerns. This medical document was created using an electronic medical record system with Original dictation system. Although this document has been carefully reviewed, there may still be some phonetic and typographical errors. These areas are purely typographical due to imperfections of the software programs, and do not reflect any compromise in the patient's medical care. Plan discussed with: Patient, Other (NOHEMI Paul MD) VALERIANO SCHERER MD May 02, 2024 13:08
[2024-05-03] VITALS (17 sets, daily range): BP systolic 88–135; BP diastolic 38–72; PULSE 57–125; RESP 18–24; TEMP 96.2–97.9; O2SAT 92–100
[2024-05-03] MEDS: DEXTROSE 50% SYRINGE 50 ML IV ONE (00:18)
[2024-05-03] MEDS: DEXTROSE (50%) 50ML SYRG IV ONE (00:18)
--- NOTE | 2024-05-03 10:34 | ECG ---
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
[2024-05-03] MEDS: SODIUM BICARB 8.4% 50Meq/50ml SYR INJ ONE (11:19)
--- NOTE | 2024-05-03 11:30 | DVHPN2 ---
Reviewed: Care Plan, H&P, Labs, Medications, Previous Orders, Radiology Changes from previous H/P or p: No Changes Cardiovascular: Chest Pain, Palpitations Respiratory: Shortness of breath Objective Vitals Vital Signs Date Time Temp Pulse Resp B/P (MAP) Pulse Ox O2 Delivery O2 Flow Rate FiO2 05/03/24 09:57 99 103/66 05/03/24 08:40 97.0 20 98 97.0 05/03/24 05:06 Nasal Cannula* 3 32 Intake/Output Intake and Output 05/03/24 07:00 Intake Total 300 ml Output Total 150 ml Balance 150 ml Intake Oral 300 ml Output Urine Total 150 ml # Voids 1 Medications Current Medications Medications Dose Ordered Sig/[place] Route Start Time Stop Time Status Last Admin Dose Admin Aspirin 81 mg DAILY PO 04/30/24 10:00 05/03/24 09:54 81 MG Atorvastatin Calcium 40 mg HS PO 04/29/24 22:00 05/02/24 20:52 40 MG Morphine Sulfate 2 mg Q30MP PRN IV 04/29/24 12:30 05/01/24 15:06 2 MG Acetaminophen 650 mg Q6HP PRN PO 04/29/24 12:30 05/02/24 01:06 650 MG Nitroglycerin 0.4 mg Q5MINP PRN SL 04/29/24 12:30 Ondansetron HCl 4 mg Q4HP PRN IV 04/29/24 12:30 05/01/24 22:00 4 MG Nitroglycerin 0.4 mg Q5MINP PRN SL 04/29/24 12:30 UNV Morphine Sulfate 2 mg Q30M PRN IV 04/29/24 12:30 UNV Ceftriaxone Sodium 50 ml @ 100 mls/hr DAILY@09 IV 04/30/24 09:00 05/03/24 09:54 100 MLS/HR Azithromycin 250 ml @ 125 mls/hr DAILY IV 04/30/24 10:00 05/03/24 11:03 125 MLS/HR Apixaban 5 mg BID PO 04/29/24 22:00 05/03/24 09:55 5 MG Furosemide 20 mg DAILY PO 04/30/24 10:00 05/02/24 09:17 20 MG Latanoprost 1 drop HS EACHEYE 04/29/24 22:00 05/02/24 20:52 1 DROP Levothyroxine Sodium 100 mcg DAILY@0700 PO 04/30/24 07:00 05/03/24 06:33 100 MCG Sotalol HCl 80 mg DAILY PO 04/30/24 10:00 05/02/24 09:17 80 MG Brimonidine Tartrate 1 drop TID EACHEYE 04/29/24 14:00 05/03/24 06:33 1 DROP Patient Own Medication 1 tab DAILY PO 04/30/24 10:00 Hold Cholecalciferol 2,000 unit DAILY PO 04/30/24 10:00 05/03/24 09:54 2,000 UNIT Dorzolamide/ Timolol 1 drop BID EACHEYE 04/29/24 22:00 05/03/24 09:57 1 DROP Pantoprazole Sodium 40 mg DAILY@0700 PO 04/30/24 07:00 05/03/24 06:33 40 MG Albuterol 2.5 mg Q4HPRN PRN NEB 04/29/24 14:00 05/03/24 05:07 2.5 MG Ipratropium [place] 0.5 mg Q4HPRN PRN NEB 04/29/24 14:00 05/03/24 05:07 0.5 MG Metoprolol Tartrate 25 mg BID PO 04/30/24 04:30 05/03/24 09:55 25 MG Patient Own Medication 1 tab HS PO 05/03/24 22:00 Laboratory Results Laboratory Tests 04/30/24 05:57 Urinalysis Test 04/30/24 03:32 Urine Color Yellow (Yellow) Urine Clarity Clear (Clear) Urine pH 5.5 (5.0-9.0) Urine Specific [place] 1.024 (1.001-1.035) Urine Protein Trace (Negative) H Urine Ketones Negative (Negative) Urine Blood Negative /uL (Negative) Urine Nitrite Negative (Negative) Urine Bilirubin Negative (Negative) Urine Urobilinogen Normal mg/dL (Negative) Urine Leukocyte Esterase Negative /uL (Negative) Urine RBC 1 /hpf (0 - 3) Urine Microscopic WBC 2 /HPF (0-3) Urine Squamous Epithelial Cells Few /hpf (<5) Urine Bacteria None seen /hpf (None Seen) Urine Glucose Normal mg/dL (Normal) Microbiology Microbiology Date/Time Source Procedure Growth Status 04/30/24 06:15 Nose MRSA Screen - Final Complete Labs and/or images reviewed: Labs reviewed by me, Image(s) reviewed by me Assessment/Plan Assessment/Plan Chest pain and shortness of breath echo EF 55% , previous left heart catheterization showed coronaries normal, cardiology consult by Dr. Jim appreciated Bilateral community-acquired pneumonia: Rocephin azithromycin, pulmonary consult by Dr. 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
[2024-05-03] MEDS ORDERED: SODIUM BICARB 50mEq/50ml Vial 150 ML in D5W 5% 1,000 ML IV SCH (12:15)
[2024-05-03] MEDS: SODIUM BICARB 8.4% 50Meq/50ml SYR Vial IV ONE (12:30)
--- NOTE | 2024-05-03 12:55 | DVHPN2 ---
Progress Note - Dictate Date Seen: May 01, 2024 Medical Necessity Reason Pt with a Central, PICC or Fol: No Subjective THIS IS THE 3rd ADMISSION FOR CHEST PAIN AND SOB PTs CORONARIES ARE CLEAN AND EF IS NORMAL CONSIDER HOSPICE PROGRESSIVE SX OF SOB EF 55% SEVERE TR SEVERE MR CXR MILD SX OF CEPHALIZATION PMH HX OF OBS AFIB HYPERCOAGULABLE STATE CVA REACTIVE AIRWAY DISEASE ANEMIA STEATOSIS RENAL CYST ANEMIA HYPOKALEMIA LHC NORMAL CORONARIES EF55% LVEDP 8 mmHg LVSP 90mmHg NO GRADIENT ACREOSS AV IVF FILTER HIS CHF SECONDARY TO MR AND TR vital signs Vital Sign Date Time Temp Pulse Resp B/P (MAP) Pulse Ox O2 Delivery O2 Flow Rate FiO2 05/03/24 12:50 57 97 Facial BiPAP Mask 100 05/03/24 09:57 103/66 05/03/24 08:40 97.0 20 97.0 05/03/24 05:06 3 Total Intake and Output 05/02/24 05/02/24 05/03/24 15:00 23:00 07:00 Intake Total 100 ml 50 ml 150 ml Output Total 150 ml Balance 100 ml 50 ml 0 ml medications Current Medications Medications Dose Ordered Sig/[place] Route Start Time Stop Time Status Last Admin Dose Admin Aspirin 81 mg DAILY PO 04/30/24 10:00 05/03/24 09:54 81 MG Atorvastatin Calcium 40 mg HS PO 04/29/24 22:00 05/02/24 20:52 40 MG Morphine Sulfate 2 mg Q30MP PRN IV 04/29/24 12:30 05/01/24 15:06 2 MG Acetaminophen 650 mg Q6HP PRN PO 04/29/24 12:30 05/02/24 01:06 650 MG Nitroglycerin 0.4 mg Q5MINP PRN SL 04/29/24 12:30 Ondansetron HCl 4 mg Q4HP PRN IV 04/29/24 12:30 05/01/24 22:00 4 MG Nitroglycerin 0.4 mg Q5MINP PRN SL 04/29/24 12:30 UNV Morphine Sulfate 2 mg Q30M PRN IV 04/29/24 12:30 UNV Ceftriaxone Sodium 50 ml @ 100 mls/hr DAILY@09 IV 04/30/24 09:00 05/03/24 09:54 100 MLS/HR Azithromycin 250 ml @ 125 mls/hr DAILY IV 04/30/24 10:00 05/03/24 11:03 125 MLS/HR Apixaban 5 mg BID PO 04/29/24 22:00 05/03/24 09:55 5 MG Furosemide 20 mg DAILY PO 04/30/24 10:00 05/02/24 09:17 20 MG Latanoprost 1 drop HS EACHEYE 04/29/24 22:00 05/02/24 20:52 1 DROP Levothyroxine Sodium 100 mcg DAILY@0700 PO 04/30/24 07:00 05/03/24 06:33 100 MCG Sotalol HCl 80 mg DAILY PO 04/30/24 10:00 05/02/24 09:17 80 MG Brimonidine Tartrate 1 drop TID EACHEYE 04/29/24 14:00 05/03/24 06:33 1 DROP Patient Own Medication 1 tab DAILY PO 04/30/24 10:00 Hold Cholecalciferol 2,000 unit DAILY PO 04/30/24 10:00 05/03/24 09:54 2,000 UNIT Dorzolamide/ Timolol 1 drop BID EACHEYE 04/29/24 22:00 05/03/24 09:57 1 DROP Pantoprazole Sodium 40 mg DAILY@0700 PO 04/30/24 07:00 05/03/24 06:33 40 MG Albuterol 2.5 mg Q4HPRN PRN NEB 04/29/24 14:00 05/03/24 05:07 2.5 MG Ipratropium [place] 0.5 mg Q4HPRN PRN NEB 04/29/24 14:00 05/03/24 05:07 0.5 MG Metoprolol Tartrate 25 mg BID PO 04/30/24 04:30 05/03/24 09:55 25 MG Patient Own Medication 1 tab HS PO 05/03/24 22:00 Sodium Bicarbonate 150 ml/Dextrose 1,150 ml @ 100 mls/hr [id number] IV 05/03/24 12:15 laboratory and microbiology Laboratory Tests 04/30/24 05:57 Test 04/30/24 05:57 Range/Units Serum Glucose 81 74-106 mg/dL Problem List THE 3rd ADMISSION FOR CHEST PAIN AND SOB PTs CORONARIES ARE CLEAN AND EF IS NORMAL CONSIDER HOSPICE PROGRESSIVE SX OF SOB EF 55% SEVERE TR SEVERE MR CXR MILD SX OF CEPHALIZATION PMH HX OF OBS AFIB HYPERCOAGULABLE STATE CVA REACTIVE AIRWAY DISEASE ANEMIA STEATOSIS RENAL CYST ANEMIA HYPOKALEMIA LHC NORMAL CORONARIES EF55% LVEDP 8 mmHg LVSP 90mmHg NO GRADIENT ACREOSS AV IVF FILTER HIS CHF SECONDARY TO MR AND TR Assessment/Plan CONTROL HR DIG AFTERLOAD REDUCTION ANXIETY HYPERVENTILATION SYNDROME Plan discussed with: Patient EDUAR TEIXEIRA MD May 03, 2024 12:55
--- NOTE | 2024-05-03 12:57 | DVH ---
CHEST RADIOGRAPH Indication: hypoxia Technique: Single frontal view of the chest was obtained COMPARISON: XY CHEST XRAY 1 VIEW on DOS: 04/30/24, XY CHEST PORTABLE on DOS: 04/29/24, XY CHEST PORTABLE on DOS: 04/14/24, XY CHEST PORTABLE on DOS: 04/13/24, XY CHEST PORTABLE on DOS: 11/08/22 FINDINGS: Lines and Tubes: Left chest wall pacemaker in satisfactory position. Lungs: Congestion. Pleura: No effusion. No pneumothorax. Cardiomediastinal contours: Cardiomegaly. Bones: Unremarkable IMPRESSION: Pulmonary vascular congestion, unchanged.
--- NOTE | 2024-05-03 13:00 | DVHPN2 ---
Progress Note - Dictate Date Seen: May 02, 2024 Medical Necessity Reason Pt with a Central, PICC or Fol: No Subjective THIS IS THE 3rd ADMISSION FOR CHEST PAIN AND SOB PTs CORONARIES ARE CLEAN AND EF IS NORMAL CONSIDER HOSPICE PROGRESSIVE SX OF SOB EF 55% SEVERE TR SEVERE MR CXR MILD SX OF CEPHALIZATION PMH HX OF OBS AFIB HYPERCOAGULABLE STATE CVA REACTIVE AIRWAY DISEASE ANEMIA STEATOSIS RENAL CYST ANEMIA HYPOKALEMIA LHC NORMAL CORONARIES EF55% LVEDP 8 mmHg LVSP 90mmHg NO GRADIENT ACREOSS AV IVF FILTER HIS CHF SECONDARY TO MR AND TR vital signs Vital Sign Date Time Temp Pulse Resp B/P (MAP) Pulse Ox O2 Delivery O2 Flow Rate FiO2 05/03/24 12:50 57 97 Facial BiPAP Mask 100 05/03/24 09:57 103/66 05/03/24 08:40 97.0 20 97.0 05/03/24 05:06 3 Total Intake and Output 05/02/24 05/02/24 05/03/24 15:00 23:00 07:00 Intake Total 100 ml 50 ml 150 ml Output Total 150 ml Balance 100 ml 50 ml 0 ml medications Current Medications Medications Dose Ordered Sig/[place]eva Route Start Time Stop Time Status Last Admin Dose Admin Aspirin 81 mg DAILY PO 04/30/24 10:00 05/03/24 09:54 81 MG Atorvastatin Calcium 40 mg HS PO 04/29/24 22:00 05/02/24 20:52 40 MG Morphine Sulfate 2 mg Q30MP PRN IV 04/29/24 12:30 05/01/24 15:06 2 MG Acetaminophen 650 mg Q6HP PRN PO 04/29/24 12:30 05/02/24 01:06 650 MG Nitroglycerin 0.4 mg Q5MINP PRN SL 04/29/24 12:30 Ondansetron HCl 4 mg Q4HP PRN IV 04/29/24 12:30 05/01/24 22:00 4 MG Nitroglycerin 0.4 mg Q5MINP PRN SL 04/29/24 12:30 UNV Morphine Sulfate 2 mg Q30M PRN IV 04/29/24 12:30 UNV Ceftriaxone Sodium 50 ml @ 100 mls/hr DAILY@09 IV 04/30/24 09:00 05/03/24 09:54 100 MLS/HR Azithromycin 250 ml @ 125 mls/hr DAILY IV 04/30/24 10:00 05/03/24 11:03 125 MLS/HR Apixaban 5 mg BID PO 04/29/24 22:00 05/03/24 09:55 5 MG Furosemide 20 mg DAILY PO 04/30/24 10:00 05/02/24 09:17 20 MG Latanoprost 1 drop HS EACHEYE 04/29/24 22:00 05/02/24 20:52 1 DROP Levothyroxine Sodium 100 mcg DAILY@0700 PO 04/30/24 07:00 05/03/24 06:33 100 MCG Sotalol HCl 80 mg DAILY PO 04/30/24 10:00 05/02/24 09:17 80 MG Brimonidine Tartrate 1 drop TID EACHEYE 04/29/24 14:00 05/03/24 06:33 1 DROP Patient Own Medication 1 tab DAILY PO 04/30/24 10:00 Hold Cholecalciferol 2,000 unit DAILY PO 04/30/24 10:00 05/03/24 09:54 2,000 UNIT Dorzolamide/ Timolol 1 drop BID EACHEYE 04/29/24 22:00 05/03/24 09:57 1 DROP Pantoprazole Sodium 40 mg DAILY@0700 PO 04/30/24 07:00 05/03/24 06:33 40 MG Albuterol 2.5 mg Q4HPRN PRN NEB 04/29/24 14:00 05/03/24 05:07 2.5 MG Ipratropium [place] 0.5 mg Q4HPRN PRN NEB 04/29/24 14:00 05/03/24 05:07 0.5 MG Metoprolol Tartrate 25 mg BID PO 04/30/24 04:30 05/03/24 09:55 25 MG Patient Own Medication 1 tab HS PO 05/03/24 22:00 Sodium Bicarbonate 150 ml/Dextrose 1,150 ml @ 100 mls/hr [id number] IV 05/03/24 12:15 laboratory and microbiology Laboratory Tests 04/30/24 05:57 Test 04/30/24 05:57 Range/Units Serum Glucose 81 74-106 mg/dL Problem List THE 3rd ADMISSION FOR CHEST PAIN AND SOB PTs CORONARIES ARE CLEAN AND EF IS NORMAL CONSIDER HOSPICE PROGRESSIVE SX OF SOB EF 55% SEVERE TR SEVERE MR CXR MILD SX OF CEPHALIZATION PMH HX OF OBS AFIB HYPERCOAGULABLE STATE CVA REACTIVE AIRWAY DISEASE ANEMIA STEATOSIS RENAL CYST ANEMIA HYPOKALEMIA LHC NORMAL CORONARIES EF55% LVEDP 8 mmHg LVSP 90mmHg NO GRADIENT ACREOSS AV IVF FILTER HIS CHF SECONDARY TO MR AND TR SEVERE METABOLIC ACIDOSIS Assessment/Plan CONTROL HR DIG AFTERLOAD REDUCTION ANXIETY HYPERVENTILATION SYNDROME SECONDARY TO SEVERE METABOLIC ACIDOSIS MULTIPLE EPISODES OF HYPOGLYCEMIA SECONDARY TO POOR PO INTAKE SUDDEN CHANGE FROM RESP ALKALOSIS TO METABOLIC ACIDOSIS FROM ACUTE LACTIC ACIDOSIS FROM HYPOGLYCEMIA WITH CARDIOVASCULAR COLLAPSE HYPOTENSION? BUT VITALS DOES NOT INDICATE VASCULAR COLLAPSE! REPEAT ABG XANAX Plan discussed with: Patient, Son EDUAR TEIXEIRA MD May 03, 2024 13:00
--- NOTE | 2024-05-03 14:01 | ECG ---
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
--- NOTE | 2024-05-03 14:02 | ECG ---
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
[2024-05-03 14:04] LABS: Chloride 103 mmol/L (98-107)
[2024-05-03 14:05] LABS: Anion Gap 17 (5-15)
[2024-05-03 14:08] LABS: Calcium 8.2 mg/dL (8.7-10.4); Carbon Dioxide 14 mmol/L (20-31); Sodium 134 mmol/L (136-145)
[2024-05-03 14:11] LABS: BUN/Creatinine Ratio 31.4 (10.0-20.0)
[2024-05-03] MEDS ORDERED: FUROSEMIDE 40 MG/4 ML VIAL IV ONE (14:15)
[2024-05-03 14:16] LABS: Potassium 6.4 mmol/L (3.5-5.1)
[2024-05-03 14:17] LABS: Blood Urea Nitrogen 65 mg/dL (9-23); Glucose 164 mg/dL (74-106)
[2024-05-03 14:21] LABS: Base Excess -10.7 mmol/L (-2.0-3.0)
[2024-05-03 14:27] LABS: Basophils # (auto) 0 10 ^3/uL (0-0.2); Eosinophils # (auto) 0 10 ^3/uL (0-0.8); Eosinophils % (auto) 0.2 % (0.0-7.0); Hemoglobin 12.6 g/dL (13.5-17.5)
[2024-05-03 14:29] LABS: Basophils % (auto) 0.3 % (0.0-2.0); Hematocrit 40.8 % (41.0-53.0); Lymphocytes # (auto) 0.8 10 ^3/uL (0.4-5.4); Lymphocytes % (auto) 5.2 % (10.0-50.0); Mean Corpuscular Hemoglobin 28.5 pg (28.0-32.0); Monocytes # (auto) 1.3 10 ^3/uL (0-1.3); Monocytes % (auto) 8.6 % (0.0-12.0); Neutrophils # (auto) 12.6 10 ^3/uL (1.6-8.6); Neutrophils % (auto) 85.7 % (37.0-80.0); Nucleated Red Blood Cells % 0.2 %; Platelet Count (auto) 135 10^3/uL (140-450); Red Blood Cells 4.44 10^6/uL (4.5-5.90); Red Cell Distribution Width 21.9 % (11.8-14.3); White Blood Cell 14.7 10^3/uL (4.4-10.8)
[2024-05-03] MEDS ORDERED: MEROPENEM 1GM IVPB 50 ML IV ONE (14:30)
--- NOTE | 2024-05-03 15:04 | RESUS ---
CODE ASSIST ASSESSSMENT Situation Staff concerned/worried, speci: SaO2 <90, Change LOC, SBP <90 or 10 from baseli Assessment Temperature (Fahrenheit): 96.3 Blood Pressure Systolic: 83 Blood Pressure Diastolic: 68 Respiratory Rate: 22 Bedside Blood Glucose: 78 Assessment comment: second BP 74/51, not getting accurate waveform on pulse-ox but reading in the 60's-70's. Recommendations/Interventions Medications and Responses : Medication Comment: DR SCHERER ORDERED 1 LITER FLUID BOLUS IV, D50% IV, 2 AMPS HCO3 IV PUSH AND D5W WITH 3 AMPS HCO3 DRIP. Heart Rate: 02 EKG Rhythm: Sinus Tachycardia Procedures: Accu check, ABG, CXR Portable, CMP (WITH MAG LEVEL), CBC, Troponin, EKG, Cardiac Monitoring, BIPAP Other Interventions EKG Outcome Outcome: Transfer to Stepdown Follow up Report Follow up Report DAUGHTER DYAN AWARE OF PLAN OF CARE VIA PHONE AND GAVE TELEPHONE CONSENT TO CENTRAL LINE IF NEEDED PLACED IN CHART WITH 2ND RN ISRAEL TO VERIFY CONSENT OVER PHONE. Team Members Team Members DR SCHERER, DR STOUT, IZAIAH RN, TAVARES RN, SARA RN, ISRAEL RN, RICKY RN, SHAYY RN, Izaiah Arriaga May 03, 2024 15:03
[2024-05-03] MEDS: FUROSEMIDE 20 MG/2 ML VIAL IV ONE ×2 (15:45→20:00)
[2024-05-03] MEDS: MEROPENEM 500MG IVPB 50 ML IV ONE (17:25)
[2024-05-03] MEDS ORDERED: FUROSEMIDE 40 MG/4 ML VIAL IV SCH (18:00)
[2024-05-03] MEDS: SODIUM ZIRCONIUM CYCL 10 GM PAK PO ONE (21:43)
[2024-05-03] MEDS ORDERED: ALPRAZolam 0.25 MG TAB PO SCH (22:00)
[2024-05-03] MEDS ORDERED: MIRTAZAPINE PO SCH (22:00)
[2024-05-03] MEDS ORDERED: MEROPENEM 1GM IVPB 50 ML IV SCH (22:00)
--- NOTE | 2024-05-03 22:20 | DVHPN2 ---
Progress Note - Dictate Date Seen: May 03, 2024 Medical Necessity Reason Pt with a Central, PICC or Fol: No Subjective Patient seen and examined at bedside. Remains on supplemental oxygen Overnight events reviewed. vital signs Vital Sign Date Time Temp Pulse Resp B/P (MAP) Pulse Ox O2 Delivery O2 Flow Rate FiO2 05/03/24 20:00 87/56 05/03/24 18:52 89 18 100 05/03/24 18:45 Nasal Cannula* 5 40 05/03/24 16:40 97.7 97.7 Total Intake and Output 05/02/24 05/02/24 05/03/24 15:00 23:00 07:00 Intake Total 100 ml 50 ml 150 ml Output Total 150 ml Balance 100 ml 50 ml 0 ml medications Current Medications Medications Dose Ordered Sig/[place] Route Start Time Stop Time Status Last Admin Dose Admin Aspirin 81 mg DAILY PO 04/30/24 10:00 05/03/24 09:54 81 MG Morphine Sulfate 2 mg Q30MP PRN IV 04/29/24 12:30 05/01/24 15:06 2 MG Acetaminophen 650 mg Q6HP PRN PO 04/29/24 12:30 05/02/24 01:06 650 MG Nitroglycerin 0.4 mg Q5MINP PRN SL 04/29/24 12:30 Ondansetron HCl 4 mg Q4HP PRN IV 04/29/24 12:30 05/01/24 22:00 4 MG Nitroglycerin 0.4 mg Q5MINP PRN SL 04/29/24 12:30 UNV Morphine Sulfate 2 mg Q30M PRN IV 04/29/24 12:30 UNV Azithromycin 250 ml @ 125 mls/hr DAILY IV 04/30/24 10:00 05/03/24 11:03 125 MLS/HR Latanoprost 1 drop HS EACHEYE 04/29/24 22:00 05/03/24 21:43 1 DROP Levothyroxine Sodium 100 mcg DAILY@0700 PO 04/30/24 07:00 05/03/24 06:33 100 MCG Brimonidine Tartrate 1 drop TID EACHEYE 04/29/24 14:00 05/03/24 21:43 1 DROP Patient Own Medication 1 tab DAILY PO 04/30/24 10:00 Hold Dorzolamide/ Timolol 1 drop BID EACHEYE 04/29/24 22:00 05/03/24 21:43 1 DROP Albuterol 2.5 mg Q4HPRN PRN NEB 04/29/24 14:00 05/03/24 18:50 2.5 MG Ipratropium [place] 0.5 mg Q4HPRN PRN NEB 04/29/24 14:00 05/03/24 18:50 0.5 MG Pantoprazole Sodium 40 mg DAILY IV 05/04/24 10:00 Meropenem 50 ml @ 17 mls/hr Q12HR IV 05/04/24 10:00 Furosemide 20 mg DAILY IV 05/04/24 10:00 objective Gen.: Patient lying in bed in no apparent distress. On supplemental oxygen. Head: Normocephalic, atraumatic. Eyes: EOMI/PERRLA. Ears: Normal hearing. Normal anatomy. Neck/trachea: Trachea midline, supple. Nose: Normal external anatomy. Mouth: Moist mucous membranes. Chest: Decreased air entry bilaterally. No wheezing or rhonchi. Cardiovascular: Positive S1, positive S2. Regular rate and rhythm. Abdomen: Positive bowel sounds in all 4 quadrants. Soft, non-tender, non- distended. : Deferred. Rectal: Deferred. Skin: Warm, dry. Intact. Extremities: 2+ radial pulses bilaterally. No lower extremity edema. Neuro: Awake, alert, oriented x3. No gross motor or sensory deficits. Cranial nerves II through XII intact. Gait not assessed. laboratory and microbiology Laboratory Tests 05/03/24 16:38 05/03/24 13:25 Test 05/03/24 13:25 Range/Units Serum Glucose 164 H 74-106 mg/dL Assessment/Plan Impression: Acute on chronic hypoxic respiratory failure secondary to pneumonia Pneumonia, likely Gram-negative Acute exacerbation of COPD Alzheimer's dementia Status post pacemaker placement Atrial fibrillation Dependence on supplemental oxygen CHF exacerbation Pulmonary hypertension, WHO class two, right ventricular systolic pressure is 40 mmHg Events: Remains on supplemental oxygen ABG notable for severe metabolic acidosis 2 amps bicarb given Start D5W + 3 amps bicarb Follow up Cardiology recommendations Continue bronchodilators Continue steroids Continue antibiotics Diurese as tolerated w/ Lasix Monitor renal function Note, Code Assist called. Gave 1 liter normal saline bolus Patient hypoxic, hypoglycemic at 78, hypotensive. Placed on 8 LPM simple mask D50W infusion Obtain STAT chest x-ray/ABG. Labs and imaging reviewed. Rest of plan as noted below. Plan: Chest x-ray imaging report reviewed. Moderate pulmonary vascular congestion. Supplemental oxygen Keep O2 saturation above 92%. Continue bronchodilators Continue antibiotics Continue steroids Diurese Monitor ins and outs Monitor renal function Monitor electrolytes. Supplement as necessary. Continue Eliquis, aspirin, beta-yolie, statin, sotalol as per Cardiology DVT prophylaxis Prognosis: Guarded given multiple comorbidities. Condition: Critical Rest of plan per hospitalist and other consultants. A total of 35 minutes of critical care time was spent reviewing the patient record, examining the patient, making a diagnostic and therapeutic plan, discussing this plan with the medical personnel, following up on diagnostic studies and following the patient for clinical stability excluding any and all procedures. At least 50% of this time was spent in direct, [id number] contact. Thank you Dr. Gus Cazares for allowing me to participate in this patient's care. Further recommendations will depend on patient's clinical course. Please do not hesitate to contact me if you have any questions or concerns. This medical document was created using an electronic medical record system with [employer] dictation system. Although this document has been carefully reviewed, there may still be some phonetic and typographical errors. These areas are purely typographical due to imperfections of the software programs, and do not reflect any compromise in the patient's medical care. Plan discussed with: Other (NOHEMI Roe) Critical Care Time(min): 35 VALERIANO SCHERER MD May 03, 2024 22:20
[2024-05-04] VITALS (9 sets, daily range): BP systolic 88–130; BP diastolic 49–87; PULSE 87–115; RESP 14–20; TEMP 96.4–97.7; O2SAT 92–100
[2024-05-04 06:58] LABS: Albumin 3.2 g/dL (3.2-4.8); Anion Gap 19 (5-15); Calcium 8.8 mg/dL (8.7-10.4); Chloride 101 mmol/L (98-107); Total Protein 5.8 g/dL (5.7-8.2)
[2024-05-04 07:05] LABS: Basophils # (auto) 0 10 ^3/uL (0-0.2); Basophils % (auto) 0.1 % (0.0-2.0); Eosinophils # (auto) 0 10 ^3/uL (0-0.8); Eosinophils % (auto) 0.1 % (0.0-7.0); Hematocrit 35.2 % (41.0-53.0); Hemoglobin 11.6 g/dL (13.5-17.5); Lymphocytes # (auto) 0.5 10 ^3/uL (0.4-5.4); Lymphocytes % (auto) 3.2 % (10.0-50.0); Mean Corpuscular Hemoglobin 29.8 pg (28.0-32.0); Mean Corpuscular Volume 90.6 fL (80.0-100.0); Monocytes % (auto) 6.7 % (0.0-12.0); Neutrophils # (auto) 13.9 10 ^3/uL (1.6-8.6); Neutrophils % (auto) 89.9 % (37.0-80.0); Nucleated Red Blood Cells % 0.4 %; Platelet Count (auto) 143 10^3/uL (140-450); Red Blood Cells 3.88 10^6/uL (4.5-5.90); Red Cell Distribution Width 21.7 % (11.8-14.3); Sodium 136 mmol/L (136-145); White Blood Cell 15.5 10^3/uL (4.4-10.8)
[2024-05-04 07:06] LABS: Blood Urea Nitrogen 74 mg/dL (9-23); Carbon Dioxide 16 mmol/L (20-31); Glucose 62 mg/dL (74-106)
[2024-05-04 07:07] LABS: Alanine Aminotransferase > 1000 U/L (7-40); Alkaline Phosphatase 179 U/L (46-116); Aspartate Aminotransferase > 1000 U/L (13-40); Bilirubin, Total 4.9 mg/dL (0.2-1.0); Magnesium 2.8 mg/dL (1.6-2.6)
[2024-05-04 08:24] LABS: Base Excess -10.2 mmol/L (-2.0-3.0)
--- NOTE | 2024-05-04 09:24 | DVH ---
INDICATION: CHF TECHNIQUE: Single frontal view of the chest was obtained COMPARISON: XY CHEST PORTABLE on DOS: 05/03/24, XY CHEST XRAY 1 VIEW on DOS: 04/30/24, XY CHEST PORTABLE on DOS: 04/29/24, XY CHEST PORTABLE on DOS: 04/14/24, XY CHEST PORTABLE on DOS: 04/13/24, XY CHEST ИРИНА BLE on DOS: 05/03/24 FINDINGS: Lines and Tubes: Left chest wall pacemaker in satisfactory position. Lungs: Congestion. Pleura: No effusion. No pneumothorax. Cardiomediastinal contours: Cardiomegaly. Bones: Unremarkable IMPRESSION: Pulmonary vascular congestion, unchanged.
[2024-05-04] MEDS: SODIUM ZIRCONIUM CYCL 10 GM PAK PO ONE (09:59)
[2024-05-04] MEDS: FUROSEMIDE 20 MG/2 ML VIAL IV SCH (10:00)
[2024-05-04] MEDS: PANTOPRAZOLE 40 MG/10 ML VIAL INJ IV SCH (10:00)
[2024-05-04] MEDS: MEROPENEM 500MG IVPB 50 ML IV SCH (10:02)
--- NOTE | 2024-05-04 11:53 | DVHPN2 ---
Progress Note Date Seen: May 04, 2024 Medical Necessity Reason Pt with a Central, PICC or Fol: Yes The following are medically ne: Peralta Catheter Reason for peralta catheter: Strict I&O Subjective Patient reports: No new complaints Review of Systems: HEENT:Normal, CVS:Normal, RESPIRATORY:Normal, GI:Normal, :Normal, MSK:Normal, NEURO:Normal Objective vital signs Vital Sign Date Time Temp Pulse Resp B/P (MAP) Pulse Ox O2 Delivery O2 Flow Rate FiO2 05/04/24 10:00 88/56 05/04/24 09:00 96.5 106 16 94 96.5 05/04/24 06:48 Nasal Cannula* 4 36 Total Intake and Output 05/03/24 05/03/24 05/04/24 15:00 23:00 07:00 Intake Total 180 ml 650 ml 60 ml Output Total 150 ml 100 ml Balance 180 ml 500 ml -40 ml medications Current Medications Medications Dose Ordered Sig/[place] Route Start Time Stop Time Status Last Admin Dose Admin Aspirin 81 mg DAILY PO 04/30/24 10:00 05/04/24 09:59 81 MG Morphine Sulfate 2 mg Q30MP PRN IV 04/29/24 12:30 05/01/24 15:06 2 MG Acetaminophen 650 mg Q6HP PRN PO 04/29/24 12:30 05/04/24 00:04 650 MG Nitroglycerin 0.4 mg Q5MINP PRN SL 04/29/24 12:30 Ondansetron HCl 4 mg Q4HP PRN IV 04/29/24 12:30 05/01/24 22:00 4 MG Nitroglycerin 0.4 mg Q5MINP PRN SL 04/29/24 12:30 UNV Morphine Sulfate 2 mg Q30M PRN IV 04/29/24 12:30 UNV Azithromycin 250 ml @ 125 mls/hr DAILY IV 04/30/24 10:00 05/04/24 10:01 125 MLS/HR Latanoprost 1 drop HS EACHEYE 04/29/24 22:00 05/03/24 21:43 1 DROP Levothyroxine Sodium 100 mcg DAILY@0700 PO 04/30/24 07:00 05/04/24 10:00 100 MCG Brimonidine Tartrate 1 drop TID EACHEYE 04/29/24 14:00 05/04/24 06:15 1 DROP Patient Own Medication 1 tab DAILY PO 04/30/24 10:00 Hold Dorzolamide/ Timolol 1 drop BID EACHEYE 04/29/24 22:00 05/04/24 10:02 1 DROP Albuterol 2.5 mg Q4HPRN PRN NEB 04/29/24 14:00 05/03/24 18:50 2.5 MG Ipratropium [place] 0.5 mg Q4HPRN PRN NEB 04/29/24 14:00 05/03/24 18:50 0.5 MG Pantoprazole Sodium 40 mg DAILY IV 05/04/24 10:00 05/04/24 10:00 40 MG Meropenem 50 ml @ 17 mls/hr Q12HR IV 05/04/24 10:00 05/04/24 10:02 17 MLS/HR Furosemide 20 mg DAILY IV 05/04/24 10:00 Examination: GENERAL:Normal, HEENT:Normal, NECK:Normal, LUNGS:Normal, LUNGS:Abnormal (on oxygen), CVS:Normal, ABDOMEN:Normal, MSK:Normal, SKIN:Normal, NEURO:Normal, :Normal laboratory and microbiology Laboratory Tests 05/04/24 06:20 Test 05/04/24 06:20 Range/Units Serum Glucose 62 #L 74-106 mg/dL Microbiology Date/Time Source Procedure Growth Status 04/30/24 06:15 Nose MRSA Screen - Final Complete Problem List/Assessment/Plan Problem List/Assessment/Plan #1 sepsis with ?pneumonia: iv meropenem #2 acute renal failure/ vasomotor nephropathy: ivf #3 acute liver failure: usg #4 Acute systolic/diastolic heart failure/ severe mr/tr. #5 History of pacemaker. #6 Chronic obstructive pulmonary disease. #7* Dementia. #8 Atrial fibrillation with secondary hypercoagulable state. #9 Hypothyroidism. #10 acute resp failure: off bipap/on oxygen #11 nstemi #12 hyperkalemia: jacky pt is a dnr per advanced directive Plan discussed with: Patient My Orders My Orders Orders - ANTHONY PINEDA MD Procedure Category Date Status Time Pantoprazole PHA 05/04/24 In Process (Protonix) 10:00 Insert Peralta Catheter CONNOR 05/03/24 In Process 14:16 Chest Portable XY 05/04/24 Resulted 06:00 Abg W/ Co-Ox RT 05/04/24 Logged 06:00 Insert/Manage Urinary CONNOR 05/03/24 In Process Catheter 14:22 Meropenem 500mg Ivpb PHA 05/04/24 In Process (Merrem 500mg/Ns) 10:00 Furosemide Injection PHA 05/04/24 In Process (Lasix Injection) 10:00 1/2nsw Sodium PHA 05/04/24 Verified Bicarbonate Drip 11:45 Complete Blood Count LAB 05/05/24 Verified 06:00 Comprehensive LAB 05/05/24 Verified Metabolic Panel 06:00 Chest Portable XY 05/05/24 Verified 06:00 Critical Care Time (mins): 41 (critical care time 41 mins) Date of Service: May 04, 2024 Billing Provider: ANTHONY PINEDA MD Common Visit Codes: [id number] CARE 30-74 MIN ANTHONY PINEDA MD May 04, 2024 11:53
--- NOTE | 2024-05-04 13:13 | DVHPN2 ---
Progress Note - Dictate Date Seen: May 03, 2024 Medical Necessity Reason Pt with a Central, PICC or Fol: Yes The following are medically ne: Peralta Catheter Reason for peralta catheter: Strict I&O Subjective THIS IS THE 3rd ADMISSION FOR CHEST PAIN AND SOB PTs CORONARIES ARE CLEAN AND EF IS NORMAL CONSIDER HOSPICE PROGRESSIVE SX OF SOB EF 55% SEVERE TR SEVERE MR CXR MILD SX OF CEPHALIZATION PMH HX OF OBS AFIB HYPERCOAGULABLE STATE CVA REACTIVE AIRWAY DISEASE ANEMIA STEATOSIS RENAL CYST ANEMIA HYPOKALEMIA LHC NORMAL CORONARIES EF55% LVEDP 8 mmHg LVSP 90mmHg NO GRADIENT ACREOSS AV IVF FILTER HIS CHF SECONDARY TO MR AND TR vital signs Vital Sign Date Time Temp Pulse Resp B/P (MAP) Pulse Ox O2 Delivery O2 Flow Rate FiO2 05/04/24 12:38 96.5 90 14 130/87 (101) 97 96.5 05/04/24 06:48 Nasal Cannula* 4 36 Total Intake and Output 05/03/24 05/03/24 05/04/24 15:00 23:00 07:00 Intake Total 180 ml 650 ml 60 ml Output Total 150 ml 100 ml Balance 180 ml 500 ml -40 ml medications Current Medications Medications Dose Ordered Sig/[place] Route Start Time Stop Time Status Last Admin Dose Admin Aspirin 81 mg DAILY PO 04/30/24 10:00 05/04/24 09:59 81 MG Morphine Sulfate 2 mg Q30MP PRN IV 04/29/24 12:30 05/01/24 15:06 2 MG Acetaminophen 650 mg Q6HP PRN PO 04/29/24 12:30 05/04/24 00:04 650 MG Nitroglycerin 0.4 mg Q5MINP PRN SL 04/29/24 12:30 Ondansetron HCl 4 mg Q4HP PRN IV 04/29/24 12:30 05/01/24 22:00 4 MG Nitroglycerin 0.4 mg Q5MINP PRN SL 04/29/24 12:30 UNV Morphine Sulfate 2 mg Q30M PRN IV 04/29/24 12:30 UNV Latanoprost 1 drop HS EACHEYE 04/29/24 22:00 05/03/24 21:43 1 DROP Levothyroxine Sodium 100 mcg DAILY@0700 PO 04/30/24 07:00 05/04/24 10:00 100 MCG Brimonidine Tartrate 1 drop TID EACHEYE 04/29/24 14:00 05/04/24 06:15 1 DROP Patient Own Medication 1 tab DAILY PO 04/30/24 10:00 Hold Dorzolamide/ Timolol 1 drop BID EACHEYE 04/29/24 22:00 05/04/24 10:02 1 DROP Albuterol 2.5 mg Q4HPRN PRN NEB 04/29/24 14:00 05/03/24 18:50 2.5 MG Ipratropium [place] 0.5 mg Q4HPRN PRN NEB 04/29/24 14:00 05/03/24 18:50 0.5 MG Pantoprazole Sodium 40 mg DAILY IV 05/04/24 10:00 05/04/24 10:00 40 MG Meropenem 50 ml @ 17 mls/hr Q12HR IV 05/04/24 10:00 05/04/24 10:02 17 MLS/HR Sodium Bicarbonate 50 ml/ Sodium Chloride 1,050 ml @ 60 mls/hr [id number] IV 05/04/24 11:45 laboratory and microbiology Laboratory Tests 05/04/24 06:20 Test 05/04/24 06:20 Range/Units Serum Glucose 62 #L 74-106 mg/dL Problem List THE 3rd ADMISSION FOR CHEST PAIN AND SOB PTs CORONARIES ARE CLEAN AND EF IS NORMAL CONSIDER HOSPICE PROGRESSIVE SX OF SOB EF 55% SEVERE TR SEVERE MR CXR MILD SX OF CEPHALIZATION PMH HX OF OBS AFIB HYPERCOAGULABLE STATE CVA REACTIVE AIRWAY DISEASE ANEMIA STEATOSIS RENAL CYST ANEMIA HYPOKALEMIA LHC NORMAL CORONARIES EF55% LVEDP 8 mmHg LVSP 90mmHg NO GRADIENT ACREOSS AV IVF FILTER HIS CHF SECONDARY TO MR AND TR SEVERE METABOLIC ACIDOSIS Assessment/Plan CONTROL HR DIG AFTERLOAD REDUCTION ANXIETY HYPERVENTILATION SYNDROME SECONDARY TO SEVERE METABOLIC ACIDOSIS MULTIPLE EPISODES OF HYPOGLYCEMIA SECONDARY TO POOR PO INTAKE SUDDEN CHANGE FROM RESP ALKALOSIS TO METABOLIC ACIDOSIS FROM ACUTE LACTIC ACIDOSIS FROM HYPOGLYCEMIA WITH CARDIOVASCULAR COLLAPSE HYPOTENSION? BUT VITALS DOES NOT INDICATE VASCULAR COLLAPSE! REPEAT ABG XANAX Plan discussed with: Patient, Daughter Critical Care Time(min): 35 EDUAR TEIXEIRA MD May 04, 2024 13:13
[2024-05-04] MEDS ORDERED: SODIUM ZIRCONIUM CYCL 10 GM PAK PO ONE (13:15)
--- NOTE | 2024-05-04 13:16 | DVHPN2 ---
Progress Note - Dictate Date Seen: May 04, 2024 Medical Necessity Reason Pt with a Central, PICC or Fol: Yes The following are medically ne: Peralta Catheter Reason for peralta catheter: Strict I&O Subjective THIS IS THE 3rd ADMISSION FOR CHEST PAIN AND SOB PTs CORONARIES ARE CLEAN AND EF IS NORMAL CONSIDER HOSPICE PROGRESSIVE SX OF SOB EF 55% SEVERE TR SEVERE MR CXR MILD SX OF CEPHALIZATION PMH HX OF OBS AFIB HYPERCOAGULABLE STATE CVA REACTIVE AIRWAY DISEASE ANEMIA STEATOSIS RENAL CYST ANEMIA HYPOKALEMIA LHC NORMAL CORONARIES EF55% LVEDP 8 mmHg LVSP 90mmHg NO GRADIENT ACREOSS AV IVF FILTER HIS CHF SECONDARY TO MR AND TR vital signs Vital Sign Date Time Temp Pulse Resp B/P (MAP) Pulse Ox O2 Delivery O2 Flow Rate FiO2 05/04/24 12:38 96.5 90 14 130/87 (101) 97 96.5 05/04/24 06:48 Nasal Cannula* 4 36 Total Intake and Output 05/03/24 05/03/24 05/04/24 15:00 23:00 07:00 Intake Total 180 ml 650 ml 60 ml Output Total 150 ml 100 ml Balance 180 ml 500 ml -40 ml medications Current Medications Medications Dose Ordered Sig/[place] Route Start Time Stop Time Status Last Admin Dose Admin Aspirin 81 mg DAILY PO 04/30/24 10:00 05/04/24 09:59 81 MG Morphine Sulfate 2 mg Q30MP PRN IV 04/29/24 12:30 05/01/24 15:06 2 MG Acetaminophen 650 mg Q6HP PRN PO 04/29/24 12:30 05/04/24 00:04 650 MG Nitroglycerin 0.4 mg Q5MINP PRN SL 04/29/24 12:30 Ondansetron HCl 4 mg Q4HP PRN IV 04/29/24 12:30 05/01/24 22:00 4 MG Nitroglycerin 0.4 mg Q5MINP PRN SL 04/29/24 12:30 UNV Morphine Sulfate 2 mg Q30M PRN IV 04/29/24 12:30 UNV Latanoprost 1 drop HS EACHEYE 04/29/24 22:00 05/03/24 21:43 1 DROP Levothyroxine Sodium 100 mcg DAILY@0700 PO 04/30/24 07:00 05/04/24 10:00 100 MCG Brimonidine Tartrate 1 drop TID EACHEYE 04/29/24 14:00 05/04/24 06:15 1 DROP Patient Own Medication 1 tab DAILY PO 04/30/24 10:00 Hold Dorzolamide/ Timolol 1 drop BID EACHEYE 04/29/24 22:00 05/04/24 10:02 1 DROP Albuterol 2.5 mg Q4HPRN PRN NEB 04/29/24 14:00 05/03/24 18:50 2.5 MG Ipratropium [place] 0.5 mg Q4HPRN PRN NEB 04/29/24 14:00 05/03/24 18:50 0.5 MG Pantoprazole Sodium 40 mg DAILY IV 05/04/24 10:00 05/04/24 10:00 40 MG Meropenem 50 ml @ 17 mls/hr Q12HR IV 05/04/24 10:00 05/04/24 10:02 17 MLS/HR Sodium Bicarbonate 50 ml/ Sodium Chloride 1,050 ml @ 60 mls/hr [id number] IV 05/04/24 11:45 laboratory and microbiology Laboratory Tests 05/04/24 06:20 Test 05/04/24 06:20 Range/Units Serum Glucose 62 #L 74-106 mg/dL Problem List THE 3rd ADMISSION FOR CHEST PAIN AND SOB PTs CORONARIES ARE CLEAN AND EF IS NORMAL CONSIDER HOSPICE PROGRESSIVE SX OF SOB EF 55% SEVERE TR SEVERE MR CXR MILD SX OF CEPHALIZATION PMH HX OF OBS AFIB HYPERCOAGULABLE STATE CVA REACTIVE AIRWAY DISEASE ANEMIA STEATOSIS RENAL CYST ANEMIA HYPOKALEMIA LHC NORMAL CORONARIES EF55% LVEDP 8 mmHg LVSP 90mmHg NO GRADIENT ACREOSS AV IVF FILTER HIS CHF SECONDARY TO MR AND TR SEVERE METABOLIC ACIDOSIS Assessment/Plan CONTROL HR DIG AFTERLOAD REDUCTION ANXIETY HYPERVENTILATION SYNDROME SECONDARY TO SEVERE METABOLIC ACIDOSIS MULTIPLE EPISODES OF HYPOGLYCEMIA SECONDARY TO POOR PO INTAKE SUDDEN CHANGE FROM RESP ALKALOSIS TO METABOLIC ACIDOSIS FROM ACUTE LACTIC ACIDOSIS FROM HYPOGLYCEMIA WITH CARDIOVASCULAR COLLAPSE HYPOTENSION? BUT VITALS DOES NOT INDICATE VASCULAR COLLAPSE! REPEAT ABG XANAX HOLD LASI LOKELMA TO TREAT HYPERKALEMIA Plan discussed with: Patient Critical Care Time(min): 35 EDUAR TEIXEIRA MD May 04, 2024 13:16
[2024-05-04] MEDS: SODIUM BICARB 50mEq/50ml Vial 50 ML in SOD CHL 0.45% 1,000 ML IV SCH (15:29)
[2024-05-04 18:48] LABS: Chloride 102 mmol/L (98-107)
[2024-05-04 18:49] LABS: Anion Gap 17 (5-15)
[2024-05-04 18:52] LABS: Calcium 7.9 mg/dL (8.7-10.4); Carbon Dioxide 12 mmol/L (20-31); Sodium 131 mmol/L (136-145)
[2024-05-04 18:54] LABS: Blood Urea Nitrogen 63 mg/dL (9-23); Glucose 74 mg/dL (74-106); Potassium 6.6 mmol/L (3.5-5.1)
[2024-05-04] MEDS: DEXTROSE 50% SYRINGE 50 ML IV ONE (19:39)
--- NOTE | 2024-05-04 20:01 | DVHPN2 ---
Progress Note - Dictate Date Seen: May 04, 2024 Medical Necessity Reason Pt with a Central, PICC or Fol: Yes The following are medically ne: Peralta Catheter Reason for peralta catheter: Strict I&O Subjective Patient seen and examined at bedside. Remains on supplemental oxygen Overnight events reviewed. vital signs Vital Sign Date Time Temp Pulse Resp B/P (MAP) Pulse Ox O2 Delivery O2 Flow Rate FiO2 05/04/24 16:49 96.4 103 16 92/49 (63) 92 96.4 05/04/24 10:00 Nasal Cannula 3.0 05/04/24 10:00 32 Total Intake and Output 05/03/24 05/03/24 05/04/24 15:00 23:00 07:00 Intake Total 180 ml 650 ml 60 ml Output Total 150 ml 100 ml Balance 180 ml 500 ml -40 ml medications Current Medications Medications Dose Ordered Sig/[place] Route Start Time Stop Time Status Last Admin Dose Admin Aspirin 81 mg DAILY PO 04/30/24 10:00 05/04/24 09:59 81 MG Morphine Sulfate 2 mg Q30MP PRN IV 04/29/24 12:30 05/01/24 15:06 2 MG Acetaminophen 650 mg Q6HP PRN PO 04/29/24 12:30 05/04/24 00:04 650 MG Nitroglycerin 0.4 mg Q5MINP PRN SL 04/29/24 12:30 Ondansetron HCl 4 mg Q4HP PRN IV 04/29/24 12:30 05/01/24 22:00 4 MG Nitroglycerin 0.4 mg Q5MINP PRN SL 04/29/24 12:30 UNV Morphine Sulfate 2 mg Q30M PRN IV 04/29/24 12:30 UNV Latanoprost 1 drop HS EACHEYE 04/29/24 22:00 05/03/24 21:43 1 DROP Levothyroxine Sodium 100 mcg DAILY@0700 PO 04/30/24 07:00 05/04/24 10:00 100 MCG Brimonidine Tartrate 1 drop TID EACHEYE 04/29/24 14:00 05/04/24 15:33 1 DROP Patient Own Medication 1 tab DAILY PO 04/30/24 10:00 Hold Dorzolamide/ Timolol 1 drop BID EACHEYE 04/29/24 22:00 05/04/24 10:02 1 DROP Albuterol 2.5 mg Q4HPRN PRN NEB 04/29/24 14:00 05/03/24 18:50 2.5 MG Ipratropium [place] 0.5 mg Q4HPRN PRN NEB 04/29/24 14:00 05/03/24 18:50 0.5 MG Pantoprazole Sodium 40 mg DAILY IV 05/04/24 10:00 05/04/24 10:00 40 MG Meropenem 50 ml @ 17 mls/hr Q12HR IV 05/04/24 10:00 05/04/24 10:02 17 MLS/HR Sodium Bicarbonate 50 ml/ Sodium Chloride 1,050 ml @ 60 mls/hr [id number] IV 05/04/24 11:45 05/04/24 15:29 60 MLS/HR objective Gen.: Patient lying in bed in no apparent distress. On supplemental oxygen. Head: Normocephalic, atraumatic. Eyes: EOMI/PERRLA. Ears: Normal hearing. Normal anatomy. Neck/trachea: Trachea midline, supple. Nose: Normal external anatomy. Mouth: Moist mucous membranes. Chest: Decreased air entry bilaterally. No wheezing or rhonchi. Cardiovascular: Positive S1, positive S2. Regular rate and rhythm. Abdomen: Positive bowel sounds in all 4 quadrants. Soft, non-tender, non- distended. : Deferred. Rectal: Deferred. Skin: Warm, dry. Intact. Extremities: 2+ radial pulses bilaterally. No lower extremity edema. Neuro: Awake, alert, oriented x3. No gross motor or sensory deficits. Cranial nerves II through XII intact. Gait not assessed. laboratory and microbiology Laboratory Tests 05/04/24 17:50 05/04/24 06:20 Test 05/04/24 17:50 Range/Units Serum Glucose 74 74-106 mg/dL Assessment/Plan Impression: Acute on chronic hypoxic respiratory failure secondary to pneumonia Pneumonia, likely Gram-negative Acute exacerbation of COPD Alzheimer's dementia Status post pacemaker placement Atrial fibrillation Dependence on supplemental oxygen CHF exacerbation Pulmonary hypertension, WHO class two, right ventricular systolic pressure is 40 mmHg Events: Remains on supplemental oxygen 4 LPM NC Taper O2 as tolerated BiPAP PRN. ABG reviewed, compensated CXR reviewed, demonstrates pulmonary vascular congestion, unchanged. Pacemaker in place. Continue sodium bicarb IV Cardiology recommendations appreciated Continue bronchodilators Continue antibiotics Incentive spirometry Labs and imaging reviewed. Rest of plan as noted below. Plan: Supplemental oxygen Keep O2 saturation above 92%. Continue bronchodilators Continue antibiotics Monitor renal function Monitor electrolytes. Supplement as necessary. Monitor ins and outs Eliquis, aspirin, beta-yolie, statin, sotalol as per Cardiology DVT prophylaxis Prognosis: Guarded given multiple comorbidities. Rest of plan per hospitalist and other consultants. Thank you Dr. Gus Cazares for allowing me to participate in this patient's care. Further recommendations will depend on patient's clinical course. Please do not hesitate to contact me if you have any questions or concerns. This medical document was created using an electronic medical record system with [employer] dictation system. Although this document has been carefully reviewed, there may still be some phonetic and typographical errors. These areas are purely typographical due to imperfections of the software programs, and do not reflect any compromise in the patient's medical care. Dietary Evaluation Review Comments: 1. Recommend continuation of Cardiac diet as tolerated 2. Add Ensure Enlive once/day to enhance PO (provides 350 kcal, 20 gm protein per serving) 3. Monitor labs closely, significant abnormalities Expected Outcomes/Goals: Improved nutrition-related lab values, nutritional status, PO intake. Plan discussed with: Patient, Other (NOHEMI Dela Cruz) VALERIANO SCHERER MD May 04, 2024 20:01
[2024-05-05 01:00] VITALS: BP 35/19; PULSE 65; O2SAT 89
--- NOTE | 2024-05-05 11:38 | DVHDS ---
DATE OF DISCHARGE: 05/05/2024 SUMMARY HISTORY OF PRESENT ILLNESS: The patient was an 83-year-old gentleman who was admitted with a history of shortness of breath and chest pain. The patient has history of COPD, dementia, congestive heart failure, atrial fibrillation, CVA, and hypothyroidism as well as pacemaker. HOSPITAL COURSE: The patient was initially seen by Dr. Cazares. Chest x-ray showed evidence of bibasilar opacities. The patient was noted to be in acute respiratory failure along with congestive heart failure. The patient subsequently developed acute renal failure with metabolic acidosis. Followup chest x-ray showed evidence of pulmonary congestion. The patient was seen in Cardiology consult by Dr. Jim. He was made DNR by the family. The patient also developed a shock liver. He on 05/05/2024. FINAL DIAGNOSES: Therefore, * Sepsis with likely pneumonia. * Acute renal failure/vasomotor nephropathy. * Acute liver failure. * Acute systolic/diastolic heart failure with severe mitral regurgitation. * History of pacemaker. * Chronic obstructive pulmonary disease. * Dementia. * Atrial fibrillation. * Acute respiratory failure. * Non-ST elevation myocardial infarction. * Hyperkalemia. * Hypothyroidism. * DNR status. MD AYSE Patel/MERRITT TID: [id number] RECEIPT: [id number]
--- NOTE | 2024-05-05 12:32 | DVHPN2 ---
Progress Note - Dictate Date Seen: May 05, 2024 Medical Necessity Reason Pt with a Central, PICC or Fol: Yes The following are medically ne: Peralta Catheter Reason for peralta catheter: Strict I&O Subjective THIS IS THE 3rd ADMISSION FOR CHEST PAIN AND SOB PTs CORONARIES ARE CLEAN AND EF IS NORMAL CONSIDER HOSPICE PROGRESSIVE SX OF SOB EF 55% SEVERE TR SEVERE MR CXR MILD SX OF CEPHALIZATION PMH HX OF OBS AFIB HYPERCOAGULABLE STATE CVA REACTIVE AIRWAY DISEASE ANEMIA STEATOSIS RENAL CYST ANEMIA HYPOKALEMIA LHC NORMAL CORONARIES EF55% LVEDP 8 mmHg LVSP 90mmHg NO GRADIENT ACREOSS AV IVF FILTER HIS CHF SECONDARY TO MR AND TR vital signs Vital Sign Date Time Temp Pulse Resp B/P (MAP) Pulse Ox O2 Delivery O2 Flow Rate FiO2 05/05/24 01:00 65 35/19 (24) 89 05/04/24 16:49 96.4 16 96.4 05/04/24 10:00 Nasal Cannula 3.0 05/04/24 10:00 32 Total Intake and Output 05/04/24 05/04/24 05/05/24 14:59 22:59 06:59 Intake Total 300 ml 180 ml Output Total 200 ml Balance 300 ml -20 ml medications Current Medications Medications Dose Ordered Sig/[place] Route Start Time Stop Time Status Last Admin Dose Admin Aspirin 81 mg DAILY PO 04/30/24 10:00 05/04/24 09:59 81 MG Morphine Sulfate 2 mg Q30MP PRN IV 04/29/24 12:30 05/01/24 15:06 2 MG Acetaminophen 650 mg Q6HP PRN PO 04/29/24 12:30 05/04/24 00:04 650 MG Nitroglycerin 0.4 mg Q5MINP PRN SL 04/29/24 12:30 Ondansetron HCl 4 mg Q4HP PRN IV 04/29/24 12:30 05/01/24 22:00 4 MG Nitroglycerin 0.4 mg Q5MINP PRN SL 04/29/24 12:30 UNV Morphine Sulfate 2 mg Q30M PRN IV 04/29/24 12:30 UNV Latanoprost 1 drop HS EACHEYE 04/29/24 22:00 05/03/24 21:43 1 DROP Levothyroxine Sodium 100 mcg DAILY@0700 PO 04/30/24 07:00 05/04/24 10:00 100 MCG Brimonidine Tartrate 1 drop TID EACHEYE 04/29/24 14:00 05/04/24 15:33 1 DROP Patient Own Medication 1 tab DAILY PO 04/30/24 10:00 Hold Dorzolamide/ Timolol 1 drop BID EACHEYE 04/29/24 22:00 05/04/24 10:02 1 DROP Albuterol 2.5 mg Q4HPRN PRN NEB 04/29/24 14:00 05/03/24 18:50 2.5 MG Ipratropium [place] 0.5 mg Q4HPRN PRN NEB 04/29/24 14:00 05/03/24 18:50 0.5 MG Pantoprazole Sodium 40 mg DAILY IV 05/04/24 10:00 05/04/24 10:00 40 MG Meropenem 50 ml @ 17 mls/hr Q12HR IV 05/04/24 10:00 05/04/24 10:02 17 MLS/HR Sodium Bicarbonate 50 ml/ Sodium Chloride 1,050 ml @ 60 mls/hr [id number] IV 05/04/24 11:45 05/04/24 15:29 60 MLS/HR laboratory and microbiology Laboratory Tests 05/04/24 17:50 05/04/24 06:20 Test 05/04/24 17:50 Range/Units Serum Glucose 74 74-106 mg/dL Problem List THE 3rd ADMISSION FOR CHEST PAIN AND SOB PTs CORONARIES ARE CLEAN AND EF IS NORMAL CONSIDER HOSPICE PROGRESSIVE SX OF SOB EF 55% SEVERE TR SEVERE MR CXR MILD SX OF CEPHALIZATION PMH HX OF OBS AFIB HYPERCOAGULABLE STATE CVA REACTIVE AIRWAY DISEASE ANEMIA STEATOSIS RENAL CYST ANEMIA HYPOKALEMIA LHC NORMAL CORONARIES EF55% LVEDP 8 mmHg LVSP 90mmHg NO GRADIENT ACREOSS AV IVF FILTER HIS CHF SECONDARY TO MR AND TR SEVERE METABOLIC ACIDOSIS Assessment/Plan CONTROL HR DIG AFTERLOAD REDUCTION ANXIETY HYPERVENTILATION SYNDROME SECONDARY TO SEVERE METABOLIC ACIDOSIS MULTIPLE EPISODES OF HYPOGLYCEMIA SECONDARY TO POOR PO INTAKE SUDDEN CHANGE FROM RESP ALKALOSIS TO METABOLIC ACIDOSIS FROM ACUTE LACTIC ACIDOSIS FROM HYPOGLYCEMIA WITH CARDIOVASCULAR COLLAPSE HYPOTENSION? BUT VITALS DOES NOT INDICATE VASCULAR COLLAPSE! REPEAT ABG XANAX HOLD LASI LOKELMA TO TREAT HYPERKALEMIA PT BECAME HYPOTENSIVE COMFORT MEASURES PT WAS DNR PASSED TODAY Dietary Evaluation Review Comments: 1. Recommend continuation of Cardiac diet as tolerated 2. Add Ensure Enlive once/day to enhance PO (provides 350 kcal, 20 gm protein per serving) 3. Monitor labs closely, significant abnormalities Expected Outcomes/Goals: Improved nutrition-related lab values, nutritional status, PO intake. Plan discussed with: Other EDUAR TEIXEIRA MD May 05, 2024 12:32
--- NOTE | 2024-05-05 17:25 | ECG ---
[facility] Test Date: 2024-05-01 Test Time: 14:48:46 Pat Name: CAMILLE CRAIN Department: Respiratoy Room: 0246T B Gender: M [employer] Line Server: : 1940 Requested By: WILLIE DURHAM Order Number: [id number] Reading MD: Measurements Intervals [place] Rate: 108 P: 0 TN: 0 QRS: 45 QRSD: 101 T: 227 QT: 360 QTc: 483 Interpretive Statements Atrial fibrillation Borderline low voltage, extremity leads Borderline repolarization abnormality Borderline prolonged QT interval Please click the below link to view image of tracing.
== END 2024-05-05 00:07 | DRG 871 ==
LOC: ER 08:30 → EDBD 08:30 → OVERFLOW 12:18 → TELE-EAST 12:21
PROVIDERS: ADMIT Internal Medicine; ATTEND Internal Medicine
PROC: 5A09357 Assistance with Respiratory Ventilation, Less than 24 Consecutive Hours, Continuous Positive Airway Pressure (ICD-10-PCS; principal; 2024-05-03)
DX: A41.9 Sepsis, unspecified organism (principal); G93.41 Metabolic encephalopathy; N17.0 Acute kidney failure with tubular necrosis; I21.4 Non-ST elevation (NSTEMI) myocardial infarction; K72.00 Acute and subacute hepatic failure without coma; J18.9 Pneumonia, unspecified organism; J96.00 Acute respiratory failure, unspecified whether with hypoxia or hypercapnia; I50.41 Acute combined systolic (congestive) and diastolic (congestive) heart failure; J44.1 Chronic obstructive pulmonary disease with (acute) exacerbation; J44.0 Chronic obstructive pulmonary disease with (acute) lower respiratory infection; D68.59 Other primary thrombophilia; E87.20 Acidosis, unspecified; D64.9 Anemia, unspecified; G30.9 Alzheimer's disease, unspecified; E87.5 Hyperkalemia; Z66 Do not resuscitate; I08.1 Rheumatic disorders of both mitral and tricuspid valves; E03.9 Hypothyroidism, unspecified; I27.20 Pulmonary hypertension, unspecified; I48.0 Paroxysmal atrial fibrillation; F45.8 Other somatoform disorders; F02.80 Dementia in other diseases classified elsewhere, unspecified severity, without behavioral disturbance, psychotic disturbance, mood disturbance, and anxiety; I11.0 Hypertensive heart disease with heart failure; Z86.73 Personal history of transient ischemic attack (TIA), and cerebral infarction without residual deficits; Z88.0 Allergy status to penicillin; Z79.84 Long term (current) use of oral hypoglycemic drugs; Z79.899 Other long term (current) drug therapy; Z79.2 Long term (current) use of antibiotics; Z95.0 Presence of cardiac pacemaker; Z79.82 Long term (current) use of aspirin; Z79.1 Long term (current) use of non-steroidal anti-inflammatories (NSAID); Z99.81 Dependence on supplemental oxygen; Z80.0 Family history of malignant neoplasm of digestive organs
CPT/HCPCS: 36415; 36600; 71045; 80048; 80053; 80061; 81001; 82805; 82962; 83036; 83735; 83880; 84132; 84443; 84484; 85025; 87081; 93005; 94640; 94660; 99291; 99292; G0378; J2185; J2405; J2470